=== PATIENT | female | born 1935 | race Caucasian/White ===

== ENCOUNTER → 2016-11-28 | Outpatient (CLI) | payer MEDICARE, BC ==
--- NOTE | 2016-11-28 10:24 | CR ---
EXAMINATION: Double contrast barium esophagram HISTORY: Difficulty swallowing COMPARISON: None TECHNIQUE: A standard double contrast barium esophagram was performed. FINDINGS: The esophagus overall appears normal in caliber. No filling defect or ulceration. Mild ter tiary waves are noted. There is impression on the lower esophagus from the lower heart border. There is narrowing at the gastroesophageal junction with a possible trace hiatal hernia. Mild gastroesoph ageal reflux is noted. IMPRESSION: 1. Mild presbyesophagus. 2. Mild narrowing at the gastroesophageal junction which did not appear to completely open without a n obvious mass. 3. Possible trace hiatal hernia.
== END ==
LOC: MW.DI 08:27
PROVIDERS: ATTEND Student in an Organized Health Care Education/Training Program
DX: R13.10 Dysphagia, unspecified (principal); K22.8 Other specified diseases of esophagus
CPT/HCPCS: 74220; 74220-26

== ENCOUNTER 2017-06-20 08:59 | Emergency (ER) | payer MEDICARE, OTHER ==
[2017-06-20] MEDS ORDERED: Sodium Chloride 0.9% 2.5 ML Syringe FLUSH PRN (09:03)
[2017-06-20] MEDS ORDERED: Sodium Chloride 0.9% 10 ML Syringe FLUSH PRN (09:03)
--- NOTE | 2017-06-20 09:15 | EDM.PDOC ---
ED HPI GENERAL MEDICAL PROBLEM - General Chief Complaint: Neurological Problem Stated Complaint: HBP Time Seen by Provider: 06/20/17 09:03 Source of Information: Reports: Patient, Family History Limitations: Reports: No Limitations - History of Present Illness INITIAL COMMENTS - FREE TEXT/NARRATIVE: History of present illness: []Patient sense with speech difficulty and a stroke was called. Her gives a history that she was having some difficulty speaking while playing cards 2 nights ago but then improved. Last night around 5 PM she had difficulty finding her words and complaining of a headache. She told her she rather just go to the clinic in the morning. She went to bed and slept all night. states she slept on the william and he woke her up this morning to find that her speech was just as jumbled. They drove to Dr. Botello's office to be seen, his nurse checked her blood pressure and told them to drive straight to the emergency room. She arrives with difficulty finding her words, ambulatory, no motor weakness and is able to state that she has a headache pain. Review of systems: As per history of present illness and below otherwise all systems reviewed and negative. Past medical history: As per history of present illness and as reviewed below otherwise noncontributory. Surgical history: As per history of present illness and as reviewed below otherwise noncontributory. Social history: No reported history of drug or alcohol abuse. Family history: As per history of present illness and as reviewed below otherwise noncontributory. Physical exam: General: Well developed, well nourished in NAD HEENT: Atraumatic, normocephalic, pupils reactive, negative for conjunctival pallor or scleral icterus, mucous membranes moist, throat clear, neck supple, nontender, trachea midline. Lungs: Clear to auscultation, breath sounds equal bilaterally, chest nontender. Heart: S1S2, regular, negative for clicks, rubs, or JVD. Abdomen: Soft, nondistended, nontender. Negative for masses or hepatosplenomegaly. Negative for costovertebral tenderness. Pelvis: Stable nontender. 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: Deferred. Rectal: Deferred. Extremities: Atraumatic, negative for cords or calf pain. Neurovascular unremarkable. Neuro: Awake, alert, oriented. Cranial nerves II through XII unremarkable. Cerebellum unremarkable. Motor and sensory unremarkable throughout. Exam nonfocal. After patient returned from CT marked right-sided facial droop was noted. Patient received an aspirin and nitroglycerin here in the ED and when I returned to inform patient of their transfer to [place] patient's right-sided facial droop had resolved. Diagnostics: []CT and labs ordered CT is negative, Therapeutics: []Aspirin and nitroglycerin given Impression: []CVA Plan: []Transfer to [facility]. I initially arranged transfer for this patient to go to [facility] as it is closest hospital however patient refused and insisted on going on to [facility] Definitive disposition and diagnosis as appropriate pending reevaluation and review of above. Headache Pain Score (Numeric/FACES): 1 - Related Data Allergies Allergy/AdvReac Type Severity Reaction Status Date / Time No Known Allergies Allergy Verified 06/20/17 09:14 Home Meds: Home Meds Dorzolamide/Timolol [Cosopt 2%-0.5% Ophth Soln] 1 drop EYEBOTH DAILY 05/28/16 [ History] Latanoprost [Latanoprost] 2.5 ml EYEBOTH DAILY 05/28/16 [History] Omeprazole [Omeprazole] 40 mg PO DAILY 05/28/16 [History] Sertraline HCl [Sertraline HCl] 100 mg PO DAILY 05/28/16 [History] Past Medical History HEENT History: Reports: Cataract Cardiovascular History: Reports: Hypertension Social & Family History - Tobacco Use Smoking Status *Q: Never Smoker Second Hand Smoke Exposure: No - Recreational Drug Use Recreational Drug Use: No ED ROS GENERAL - Review of Systems Review Of Systems: See Below (See history of present illness) ED EXAM, NEURO - Physical Exam Exam: See Below (See history of present illness) Course - Vital Signs Last Recorded V/S: Last Vital Signs Temp 98.2 F 06/20/17 09:50 Pulse 65 06/20/17 09:50 Resp 16 06/20/17 09:50 BP 157/88 H 06/20/17 09:50 Pulse Ox 92 L 06/20/17 09:50 - Orders/Labs/Meds Orders: Active Orders 24 hr Category Date Time Status Assess Neurological Status [RC] ASDIRECTED Care 06/20/17 09:03 Active Bedrest [RC] ASDIRECTED Care 06/20/17 09:03 Active Blood Glucose Check, Bedside [RC] STAT Care 06/20/17 09:03 Active Cardiac Monitoring [RC] . DIRECTED Care 06/20/17 09:03 Active EKG Documentation Completion [] STAT Care 06/20/17 09:03 Active Height and Weight [] UPON Care 06/20/17 09:03 Active Initiate Acute Stroke Protocol [] STAT Care 06/20/17 09:03 Active NIH Stroke Scale [RC] ASDIRECTED Care 06/20/17 09:03 Active Nursing Bedside Swallow Screen [RC] ASDIRECTED Care 06/20/17 09:03 Active Oxygen Therapy [RC] ASDIRECTED Care 06/20/17 09:03 Active Stroke Education, General [] Click to Edit Care 06/20/17 09:03 Active Vital Signs [] Q15M Care 06/20/17 09:03 Active COMPREHENSIVE METABOLIC PN,CMP [CHEM] Stat Lab 06/20/17 09:56 Received INR,PT,PROTHROMBIN TIME [COAG] Stat Lab 06/20/17 09:56 Received PTT,PARTIAL THROMBOPLSTIN TIME [COAG] Stat Lab 06/20/17 09:56 Received TROPONIN I [CHEM] Stat Lab 06/20/17 09:56 Received TSH [CHEM] Stat Lab 06/20/17 09:56 Received Sodium Chloride 0.9% [Saline Flush] Med 06/20/17 09:03 Active 10 ml FLUSH ASDIRECTED PRN Sodium Chloride 0.9% [Saline Flush] Med 06/20/17 09:03 Active 2.5 ml FLUSH ASDIRECTED PRN Peripheral IV Insertion Adult [OM.PC] Stat Oth 06/20/17 09:03 Ordered Peripheral IV Insertion Adult [OM.PC] Stat Oth 06/20/17 09:03 Ordered Medication Orders Sodium Chloride (Saline Flush) 10 ml FLUSH ASDIRECTED PRN PRN Reason: Keep Vein Open Sodium Chloride (Saline Flush) 2.5 ml FLUSH ASDIRECTED PRN PRN Reason: Keep Vein Open Labs: Laboratory Tests 06/20/17 Range/Units 09:56 WBC 7.91 (4.0-11.0) K/uL RBC 3.59 L (4.30-5.90) M/uL Hgb 11.7 L (12.0-16.0) g/dL Hct 35.4 L (36.0-46.0) % MCV 98.6 H (80.0-98.0) fL MCH 32.6 H (27.0-32.0) pg MCHC 33.1 (31.0-37.0) g/dL RDW Std Deviation 48.5 (28.0-62.0) fl RDW Coeff of Luke 13 (11.0-15.0) % Plt Count 230 (150-400) K/uL MPV 10.70 (7.40-12.00) fL Neut % (Auto) 66.4 (48.0-80.0) % Lymph % (Auto) 19.5 (16.0-40.0) % [place] % (Auto) 12.1 (0.0-15.0) % Eos % (Auto) 1.6 (0.0-7.0) % Baso % (Auto) 0.4 (0.0-1.5) % Neut # (Auto) 5.3 (1.4-5.7) K/uL Lymph # (Auto) 1.5 (0.6-2.4) K/uL [place] # (Auto) 1.0 H (0.0-0.8) K/uL Eos # (Auto) 0.1 (0.0-0.7) K/uL Baso # (Auto) 0.0 (0.0-0.1) K/uL Nucleated RBC % 0.0 /100WBC Nucleated RBCs # 0 K/uL Meds: Medications Generic Name Dose Route Start Last Admin Trade Name Freq PRN Reason Stop Dose Admin Sodium Chloride 10 ml 06/20/17 09:03 Saline Flush FLUSH ASDIRECTED PRN Keep Vein Open Sodium Chloride 2.5 ml 06/20/17 09:03 Saline Flush FLUSH ASDIRECTED PRN Keep Vein Open Discontinued Medications Generic Name Dose Route Start Last Admin Trade Name Freq PRN Reason Stop Dose Admin Aspirin 324 mg 06/20/17 09:19 06/20/17 09:30 Aspirin PO 06/20/17 09:20 324 mg ONETIME ONE Administration Nitroglycerin 0.4 mg 06/20/17 09:19 06/20/17 09:47 Nitrostat SL 0.4 mg Q5M PRN Administration Chest Pain Departure - Departure Time of Disposition: 10:10 Disposition: DC/Tfer to Acute Hospital 02 Condition: Fair Clinical Impression: CVA (cerebral vascular accident) Qualifiers: CVA mechanism: unspecified Qualified Code(s): I63.9 - Cerebral infarction, unspecified - Discharge Information Referrals: PCP,None [Primary Care Provider] - Forms: ED Department Discharge - My Orders Last 24 Hours: My Active Orders 06/20/17 09:03 Assess Neurological Status [RC] ASDIRECTED Bedrest [RC] ASDIRECTED Blood Glucose Check, Bedside [RC] STAT Cardiac Monitoring [RC] . DIRECTED EKG Documentation Completion [RC] STAT Height and Weight [RC] UPON Initiate Acute Stroke Protocol [RC] STAT NIH Stroke Scale [RC] ASDIRECTED Nursing Bedside Swallow Screen [RC] ASDIRECTED Oxygen Therapy [RC] ASDIRECTED Stroke Education, General [RC] Click to Edit Vital Signs [RC] Q15M Sodium Chloride 0.9% [Saline Flush] 10 ml FLUSH ASDIRECTED PRN Sodium Chloride 0.9% [Saline Flush] 2.5 ml FLUSH ASDIRECTED PRN Peripheral IV Insertion Adult [OM.PC] Stat Peripheral IV Insertion Adult [OM.PC] Stat 06/20/17 09:56 COMPREHENSIVE METABOLIC PN,CMP [CHEM] Stat INR,PT,PROTHROMBIN TIME [COAG] Stat PTT,PARTIAL THROMBOPLSTIN TIME [COAG] Stat TROPONIN I [CHEM] Stat TSH [CHEM] Stat - Assessment/Plan Last 24 Hours: My Active Orders 06/20/17 09:03 Assess Neurological Status [RC] ASDIRECTED Bedrest [RC] ASDIRECTED Blood Glucose Check, Bedside [RC] STAT Cardiac Monitoring [RC] . DIRECTED EKG Documentation Completion [RC] STAT Height and Weight [RC] UPON Initiate Acute Stroke Protocol [RC] STAT NIH Stroke Scale [RC] ASDIRECTED Nursing Bedside Swallow Screen [RC] ASDIRECTED Oxygen Therapy [RC] ASDIRECTED Stroke Education, General [RC] Click to Edit Vital Signs [RC] Q15M Sodium Chloride 0.9% [Saline Flush] 10 ml FLUSH ASDIRECTED PRN Sodium Chloride 0.9% [Saline Flush] 2.5 ml FLUSH ASDIRECTED PRN Peripheral IV Insertion Adult [OM.PC] Stat Peripheral IV Insertion Adult [OM.PC] Stat 06/20/17 09:56 COMPREHENSIVE METABOLIC PN,CMP [CHEM] Stat INR,PT,PROTHROMBIN TIME [COAG] Stat PTT,PARTIAL THROMBOPLSTIN TIME [COAG] Stat TROPONIN I [CHEM] Stat TSH [CHEM] Stat
[2017-06-20] MEDS ORDERED: Aspirin 81 MG Tab.Chew PO ONE (09:19)
--- NOTE | 2017-06-20 09:22 | CT ---
EXAMINATION: Non contrast CT head. Coronal and sagittal reformats. HISTORY: Stroke code FINDINGS: No evidence of intra or extra axial hemorrhage, mass, midline shift, hydrocephalus or edema. Mild ge neralized atrophy and moderate periventricular and subcortical white matter hypodensities noted. No hypoattenuation changes in the major vascular territories to suggest acute infarct. No abnormal i ntracranial calcifications are detected. Mild vascular calcifications noted. Paranasal sinuses and mastoid air cells are well aerated without substantial findings. Orbits and gl obes are symmetric. Degenerative changes noted within the temporomandibular joints. Pituitary fossa appears unremarkable. Calvarium is intact. No evidence of skull fracture. IMPRESSION: 1. No acute intracranial findings. 2. Mild generalized atrophy and moderate small vessel ischemic changes. The above findings were called to ER at 9:19 AM.
[2017-06-20] MEDS: Nitroglycerin 0.4 MG Tab.SL SL PRN ×3 (09:35→09:47)
[2017-06-20 10:09] VITALS: BP 140/92
[2017-06-20 10:23] LABS: CHLORIDE,CL 102 mmol/L (98-110); SODIUM,NA 137 mmol/L (136-146)
== END 2017-06-20 11:10 ==
LOC: MW.ED 08:59
DX: I63.9 Cerebral infarction, unspecified (principal); I10 Essential (primary) hypertension; Z79.899 Other long term (current) drug therapy
CPT/HCPCS: 36415; 70450; 80053; 84443; 84484; 85025; 85610; 85730; 93005; 99285; A9270

== ENCOUNTER 2018-10-20 06:12 | Emergency (ER) | payer MEDICARE, OTHER ==
--- NOTE | 2018-10-20 06:18 | EDM.PDOC ---
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 She tells me that she thinks she got her flu shot this year but she is not completely sure and she says that she has had progressive shortness of breath and cough productive of thick phlegm over the last 3 days. She has not had a fever abdominal pain vomiting or diarrhea and no runny nose or sore throat. She says she doesn't eat or drink for a well in general. She is followed by our oncology clinic and she says that she had surgery on the left side of her lung to remove a nodule and then she had chemotherapy and radiation. She said that she finished her last treatment on July 10 of last year and the plan was to wait 3 months and repeat the PET scan which she just had done the end of last month. She is waiting to meet with the oncologist to see what the next steps are but she thinks that she is in remission. She has no cardiac disease that she is aware of and she says that she feels tightness across her chest more with her breathing and coughing but is not localized to the left side. She tells me that she thinks she has COPD although she has never had a formal diagnosis because of her long-standing smoking history. She says that she quit 15 years ago she smoked the majority of her life and she would not be surprised if she has some lung disease. She says the doctors never specifically told her or tested her for that. The patient has no leg pain or swelling and she tells me that all the symptoms have been gradual in onset progressive. She tells me that her pulse ox in the past has been 94-95% on room air. The patient had a PET scan just recently on October 08 which revealed avid uptake within a left thyroid nodule which was new from the prior exam and mildly increasing uptake with atelectasis and reticular densities within the superior aspect of the left lower lobe and a small left pleural effusion. According to the computer she does have an ultrasound scheduled of her thyroid Review of systems: As per history of present illness and below otherwise all systems reviewed and negative. Past medical history: As per history of present illness and as reviewed below otherwise noncontributory. Surgical history: As per history of present illness and as reviewed below otherwise noncontributory. Social history: No reported history of drug or alcohol abuse. Family history: As per history of present illness and as reviewed below otherwise noncontributory. Physical exam: General: Well-developed well-nourished thin female who is nontoxic and vital signs are noted by me. Her O2 sat on room air is ranging from 93-95%. She is not breathless on my evaluation and she is cooperative and interactive HEENT: Atraumatic, normocephalic, pupils reactive, negative for conjunctival pallor or scleral icterus, mucous membranes moist, throat clear, neck supple, nontender, trachea midline. Lungs: Clear to auscultation with scattered rhonchi and coarse breath sounds but no wheezing stridor or work of breathing and no rails, breath sounds equal bilaterally, chest nontender. Heart: S1S2, regular rate but multiple ectopic beats are heard and irregularities are appreciated no overt murmurs Abdomen: Soft, nondistended, nontender. Negative for masses or hepatosplenomegaly. Negative for costovertebral tenderness. Pelvis: Stable nontender. 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: Deferred. Rectal: Deferred. Extremities: Atraumatic, negative for cords or calf pain. Neurovascular unremarkable. No pedal edema or leg asymmetry Neuro: Awake, alert, oriented. Cranial nerves II through XII unremarkable. Cerebellum unremarkable. Motor and sensory unremarkable throughout. Exam nonfocal. Diagnostics: EKG CBC CMP troponin lactic acid influenza swab chest x-ray blood cultures Therapeutics: IV O2 monitor IV fluids duo neb Solu-Medrol 0700: Case is endorsed to Dr. Gray to follow-up testing results and disposition. Impression: Dyspnea History of left lung cancer on treatment Definitive disposition and diagnosis as appropriate pending reevaluation and review of above. Chest Pain Score (Numeric/FACES): 2 - Related Data Allergies Allergy/AdvReac Type Severity Reaction Status Date / Time codeine Allergy Delusions Verified 05/08/18 13:36 lorazepam [From Ativan] Allergy Delusions Verified 05/08/18 13:36 meperidine [From Demerol] Allergy Delusions Verified 05/08/18 13:36 Home Meds: Home Meds Dorzolamide/Timolol [Cosopt 2%-0.5% Ophth Soln] 1 drop EYERT BID 05/28/16 [ History] Latanoprost 2.5 ml EYEBOTH DAILY 05/28/16 [History] Omeprazole 40 mg PO DAILY 05/28/16 [History] Sertraline HCl 100 mg PO DAILY 05/28/16 [History] Folic Acid 1 mg PO DAILY 05/08/18 [History] Loperamide [Imodium] 2 mg PO ASDIRECTED PRN 05/08/18 [History] Losartan [Cozaar] 50 mg PO DAILY 05/08/18 [History] Albuterol [Ventolin HFA] 2 puff INH Q4HR PRN #1 inhaler 10/20/18 [Rx] Brimonidine [Alphagan 0.2% Ophth Soln] 5 ml .XX BID 10/20/18 [History] Past Medical History HEENT History: Reports: Cataract Cardiovascular History: Reports: Hypertension Respiratory History: Reports: None Other Respiratory History: hx of smoker Gastrointestinal History: Reports: None 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 History: Reports: None [employer] History: Reports: None Musculoskeletal History: Reports: None Neurological History: Reports: None Psychiatric History: Reports: None Endocrine/Metabolic History: Reports: None Hematologic History: Reports: None Immunologic History: Reports: None Oncologic (Cancer) History: Reports: None Other Oncologic History: unsure of type of cancer, but has a 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 and in the aorta Dermatologic History: Reports: None - Infectious Disease History Infectious Disease History: Reports: Chicken Pox, Measles - Past Surgical History Head Surgeries/Procedures: Reports: None HEENT Surgical History: Reports: None Cardiovascular Surgical History: Reports: None GI Surgical History: Reports: Appendectomy Female Surgical History: Reports: Other (See Below) Other Female Surgeries/Procedures: cervical cancer Endocrine Surgical History: Reports: None Neurological Surgical History: Reports: None Musculoskeletal Surgical History: Reports: None Oncologic Surgical History: Reports: None Dermatological Surgical History: Reports: None Social & Family History - Family History Family Medical History: Noncontributory - Caffeine Use Caffeine Use: Reports: Coffee ED ROS GENERAL - Review of Systems Review Of Systems: ROS reveals no pertinent complaints other than HPI. ED EXAM, GENERAL - Physical Exam Exam: See Below (See dictation) Course - Vital Signs Last Recorded V/S: Last Vital Signs Temp 98.1 F 10/20/18 06:19 Pulse 70 10/20/18 06:58 Resp 18 10/20/18 06:58 BP 156/88 H 10/20/18 06:58 Pulse Ox 95 10/20/18 06:58 - Orders/Labs/Meds Orders: Active Orders 24 hr Category Date Time Status Cardiac Monitoring [RC] . DIRECTED Care 10/20/18 06:24 Active EKG Documentation Completion [RC] STAT Care 10/20/18 06:24 Active Oxygen Therapy, ED [RC] ASDIRECTED Care 10/20/18 06:24 Active Pulse Oximetry [RC] ASDIRECTED Care 10/20/18 06:24 Active RT Aerosol Therapy [RC] ASDIRECTED Care 10/20/18 06:25 Active CULTURE BLOOD [BC] Stat Lab 10/20/18 06:30 Received CULTURE BLOOD [BC] Stat Lab 10/20/18 06:45 Received Sodium Chloride 0.9% [Normal Saline] 500 ml Med 10/20/18 06:30 Active IV STAT Sodium Chloride 0.9% [Saline Flush] Med 10/20/18 06:24 Active 10 ml FLUSH ASDIRECTED PRN Sodium Chloride 0.9% [Saline Flush] Med 10/20/18 06:24 Active 2.5 ml FLUSH ASDIRECTED PRN Blood Culture x2 Reflex Set [OM.PC] Stat Oth 10/20/18 06:30 Ordered Saline Lock Insert [OM.PC] Stat Oth 10/20/18 06:24 Ordered Medication Orders Sodium Chloride (Normal Saline) 500 mls @ 999 mls/hr IV STAT [facility] Last Admin: 10/20/18 06:52 Dose: 999 mls/hr Sodium Chloride (Saline Flush) 10 ml FLUSH ASDIRECTED PRN PRN Reason: Keep Vein Open Sodium Chloride (Saline Flush) 2.5 ml FLUSH ASDIRECTED PRN PRN Reason: Keep Vein Open Labs: Laboratory Tests 04/06/19 04/06/19 04/06/19 Range/Units 06:30 06:30 06:30 WBC 6.63 (4.0-11.0) K/uL RBC 3.38 L (4.30-5.90) M/uL Hgb 10.1 L (12.0-16.0) g/dL Hct 30.7 L (36.0-46.0) % MCV 90.8 (80.0-98.0) fL MCH 29.9 (27.0-32.0) pg MCHC 32.9 (31.0-37.0) g/dL RDW Std Deviation 53.0 (28.0-62.0) fl RDW Coeff of Luke 16 H (11.0-15.0) % Plt Count 281 (150-400) K/uL MPV 10.70 (7.40-12.00) fL Neut % (Auto) 70.6 (48.0-80.0) % Lymph % (Auto) 7.5 L (16.0-40.0) % [place] % (Auto) 19.3 H (0.0-15.0) % Eos % (Auto) 2.4 (0.0-7.0) % Baso % (Auto) 0.2 (0.0-1.5) % Neut # (Auto) 4.7 (1.4-5.7) K/uL Lymph # (Auto) 0.5 L (0.6-2.4) K/uL [place] # (Auto) 1.3 H (0.0-0.8) K/uL Eos # (Auto) 0.2 (0.0-0.7) K/uL Baso # (Auto) 0.0 (0.0-0.1) K/uL Nucleated RBC % 0.0 /100WBC Nucleated RBCs # 0 K/uL Lactate 1.2 (0.20-2.00) mmol/L Sodium 138 (136-145) mmol/L Potassium 2.8 L (3.5-5.1) mmol/L Chloride 100 (98-107) mmol/L Carbon Dioxide 29.0 (21.0-32.0) mmol/L BUN 18 (7.0-18.0) mg/dL Creatinine 0.6 (0.6-1.0) mg/dL Est Cr Clr Drug Dosing 56.19 mL/min Estimated GFR (MDRD) > 60.0 ml/min Glucose 103 (74-106) mg/dL Calcium 8.2 L (8.5-10.1) mg/dL Total Bilirubin 0.5 (0.2-1.0) mg/dL AST 24 (15-37) IU/L ALT 47 (14-63) IU/L Alkaline Phosphatase 117 H (46-116) U/L Troponin I < 0.050 (0.000-0.056) ng/mL Total Protein 5.9 L (6.4-8.2) g/dL Albumin 2.7 L (3.4-5.0) g/dL Globulin 3.2 (2.6-4.0) g/dL Albumin/Globulin Ratio 0.8 L (0.9-1.6) Meds: Medications Generic Name Dose Route Start Last Admin Trade Name Freq PRN Reason Stop Dose Admin Sodium Chloride 500 mls @ 999 mls/hr 10/20/18 06:30 10/20/18 06:52 Normal Saline IV 999 mls/hr STAT ANALILIA Administration Sodium Chloride 10 ml 10/20/18 06:24 Saline Flush FLUSH ASDIRECTED PRN Keep Vein Open Sodium Chloride 2.5 ml 10/20/18 06:24 Saline Flush FLUSH ASDIRECTED PRN Keep Vein Open Discontinued Medications Generic Name Dose Route Start Last Admin Trade Name Freq PRN Reason Stop Dose Admin Albuterol/Ipratropium 3 ml 10/20/18 06:24 10/20/18 06:47 Duoneb 3.0-0.5 Mg/3 Ml NEB 10/20/18 06:25 3 ml ONETIME ONE Administration Methylprednisolone Sodium Succinate 62.5 mg 10/20/18 06:43 10/20/18 06:54 Solu-Medrol IVPUSH 10/20/18 06:44 62.5 mg ONETIME ONE Administration Potassium Chloride 80 meq 10/20/18 07:35 10/20/18 07:50 Klor-Con M20 PO 10/20/18 07:36 80 meq ONETIME ONE Administration Departure - Departure Disposition: Home, Self-Care 01 Condition: Good Clinical Impression: History of lung cancer Dyspnea Qualifiers: Dyspnea type: unspecified Qualified Code(s): R06.00 - Dyspnea, unspecified - Discharge Information Prescriptions: Albuterol [Ventolin HFA] 2 puff INH Q4HR PRN #1 inhaler PRN Reason: Shortness Of Breath Referrals: PCP,None [Primary Care Provider] - Additional Instructions: The following information is given to patients seen in the emergency department who are being discharged to home. This information is to outline your options for follow-up care. We provide all patients seen in our emergency department with a follow-up referral. The need for follow-up, as well as the timing and circumstances, are variable depending upon the specifics of your emergency department visit. If you don't have a primary care physician on staff, we will provide you with a referral. We always advise you to contact your personal physician following an emergency department visit to inform them of the circumstance of the visit and for follow-up with them and/or the need for any referrals to a consulting specialist. The emergency department will also refer you to a specialist when appropriate. This referral assures that you have the opportunity for follow-up care with a specialist. All of these measure are taken in an effort to provide you with optimal care, which includes your follow-up. Under all circumstances we always encourage you to contact your private physician who remains a resource for coordinating your care. When calling for follow-up care, please make the office aware that this follow-up is from your recent emergency room visit. If for any reason you are refused follow-up, please contact the [facility] Emergency Department at and asked to speak to the emergency department charge nurse. Take meds as directed, follow up with your primary care physician, return to ER if symptoms worsen or change. [facility] [address] [place] [id number] <Lindsay Gray - Last Filed: 10/20/18 08:11> ED HPI GENERAL MEDICAL PROBLEM - History of Present Illness INITIAL COMMENTS - FREE TEXT/NARRATIVE: Patient was signed out to me by Dr. Nunez to check labs and x-rays. Potassium came back low at 2.9 at potassium supplement was given. Chest x-ray shows volume loss in the left hemithorax with apical pleural capping this is thought to be chronic and this is where her lung cancer is located. There is no acute airspace disease noted. Patient is being discharged with a prescription for albuterol and has 2 potassium tablets that she can take at home. Her primary care and/or her oncologist. Departure - Departure Time of Disposition: 08:10 - Discharge Information *PRESCRIPTION DRUG MONITORING PROGRAM REVIEWED*: No *COPY OF PRESCRIPTION DRUG MONITORING REPORT IN PATIENT AMY: No
[2018-10-20] MEDS ORDERED: Sodium Chloride 0.9% 2.5 ML Syringe FLUSH PRN (06:24)
[2018-10-20] MEDS ORDERED: Sodium Chloride 0.9% 10 ML Syringe FLUSH PRN (06:24)
[2018-10-20] MEDS ORDERED: Albuterol/Ipratropium 3.0-0.5 MG/3 ML Neb Soln NEB ONE (06:24)
[2018-10-20] MEDS ORDERED: Sodium Chloride 0.9% 500 ML IV SCH (06:30)
[2018-10-20] MEDS ORDERED: methylPREDNISolone Sodium Succinate 125 MG/2 ML SDV IVPUSH ONE (06:43)
[2018-10-20 06:59] VITALS: BP 156/88
[2018-10-20 07:21] LABS: CHLORIDE,CL 100 mmol/L (98-107); SODIUM,NA 138 mmol/L (136-145)
[2018-10-20] MEDS ORDERED: Potassium Chloride 20 MEQ Tab.ER PO ONE (07:35)
--- NOTE | 2018-10-20 07:59 | CR ---
INDICATION: sob/pain HISTORY: Shortness of breath and pain. COMPARISON: None. TECHNIQUE: Chest, 2 views. FINDINGS: There is left apical pleural capping, with volume loss in the left hemithorax, and contralateral pulmonary hyperinflation. These findings may be chronic. Questionable anastomotic sutures present in the left hemithorax on the PA upright view. Interstitial type opacities in the posterior segment of the left upper lobe. Blunting of the lateral costophrenic sulci. Right IJ Port-A-Cath, with its tip in the SVC. There is no acute airspace disease in the right lung. IMPRESSION: 1. Volume loss in the left hemithorax, with left apical pleural capping. 2. Although there is no comparison exam available for review, these findings are favored to be chronic. 3. No acute airspace disease is identified. Dictated by Darren Torrez MD @ 10/20/2018 7:57:00 AM Dictated by: Darren Torrez MD @ 10/20/2018 07:57:05 (Electronically Signed)
[2018-10-20] MEDS ORDERED: Ondansetron 4 MG/2 ML SDV ONE (08:28)
[2018-10-20] MEDS ORDERED: Ondansetron 4 MG/2 ML SDV IVPUSH ONE (08:31)
== END 2018-10-20 08:51 | disposition home or self-care (01) ==
LOC: MW.ED 06:12
DX: R06.02 Shortness of breath (principal); I10 Essential (primary) hypertension; Z79.899 Other long term (current) drug therapy; Z88.5 Allergy status to narcotic agent; Z88.8 Allergy status to other drugs, medicaments and biological substances; Z85.118 Personal history of other malignant neoplasm of bronchus and lung
CPT/HCPCS: 36415; 71046; 80053; 83605; 84484; 85025; 87040; 87804; 93005; 94640; 96361; 96374; 96375; 99285; A9270; J1642; J2405; J2930; J7040; 99283; J7620-GY

== ENCOUNTER 2018-10-22 09:46 | Emergency (ER) | payer MEDICARE, OTHER ==
[2018-10-22] MEDS ORDERED: Sodium Chloride 0.9% 10 ML Syringe FLUSH PRN (10:01)
[2018-10-22] MEDS ORDERED: Sodium Chloride 0.9% 2.5 ML Syringe FLUSH PRN (10:01)
--- NOTE | 2018-10-22 10:02 | EDM.PDOC ---
ED HPI GENERAL MEDICAL PROBLEM - General Chief Complaint: Respiratory Problem Time Seen by Provider: 10/22/18 09:48 Source of Information: Reports: Patient History Limitations: Reports: No Limitations - History of Present Illness INITIAL COMMENTS - FREE TEXT/NARRATIVE: History of present illness: []Patient has a history of lung cancer and arrives to ED with her complaining of upper mid back pain radiating up her left posterior neck, patient states she feels much better after she gets oxygen. Denies any fevers, chills, chest pain, nausea, vomiting or diarrhea. Review of systems: As per history of present illness and below otherwise all systems reviewed and negative. Past medical history: As per history of present illness and as reviewed below otherwise noncontributory. Surgical history: As per history of present illness and as reviewed below otherwise noncontributory. Social history: No reported history of drug or alcohol abuse. Family history: As per history of present illness and as reviewed below otherwise noncontributory. Physical exam: General: Well developed, well nourished in NAD HEENT: Atraumatic, normocephalic, pupils reactive, negative for conjunctival pallor or scleral icterus, mucous membranes moist, throat clear, neck supple, nontender, trachea midline. Lungs: Clear to auscultation, breath sounds equal bilaterally, chest nontender. No wheezing or rhonchi Heart: S1S2, regular, negative for clicks, rubs, or JVD. Abdomen: NABS, Soft, nondistended, nontender. Negative for masses or hepatosplenomegaly. Negative for costovertebral tenderness. Pelvis: Stable nontender. 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: Deferred. Rectal: Deferred. Extremities: Atraumatic, negative for cords or calf pain. Neurovascular unremarkable. Neuro: Awake, alert, oriented. Cranial nerves II through XII unremarkable. Cerebellum unremarkable. Motor and sensory unremarkable throughout. Exam nonfocal. Skin:warm and dry Diagnostics: CBC, chemistry, chest x-ray, ABG Therapeutics: O2, DuoNeb, Tylenol ED Course: Improved pain however hypoxia continues Impression: Lung cancer with hypoxia Prescriptions: Plan: Because we have no bed availability in this hospital at this time she is being transferred to [facility] which was her preference Dr. Phelps accepts for direct admission to the floor Definitive disposition and diagnosis as appropriate pending reevaluation and review of above. Left arm Pain Score (Numeric/FACES): 5 - Related Data Allergies Allergy/AdvReac Type Severity Reaction Status Date / Time codeine Allergy Delusions Verified 10/22/18 09:58 lorazepam [From Ativan] Allergy Delusions Verified 10/22/18 09:58 meperidine [From Demerol] Allergy Delusions Verified 10/22/18 09:58 Home Meds: Home Meds Dorzolamide/Timolol [Cosopt 2%-0.5% Ophth Soln] 1 drop EYERT BID 05/28/16 [ History] Latanoprost 2.5 ml EYEBOTH DAILY 05/28/16 [History] Omeprazole 40 mg PO DAILY 05/28/16 [History] Sertraline HCl 100 mg PO DAILY 05/28/16 [History] Folic Acid 1 mg PO DAILY 05/08/18 [History] Loperamide [Imodium] 2 mg PO ASDIRECTED PRN 05/08/18 [History] Losartan [Cozaar] 50 mg PO DAILY 05/08/18 [History] Albuterol [Ventolin HFA] 2 puff INH Q4HR PRN #1 inhaler 10/20/18 [Rx] Brimonidine [Alphagan 0.2% Ophth Soln] 5 ml .XX BID 10/20/18 [History] Albuterol [Proventil Neb Soln] 2.5 mg NEB Q4HR PRN #15 neb 10/22/18 [Rx] predniSONE [Prednisone] 20 mg PO DAILY #5 tablet 10/22/18 [Rx] Past Medical History HEENT History: Reports: Cataract Cardiovascular History: Reports: Hypertension Respiratory History: Reports: None Other Respiratory History: hx of smoker Gastrointestinal History: Reports: None 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 History: Reports: None 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 Musculoskeletal History: Reports: None Neurological History: Reports: None Psychiatric History: Reports: None Endocrine/Metabolic History: Reports: None Hematologic History: Reports: None Immunologic History: Reports: None Oncologic (Cancer) History: Reports: None Other Oncologic History: unsure of type of cancer, but has a 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 and in the aorta Dermatologic History: Reports: None - Infectious Disease History Infectious Disease History: Reports: Chicken Pox, Measles - Past Surgical History Head Surgeries/Procedures: Reports: None HEENT Surgical History: Reports: None Cardiovascular Surgical History: Reports: None GI Surgical History: Reports: Appendectomy Female Surgical History: Reports: Other (See Below) Other Female Surgeries/Procedures: cervical cancer Endocrine Surgical History: Reports: None Neurological Surgical History: Reports: None Musculoskeletal Surgical History: Reports: None Oncologic Surgical History: Reports: None Dermatological Surgical History: Reports: None Social & Family History - Family History Family Medical History: Noncontributory - Caffeine Use Caffeine Use: Reports: Coffee ED ROS GENERAL - Review of Systems Review Of Systems: ROS reveals no pertinent complaints other than HPI. ED EXAM, GENERAL - Physical Exam Exam: See Below (See history of present illness) Course - Vital Signs Last Recorded V/S: Last Vital Signs Temp 97.6 F 10/22/18 09:59 Pulse 86 10/22/18 09:59 Resp 18 10/22/18 09:59 BP 137/81 10/22/18 09:59 Pulse Ox 94 L 10/22/18 09:59 - Orders/Labs/Meds Orders: Active Orders 24 hr Category Date Time Status EKG 12 Lead [EKG Documentation Completion] [RC] STAT Care 10/22/18 09:50 Active RT Aerosol Therapy [RC] ASDIRECTED Care 10/22/18 11:15 Active TROPONIN I [CHEM] Stat Lab 10/22/18 10:24 Stop Req Sodium Chloride 0.9% [Saline Flush] Med 10/22/18 10:01 Active 10 ml FLUSH ASDIRECTED PRN Sodium Chloride 0.9% [Saline Flush] Med 10/22/18 10:01 Active 2.5 ml FLUSH ASDIRECTED PRN Saline Lock Insert [OM.PC] Stat Oth 10/22/18 10:01 Ordered Medication Orders Sodium Chloride (Saline Flush) 10 ml FLUSH ASDIRECTED PRN PRN Reason: Keep Vein Open Last Admin: 10/22/18 11:20 Dose: 10 ml Sodium Chloride (Saline Flush) 2.5 ml FLUSH ASDIRECTED PRN PRN Reason: Keep Vein Open Last Admin: 10/22/18 11:20 Dose: 2.5 ml Labs: Laboratory Tests 10/22/18 10/22/18 10/22/18 Range/Units 10:24 10:24 11:28 WBC 7.07 (4.0-11.0) K/uL RBC 3.28 L (4.30-5.90) M/uL Hgb 9.9 L (12.0-16.0) g/dL Hct 30.6 L (36.0-46.0) % MCV 93.3 (80.0-98.0) fL MCH 30.2 (27.0-32.0) pg MCHC 32.4 (31.0-37.0) g/dL RDW Std Deviation 56.1 (28.0-62.0) fl RDW Coeff of Luke 16 H (11.0-15.0) % Plt Count 302 (150-400) K/uL MPV 10.60 (7.40-12.00) fL Neut % (Auto) 78.1 (48.0-80.0) % Lymph % (Auto) 7.5 L (16.0-40.0) % [place] % (Auto) 12.0 (0.0-15.0) % Eos % (Auto) 2.3 (0.0-7.0) % Baso % (Auto) 0.1 (0.0-1.5) % Neut # (Auto) 5.5 (1.4-5.7) K/uL Lymph # (Auto) 0.5 L (0.6-2.4) K/uL [place] # (Auto) 0.9 H (0.0-0.8) K/uL Eos # (Auto) 0.2 (0.0-0.7) K/uL Baso # (Auto) 0.0 (0.0-0.1) K/uL Nucleated RBC % 0.0 /100WBC Nucleated RBCs # 0 K/uL ABG pH 7.563 H (7.35-7.45) ABG pCO2 29 L (35-45) mmHG ABG pO2 74 L (75-100) mmHG ABG HCO3 26 (22-26) mEq/L ABG Total CO2 23.7 ABG Base Excess 4.3 H (-2.0-2.0) Sodium 139 (136-145) mmol/L Potassium 3.9 (3.5-5.1) mmol/L Chloride 102 (98-107) mmol/L Carbon Dioxide 27.5 (21.0-32.0) mmol/L BUN 22 H (7.0-18.0) mg/dL Creatinine 0.6 (0.6-1.0) mg/dL Est Cr Clr Drug Dosing 56.19 mL/min Estimated GFR (MDRD) > 60.0 ml/min Glucose 124 H (74-106) mg/dL Calcium 8.3 L (8.5-10.1) mg/dL Total Bilirubin 0.4 (0.2-1.0) mg/dL AST 29 (15-37) IU/L ALT 56 (14-63) IU/L Alkaline Phosphatase 126 H (46-116) U/L Total Protein 5.8 L (6.4-8.2) g/dL Albumin 2.7 L (3.4-5.0) g/dL Globulin 3.1 (2.6-4.0) g/dL Albumin/Globulin Ratio 0.9 (0.9-1.6) Meds: Medications Generic Name Dose Route Start Last Admin Trade Name Freq PRN Reason Stop Dose Admin Sodium Chloride 10 ml 10/22/18 10:01 10/22/18 11:20 Saline Flush FLUSH 10 ml ASDIRECTED PRN Administration Keep Vein Open Sodium Chloride 2.5 ml 10/22/18 10:01 10/22/18 11:20 Saline Flush FLUSH 2.5 ml ASDIRECTED PRN Administration Keep Vein Open Discontinued Medications Generic Name Dose Route Start Last Admin Trade Name Freq PRN Reason Stop Dose Admin Acetaminophen 650 mg 10/22/18 11:36 10/22/18 11:43 Tylenol PO 10/22/18 11:37 650 mg NOW ONE Administration Albuterol/Ipratropium 3 ml 10/22/18 11:15 10/22/18 11:20 Duoneb 3.0-0.5 Mg/3 Ml NEB 10/22/18 11:16 3 ml ONETIME ONE Administration Prednisone 60 mg 10/22/18 11:00 10/22/18 11:20 Prednisone PO 10/22/18 11:01 60 mg ONETIME ONE Administration Departure - Departure Time of Disposition: 12:02 Disposition: DC/Tfer to Other 70 Condition: Good Clinical Impression: Upper back pain on left side - Discharge Information *PRESCRIPTION DRUG MONITORING PROGRAM REVIEWED*: No *COPY OF PRESCRIPTION DRUG MONITORING REPORT IN PATIENT AMY: No Prescriptions: Albuterol [Proventil Neb Soln] 2.5 mg NEB Q4HR PRN #15 neb PRN Reason: Shortness Of Breath predniSONE [Prednisone] 20 mg PO DAILY #5 tablet Referrals: PCP,None [Primary Care Provider] - Forms: ED Department Discharge - My Orders Last 24 Hours: My Active Orders 10/22/18 09:50 EKG 12 Lead [EKG Documentation Completion] [RC] STAT 10/22/18 10:01 Sodium Chloride 0.9% [Saline Flush] 10 ml FLUSH ASDIRECTED PRN Sodium Chloride 0.9% [Saline Flush] 2.5 ml FLUSH ASDIRECTED PRN Saline Lock Insert [OM.PC] Stat 10/22/18 10:24 TROPONIN I [CHEM] Stat 10/22/18 11:15 RT Aerosol Therapy [RC] ASDIRECTED - Assessment/Plan Last 24 Hours: My Active Orders 10/22/18 09:50 EKG 12 Lead [EKG Documentation Completion] [RC] STAT 10/22/18 10:01 Sodium Chloride 0.9% [Saline Flush] 10 ml FLUSH ASDIRECTED PRN Sodium Chloride 0.9% [Saline Flush] 2.5 ml FLUSH ASDIRECTED PRN Saline Lock Insert [OM.PC] Stat 10/22/18 10:24 TROPONIN I [CHEM] Stat 10/22/18 11:15 RT Aerosol Therapy [RC] ASDIRECTED
--- NOTE | 2018-10-22 10:47 | CR ---
EXAMINATION: Portable chest radiograph. HISTORY: Shortness of breath. Comparison: 10/20/2018. FINDINGS: The trachea is midline. The cardiomediastinal silhouette is within normal limits. Chronic interstitial prominence again noted. Likely trace bilateral pleural effusions. Heart is borderline in size for technique. Right-sided portacatheter. Left apical scarring and volume loss. Osseous structures appear unremarkable. IMPRESSION: 1. Chronic interstitial prominence likely trace bilateral pleural effusions.
[2018-10-22 10:53] LABS: CHLORIDE,CL 102 mmol/L (98-107); SODIUM,NA 139 mmol/L (136-145)
[2018-10-22] MEDS ORDERED: predniSONE 20 MG Tab PO ONE (11:00)
[2018-10-22] MEDS ORDERED: Albuterol/Ipratropium 3.0-0.5 MG/3 ML Neb Soln NEB ONE (11:15)
[2018-10-22] MEDS ORDERED: Acetaminophen 325 MG Tab PO ONE (11:36)
[2018-10-22 11:59] VITALS: BP 136/79
== END 2018-10-22 13:05 | disposition other institution (70) ==
LOC: MW.ED 09:46
DX: M54.6 Pain in thoracic spine (principal); C34.90 Malignant neoplasm of unspecified part of unspecified bronchus or lung; I10 Essential (primary) hypertension; Z88.5 Allergy status to narcotic agent; Z79.899 Other long term (current) drug therapy; Z88.8 Allergy status to other drugs, medicaments and biological substances
CPT/HCPCS: 36415; 36600; 71045; 80053; 82803; 84484; 85025; 94640; 99285; A9270; J7620-GY

== ENCOUNTER 2018-11-01 09:21 | Inpatient (IN) | payer MEDICARE, OTHER ==
--- NOTE | 2018-11-01 09:33 | EDM.PDOC ---
ED HPI GENERAL MEDICAL PROBLEM - General Chief Complaint: Respiratory Problem Stated Complaint: trouble breathing Time Seen by Provider: 11/01/18 09:32 Source of Information: Reports: Patient - History of Present Illness INITIAL COMMENTS - FREE TEXT/NARRATIVE: HISTORY AND PHYSICAL: History of present illness: [Patient presents by private vehicle She had a recent [place] [facility] [place] ultimately a stent was placed, she has underlying cancer history with chemotherapy/radiation treatment and wedge resection of her lung She was recently started on home oxygen, today she complains of shortness of breath she does not in any distress but lungs are tight on initial exam we are providing a DuoNeb and Solu-Medrol Fever nausea vomiting chills sweats no chest pain headache dizziness or palpitation no bowel or urine symptoms At her recent hospital stay at [place] they did stop Lasix at that time ] Review of systems: As per history of present illness and below otherwise all systems reviewed and negative. Past medical history: As per history of present illness and as reviewed below otherwise noncontributory. Surgical history: As per history of present illness and as reviewed below otherwise noncontributory. Social history: No reported history of drug or alcohol abuse. Family history: As per history of present illness and as reviewed below otherwise noncontributory. Physical exam: HEENT: Atraumatic, normocephalic, pupils reactive, negative for conjunctival pallor or scleral icterus, mucous membranes moist, throat clear, neck supple, nontender, trachea midline. Lungs: Clear to auscultation, breath sounds equal bilaterally, chest nontender. Heart: S1S2, regular, negative for clicks, rubs, or JVD. Abdomen: Soft, nondistended, nontender. Negative for masses or hepatosplenomegaly. Negative for costovertebral tenderness. Pelvis: Stable nontender. 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: Deferred. Rectal: Deferred. Extremities: Atraumatic, negative for cords or calf pain. Neurovascular unremarkable. Neuro: Awake, alert, oriented. Cranial nerves II through XII unremarkable. Cerebellum unremarkable. Motor and sensory unremarkable throughout. Exam nonfocal. Diagnostics: [CBC CMP UA troponin EKG Chest 1 view ] Therapeutics: [DuoNeb Solu-Medrol 125 mg IV] Zosyn 3.375 mg IV Vancomycin 1 g IV Lasix 20 mg IV Impression: [ hospital-acquired pneumonia CHF tonic history of baseline ] Definitive disposition and diagnosis as appropriate pending reevaluation and review of above. - Related Data Allergies Allergy/AdvReac Type Severity Reaction Status Date / Time codeine Allergy Delusions Verified 10/22/18 09:58 lorazepam [From Ativan] Allergy Delusions Verified 10/22/18 09:58 meperidine [From Demerol] Allergy Delusions Verified 10/22/18 09:58 Home Meds: Home Meds Dorzolamide/Timolol [Cosopt 2%-0.5% Ophth Soln] 1 drop EYERT BID 05/28/16 [ History] Latanoprost 1 drop EYEBOTH DAILY 05/28/16 [History] Omeprazole 40 mg PO DAILY 05/28/16 [History] Sertraline HCl 150 mg PO DAILY 05/28/16 [History] Loperamide [Imodium] 1 tab PO BID 05/08/18 [History] Losartan [Cozaar] 12.5 mg PO BID 05/08/18 [History] Brimonidine [Alphagan 0.2% Ophth Soln] 1 drop EYERT BID 10/20/18 [History] Activated Charcoal [Charcocaps] 260 mg PO ASDIRECTED 11/01/18 [History] Albuterol/Ipratropium [DuoNeb 3.0-0.5 MG/3 ML] 3 ml NEB QID 11/01/18 [History] Apixaban [Eliquis] 2.5 mg PO BID 11/01/18 [History] Aspirin [Adult Low Dose Aspirin EC] 81 mg PO DAILY 11/01/18 [History] Calcium Carbonate 600 mg PO DAILY 11/01/18 [History] Calcium Polycarbophil [Fibercon] 1,250 mg PO TID 11/01/18 [History] Calcium Polycarbophil [Fibercon] 1,250 mg PO TID 11/01/18 [History] Cholecalciferol (Vitamin D3) [Vitamin D3] 5,000 unit PO BID 11/01/18 [History] Cyanocobalamin (Vitamin B-12) [Cyanocobalamin Injection] 1,000 mcg IM Q14D 11/01 [History] Denosumab [Prolia] 60 mg SQ .EVERY 6 MONTHS 11/01/18 [History] Furosemide 20 mg PO DAILY 11/01/18 [History] Furosemide [Lasix] 20 mg PO DAILY 11/01/18 [History] Magnesium Oxide 400 mg PO DAILY 11/01/18 [History] Magnesium Oxide 400 mg PO DAILY 11/01/18 [History] Metoprolol Tartrate 12.5 mg PO BID 11/01/18 [History] Potassium Chloride 1 tab PO DAILY 11/01/18 [History] Potassium Chloride [Klor-Con 10] 10 meq PO DAILY 11/01/18 [History] atorvaSTATin [Lipitor] 20 mg PO DAILY 11/01/18 [History] Past Medical History HEENT History: Reports: Cataract Cardiovascular History: Reports: Hypertension Respiratory History: Reports: None Other Respiratory History: hx of smoker Gastrointestinal History: Reports: None 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 History: Reports: 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 Musculoskeletal History: Reports: None Neurological History: Reports: None Psychiatric History: Reports: None Endocrine/Metabolic History: Reports: None Hematologic History: Reports: None Immunologic History: Reports: None Oncologic (Cancer) History: Reports: None Other Oncologic History: unsure of type of cancer, but has a 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 and in the aorta Dermatologic History: Reports: None - Infectious Disease History Infectious Disease History: Reports: Chicken Pox, Measles - Past Surgical History Head Surgeries/Procedures: Reports: None HEENT Surgical History: Reports: None Cardiovascular Surgical History: Reports: None GI Surgical History: Reports: Appendectomy Female Surgical History: Reports: Other (See Below) Other Female Surgeries/Procedures: cervical cancer Endocrine Surgical History: Reports: None Neurological Surgical History: Reports: None Musculoskeletal Surgical History: Reports: None Oncologic Surgical History: Reports: None Dermatological Surgical History: Reports: None Social & Family History - Family History Family Medical History: Noncontributory - Caffeine Use Caffeine Use: Reports: Coffee ED ROS GENERAL - Review of Systems Review Of Systems: See Below ED EXAM, GENERAL - Physical Exam Exam: See Below Course - Vital Signs Last Recorded V/S: Last Vital Signs Temp 96.6 F 11/01/18 09:29 Pulse 85 11/01/18 09:29 Resp 16 11/01/18 09:29 BP 149/100 H 11/01/18 09:29 Pulse Ox 95 11/01/18 09:59 - Orders/Labs/Meds Orders: Active Orders 24 hr Category Date Time Status EKG Documentation Completion [RC] STAT Care 11/01/18 09:32 Active RT Aerosol Therapy [RC] ASDIRECTED Care 11/01/18 09:37 Active CULTURE BLOOD [BC] Stat Lab 11/01/18 11:35 Ordered CULTURE BLOOD [BC] Stat Lab 11/01/18 11:35 Ordered UA RFX BENT[place] AND CULT IF INDIC [URIN] Stat Lab 11/01/18 09:26 Ordered Vancomycin [Vancocin] 1 gm Med 11/01/18 11:20 Active Sodium Chloride 0.9% [Normal Saline] 250 ml IV ONETIME Blood Culture x2 Reflex Set [OM.PC] Stat Oth 11/01/18 11:35 Ordered Medication Orders Vancomycin HCl 1 gm/ Sodium (Chloride) 250 mls @ 166 mls/hr IV ONETIME ONE Stop: 11/01/18 12:50 Labs: Laboratory Tests 11/01/18 11/01/18 11/01/18 Range/Units 09:50 09:50 09:50 WBC 10.07 (4.0-11.0) K/uL RBC 3.30 L (4.30-5.90) M/uL Hgb 9.9 L (12.0-16.0) g/dL Hct 30.5 L (36.0-46.0) % MCV 92.4 (80.0-98.0) fL MCH 30.0 (27.0-32.0) pg MCHC 32.5 (31.0-37.0) g/dL RDW Std Deviation 48.7 (28.0-62.0) fl RDW Coeff of Luke 15 (11.0-15.0) % Plt Count 343 (150-400) K/uL MPV 11.10 (7.40-12.00) fL Neut % (Auto) 83.3 H (48.0-80.0) % Lymph % (Auto) 4.0 L (16.0-40.0) % [place] % (Auto) 10.7 (0.0-15.0) % Eos % (Auto) 1.8 (0.0-7.0) % Baso % (Auto) 0.2 (0.0-1.5) % Neut # (Auto) 8.4 H (1.4-5.7) K/uL Lymph # (Auto) 0.4 L (0.6-2.4) K/uL [place] # (Auto) 1.1 H (0.0-0.8) K/uL Eos # (Auto) 0.2 (0.0-0.7) K/uL Baso # (Auto) 0.0 (0.0-0.1) K/uL Sodium 134 L (136-145) mmol/L Potassium 4.3 (3.5-5.1) mmol/L Chloride 100 (98-107) mmol/L Carbon Dioxide 27.6 (21.0-32.0) mmol/L BUN 28 H (7.0-18.0) mg/dL Creatinine 0.8 (0.6-1.0) mg/dL Est Cr Clr Drug Dosing 40.21 mL/min Estimated GFR (MDRD) > 60.0 ml/min Glucose 116 H (74-106) mg/dL Calcium 8.4 L (8.5-10.1) mg/dL Total Bilirubin 0.4 (0.2-1.0) mg/dL AST 19 (15-37) IU/L ALT 29 (14-63) IU/L Alkaline Phosphatase 101 (46-116) U/L Troponin I 0.055 (0.000-0.056) ng/mL B-Natriuretic Peptide 1996 H (<100) PG/ML Total Protein 5.7 L (6.4-8.2) g/dL Albumin 2.5 L (3.4-5.0) g/dL Globulin 3.2 (2.6-4.0) g/dL Albumin/Globulin Ratio 0.8 L (0.9-1.6) Blood Type Antibody Screen 11/01/18 Range/Units 09:50 WBC (4.0-11.0) K/uL RBC (4.30-5.90) M/uL Hgb (12.0-16.0) g/dL Hct (36.0-46.0) % MCV (80.0-98.0) fL MCH (27.0-32.0) pg MCHC (31.0-37.0) g/dL RDW Std Deviation (28.0-62.0) fl RDW Coeff of Luke (11.0-15.0) % Plt Count (150-400) K/uL MPV (7.40-12.00) fL Neut % (Auto) (48.0-80.0) % Lymph % (Auto) (16.0-40.0) % [place] % (Auto) (0.0-15.0) % Eos % (Auto) (0.0-7.0) % Baso % (Auto) (0.0-1.5) % Neut # (Auto) (1.4-5.7) K/uL Lymph # (Auto) (0.6-2.4) K/uL [place] # (Auto) (0.0-0.8) K/uL Eos # (Auto) (0.0-0.7) K/uL Baso # (Auto) (0.0-0.1) K/uL Sodium (136-145) mmol/L Potassium (3.5-5.1) mmol/L Chloride (98-107) mmol/L Carbon Dioxide (21.0-32.0) mmol/L BUN (7.0-18.0) mg/dL Creatinine (0.6-1.0) mg/dL Est Cr Clr Drug Dosing mL/min Estimated GFR (MDRD) ml/min Glucose (74-106) mg/dL Calcium (8.5-10.1) mg/dL Total Bilirubin (0.2-1.0) mg/dL AST (15-37) IU/L ALT (14-63) IU/L Alkaline Phosphatase (46-116) U/L Troponin I (0.000-0.056) ng/mL B-Natriuretic Peptide (<100) PG/ML Total Protein (6.4-8.2) g/dL Albumin (3.4-5.0) g/dL Globulin (2.6-4.0) g/dL Albumin/Globulin Ratio (0.9-1.6) Blood Type B POSITIVE Antibody Screen NEGATIVE Meds: Medications Generic Name Dose Route Start Last Admin Trade Name Freq PRN Reason Stop Dose Admin Vancomycin HCl 1 gm/ Sodium 250 mls @ 166 mls/hr 11/01/18 11:20 Chloride IV 11/01/18 12:50 ONETIME ONE Discontinued Medications Generic Name Dose Route Start Last Admin Trade Name Freq PRN Reason Stop Dose Admin Albuterol/Ipratropium 3 ml 11/01/18 09:36 11/01/18 09:50 Duoneb 3.0-0.5 Mg/3 Ml NEB 11/01/18 09:37 3 ml ONETIME ONE Administration Diazepam 2.5 mg 11/01/18 11:32 11/01/18 11:37 Valium IVPUSH 11/01/18 11:33 Not Given ONETIME ONE Diazepam 2.5 mg 11/01/18 11:36 Valium IVPUSH 11/01/18 11:37 ONETIME ONE Furosemide 20 mg 11/01/18 11:20 Lasix IVPUSH 11/01/18 11:21 NOW ONE Methylprednisolone Sodium Succinate 125 mg 11/01/18 09:36 11/01/18 09:51 Solu-Medrol IVPUSH 11/01/18 09:37 125 mg ONETIME ONE Administration Departure - Departure Time of Disposition: 11:40 Disposition: Admitted As Inpatient 66 Condition: Poor Clinical Impression: CHF (congestive heart failure), Pneumonia - Discharge Information Referrals: PCP,Unknown [Primary Care Provider] - Forms: ED Department Discharge - My Orders Last 24 Hours: My Active Orders 11/01/18 09:26 UA RFX BENTON AND CULT IF INDIC [URIN] Stat 11/01/18 09:32 EKG Documentation Completion [RC] STAT 11/01/18 09:37 RT Aerosol Therapy [RC] ASDIRECTED 11/01/18 11:20 Vancomycin [Vancocin] 1 gm Sodium Chloride 0.9% [Normal Saline] 250 ml IV ONETIME 11/01/18 11:35 CULTURE BLOOD [BC] Stat CULTURE BLOOD [BC] Stat Blood Culture x2 Reflex Set [OM.PC] Stat - Assessment/Plan Last 24 Hours: My Active Orders 11/01/18 09:26 UA RFX BENT[place] AND CULT IF INDIC [URIN] Stat 11/01/18 09:32 EKG Documentation Completion [RC] STAT 11/01/18 09:37 RT Aerosol Therapy [RC] ASDIRECTED 11/01/18 11:20 Vancomycin [Vancocin] 1 gm Sodium Chloride 0.9% [Normal Saline] 250 ml IV ONETIME 11/01/18 11:35 CULTURE BLOOD [BC] Stat CULTURE BLOOD [BC] Stat Blood Culture x2 Reflex Set [OM.PC] Stat
[2018-11-01] MEDS ORDERED: methylPREDNISolone Sodium Succinate 125 MG/2 ML SDV IVPUSH ONE (09:36)
[2018-11-01] MEDS ORDERED: Albuterol/Ipratropium 3.0-0.5 MG/3 ML Neb Soln NEB ONE (09:36)
[2018-11-01 10:34] LABS: CHLORIDE,CL 100 mmol/L (98-107); SODIUM,NA 134 mmol/L (136-145)
--- NOTE | 2018-11-01 11:13 | CR ---
EXAMINATION: Portable chest radiograph. HISTORY: Shortness of breath. COMPARISON: 10/22/2018. FINDINGS: The trachea is midline. The cardiomediastinal silhouette is stable. Chronic interstitial prominence and left-sided volume loss. Aortic calcifications noted. Right-sided portacatheter. Trace bilateral pleural effusions, stable. Mildly increased left apical opacity. Osseous structures appear osteopenic. IMPRESSION: 1. Mildly increased left apical opacity, developing pneumonia is not excluded. 2. Stable volume loss, trace pleural effusions, and interstitial prominence.
[2018-11-01] MEDS ORDERED: Furosemide 40 MG/4 ML VIAL IVPUSH ONE (11:20)
[2018-11-01] MEDS ORDERED: diazePAM 5 MG/ML MDV ONE (11:38)
--- NOTE | 2018-11-01 12:04 | PCM.HP ---
<Harper Stone M - Last Filed: 11/01/18 13:06> H&P History of Present Illness - General Date of Service: 11/01/18 Admit Problem/Dx: Admission Diagnosis/Problem Admission Diagnosis/Problem Pneumonia Source of Information: Patient, Old Records (H/P and DC summary from recent admission in [place] 10/22-10/25) History Limitations: Reports: No Limitations - History of Present Illness Initial Comments - Free Text/Narative: This 83 year old female with pmh of HTN, dyslipidemia, lung ca, left upper lobe resection, emphysema, afib on chronic anticoagulation, CHF and recent cardiac stenting in [place] presented to the ED today with concerns of increasing shortness of breath and not feeling well. She reports she was recently discharged from [place] in [place] after having bilateral thoracentesis and cardiac stent placed. She was discharged home on Oxygen, 3 L NC. She denies chest pain, but reports shortness of breath and productive cough, generalized weakness and malaise. She denies urinary concerns, no diarrhea or constipation. NO black or bloody BMs. Regarding lung ca, her last chemotherapy was 07/10/2018. Recently had a PET scan which she was told was negative. She continues to follow with Dr Elam. In the ED, no leukocytosis noted, 10,000, Hgb 9.9, Na 134. BUN 28, Cr 0.8. BNP 1996. Troponin negative. CXR revealed mildly increased left apical opacity, developing pneumonia is not excluded. Stable volume loss, pleural effusion and interstitial prominence. In the ED she was given Solumedrol, Lasix 20 mg IV, and Diazepam for anxiety. She was also started on Vancomycin for HCAP pneumonia. She will be admitted for acute on chronic hypocix respiratory failure due to a combination of acute exacerbation of systolic heart failure and HCAP. In [place], last BNP noted on 10/25 was 278. 10/23/18: ECHO revealed severe left ventricular hypokinesis with EF of 22%. - Related Data Allergies/Adverse Reactions: Allergies Allergy/AdvReac Type Severity Reaction Status Date / Time codeine Allergy Delusions Verified 10/22/18 09:58 lorazepam [From Ativan] Allergy Delusions Verified 10/22/18 09:58 meperidine [From Demerol] Allergy Delusions Verified 10/22/18 09:58 Home Medications: Home Meds Dorzolamide/Timolol [Cosopt 2%-0.5% Ophth Soln] 1 drop EYERT BID 05/28/16 [ History] Latanoprost 1 drop EYEBOTH DAILY 05/28/16 [History] Omeprazole 40 mg PO DAILY 05/28/16 [History] Sertraline HCl 150 mg PO DAILY 05/28/16 [History] Loperamide [Imodium] 1 tab PO BID 05/08/18 [History] Losartan [Cozaar] 12.5 mg PO BID 05/08/18 [History] Brimonidine [Alphagan 0.2% Ophth Soln] 1 drop EYERT BID 10/20/18 [History] Activated Charcoal [Charcocaps] 260 mg PO ASDIRECTED 11/01/18 [History] Albuterol/Ipratropium [DuoNeb 3.0-0.5 MG/3 ML] 3 ml NEB QID 11/01/18 [History] Apixaban [Eliquis] 2.5 mg PO BID 11/01/18 [History] Aspirin [Adult Low Dose Aspirin EC] 81 mg PO DAILY 11/01/18 [History] Calcium Carbonate 600 mg PO DAILY 11/01/18 [History] Calcium Polycarbophil [Fibercon] 1,250 mg PO TID 11/01/18 [History] Calcium Polycarbophil [Fibercon] 1,250 mg PO TID 11/01/18 [History] Cholecalciferol (Vitamin D3) [Vitamin D3] 5,000 unit PO BID 11/01/18 [History] Cyanocobalamin (Vitamin B-12) [Cyanocobalamin Injection] 1,000 mcg IM Q14D 11/01 [History] Denosumab [Prolia] 60 mg SQ .EVERY 6 MONTHS 11/01/18 [History] Furosemide 20 mg PO DAILY 11/01/18 [History] Furosemide [Lasix] 20 mg PO DAILY 11/01/18 [History] Magnesium Oxide 400 mg PO DAILY 11/01/18 [History] Magnesium Oxide 400 mg PO DAILY 11/01/18 [History] Metoprolol Tartrate 12.5 mg PO BID 11/01/18 [History] Potassium Chloride 1 tab PO DAILY 11/01/18 [History] Potassium Chloride [Klor-Con 10] 10 meq PO DAILY 11/01/18 [History] atorvaSTATin [Lipitor] 20 mg PO DAILY 11/01/18 [History] Past Medical History HEENT History: Reports: Cataract Cardiovascular History: Reports: Afib, CAD, Heart Failure, Hypertension, [place], Stents Respiratory History: Reports: COPD (emphysema) Other Respiratory History: hx of smoker Gastrointestinal History: Reports: None. Denies: GERD, GI Bleed 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 History: Reports: None. 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 Denies: Diabetes, Type II, Hypothyroidism Hematologic History: Reports: Anticoagulation Therapy Immunologic History: Reports: None Oncologic (Cancer) History: Reports: Lung (had mets to sternum, per patient. Recent PET scan negative.), Uterine Dermatologic History: Reports: None - Infectious Disease History Infectious Disease History: Reports: Chicken Pox, Measles - Past Surgical History Head Surgeries/Procedures: Reports: None HEENT Surgical History: Reports: None Cardiovascular Surgical History: Reports: Coronary Artery Stent Respiratory Surgical History: Reports: Lung Resection GI Surgical History: Reports: Appendectomy Female Surgical History: Reports: Hysterectomy (uterine ca) Endocrine Surgical History: Reports: None Neurological Surgical History: Reports: None Musculoskeletal Surgical History: Reports: None Oncologic Surgical History: Reports: None Dermatological Surgical History: Reports: None Social & Family History - Family History Family Medical History: Noncontributory - Tobacco Use Smoking Status *Q: Former Smoker Used Tobacco, but Quit: Yes Month/Year Tobacco Last Used: 07/1998 - Caffeine Use Caffeine Use: Reports: Coffee - Alcohol Use Alcohol Use History: No - Recreational Drug Use Recreational Drug Use: No - Living Situation & Occupation Living situation: Reports: Occupation: Retired H&P Review of Systems - Review of Systems: Review Of Systems: See Below General: Reports: Malaise, Weakness, Decreased Appetite HEENT: Denies: Ear Pain, Headaches, Sinus Congestion, Sore Throat, Vertigo Pulmonary: Reports: Shortness of Breath, Cough, Sputum. Denies: Hemoptysis Cardiovascular: Reports: Edema (feet). Denies: Chest Pain, Palpitations Gastrointestinal: Reports: No Symptoms. Denies: Abdominal Pain, Black Stool, Bloody Stool, Nausea, Vomiting 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: Reports: Urgency. Denies: Dysuria, Frequency, Burning Musculoskeletal: Denies: Neck Pain, Back Pain Skin: Reports: No Symptoms Psychiatric: Reports: No Symptoms Neurological: Reports: No Symptoms Hematologic/Lymphatic: Reports: No Symptoms Immunologic: Reports: No Symptoms Exam - Exam Exam: See Below - Vital Signs Vital Signs: Last Vital Signs Temp 96.6 F 11/01/18 09:29 Pulse 87 11/01/18 11:51 Resp 18 11/01/18 11:51 BP 126/67 11/01/18 11:51 Pulse Ox 97 11/01/18 11:51 Weight: 52.617 kg - Exam Quality Assessment: Supplemental Oxygen, DVT Prophylaxis General: Alert, Oriented, Cooperative HEENT: Conjunctiva Clear, Mucosa Moist & Mcn[place], Posterior Pharynx Clear Neck: Supple, Full Range of Motion, JVD Lungs: Normal Respiratory Effort (dyspnea noted with speech and pursed lip breathing.), Decreased Breath Sounds (L upper). No: Wheezing Cardiovascular: Regular Rate, Normal S1, Normal S2, Irregular Rhythm. No: Systolic Murmur GI/Abdominal Exam: Normal Bowel Sounds, Soft, Non-Tender, No Mass Extremities: Normal Inspection, Normal Range of Motion, Non-Tender, Pedal Edema (+2 pitting edema bilaterally) Neuro Extensive - Mental Status: Alert, Oriented x3, Normal Mood/Affect Neuro Extensive - Motor, Sensory, Reflexes: CN II-XII Intact Psychiatric: Alert, Normal Affect, Normal Mood - Patient Data Lab Results Last 24 hrs: Laboratory Results - last 24 hr 11/01/18 11/01/18 11/01/18 Range/Units 09:50 09:50 09:50 WBC 10.07 (4.0-11.0) K/uL RBC 3.30 L (4.30-5.90) M/uL Hgb 9.9 L (12.0-16.0) g/dL Hct 30.5 L (36.0-46.0) % MCV 92.4 (80.0-98.0) fL MCH 30.0 (27.0-32.0) pg MCHC 32.5 (31.0-37.0) g/dL RDW Std Deviation 48.7 (28.0-62.0) fl RDW Coeff of Luke 15 (11.0-15.0) % Plt Count 343 (150-400) K/uL MPV 11.10 (7.40-12.00) fL Neut % (Auto) 83.3 H (48.0-80.0) % Lymph % (Auto) 4.0 L (16.0-40.0) % [place] % (Auto) 10.7 (0.0-15.0) % Eos % (Auto) 1.8 (0.0-7.0) % Baso % (Auto) 0.2 (0.0-1.5) % Neut # (Auto) 8.4 H (1.4-5.7) K/uL Lymph # (Auto) 0.4 L (0.6-2.4) K/uL [place] # (Auto) 1.1 H (0.0-0.8) K/uL Eos # (Auto) 0.2 (0.0-0.7) K/uL Baso # (Auto) 0.0 (0.0-0.1) K/uL Sodium 134 L (136-145) mmol/L Potassium 4.3 (3.5-5.1) mmol/L Chloride 100 (98-107) mmol/L Carbon Dioxide 27.6 (21.0-32.0) mmol/L BUN 28 H (7.0-18.0) mg/dL Creatinine 0.8 (0.6-1.0) mg/dL Est Cr Clr Drug Dosing 40.21 mL/min Estimated GFR (MDRD) > 60.0 ml/min Glucose 116 H (74-106) mg/dL Calcium 8.4 L (8.5-10.1) mg/dL Total Bilirubin 0.4 (0.2-1.0) mg/dL AST 19 (15-37) IU/L ALT 29 (14-63) IU/L Alkaline Phosphatase 101 (46-116) U/L Troponin I 0.055 (0.000-0.056) ng/mL B-Natriuretic Peptide 1996 H (<100) PG/ML Total Protein 5.7 L (6.4-8.2) g/dL Albumin 2.5 L (3.4-5.0) g/dL Globulin 3.2 (2.6-4.0) g/dL Albumin/Globulin Ratio 0.8 L (0.9-1.6) Blood Type Antibody Screen 11/01/18 Range/Units 09:50 WBC (4.0-11.0) K/uL RBC (4.30-5.90) M/uL Hgb (12.0-16.0) g/dL Hct (36.0-46.0) % MCV (80.0-98.0) fL MCH (27.0-32.0) pg MCHC (31.0-37.0) g/dL RDW Std Deviation (28.0-62.0) fl RDW Coeff of Luke (11.0-15.0) % Plt Count (150-400) K/uL MPV (7.40-12.00) fL Neut % (Auto) (48.0-80.0) % Lymph % (Auto) (16.0-40.0) % [place] % (Auto) (0.0-15.0) % Eos % (Auto) (0.0-7.0) % Baso % (Auto) (0.0-1.5) % Neut # (Auto) (1.4-5.7) K/uL Lymph # (Auto) (0.6-2.4) K/uL [place] # (Auto) (0.0-0.8) K/uL Eos # (Auto) (0.0-0.7) K/uL Baso # (Auto) (0.0-0.1) K/uL Sodium (136-145) mmol/L Potassium (3.5-5.1) mmol/L Chloride (98-107) mmol/L Carbon Dioxide (21.0-32.0) mmol/L BUN (7.0-18.0) mg/dL Creatinine (0.6-1.0) mg/dL Est Cr Clr Drug Dosing mL/min Estimated GFR (MDRD) ml/min Glucose (74-106) mg/dL Calcium (8.5-10.1) mg/dL Total Bilirubin (0.2-1.0) mg/dL AST (15-37) IU/L ALT (14-63) IU/L Alkaline Phosphatase (46-116) U/L Troponin I (0.000-0.056) ng/mL B-Natriuretic Peptide (<100) PG/ML Total Protein (6.4-8.2) g/dL Albumin (3.4-5.0) g/dL Globulin (2.6-4.0) g/dL Albumin/Globulin Ratio (0.9-1.6) Blood Type B POSITIVE Antibody Screen NEGATIVE Result Diagrams: 11/01/18 09:50 11/01/18 09:50 EKG INTERPRETATION Rhythm: NSR Rate (Beats/Min): 70 P-Wave: Present QRS: Normal ST-T: Normal QT: Normal - Problem List (1) Acute and chronic respiratory failure with hypoxia SNOMED Code(s): 77101084, 391973846 ICD Code: J96.21 - ACUTE AND CHRONIC RESPIRATORY FAILURE WITH HYPOXIA Status: Acute Current Visit: Yes (2) CHF (congestive heart failure) SNOMED Code(s): 59454467 ICD Code: I50.9 - HEART FAILURE, UNSPECIFIED Status: Acute Current Visit : Yes Qualifiers: Heart failure type: systolic Heart failure chronicity: acute on chronic Qualified Code(s): I50.23 - Acute on chronic systolic (congestive) heart failure (3) Healthcare-associated pneumonia SNOMED Code(s): 877794303, 043168583 ICD Code: J18.9 - PNEUMONIA, UNSPECIFIED ORGANISM Status: Acute Current Visit: Yes (4) HTN (hypertension) SNOMED Code(s): 22158912 ICD Code: I10 - ESSENTIAL (PRIMARY) HYPERTENSION Status: Chronic Current Visit: Yes (5) Afib SNOMED Code(s): 04004800 ICD Code: I48.91 - UNSPECIFIED ATRIAL FIBRILLATION Status: Chronic Current Visit: Yes (6) Anticoagulated SNOMED Code(s): 078861947, 736332759 ICD Code: Z79.01 - DETENTION (CURRENT) USE OF ANTICOAGULANTS Status: Chronic Current Visit: Yes (7) History of TIAs SNOMED Code(s): 934602351 ICD Code: Z86.73 - PRSNL HX OF TIA (TIA), AND CEREB INFRC W/O RESID DEFICITS Status: Chronic Current Visit: Yes (8) Emphysema lung SNOMED Code(s): 51153643 ICD Code: J43.9 - EMPHYSEMA, UNSPECIFIED Status: Chronic Current Visit: Yes (9) GERD (gastroesophageal reflux disease) SNOMED Code(s): 205812728 ICD Code: K21.9 - GASTRO-ESOPHAGEAL REFLUX DISEASE WITHOUT ESOPHAGITIS Status: Chronic Current Visit: Yes (10) Macular degeneration SNOMED Code(s): 736070371 ICD Code: H35.30 - UNSPECIFIED MACULAR DEGENERATION Status: Chronic Current Visit: Yes (11) Glaucoma SNOMED Code(s): 40018931 ICD Code: H40.9 - UNSPECIFIED GLAUCOMA Status: Chronic Current Visit: Yes (12) History of uterine cancer SNOMED Code(s): 233751713 ICD Code: Z85.42 - PERSONAL HISTORY OF MALIGNANT NEOPLASM OF OTH PRT UTERUS Status: Chronic Current Visit: Yes (13) CAD (coronary artery disease) SNOMED Code(s): 67309451 ICD Code: I25.10 - ATHSCL HEART DISEASE OF [place] CORONARY ARTERY W/O ANG PCTRS Status: Chronic Current Visit: Yes Qualifiers: Coronary Disease-Associated Artery/Lesion type: [place] artery [place] vs. transplanted heart: [place] heart Associated angina: without angina Qualified Code(s): I25.10 - Atherosclerotic heart disease of [place] coronary artery without angina pectoris (14) Hx of non-ST elevation myocardial infarction (NSTEMI) SNOMED Code(s): 420267815 ICD Code: I25.2 - OLD MYOCARDIAL INFARCTION Status: Chronic Current Visit : Yes Problem Details: 10/22/2018 Problem List Initiated/Reviewed/Updated: Yes Orders Last 24hrs: Active Orders 24 hr Category Date Time Status Admission Status [Patient Status] [ADT] Stat ADT 11/01/18 11:57 Active EKG Documentation Completion [RC] STAT Care 11/01/18 09:32 Active RT Aerosol Therapy [RC] ASDIRECTED Care 11/01/18 09:37 Active CULTURE BLOOD [BC] Stat Lab 11/01/18 11:35 Ordered CULTURE BLOOD [BC] Stat Lab 11/01/18 11:45 Received UA RFX [place] AND CULT IF INDIC [URIN] Stat Lab 11/01/18 11:40 Received Vancomycin [Vancocin] 1 gm Med 11/01/18 11:20 Active Sodium Chloride 0.9% [Normal Saline] 250 ml IV ONETIME diazePAM [Valium] Med 11/01/18 12:15 Once 2.5 mg IVPUSH ONETIME ONE Blood Culture x2 Reflex Set [OM.PC] Stat Oth 11/01/18 11:35 Ordered Medication Orders Diazepam (Valium) 2.5 mg IVPUSH ONETIME ONE Stop: 11/01/18 12:16 Vancomycin HCl 1 gm/ Sodium (Chloride) 250 mls @ 166 mls/hr IV ONETIME ONE Stop: 11/01/18 12:50 Assessment/Plan Comment:: This 83 year old female admitted with acute on chronic respiratory failure, acute on chronic systolic CHF, and HCAP 1. Acute on chronic respiratory failure: Increased shortness of breath and increased oxygen needs. On 3 L NC at home. Continue Oxygen, keep sats 88%-92% due to hx of COPD. Duonebs PRN. No wheezing heard. 2. Acute on chronic systolic CHF: Recently had stenting in [place]. BNP on 10/25 278. Will give another 20 mg IV Lasix now, to equal 40 mg and start Lasix 40 mg IV daily. Strict I/O and daily weights. 3. HCAP: BC pending, will obtain sputum culture. Continue Vancomycin, Zosyn and Levaquin, covering for potential gram negative infection. 4. Afib: EKG reveals SR, will continue Metoprolol and Eliquis. Monitor on telemetry. 5. HTN: Stable, will hold Cozaar during diuresis. Monitor BP. 6. CAD: Stable, no chest pain. Continue Plavix and ASA. Along with Statin. VTE prophylaxis: Eliquis Dispo: 2-4 days pending improvement. <Stoney Zuniga - Last Filed: 11/01/18 15:55> H&P History of Present Illness - General Admit Problem/Dx: Admission Diagnosis/Problem Admission Diagnosis/Problem Pneumonia - History of Present Illness Initial Comments - Free Text/Narative: I have seen and examined the patient independently of Harper Stone CNP. I have discussed the case with her. I have reviewed and agreed with the plan of treatment as outlined for this patient by her. Please see orders. Exam - Vital Signs Vital Signs: Last Vital Signs Temp 36.2 C 11/01/18 15:41 Pulse 74 11/01/18 15:41 Resp 18 11/01/18 15:41 BP 116/63 11/01/18 15:41 Pulse Ox 96 11/01/18 15:41 - Patient Data Lab Results Last 24 hrs: Laboratory Results - last 24 hr 11/01/18 11/01/18 11/01/18 Range/Units 09:50 09:50 09:50 WBC 10.07 (4.0-11.0) K/uL RBC 3.30 L (4.30-5.90) M/uL Hgb 9.9 L (12.0-16.0) g/dL Hct 30.5 L (36.0-46.0) % MCV 92.4 (80.0-98.0) fL MCH 30.0 (27.0-32.0) pg MCHC 32.5 (31.0-37.0) g/dL RDW Std Deviation 48.7 (28.0-62.0) fl RDW Coeff of Luke 15 (11.0-15.0) % Plt Count 343 (150-400) K/uL MPV 11.10 (7.40-12.00) fL Neut % (Auto) 83.3 H (48.0-80.0) % Lymph % (Auto) 4.0 L (16.0-40.0) % [place] % (Auto) 10.7 (0.0-15.0) % Eos % (Auto) 1.8 (0.0-7.0) % Baso % (Auto) 0.2 (0.0-1.5) % Neut # (Auto) 8.4 H (1.4-5.7) K/uL Lymph # (Auto) 0.4 L (0.6-2.4) K/uL [place] # (Auto) 1.1 H (0.0-0.8) K/uL Eos # (Auto) 0.2 (0.0-0.7) K/uL Baso # (Auto) 0.0 (0.0-0.1) K/uL Sodium 134 L (136-145) mmol/L Potassium 4.3 (3.5-5.1) mmol/L Chloride 100 (98-107) mmol/L Carbon Dioxide 27.6 (21.0-32.0) mmol/L BUN 28 H (7.0-18.0) mg/dL Creatinine 0.8 (0.6-1.0) mg/dL Est Cr Clr Drug Dosing 40.21 mL/min Estimated GFR (MDRD) > 60.0 ml/min Glucose 116 H (74-106) mg/dL Calcium 8.4 L (8.5-10.1) mg/dL Total Bilirubin 0.4 (0.2-1.0) mg/dL AST 19 (15-37) IU/L ALT 29 (14-63) IU/L Alkaline Phosphatase 101 (46-116) U/L Troponin I 0.055 (0.000-0.056) ng/mL B-Natriuretic Peptide 1996 H (<100) PG/ML Total Protein 5.7 L (6.4-8.2) g/dL Albumin 2.5 L (3.4-5.0) g/dL Globulin 3.2 (2.6-4.0) g/dL Albumin/Globulin Ratio 0.8 L (0.9-1.6) Urine Color Urine Appearance Urine pH (5.0-8.0) Ur Specific [place] (1.001-1.035) Urine Protein (NEGATIVE) mg/dL Urine Glucose (UA) (NEGATIVE) mg/dL Urine Ketones (NEGATIVE) mg/dL Urine Occult Blood (NEGATIVE) Urine Nitrite (NEGATIVE) Urine Bilirubin (NEGATIVE) Urine Urobilinogen (<2.0) EU/dL Ur Leukocyte Esterase (NEGATIVE) Urine RBC (0-2/HPF) Urine WBC (0-5/HPF) Ur Epithelial Cells (NONE-FEW) Calcium Oxalate Crystal (NEGATIVE) Urine Bacteria (NEGATIVE) Blood Type Antibody Screen 11/01/18 11/01/18 Range/Units 09:50 11:40 WBC (4.0-11.0) K/uL RBC (4.30-5.90) M/uL Hgb (12.0-16.0) g/dL Hct (36.0-46.0) % MCV (80.0-98.0) fL MCH (27.0-32.0) pg MCHC (31.0-37.0) g/dL RDW Std Deviation (28.0-62.0) fl RDW Coeff of Luke (11.0-15.0) % Plt Count (150-400) K/uL MPV (7.40-12.00) fL Neut % (Auto) (48.0-80.0) % Lymph % (Auto) (16.0-40.0) % [place] % (Auto) (0.0-15.0) % Eos % (Auto) (0.0-7.0) % Baso % (Auto) (0.0-1.5) % Neut # (Auto) (1.4-5.7) K/uL Lymph # (Auto) (0.6-2.4) K/uL [place] # (Auto) (0.0-0.8) K/uL Eos # (Auto) (0.0-0.7) K/uL Baso # (Auto) (0.0-0.1) K/uL Sodium (136-145) mmol/L Potassium (3.5-5.1) mmol/L Chloride (98-107) mmol/L Carbon Dioxide (21.0-32.0) mmol/L BUN (7.0-18.0) mg/dL Creatinine (0.6-1.0) mg/dL Est Cr Clr Drug Dosing mL/min Estimated GFR (MDRD) ml/min Glucose (74-106) mg/dL Calcium (8.5-10.1) mg/dL Total Bilirubin (0.2-1.0) mg/dL AST (15-37) IU/L ALT (14-63) IU/L Alkaline Phosphatase (46-116) U/L Troponin I (0.000-0.056) ng/mL B-Natriuretic Peptide (<100) PG/ML Total Protein (6.4-8.2) g/dL Albumin (3.4-5.0) g/dL Globulin (2.6-4.0) g/dL Albumin/Globulin Ratio (0.9-1.6) Urine Color YELLOW Urine Appearance CLEAR Urine pH 6.0 (5.0-8.0) Ur Specific [place] <= 1.005 (1.001-1.035) Urine Protein NEGATIVE (NEGATIVE) mg/dL Urine Glucose (UA) NEGATIVE (NEGATIVE) mg/dL Urine Ketones NEGATIVE (NEGATIVE) mg/dL Urine Occult Blood NEGATIVE (NEGATIVE) Urine Nitrite NEGATIVE (NEGATIVE) Urine Bilirubin NEGATIVE (NEGATIVE) Urine Urobilinogen 0.2 (<2.0) EU/dL Ur Leukocyte Esterase MODERATE H (NEGATIVE) Urine RBC 3-6 (0-2/HPF) Urine WBC 2-4 (0-5/HPF) Ur Epithelial Cells MODERATE (NONE-FEW) Calcium Oxalate Crystal MANY (NEGATIVE) Urine Bacteria 1+ H (NEGATIVE) Blood Type B POSITIVE Antibody Screen NEGATIVE Result Diagrams: 11/01/18 09:50 11/01/18 09:50 Orders Last 24hrs: Active Orders 24 hr Category Date Time Status Admission Status [Patient Status] [ADT] Stat ADT 11/01/18 11:57 Active EKG Documentation Completion [RC] STAT Care 11/01/18 09:32 Active Height and Weight [RC] DAILY Care 11/01/18 12:31 Active Oxygen Therapy [RC] PRN Care 11/01/18 12:31 Active RT Aerosol Therapy [RC] ASDIRECTED Care 11/01/18 09:37 Active Telemetry Monitoring [Cardiac Monitoring] [RC] . Care 11/01/18 12:31 Active DIRECTED Up With Assistance [RC] ASDIRECTED Care 11/01/18 12:31 Active VTE/DVT Education [RC] PER UNIT ROUTINE Care 11/01/18 12:31 Active Vital Signs [RC] Q4H Care 11/01/18 12:31 Active 2 Gram Sodium Diet [DIET] Diet 11/01/18 Lunch Active BASIC METABOLIC PANEL,BMP [CHEM] AM Lab 11/02/18 05:11 Ordered BASIC METABOLIC PANEL,BMP [CHEM] AM Lab 11/03/18 05:11 Ordered BASIC METABOLIC PANEL,BMP [CHEM] AM Lab 11/04/18 05:11 Ordered CBC WITH AUTO DIFF [HEME] AM Lab 11/02/18 05:11 Ordered CBC WITH AUTO DIFF [HEME] AM Lab 11/03/18 05:11 Ordered CBC WITH AUTO DIFF [HEME] AM Lab 11/04/18 05:11 Ordered CULTURE BLOOD [BC] Stat Lab 11/01/18 11:35 Ordered CULTURE BLOOD [BC] Stat Lab 11/01/18 11:45 Received CULTURE SPUTUM + SMEAR [RM] Routine Lab 11/01/18 13:10 Ordered MAGNESIUM [CHEM] AM Lab 11/02/18 05:11 Ordered MAGNESIUM [CHEM] AM Lab 11/03/18 05:11 Ordered MAGNESIUM [CHEM] AM Lab 11/04/18 05:11 Ordered UA RFX [place] AND CULT IF INDIC [URIN] Stat Lab 11/01/18 11:40 Received VANCOMYCIN TROUGH [CHEM] Routine Lab 11/04/18 10:00 Ordered Albuterol/Ipratropium [DuoNeb 3.0-0.5 MG/3 ML] Med 11/01/18 18:00 Active 3 ml NEB QID Apixaban [Eliquis] Med 11/01/18 21:00 Active 2.5 mg PO BID Aspirin [Halfprin] Med 11/02/18 09:00 Active 81 mg PO DAILY Brimonidine [Alphagan 0.2% Ophth Soln] Med 11/01/18 21:00 Active 0 ml EYERT BID Calcium Polycarbophil [Fibercon] Med 11/01/18 14:00 Active 1,250 mg PO TID Dorzolamide/Timolol [Cosopt 2%-0.5% Ophth Soln] Med 11/01/18 21:00 Active 0 ml EYERT BID Latanoprost [Xalatan 0.005% Ophth Soln] Med 11/02/18 09:00 Active 0 ml EYEBOTH DAILY Levofloxacin/Dextrose 5%-Water [Levaquin in D5W 750 MG/ Med 11/01/18 16:00 Active 150 ML] 750 mg Premix Bag 1 bag IV Q48H Loperamide [Imodium] Med 11/01/18 21:00 Active 2 mg PO BID Magnesium Oxide Med 11/02/18 09:00 Active 400 mg PO DAILY Metoprolol Tartrate [Lopressor] Med 11/01/18 21:00 Active 12.5 mg PO BID Omeprazole Med 11/02/18 07:30 [facility] Vancom[facility] Med 11/01/18 12:30 Active 1 dose .XX ASDIRECTED Piperacillin/Tazobactam [Piperacil-Tazobact] 4.5 gm Med 11/01/18 15:00 Active Sodium Chloride 0.9% [Normal Saline] 100 ml IV Q6H Sertraline [Zoloft] Med 11/02/18 09:00 Active 150 mg PO DAILY Vancomycin 0.75 gm Med 11/02/18 11:00 Active Sodium Chloride 0.9% [Normal Saline] 100 ml IV Q24H atorvaSTATin [Lipitor] Med 11/02/18 09:00 Active 20 mg PO DAILY Blood Culture x2 Reflex Set [OM.PC] Stat Oth 11/01/18 11:35 Ordered Resuscitation Status Routine Resus Stat 11/01/18 12:31 Ordered Medication Orders Albuterol/Ipratropium (Duoneb 3.0-0.5 Mg/3 Ml) 3 ml NEB QID [facility] Apixaban (Eliquis) 2.5 mg PO BID [facility] Aspirin (Halfprin) 81 mg PO DAILY [facility] Atorvastatin Calcium (Lipitor) 20 mg PO DAILY [facility] Brimonidine Tartrate (Alphagan 0.2% Ophth Soln) 0 ml EYERT BID [facility] Calcium Polycarbophil (Fibercon) 1,250 mg PO TID [facility] Last Admin: 11/01/18 14:17 Dose: 1,250 mg Dorzolamide/Timolol (Cosopt 2%-0.5% Ophth Soln) 0 ml EYERT BID [facility] Piperacillin Sod/Tazobactam (Sod 4.5 gm/ Sodium Chloride) 100 mls @ 100 mls/hr IV Q6H [facility] Last Admin: 11/01/18 14:40 Dose: 100 mls/hr Vancomycin HCl 0.75 gm/ Sodium (Chloride) 100 mls @ 100 mls/hr IV Q24H [facility] Levofloxacin/Dextrose 750 mg/ (Premix) 150 mls @ 100 mls/hr IV Q48H [facility] Latanoprost (Xalatan 0.005% Ophth Soln) 0 ml EYEBOTH DAILY [facility] Loperamide HCl (Imodium) 2 mg PO BID [facility] Magnesium Oxide (Magnesium Oxide) 400 mg PO DAILY [facility] Metoprolol Tartrate (Lopressor) 12.5 mg PO BID [facility] Omeprazole (Omeprazole) 40 mg PO ACBREAKFAST [facility] Sertraline HCl (Zoloft) 150 mg PO DAILY [facility] Vancomycin HCl (Pharmacy To Dose - Vancomycin) 1 dose .XX ASDIRECTED [facility]
[2018-11-01] MEDS ORDERED: diazePAM 5 MG/ML MDV IVPUSH ONE (12:15)
[2018-11-01] MEDS ORDERED: Levofloxacin/Dextrose 5%-Water 750 MG in Premix Bag 1 BAG IV SCH (12:30)
[2018-11-01] MEDS ORDERED: Furosemide 20 MG/2 ML VIAL IVPUSH ONE (13:10)
[2018-11-01] MEDS: Calcium Polycarbophil 625 MG Tab PO SCH ×2 (14:17→21:37)
[2018-11-01] MEDS: Piperacillin/Tazobactam 4.5 GM in Sodium Chloride 0.9% 100 ML IV SCH ×2 (14:40→21:41)
[2018-11-01] MEDS: Levofloxacin/Dextrose 5%-Water 750 MG in Premix Bag 1 BAG IV SCH (16:06)
[2018-11-01] MEDS: Albuterol/Ipratropium 3.0-0.5 MG/3 ML Neb Soln NEB SCH ×2 (18:08→22:59)
[2018-11-01] MEDS ORDERED: Sodium Chloride 0.9% 500 ML IV ONE (19:15)
[2018-11-01] MEDS: Apixaban 2.5 MG Tab PO SCH (21:38)
[2018-11-01] MEDS: Loperamide 2 MG Cap PO SCH (21:38)
[2018-11-01] MEDS: Metoprolol Tartrate 25 MG Tab PO SCH (21:39)
[2018-11-01] MEDS ORDERED: Diazepam 5 MG Tab PO ONE (22:18)
[2018-11-01] MEDS: Brimonidine 0.2% Ophth Soln 5 ML Bottle EYERT SCH (22:29)
[2018-11-01] MEDS: Dorzolamide/Timolol 2%-0.5% Ophth Soln 10 ML Bottle EYERT SCH (22:33)
[2018-11-02] MEDS: Piperacillin/Tazobactam 4.5 GM in Sodium Chloride 0.9% 100 ML IV SCH ×4 (02:33→21:13)
[2018-11-02] MEDS: Calcium Polycarbophil 625 MG Tab PO SCH ×3 (05:42→21:16)
[2018-11-02] MEDS: Albuterol/Ipratropium 3.0-0.5 MG/3 ML Neb Soln NEB SCH (05:59)
[2018-11-02] MEDS ORDERED: Magnesium Sulfate/Water 2 GM in Premix Bag 1 BAG IV ONE (06:38)
[2018-11-02] MEDS: Omeprazole 20 MG Cap.CR PO SCH (07:08)
--- NOTE | 2018-11-02 08:04 | PCM.PN ---
<Harper Stone M - Last Filed: 11/02/18 08:20> - General Info Date of Service: 11/02/18 Admission Dx/Problem (Free Text): Admission Diagnosis/Problem Admission Diagnosis/Problem CHF exacerbation, HCAP Subjective Update: Reports feeling a little better today, shortness of breath has improved. She reports she feels very shaky and jumpy after the breathing treatments and would like those to stop if possible. No chest pain or shoulder pain. Reports anxiety and would like something to help with this. NO other concerns today. Functional Status: Reports: Pain Controlled - Review of Systems General: Reports: No Symptoms. Denies: Fever, Weakness HEENT: Reports: No Symptoms. Denies: Headaches Pulmonary: Reports: No Symptoms. Denies: Shortness of Breath Cardiovascular: Reports: Edema (improving). Denies: Chest Pain, Palpitations Gastrointestinal: Reports: No Symptoms. Denies: Abdominal Pain, Nausea, Vomiting 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: Reports: No Symptoms. Denies: Dysuria, Frequency, Burning Musculoskeletal: Reports: No Symptoms. Denies: Shoulder Pain Skin: Reports: No Symptoms Neurological: Reports: No Symptoms Psychiatric: Reports: Anxiety - Patient Data Vitals - Most Recent: Last Vital Signs Temp 98.1 F 11/02/18 03:59 Pulse 82 11/02/18 03:59 Resp 16 11/02/18 03:59 BP 88/51 L 11/02/18 03:59 Pulse Ox 92 L 11/02/18 05:04 Weight - Most Recent: 52.617 kg I&O - Last 24 Hours: Intake & Output 11/01/18 11/02/18 11/02/18 22:59 06:59 14:59 Intake Total 1390 1140 Output Total 1850 1300 Balance -460 -160 Lab Results Last 24 Hours: Laboratory Results - last 24 hr 11/01/18 11/01/18 11/01/18 Range/Units 09:50 09:50 09:50 WBC 10.07 (4.0-11.0) K/uL RBC 3.30 L (4.30-5.90) M/uL Hgb 9.9 L (12.0-16.0) g/dL Hct 30.5 L (36.0-46.0) % MCV 92.4 (80.0-98.0) fL MCH 30.0 (27.0-32.0) pg MCHC 32.5 (31.0-37.0) g/dL RDW Std Deviation 48.7 (28.0-62.0) fl RDW Coeff of Luke 15 (11.0-15.0) % Plt Count 343 (150-400) K/uL MPV 11.10 (7.40-12.00) fL Neut % (Auto) 83.3 H (48.0-80.0) % Lymph % (Auto) 4.0 L (16.0-40.0) % [place] % (Auto) 10.7 (0.0-15.0) % Eos % (Auto) 1.8 (0.0-7.0) % Baso % (Auto) 0.2 (0.0-1.5) % Neut # (Auto) 8.4 H (1.4-5.7) K/uL Lymph # (Auto) 0.4 L (0.6-2.4) K/uL [place] # (Auto) 1.1 H (0.0-0.8) K/uL Eos # (Auto) 0.2 (0.0-0.7) K/uL Baso # (Auto) 0.0 (0.0-0.1) K/uL Nucleated RBC % /100WBC Nucleated RBCs # K/uL Sodium 134 L (136-145) mmol/L Potassium 4.3 (3.5-5.1) mmol/L Chloride 100 (98-107) mmol/L Carbon Dioxide 27.6 (21.0-32.0) mmol/L BUN 28 H (7.0-18.0) mg/dL Creatinine 0.8 (0.6-1.0) mg/dL Est Cr Clr Drug Dosing 40.21 mL/min Estimated GFR (MDRD) > 60.0 ml/min Glucose 116 H (74-106) mg/dL Calcium 8.4 L (8.5-10.1) mg/dL Magnesium (1.8-2.4) mg/dL Total Bilirubin 0.4 (0.2-1.0) mg/dL AST 19 (15-37) IU/L ALT 29 (14-63) IU/L Alkaline Phosphatase 101 (46-116) U/L Troponin I 0.055 (0.000-0.056) ng/mL B-Natriuretic Peptide 1996 H (<100) PG/ML Total Protein 5.7 L (6.4-8.2) g/dL Albumin 2.5 L (3.4-5.0) g/dL Globulin 3.2 (2.6-4.0) g/dL Albumin/Globulin Ratio 0.8 L (0.9-1.6) Urine Color Urine Appearance Urine pH (5.0-8.0) Ur Specific [place] (1.001-1.035) Urine Protein (NEGATIVE) mg/dL Urine Glucose (UA) (NEGATIVE) mg/dL Urine Ketones (NEGATIVE) mg/dL Urine Occult Blood (NEGATIVE) Urine Nitrite (NEGATIVE) Urine Bilirubin (NEGATIVE) Urine Urobilinogen (<2.0) EU/dL Ur Leukocyte Esterase (NEGATIVE) Urine RBC (0-2/HPF) Urine WBC (0-5/HPF) Ur Epithelial Cells (NONE-FEW) Calcium Oxalate Crystal (NEGATIVE) Urine Bacteria (NEGATIVE) Blood Type Antibody Screen 11/01/18 11/01/18 11/01/18 Range/Units 09:50 11:40 19:16 WBC (4.0-11.0) K/uL RBC (4.30-5.90) M/uL Hgb (12.0-16.0) g/dL Hct (36.0-46.0) % MCV (80.0-98.0) fL MCH (27.0-32.0) pg MCHC (31.0-37.0) g/dL RDW Std Deviation (28.0-62.0) fl RDW Coeff of Luke (11.0-15.0) % Plt Count (150-400) K/uL MPV (7.40-12.00) fL Neut % (Auto) (48.0-80.0) % Lymph % (Auto) (16.0-40.0) % [place] % (Auto) (0.0-15.0) % Eos % (Auto) (0.0-7.0) % Baso % (Auto) (0.0-1.5) % Neut # (Auto) (1.4-5.7) K/uL Lymph # (Auto) (0.6-2.4) K/uL [place] # (Auto) (0.0-0.8) K/uL Eos # (Auto) (0.0-0.7) K/uL Baso # (Auto) (0.0-0.1) K/uL Nucleated RBC % /100WBC Nucleated RBCs # K/uL Sodium (136-145) mmol/L Potassium (3.5-5.1) mmol/L Chloride (98-107) mmol/L Carbon Dioxide (21.0-32.0) mmol/L BUN (7.0-18.0) mg/dL Creatinine (0.6-1.0) mg/dL Est Cr Clr Drug Dosing mL/min Estimated GFR (MDRD) ml/min Glucose (74-106) mg/dL Calcium (8.5-10.1) mg/dL Magnesium 1.6 L (1.8-2.4) mg/dL Total Bilirubin (0.2-1.0) mg/dL AST (15-37) IU/L ALT (14-63) IU/L Alkaline Phosphatase (46-116) U/L Troponin I (0.000-0.056) ng/mL B-Natriuretic Peptide (<100) PG/ML Total Protein (6.4-8.2) g/dL Albumin (3.4-5.0) g/dL Globulin (2.6-4.0) g/dL Albumin/Globulin Ratio (0.9-1.6) Urine Color YELLOW Urine Appearance CLEAR Urine pH 6.0 (5.0-8.0) Ur Specific [place] <= 1.005 (1.001-1.035) Urine Protein NEGATIVE (NEGATIVE) mg/dL Urine Glucose (UA) NEGATIVE (NEGATIVE) mg/dL Urine Ketones NEGATIVE (NEGATIVE) mg/dL Urine Occult Blood NEGATIVE (NEGATIVE) Urine Nitrite NEGATIVE (NEGATIVE) Urine Bilirubin NEGATIVE (NEGATIVE) Urine Urobilinogen 0.2 (<2.0) EU/dL Ur Leukocyte Esterase MODERATE H (NEGATIVE) Urine RBC 3-6 (0-2/HPF) Urine WBC 2-4 (0-5/HPF) Ur Epithelial Cells MODERATE (NONE-FEW) Calcium Oxalate Crystal MANY (NEGATIVE) Urine Bacteria 1+ H (NEGATIVE) Blood Type B POSITIVE Antibody Screen NEGATIVE 11/02/18 11/02/18 Range/Units 05:05 05:05 WBC 8.68 (4.0-11.0) K/uL RBC 3.00 L (4.30-5.90) M/uL Hgb 8.9 L (12.0-16.0) g/dL Hct 27.6 L (36.0-46.0) % MCV 92.0 (80.0-98.0) fL MCH 29.7 (27.0-32.0) pg MCHC 32.2 (31.0-37.0) g/dL RDW Std Deviation 51.6 (28.0-62.0) fl RDW Coeff of Luke 15 (11.0-15.0) % Plt Count 324 (150-400) K/uL MPV 10.80 (7.40-12.00) fL Neut % (Auto) 85.6 H (48.0-80.0) % Lymph % (Auto) 3.8 L (16.0-40.0) % [place] % (Auto) 10.5 (0.0-15.0) % Eos % (Auto) 0.1 (0.0-7.0) % Baso % (Auto) 0.0 (0.0-1.5) % Neut # (Auto) 7.4 H (1.4-5.7) K/uL Lymph # (Auto) 0.3 L (0.6-2.4) K/uL [place] # (Auto) 0.9 H (0.0-0.8) K/uL Eos # (Auto) 0.0 (0.0-0.7) K/uL Baso # (Auto) 0.0 (0.0-0.1) K/uL Nucleated RBC % 0.0 /100WBC Nucleated RBCs # 0 K/uL Sodium 139 (136-145) mmol/L Potassium 3.8 (3.5-5.1) mmol/L Chloride 102 (98-107) mmol/L Carbon Dioxide 26.1 (21.0-32.0) mmol/L BUN 22 H (7.0-18.0) mg/dL Creatinine 1.0 (0.6-1.0) mg/dL Est Cr Clr Drug Dosing 32.16 mL/min Estimated GFR (MDRD) 53.0 ml/min Glucose 112 H (74-106) mg/dL Calcium 7.8 L (8.5-10.1) mg/dL Magnesium 1.5 L (1.8-2.4) mg/dL Total Bilirubin (0.2-1.0) mg/dL AST (15-37) IU/L ALT (14-63) IU/L Alkaline Phosphatase (46-116) U/L Troponin I (0.000-0.056) ng/mL B-Natriuretic Peptide (<100) PG/ML Total Protein (6.4-8.2) g/dL Albumin (3.4-5.0) g/dL Globulin (2.6-4.0) g/dL Albumin/Globulin Ratio (0.9-1.6) Urine Color Urine Appearance Urine pH (5.0-8.0) Ur Specific [place] (1.001-1.035) Urine Protein (NEGATIVE) mg/dL Urine Glucose (UA) (NEGATIVE) mg/dL Urine Ketones (NEGATIVE) mg/dL Urine Occult Blood (NEGATIVE) Urine Nitrite (NEGATIVE) Urine Bilirubin (NEGATIVE) Urine Urobilinogen (<2.0) EU/dL Ur Leukocyte Esterase (NEGATIVE) Urine RBC (0-2/HPF) Urine WBC (0-5/HPF) Ur Epithelial Cells (NONE-FEW) Calcium Oxalate Crystal (NEGATIVE) Urine Bacteria (NEGATIVE) Blood Type Antibody Screen Med Orders - Current: Current Medications Albuterol/Ipratropium (Duoneb 3.0-0.5 Mg/3 Ml) 3 ml NEB QID [facility] Last Admin: 11/02/18 05:59 Dose: 3 ml Apixaban (Eliquis) 2.5 mg PO BID [facility] Last Admin: 11/01/18 21:38 Dose: 2.5 mg Aspirin (Halfprin) 81 mg PO DAILY [facility] Atorvastatin Calcium (Lipitor) 20 mg PO DAILY [facility] Brimonidine Tartrate (Alphagan 0.2% Ophth Soln) 0 ml EYERT BID [facility] Last Admin: 11/01/18 22:29 Dose: 1 drop Calcium Polycarbophil (Fibercon) 1,250 mg PO TID [facility] Last Admin: 11/02/18 05:42 Dose: 1,250 mg Dorzolamide/Timolol (Cosopt 2%-0.5% Ophth Soln) 0 ml EYERT BID [facility] Last Admin: 11/01/18 22:33 Dose: Not Given Piperacillin Sod/Tazobactam (Sod 4.5 gm/ Sodium Chloride) 100 mls @ 100 mls/hr IV Q6H [facility] Last Admin: 11/02/18 02:33 Dose: 100 mls/hr Vancomycin HCl 0.75 gm/ Sodium (Chloride) 100 mls @ 100 mls/hr IV Q24H [facility] Levofloxacin/Dextrose 750 mg/ (Premix) 150 mls @ 100 mls/hr IV Q48H [facility] Last Admin: 11/01/18 16:06 Dose: 100 mls/hr Latanoprost (Xalatan 0.005% Ophth Soln) 0 ml EYEBOTH DAILY [facility] Loperamide HCl (Imodium) 2 mg PO BID [facility] Last Admin: 11/01/18 21:38 Dose: 2 mg Magnesium Oxide (Magnesium Oxide) 400 mg PO DAILY [facility] Metoprolol Tartrate (Lopressor) 12.5 mg PO BID [facility] Last Admin: 11/01/18 21:39 Dose: 12.5 mg Omeprazole (Omeprazole) 40 mg PO ACBREAKFAST [facility] Last Admin: 11/02/18 07:08 Dose: 40 mg Sertraline HCl (Zoloft) 150 mg PO DAILY [facility] Vancomycin HCl (Pharmacy To Dose - Vancomycin) 1 dose .XX ASDIRECTED [facility] Discontinued Medications Albuterol/Ipratropium (Duoneb 3.0-0.5 Mg/3 Ml) 3 ml NEB ONETIME ONE Stop: 11/01/18 09:37 Last Admin: 11/01/18 09:50 Dose: 3 ml Diazepam (Valium) 2.5 mg IVPUSH ONETIME ONE Stop: 11/01/18 11:33 Last Admin: 11/01/18 11:37 Dose: Not Given Diazepam (Valium) 2.5 mg IVPUSH ONETIME ONE Stop: 11/01/18 11:37 Last Admin: 11/01/18 11:49 Dose: Not Given Diazepam (Valium) Confirm Administered Dose 5 mg .ROUTE .STK-MED ONE Stop: 11/01/18 11:39 Last Admin: 11/01/18 11:48 Dose: Not Given Diazepam (Valium) 2.5 mg IVPUSH ONETIME ONE Stop: 11/01/18 11:50 Last Admin: 11/01/18 12:03 Dose: Not Given Diazepam (Valium) 2.5 mg IVPUSH ONETIME ONE Stop: 11/01/18 12:16 Last Admin: 11/01/18 12:05 Dose: 2.5 mg Diazepam (Valium.) 5 mg PO ONETIME ONE Stop: 11/01/18 22:19 Last Admin: 11/01/18 22:29 Dose: 5 mg Furosemide (Lasix) 20 mg IVPUSH NOW ONE Stop: 11/01/18 11:21 Last Admin: 11/01/18 11:48 Dose: 20 mg Furosemide (Lasix) 20 mg IVPUSH NOW ONE Stop: 11/01/18 13:11 Last Admin: 11/01/18 14:18 Dose: 20 mg Furosemide (Lasix) 40 mg IVPUSH DAILY [facility] Vancomycin HCl 1 gm/ Sodium (Chloride) 250 mls @ 166 mls/hr IV ONETIME ONE Stop: 11/01/18 12:50 Last Admin: 11/01/18 12:14 Dose: 166 mls/hr Levofloxacin/Dextrose 750 mg/ (Premix) 150 mls @ 100 mls/hr IV Q48H [facility] Last Admin: 11/01/18 15:23 Dose: Not Given Sodium Chloride (Normal Saline) 500 mls @ 999 mls/hr IV ONETIME ONE Stop: 11/01/18 19:45 Last Admin: 11/01/18 19:37 Dose: 999 mls/hr Magnesium Sulfate 2 gm/ Premix 50 mls @ 50 mls/hr IV ONETIME ONE Stop: 11/02/18 07:37 Last Admin: 11/02/18 07:08 Dose: 50 mls/hr Methylprednisolone Sodium Succinate (Solu-Medrol) 125 mg IVPUSH ONETIME ONE Stop: 11/01/18 09:37 Last Admin: 11/01/18 09:51 Dose: 125 mg - Exam General: Alert, Oriented, Cooperative Neck: Supple Lungs: Clear to Auscultation. No: Normal Respiratory Effort (mild dyspnea noted , pursed lip breathing.) Cardiovascular: Regular Rate, Irregular Rhythm. No: Murmurs GI/Abdominal Exam: Normal Bowel Sounds, Soft, Non-Tender Back Exam: Normal Inspection, Full Range of Motion Extremities: Normal Inspection, Normal Range of Motion, Non-Tender, No Pedal Edema Neurological: No New Focal Deficit Psy/Mental Status: Alert, Normal Affect, Normal Mood - Problem List & Annotations (1) Acute and chronic respiratory failure with hypoxia SNOMED Code(s): 96999671, 481375385 Code(s): J96.21 - ACUTE AND CHRONIC RESPIRATORY FAILURE WITH HYPOXIA Status : Acute Current Visit: Yes (2) CHF (congestive heart failure) SNOMED Code(s): 35360795 Code(s): I50.9 - HEART FAILURE, UNSPECIFIED Status: Acute Current Visit: Yes Qualifiers: Heart failure type: systolic Heart failure chronicity: acute on chronic Qualified Code(s): I50.23 - Acute on chronic systolic (congestive) heart failure (3) Healthcare-associated pneumonia SNOMED Code(s): 176205862, 263541564 Code(s): J18.9 - PNEUMONIA, UNSPECIFIED ORGANISM Status: Acute Current Visit: Yes (4) HTN (hypertension) SNOMED Code(s): 28746169 Code(s): I10 - ESSENTIAL (PRIMARY) HYPERTENSION Status: Chronic Current Visit: Yes (5) Afib SNOMED Code(s): 20656709 Code(s): I48.91 - UNSPECIFIED ATRIAL FIBRILLATION Status: Chronic Current Visit: Yes (6) Anticoagulated SNOMED Code(s): 526174478, 022919465 Code(s): Z79.01 - SENIOR LIVING (CURRENT) USE OF ANTICOAGULANTS Status: Chronic Current Visit: Yes (7) History of TIAs SNOMED Code(s): 433229617 Code(s): Z86.73 - PRSNL HX OF TIA (TIA), AND CEREB INFRC W/O RESID DEFICITS Status: Chronic Current Visit: Yes (8) Emphysema lung SNOMED Code(s): 70516787 Code(s): J43.9 - EMPHYSEMA, UNSPECIFIED Status: Chronic Current Visit: Yes (9) GERD (gastroesophageal reflux disease) SNOMED Code(s): 518695953 Code(s): K21.9 - GASTRO-ESOPHAGEAL REFLUX DISEASE WITHOUT ESOPHAGITIS Status: Chronic Current Visit: Yes (10) Macular degeneration SNOMED Code(s): 946208091 Code(s): H35.30 - UNSPECIFIED MACULAR DEGENERATION Status: Chronic Current Visit: Yes (11) Glaucoma SNOMED Code(s): 30791139 Code(s): H40.9 - UNSPECIFIED GLAUCOMA Status: Chronic Current Visit: Yes (12) History of uterine cancer SNOMED Code(s): 378693414 Code(s): Z85.42 - PERSONAL HISTORY OF MALIGNANT NEOPLASM OF OTH PRT UTERUS Status: Chronic Current Visit: Yes (13) CAD (coronary artery disease) SNOMED Code(s): 94479864 Code(s): I25.10 - ATHSCL HEART DISEASE OF [place] CORONARY ARTERY W/O ANG PCTRS Status: Chronic Current Visit: Yes Qualifiers: Coronary Disease-Associated Artery/Lesion type: [place] artery [place] vs. transplanted heart: [place] heart Associated angina: without angina Qualified Code(s): I25.10 - Atherosclerotic heart disease of [place] coronary artery without angina pectoris (14) Hx of non-ST elevation myocardial infarction (NSTEMI) SNOMED Code(s): 055537804 Code(s): I25.2 - OLD MYOCARDIAL INFARCTION Status: Chronic Current Visit : Yes Annotation/Comment:: 10/22/2018 - Problem List Review Problem List Initiated/Reviewed/Updated: Yes - My Orders Last 24 Hours: My Active Orders 11/01/18 12:30 Pharmacy to Dose - Vancomycin 1 dose .XX ASDIRECTED 11/01/18 12:31 Height and Weight [RC] DAILY Oxygen Therapy [RC] PRN Telemetry Monitoring [Cardiac Monitoring] [RC] Q8H Up With Assistance [RC] ASDIRECTED VTE/DVT Education [RC] PER UNIT ROUTINE Vital Signs [RC] Q4H Resuscitation Status Routine 11/01/18 13:10 CULTURE SPUTUM + SMEAR [RM] Routine 11/01/18 14:00 Calcium Polycarbophil [Fibercon] 1,250 mg PO TID 11/01/18 15:00 Piperacillin/Tazobactam [Piperacil-Tazobact] 4.5 gm Sodium Chloride 0.9% [ Normal Saline] 100 ml IV Q6H 11/01/18 16:00 Levofloxacin/Dextrose 5%-Water [Levaquin in D5W 750 MG/150 ML] 750 mg Premix Bag 1 bag IV Q48H 11/01/18 16:22 Intake and Output Strict [RC] ASDIRECTED 11/01/18 18:00 Albuterol/Ipratropium [DuoNeb 3.0-0.5 MG/3 ML] 3 ml NEB QID 11/01/18 21:00 Apixaban [Eliquis] 2.5 mg PO BID Brimonidine [Alphagan 0.2% Ophth Soln] 0 ml EYERT BID Dorzolamide/Timolol [Cosopt 2%-0.5% Ophth Soln] 0 ml EYERT BID Loperamide [Imodium] 2 mg PO BID Metoprolol Tartrate [Lopressor] 12.5 mg PO BID 11/01/18 Lunch 2 Gram Sodium Diet [DIET] 11/02/18 05:11 BASIC METABOLIC PANEL,BMP [CHEM] AM CBC WITH AUTO DIFF [HEME] AM MAGNESIUM [CHEM] AM 11/02/18 07:30 Omeprazole 40 mg PO ACBREAKFAST 11/02/18 09:00 Aspirin [Halfprin] 81 mg PO DAILY Latanoprost [Xalatan 0.005% Ophth Soln] 0 ml EYEBOTH DAILY Magnesium Oxide 400 mg PO DAILY Sertraline [Zoloft] 150 mg PO DAILY atorvaSTATin [Lipitor] 20 mg PO DAILY 11/02/18 11:00 Vancomycin 0.75 gm Sodium Chloride 0.9% [Normal Saline] 100 ml IV Q24H 11/03/18 05:11 BASIC METABOLIC PANEL,BMP [CHEM] AM CBC WITH AUTO DIFF [HEME] AM MAGNESIUM [CHEM] AM 11/04/18 05:11 BASIC METABOLIC PANEL,BMP [CHEM] AM CBC WITH AUTO DIFF [HEME] AM MAGNESIUM [CHEM] AM 11/04/18 10:00 VANCOMYCIN TROUGH [CHEM] Routine - Plan Plan:: This 83 year old female admitted with acute on chronic respiratory failure, acute on chronic systolic CHF, and HCAP 1. Acute on chronic respiratory failure: Dyspnea has improved. Oxygen needs have decreased and on 1-2, which is home baseline. Continue Oxygen, keep sats 88 %-92% due to hx of COPD and oxygen dependence. Duonebs PRN. 2. Acute on chronic systolic CHF: BP decreased with Lasix 40 mg IV yesterday, Will monitor today. May give small 20 mg dose and monitor depending on BP. Strict I/O and daily weights. 3. HCAP: BC pending, will obtain sputum culture. Continue Vancomycin, Zosyn and Levaquin, covering for potential gram negative infection. 4. Afib: EKG reveals SR, will continue Metoprolol and Eliquis. Monitor on telemetry. 5. HTN: decreased after Lasix. Will monitor. Continue to hold Cozaar during diuresis. Monitor BP. 6. CAD: Stable, no chest pain. Continue Plavix and ASA. Along with Statin. VTE prophylaxis: Eliquis Dispo: 2-4 days pending improvement. <Stoney Zuniga - Last Filed: 11/02/18 09:25> - General Info Admission Dx/Problem (Free Text): I have seen and examined the patient independently of Harper Stone CNP. I have discussed the case with her. I have reviewed and agreed with the plan of treatment as outlined for this patient by her. Please see orders. Still short of breath, possible home tomorrow to resume home health care. - Patient Data Vitals - Most Recent: Last Vital Signs Temp 36.3 C 11/02/18 08:07 Pulse 134 H 11/02/18 08:48 Resp 16 11/02/18 08:07 BP 130/72 11/02/18 08:48 Pulse Ox 92 L 11/02/18 08:07 I&O - Last 24 Hours: Intake & Output 11/01/18 11/02/18 11/02/18 22:59 06:59 14:59 Intake Total 1390 1140 Output Total 1850 1300 Balance -460 -160 Lab Results Last 24 Hours: Laboratory Results - last 24 hr 11/01/18 11/01/18 11/01/18 Range/Units 09:50 09:50 09:50 WBC 10.07 (4.0-11.0) K/uL RBC 3.30 L (4.30-5.90) M/uL Hgb 9.9 L (12.0-16.0) g/dL Hct 30.5 L (36.0-46.0) % MCV 92.4 (80.0-98.0) fL MCH 30.0 (27.0-32.0) pg MCHC 32.5 (31.0-37.0) g/dL RDW Std Deviation 48.7 (28.0-62.0) fl RDW Coeff of Luke 15 (11.0-15.0) % Plt Count 343 (150-400) K/uL MPV 11.10 (7.40-12.00) fL Neut % (Auto) 83.3 H (48.0-80.0) % Lymph % (Auto) 4.0 L (16.0-40.0) % [place] % (Auto) 10.7 (0.0-15.0) % Eos % (Auto) 1.8 (0.0-7.0) % Baso % (Auto) 0.2 (0.0-1.5) % Neut # (Auto) 8.4 H (1.4-5.7) K/uL Lymph # (Auto) 0.4 L (0.6-2.4) K/uL [place] # (Auto) 1.1 H (0.0-0.8) K/uL Eos # (Auto) 0.2 (0.0-0.7) K/uL Baso # (Auto) 0.0 (0.0-0.1) K/uL Nucleated RBC % /100WBC Nucleated RBCs # K/uL Sodium 134 L (136-145) mmol/L Potassium 4.3 (3.5-5.1) mmol/L Chloride 100 (98-107) mmol/L Carbon Dioxide 27.6 (21.0-32.0) mmol/L BUN 28 H (7.0-18.0) mg/dL Creatinine 0.8 (0.6-1.0) mg/dL Est Cr Clr Drug Dosing 40.21 mL/min Estimated GFR (MDRD) > 60.0 ml/min Glucose 116 H (74-106) mg/dL Calcium 8.4 L (8.5-10.1) mg/dL Magnesium (1.8-2.4) mg/dL Total Bilirubin 0.4 (0.2-1.0) mg/dL AST 19 (15-37) IU/L ALT 29 (14-63) IU/L Alkaline Phosphatase 101 (46-116) U/L Troponin I 0.055 (0.000-0.056) ng/mL B-Natriuretic Peptide 1996 H (<100) PG/ML Total Protein 5.7 L (6.4-8.2) g/dL Albumin 2.5 L (3.4-5.0) g/dL Globulin 3.2 (2.6-4.0) g/dL Albumin/Globulin Ratio 0.8 L (0.9-1.6) Urine Color Urine Appearance Urine pH (5.0-8.0) Ur Specific [place] (1.001-1.035) Urine Protein (NEGATIVE) mg/dL Urine Glucose (UA) (NEGATIVE) mg/dL Urine Ketones (NEGATIVE) mg/dL Urine Occult Blood (NEGATIVE) Urine Nitrite (NEGATIVE) Urine Bilirubin (NEGATIVE) Urine Urobilinogen (<2.0) EU/dL Ur Leukocyte Esterase (NEGATIVE) Urine RBC (0-2/HPF) Urine WBC (0-5/HPF) Ur Epithelial Cells (NONE-FEW) Calcium Oxalate Crystal (NEGATIVE) Urine Bacteria (NEGATIVE) Blood Type Antibody Screen 11/01/18 11/01/18 11/01/18 Range/Units 09:50 11:40 19:16 WBC (4.0-11.0) K/uL RBC (4.30-5.90) M/uL Hgb (12.0-16.0) g/dL Hct (36.0-46.0) % MCV (80.0-98.0) fL MCH (27.0-32.0) pg MCHC (31.0-37.0) g/dL RDW Std Deviation (28.0-62.0) fl RDW Coeff of Luke (11.0-15.0) % Plt Count (150-400) K/uL MPV (7.40-12.00) fL Neut % (Auto) (48.0-80.0) % Lymph % (Auto) (16.0-40.0) % [place] % (Auto) (0.0-15.0) % Eos % (Auto) (0.0-7.0) % Baso % (Auto) (0.0-1.5) % Neut # (Auto) (1.4-5.7) K/uL Lymph # (Auto) (0.6-2.4) K/uL [place] # (Auto) (0.0-0.8) K/uL Eos # (Auto) (0.0-0.7) K/uL Baso # (Auto) (0.0-0.1) K/uL Nucleated RBC % /100WBC Nucleated RBCs # K/uL Sodium (136-145) mmol/L Potassium (3.5-5.1) mmol/L Chloride (98-107) mmol/L Carbon Dioxide (21.0-32.0) mmol/L BUN (7.0-18.0) mg/dL Creatinine (0.6-1.0) mg/dL Est Cr Clr Drug Dosing mL/min Estimated GFR (MDRD) ml/min Glucose (74-106) mg/dL Calcium (8.5-10.1) mg/dL Magnesium 1.6 L (1.8-2.4) mg/dL Total Bilirubin (0.2-1.0) mg/dL AST (15-37) IU/L ALT (14-63) IU/L Alkaline Phosphatase (46-116) U/L Troponin I (0.000-0.056) ng/mL B-Natriuretic Peptide (<100) PG/ML Total Protein (6.4-8.2) g/dL Albumin (3.4-5.0) g/dL Globulin (2.6-4.0) g/dL Albumin/Globulin Ratio (0.9-1.6) Urine Color YELLOW Urine Appearance CLEAR Urine pH 6.0 (5.0-8.0) Ur Specific [place] <= 1.005 (1.001-1.035) Urine Protein NEGATIVE (NEGATIVE) mg/dL Urine Glucose (UA) NEGATIVE (NEGATIVE) mg/dL Urine Ketones NEGATIVE (NEGATIVE) mg/dL Urine Occult Blood NEGATIVE (NEGATIVE) Urine Nitrite NEGATIVE (NEGATIVE) Urine Bilirubin NEGATIVE (NEGATIVE) Urine Urobilinogen 0.2 (<2.0) EU/dL Ur Leukocyte Esterase MODERATE H (NEGATIVE) Urine RBC 3-6 (0-2/HPF) Urine WBC 2-4 (0-5/HPF) Ur Epithelial Cells MODERATE (NONE-FEW) Calcium Oxalate Crystal MANY (NEGATIVE) Urine Bacteria 1+ H (NEGATIVE) Blood Type B POSITIVE Antibody Screen NEGATIVE 11/02/18 11/02/18 Range/Units 05:05 05:05 WBC 8.68 (4.0-11.0) K/uL RBC 3.00 L (4.30-5.90) M/uL Hgb 8.9 L (12.0-16.0) g/dL Hct 27.6 L (36.0-46.0) % MCV 92.0 (80.0-98.0) fL MCH 29.7 (27.0-32.0) pg MCHC 32.2 (31.0-37.0) g/dL RDW Std Deviation 51.6 (28.0-62.0) fl RDW Coeff of Luke 15 (11.0-15.0) % Plt Count 324 (150-400) K/uL MPV 10.80 (7.40-12.00) fL Neut % (Auto) 85.6 H (48.0-80.0) % Lymph % (Auto) 3.8 L (16.0-40.0) % [place] % (Auto) 10.5 (0.0-15.0) % Eos % (Auto) 0.1 (0.0-7.0) % Baso % (Auto) 0.0 (0.0-1.5) % Neut # (Auto) 7.4 H (1.4-5.7) K/uL Lymph # (Auto) 0.3 L (0.6-2.4) K/uL [place] # (Auto) 0.9 H (0.0-0.8) K/uL Eos # (Auto) 0.0 (0.0-0.7) K/uL Baso # (Auto) 0.0 (0.0-0.1) K/uL Nucleated RBC % 0.0 /100WBC Nucleated RBCs # 0 K/uL Sodium 139 (136-145) mmol/L Potassium 3.8 (3.5-5.1) mmol/L Chloride 102 (98-107) mmol/L Carbon Dioxide 26.1 (21.0-32.0) mmol/L BUN 22 H (7.0-18.0) mg/dL Creatinine 1.0 (0.6-1.0) mg/dL Est Cr Clr Drug Dosing 32.16 mL/min Estimated GFR (MDRD) 53.0 ml/min Glucose 112 H (74-106) mg/dL Calcium 7.8 L (8.5-10.1) mg/dL Magnesium 1.5 L (1.8-2.4) mg/dL Total Bilirubin (0.2-1.0) mg/dL AST (15-37) IU/L ALT (14-63) IU/L Alkaline Phosphatase (46-116) U/L Troponin I (0.000-0.056) ng/mL B-Natriuretic Peptide (<100) PG/ML Total Protein (6.4-8.2) g/dL Albumin (3.4-5.0) g/dL Globulin (2.6-4.0) g/dL Albumin/Globulin Ratio (0.9-1.6) Urine Color Urine Appearance Urine pH (5.0-8.0) Ur Specific [place] (1.001-1.035) Urine Protein (NEGATIVE) mg/dL Urine Glucose (UA) (NEGATIVE) mg/dL Urine Ketones (NEGATIVE) mg/dL Urine Occult Blood (NEGATIVE) Urine Nitrite (NEGATIVE) Urine Bilirubin (NEGATIVE) Urine Urobilinogen (<2.0) EU/dL Ur Leukocyte Esterase (NEGATIVE) Urine RBC (0-2/HPF) Urine WBC (0-5/HPF) Ur Epithelial Cells (NONE-FEW) Calcium Oxalate Crystal (NEGATIVE) Urine Bacteria (NEGATIVE) Blood Type Antibody Screen Med Orders - Current: Current Medications Albuterol/Ipratropium (Duoneb 3.0-0.5 Mg/3 Ml) 3 ml NEB QID PRN PRN Reason: SOB/wheezing Apixaban (Eliquis) 2.5 mg PO BID [facility] Last Admin: 11/02/18 08:49 Dose: 2.5 mg Aspirin (Halfprin) 81 mg PO DAILY [facility] Last Admin: 11/02/18 08:48 Dose: 81 mg Atorvastatin Calcium (Lipitor) 20 mg PO DAILY [facility] Last Admin: 11/02/18 08:47 Dose: 20 mg Brimonidine Tartrate (Alphagan 0.2% Ophth Soln) 0 ml EYERT BID [facility] Last Admin: 11/02/18 08:50 Dose: 1 drop Calcium Polycarbophil (Fibercon) 1,250 mg PO TID [facility] Last Admin: 11/02/18 05:42 Dose: 1,250 mg Diazepam (Valium) 5 mg IVPUSH Q8H PRN PRN Reason: anxiety/insomnia Dorzolamide/Timolol (Cosopt 2%-0.5% Ophth Soln) 0 ml EYERT BID [facility] Last Admin: 11/01/18 22:33 Dose: Not Given Furosemide (Lasix) 20 mg IVPUSH DAILY [facility] Piperacillin Sod/Tazobactam (Sod 4.5 gm/ Sodium Chloride) 100 mls @ 100 mls/hr IV Q6H [facility] Last Admin: 11/02/18 08:41 Dose: 100 mls/hr Vancomycin HCl 0.75 gm/ Sodium (Chloride) 100 mls @ 100 mls/hr IV Q24H [facility] Levofloxacin/Dextrose 750 mg/ (Premix) 150 mls @ 100 mls/hr IV Q48H [facility] Last Admin: 11/01/18 16:06 Dose: 100 mls/hr Latanoprost (Xalatan 0.005% Ophth Soln) 0 ml EYEBOTH DAILY [facility] Loperamide HCl (Imodium) 2 mg PO BID [facility] Last Admin: 11/02/18 08:49 Dose: 2 mg Magnesium Oxide (Magnesium Oxide) 400 mg PO DAILY [facility] Last Admin: 11/02/18 08:48 Dose: 400 mg Metoprolol Tartrate (Lopressor) 12.5 mg PO BID [facility] Last Admin: 11/02/18 08:48 Dose: 12.5 mg Omeprazole (Omeprazole) 40 mg PO ACBREAKFAST [facility] Last Admin: 11/02/18 07:08 Dose: 40 mg Sertraline HCl (Zoloft) 150 mg PO DAILY [facility] Last Admin: 11/02/18 08:48 Dose: 150 mg Vancomycin HCl (Pharmacy To Dose - Vancomycin) 1 dose .XX ASDIRECTED [facility] Discontinued Medications Albuterol/Ipratropium (Duoneb 3.0-0.5 Mg/3 Ml) 3 ml NEB ONETIME ONE Stop: 11/01/18 09:37 Last Admin: 11/01/18 09:50 Dose: 3 ml Albuterol/Ipratropium (Duoneb 3.0-0.5 Mg/3 Ml) 3 ml NEB QID [facility] Last Admin: 11/02/18 05:59 Dose: 3 ml Diazepam (Valium) 2.5 mg IVPUSH ONETIME ONE Stop: 11/01/18 11:33 Last Admin: 11/01/18 11:37 Dose: Not Given Diazepam (Valium) 2.5 mg IVPUSH ONETIME ONE Stop: 11/01/18 11:37 Last Admin: 11/01/18 11:49 Dose: Not Given Diazepam (Valium) Confirm Administered Dose 5 mg .ROUTE .STK-MED ONE Stop: 11/01/18 11:39 Last Admin: 11/01/18 11:48 Dose: Not Given Diazepam (Valium) 2.5 mg IVPUSH ONETIME ONE Stop: 11/01/18 11:50 Last Admin: 11/01/18 12:03 Dose: Not Given Diazepam (Valium) 2.5 mg IVPUSH ONETIME ONE Stop: 11/01/18 12:16 Last Admin: 11/01/18 12:05 Dose: 2.5 mg Diazepam (Valium.) 5 mg PO ONETIME ONE Stop: 11/01/18 22:19 Last Admin: 11/01/18 22:29 Dose: 5 mg Furosemide (Lasix) 20 mg IVPUSH NOW ONE Stop: 11/01/18 11:21 Last Admin: 11/01/18 11:48 Dose: 20 mg Furosemide (Lasix) 20 mg IVPUSH NOW ONE Stop: 11/01/18 13:11 Last Admin: 11/01/18 14:18 Dose: 20 mg Furosemide (Lasix) 40 mg IVPUSH DAILY [facility] Vancomycin HCl 1 gm/ Sodium (Chloride) 250 mls @ 166 mls/hr IV ONETIME ONE Stop: 11/01/18 12:50 Last Admin: 11/01/18 12:14 Dose: 166 mls/hr Levofloxacin/Dextrose 750 mg/ (Premix) 150 mls @ 100 mls/hr IV Q48H [facility] Last Admin: 11/01/18 15:23 Dose: Not Given Sodium Chloride (Normal Saline) 500 mls @ 999 mls/hr IV ONETIME ONE Stop: 11/01/18 19:45 Last Admin: 11/01/18 19:37 Dose: 999 mls/hr Magnesium Sulfate 2 gm/ Premix 50 mls @ 50 mls/hr IV ONETIME ONE Stop: 11/02/18 07:37 Last Admin: 11/02/18 07:08 Dose: 50 mls/hr Methylprednisolone Sodium Succinate (Solu-Medrol) 125 mg IVPUSH ONETIME ONE Stop: 11/01/18 09:37 Last Admin: 11/01/18 09:51 Dose: 125 mg - My Orders Last 24 Hours: My Active Orders 11/01/18 19:03 MAGNESIUM [CHEM] Routine
[2018-11-02] MEDS: atorvaSTATin 20 MG Tab PO SCH (08:47)
[2018-11-02] MEDS: Sertraline 50 MG Tab PO SCH (08:48)
[2018-11-02] MEDS: Magnesium Oxide 400 MG Tab PO SCH (08:48)
[2018-11-02] MEDS: Aspirin 81 MG Tab.EC PO SCH (08:48)
[2018-11-02] MEDS: Metoprolol Tartrate 25 MG Tab PO SCH ×2 (08:48→21:09)
[2018-11-02] MEDS: Loperamide 2 MG Cap PO SCH ×2 (08:49→21:09)
[2018-11-02] MEDS: Apixaban 2.5 MG Tab PO SCH ×2 (08:49→21:09)
[2018-11-02] MEDS: Brimonidine 0.2% Ophth Soln 5 ML Bottle EYERT SCH ×2 (08:50→21:17)
[2018-11-02] MEDS ORDERED: Furosemide 40 MG/4 ML VIAL IVPUSH SCH (09:00)
[2018-11-02] MEDS ORDERED: Latanoprost 0.005% Ophth Soln 2.5 ML Bottle EYEBOTH SCH (09:00)
[2018-11-02] MEDS: Dorzolamide/Timolol 2%-0.5% Ophth Soln 10 ML Bottle EYERT SCH ×2 (10:57→21:20)
[2018-11-02] MEDS: Furosemide 20 MG/2 ML VIAL IVPUSH SCH (11:03)
[2018-11-02] MEDS: diazePAM 5 MG/ML MDV IVPUSH PRN (21:15)
[2018-11-03] MEDS: Piperacillin/Tazobactam 4.5 GM in Sodium Chloride 0.9% 100 ML IV SCH ×4 (03:23→20:52)
[2018-11-03] MEDS: Calcium Polycarbophil 625 MG Tab PO SCH ×3 (06:28→23:53)
[2018-11-03] MEDS: Omeprazole 20 MG Cap.CR PO SCH (06:32)
[2018-11-03] MEDS: Albuterol/Ipratropium 3.0-0.5 MG/3 ML Neb Soln NEB PRN (06:38)
--- NOTE | 2018-11-03 08:53 | PCM.DCSUM1 ---
Discharge Summary - Discharge Data Discharge Disposition: Home, Self-Care 01 Condition: Fair - Discharge Plan Home Medications: Home Meds Dorzolamide/Timolol [Cosopt 2%-0.5% Ophth Soln] 1 drop EYERT BID 05/28/16 [ History] Latanoprost 1 drop EYEBOTH DAILY 05/28/16 [History] Omeprazole 40 mg PO DAILY 05/28/16 [History] Sertraline HCl 150 mg PO DAILY 05/28/16 [History] Loperamide [Imodium] 1 tab PO BID 05/08/18 [History] Losartan [Cozaar] 12.5 mg PO BID 05/08/18 [History] Brimonidine [Alphagan 0.2% Ophth Soln] 1 drop EYERT BID 10/20/18 [History] Activated Charcoal [Charcocaps] 260 mg PO ASDIRECTED 11/01/18 [History] Albuterol/Ipratropium [DuoNeb 3.0-0.5 MG/3 ML] 3 ml NEB QID 11/01/18 [History] Apixaban [Eliquis] 2.5 mg PO BID 11/01/18 [History] Aspirin [Adult Low Dose Aspirin EC] 81 mg PO DAILY 11/01/18 [History] Calcium Carbonate 600 mg PO DAILY 11/01/18 [History] Calcium Polycarbophil [Fibercon] 1,250 mg PO TID 11/01/18 [History] Calcium Polycarbophil [Fibercon] 1,250 mg PO TID 11/01/18 [History] Cholecalciferol (Vitamin D3) [Vitamin D3] 5,000 unit PO BID 11/01/18 [History] Cyanocobalamin (Vitamin B-12) [Cyanocobalamin Injection] 1,000 mcg IM Q14D 11/01 [History] Denosumab [Prolia] 60 mg SQ .EVERY 6 MONTHS 11/01/18 [History] Furosemide 20 mg PO DAILY 11/01/18 [History] Furosemide [Lasix] 20 mg PO DAILY 11/01/18 [History] Magnesium Oxide 400 mg PO DAILY 11/01/18 [History] Magnesium Oxide 400 mg PO DAILY 11/01/18 [History] Metoprolol Tartrate 12.5 mg PO BID 11/01/18 [History] Potassium Chloride 1 tab PO DAILY 11/01/18 [History] Potassium Chloride [Klor-Con 10] 10 meq PO DAILY 11/01/18 [History] atorvaSTATin [Lipitor] 20 mg PO DAILY 11/01/18 [History] Referrals: Mark Espana MD [Physician] - 11/08/18 10:00 am - Patient Data Vitals - Most Recent: Last Vital Signs Temp 36.3 C 11/03/18 03:35 Pulse 76 11/03/18 03:35 Resp 16 11/03/18 03:35 BP 98/74 11/03/18 03:35 Pulse Ox 93 L 11/03/18 03:35 Weight - Most Recent: 54.068 kg I&O - Last 24 hours: Intake & Output 11/02/18 11/03/18 11/03/18 22:59 06:59 14:59 Intake Total 640 1200 Output Total 1450 1400 Balance -810 -200 Lab Results - Last 24 hrs: Laboratory Results - last 24 hr 11/01/18 11/03/18 11/03/18 Range/Units 11:40 04:48 04:48 WBC 7.62 (4.0-11.0) K/uL RBC 3.13 L (4.30-5.90) M/uL Hgb 9.1 L (12.0-16.0) g/dL Hct 29.0 L (36.0-46.0) % MCV 92.7 (80.0-98.0) fL MCH 29.1 (27.0-32.0) pg MCHC 31.4 (31.0-37.0) g/dL RDW Std Deviation 52.9 (28.0-62.0) fl RDW Coeff of Luke 16 H (11.0-15.0) % Plt Count 310 (150-400) K/uL MPV 10.50 (7.40-12.00) fL Neut % (Auto) 73.4 (48.0-80.0) % Lymph % (Auto) 7.9 L (16.0-40.0) % [place] % (Auto) 14.2 (0.0-15.0) % Eos % (Auto) 4.2 (0.0-7.0) % Baso % (Auto) 0.3 (0.0-1.5) % Neut # (Auto) 5.6 (1.4-5.7) K/uL Lymph # (Auto) 0.6 (0.6-2.4) K/uL [place] # (Auto) 1.1 H (0.0-0.8) K/uL Eos # (Auto) 0.3 (0.0-0.7) K/uL Baso # (Auto) 0.0 (0.0-0.1) K/uL Nucleated RBC % 0.0 /100WBC Nucleated RBCs # 0 K/uL Sodium 140 (136-145) mmol/L Potassium 3.4 L (3.5-5.1) mmol/L Chloride 102 (98-107) mmol/L Carbon Dioxide 27.9 (21.0-32.0) mmol/L BUN 15 (7.0-18.0) mg/dL Creatinine 1.0 (0.6-1.0) mg/dL Est Cr Clr Drug Dosing 32.16 mL/min Estimated GFR (MDRD) 53.0 ml/min Glucose 103 (74-106) mg/dL Calcium 8.0 L (8.5-10.1) mg/dL Magnesium 2.1 (1.8-2.4) mg/dL Urine Color YELLOW Urine Appearance CLEAR Urine pH 6.0 (5.0-8.0) Ur Specific [place] <= 1.005 (1.001-1.035) Urine Protein NEGATIVE (NEGATIVE) mg/dL Urine Glucose (UA) NEGATIVE (NEGATIVE) mg/dL Urine Ketones NEGATIVE (NEGATIVE) mg/dL Urine Occult Blood NEGATIVE (NEGATIVE) Urine Nitrite NEGATIVE (NEGATIVE) Urine Bilirubin NEGATIVE (NEGATIVE) Urine Urobilinogen 0.2 (<2.0) EU/dL Ur Leukocyte Esterase MODERATE H (NEGATIVE) Urine RBC 3-6 (0-2/HPF) Urine WBC 2-4 (0-5/HPF) Ur Epithelial Cells MODERATE (NONE-FEW) Calcium Oxalate Crystal MANY (NEGATIVE) Urine Bacteria 1+ H (NEGATIVE) [place] Results - Last 24 hrs: Microbiology 11/01/18 15:30 Gram Stain - Preliminary Sputum - Expectorated 11/01/18 12:11 Aerobic Blood Culture - Preliminary Blood - Venous - Lab Draw Anaerobic Blood Culture - Preliminary 11/01/18 11:45 Aerobic Blood Culture - Preliminary Blood - Venous NO GROWTH AFTER 1 DAY Anaerobic Blood Culture - Preliminary NO GROWTH AFTER 1 DAY 11/01/18 11:40 Urine Culture - Final Urine, Clean Catch MIXED RISA >100,000 CFU/ML Med Orders - Current: Current Medications Albuterol/Ipratropium (Duoneb 3.0-0.5 Mg/3 Ml) 3 ml NEB QID PRN PRN Reason: SOB/wheezing Last Admin: 11/03/18 06:38 Dose: 3 ml Apixaban (Eliquis) 2.5 mg PO BID [facility] Last Admin: 11/02/18 21:09 Dose: 2.5 mg Aspirin (Halfprin) 81 mg PO DAILY [facility] Last Admin: 11/02/18 08:48 Dose: 81 mg Atorvastatin Calcium (Lipitor) 20 mg PO DAILY [facility] Last Admin: 11/02/18 08:47 Dose: 20 mg Brimonidine Tartrate (Alphagan 0.2% Ophth Soln) 0 ml EYERT BID [facility] Last Admin: 11/02/18 21:17 Dose: 1 drop Calcium Polycarbophil (Fibercon) 1,250 mg PO TID [facility] Last Admin: 11/03/18 06:28 Dose: 1,250 mg Diazepam (Valium) 5 mg IVPUSH Q8H PRN PRN Reason: anxiety/insomnia Last Admin: 11/02/18 21:15 Dose: 5 mg Furosemide (Lasix) 20 mg IVPUSH DAILY [facility] Last Admin: 11/02/18 11:03 Dose: 20 mg Piperacillin Sod/Tazobactam (Sod 4.5 gm/ Sodium Chloride) 100 mls @ 100 mls/hr IV Q6H [facility] Last Admin: 11/03/18 03:23 Dose: 100 mls/hr Vancomycin HCl 0.75 gm/ Sodium (Chloride) 100 mls @ 100 mls/hr IV Q24H [facility] Last Admin: 11/02/18 10:58 Dose: 100 mls/hr Levofloxacin/Dextrose 750 mg/ (Premix) 150 mls @ 100 mls/hr IV Q48H [facility] Last Admin: 11/01/18 16:06 Dose: 100 mls/hr Loperamide HCl (Imodium) 2 mg PO BID [facility] Last Admin: 11/02/18 21:09 Dose: 2 mg Magnesium Oxide (Magnesium Oxide) 400 mg PO DAILY [facility] Last Admin: 04/19/19 08:48 Dose: 400 mg Metoprolol Tartrate (Lopressor) 12.5 mg PO BID [facility] Last Admin: 11/02/18 21:09 Dose: 12.5 mg Omeprazole (Omeprazole) 40 mg PO ACBREAKFAST [facility] Last Admin: 11/03/18 06:32 Dose: 40 mg Dorzolamide/Timolol 2%-0.5% Ophth Soln 10 Ml Bottle 1 each EYERT BID [facility] Last Admin: 11/02/18 21:20 Dose: 1 each Latanoprost 1 Drop 0 each EYEBOTH DAILY [facility] Sertraline HCl (Zoloft) 150 mg PO DAILY [facility] Last Admin: 11/02/18 08:48 Dose: 150 mg Vancomycin HCl (Pharmacy To Dose - Vancomycin) 1 dose .XX ASDIRECTED [facility] Discontinued Medications Albuterol/Ipratropium (Duoneb 3.0-0.5 Mg/3 Ml) 3 ml NEB ONETIME ONE Stop: 11/01/18 09:37 Last Admin: 11/01/18 09:50 Dose: 3 ml Albuterol/Ipratropium (Duoneb 3.0-0.5 Mg/3 Ml) 3 ml NEB QID [facility] Last Admin: 11/02/18 05:59 Dose: 3 ml Diazepam (Valium) 2.5 mg IVPUSH ONETIME ONE Stop: 11/01/18 11:33 Last Admin: 11/01/18 11:37 Dose: Not Given Diazepam (Valium) 2.5 mg IVPUSH ONETIME ONE Stop: 11/01/18 11:37 Last Admin: 11/01/18 11:49 Dose: Not Given Diazepam (Valium) Confirm Administered Dose 5 mg .ROUTE .STK-MED ONE Stop: 11/01/18 11:39 Last Admin: 11/01/18 11:48 Dose: Not Given Diazepam (Valium) 2.5 mg IVPUSH ONETIME ONE Stop: 11/01/18 11:50 Last Admin: 11/01/18 12:03 Dose: Not Given Diazepam (Valium) 2.5 mg IVPUSH ONETIME ONE Stop: 11/01/18 12:16 Last Admin: 11/01/18 12:05 Dose: 2.5 mg Diazepam (Valium.) 5 mg PO ONETIME ONE Stop: 11/01/18 22:19 Last Admin: 11/01/18 22:29 Dose: 5 mg Dorzolamide/Timolol (Cosopt 2%-0.5% Ophth Soln) 0 ml EYERT BID [facility] Last Admin: 11/02/18 10:57 Dose: Not Given Furosemide (Lasix) 20 mg IVPUSH NOW ONE Stop: 11/01/18 11:21 Last Admin: 11/01/18 11:48 Dose: 20 mg Furosemide (Lasix) 20 mg IVPUSH NOW ONE Stop: 11/01/18 13:11 Last Admin: 11/01/18 14:18 Dose: 20 mg Furosemide (Lasix) 40 mg IVPUSH DAILY [facility] Vancomycin HCl 1 gm/ Sodium (Chloride) 250 mls @ 166 mls/hr IV ONETIME ONE Stop: 11/01/18 12:50 Last Admin: 11/01/18 12:14 Dose: 166 mls/hr Levofloxacin/Dextrose 750 mg/ (Premix) 150 mls @ 100 mls/hr IV Q48H [facility] Last Admin: 11/01/18 15:23 Dose: Not Given Sodium Chloride (Normal Saline) 500 mls @ 999 mls/hr IV ONETIME ONE Stop: 11/01/18 19:45 Last Admin: 11/01/18 19:37 Dose: 999 mls/hr Magnesium Sulfate 2 gm/ Premix 50 mls @ 50 mls/hr IV ONETIME ONE Stop: 11/02/18 07:37 Last Admin: 11/02/18 07:08 Dose: 50 mls/hr Latanoprost (Xalatan 0.005% Ophth Soln) 0 ml EYEBOTH DAILY [facility] Last Admin: 11/02/18 10:57 Dose: Not Given Methylprednisolone Sodium Succinate (Solu-Medrol) 125 mg IVPUSH ONETIME ONE Stop: 11/01/18 09:37 Last Admin: 11/01/18 09:51 Dose: 125 mg
[2018-11-03] MEDS: Sertraline 50 MG Tab PO SCH (09:38)
[2018-11-03] MEDS: Aspirin 81 MG Tab.EC PO SCH (09:38)
[2018-11-03] MEDS: Magnesium Oxide 400 MG Tab PO SCH (09:38)
[2018-11-03] MEDS: atorvaSTATin 20 MG Tab PO SCH (09:38)
[2018-11-03] MEDS: Apixaban 2.5 MG Tab PO SCH ×2 (09:39→20:50)
[2018-11-03] MEDS: Metoprolol Tartrate 25 MG Tab PO SCH ×2 (09:39→20:50)
[2018-11-03] MEDS: Loperamide 2 MG Cap PO SCH ×2 (09:39→20:52)
[2018-11-03] MEDS: Dorzolamide/Timolol 2%-0.5% Ophth Soln 10 ML Bottle EYERT SCH ×2 (09:46→20:59)
[2018-11-03] MEDS: Brimonidine 0.2% Ophth Soln 5 ML Bottle EYERT SCH ×2 (09:46→20:49)
[2018-11-03] MEDS: Furosemide 20 MG/2 ML VIAL IVPUSH SCH ×2 (09:47→10:03)
[2018-11-03] MEDS: LATANOPROST EYEBOTH SCH (10:03)
--- NOTE | 2018-11-03 10:58 | PCM.PN ---
- General Info Date of Service: 11/03/18 Admission Dx/Problem (Free Text): I have seen and examined the patient independently of Harper Stone CNP. I have discussed the case with her. I have reviewed and agreed with the plan of treatment as outlined for this patient by her. Please see orders. Still short of breath, possible home tomorrow to resume home health care. Subjective Update: The patient is a 83-year-old lady who was admitted originally admitted secondary to pneumonia. She has a history of hypertension dyslipidemia lung cancer along with left upper lobe resection. The patient feels otherwise improved since hospitalization. She has been treated with fluid resuscitation and treatment for hospital-acquired pneumonia as the patient was recently in the hospital in tertiary care center. The patient today says that she feels improved although she does not feel like she can go home safely. Cultures are currently pending. The patient has been tolerating diet although she is not happy about fluid restriction. Functional Status: Reports: Pain Controlled - Review of Systems General: Reports: No Symptoms HEENT: Reports: No Symptoms Pulmonary: Reports: Shortness of Breath, Wheezing Cardiovascular: Reports: No Symptoms Gastrointestinal: Reports: No Symptoms 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: Reports: No Symptoms Musculoskeletal: Reports: No Symptoms Skin: Reports: No Symptoms Neurological: Reports: No Symptoms Psychiatric: Reports: No Symptoms - Patient Data Vitals - Most Recent: Last Vital Signs Temp 36.3 C 11/03/18 03:35 Pulse 66 11/03/18 09:39 Resp 16 11/03/18 03:35 BP 127/60 11/03/18 09:39 Pulse Ox 93 L 11/03/18 03:35 Weight - Most Recent: 54.068 kg I&O - Last 24 Hours: Intake & Output 11/02/18 11/03/18 11/03/18 22:59 06:59 14:59 Intake Total 640 1200 Output Total 1450 1400 Balance -810 -200 Lab Results Last 24 Hours: Laboratory Results - last 24 hr 11/01/18 11/03/18 11/03/18 Range/Units 11:40 04:48 04:48 WBC 7.62 (4.0-11.0) K/uL RBC 3.13 L (4.30-5.90) M/uL Hgb 9.1 L (12.0-16.0) g/dL Hct 29.0 L (36.0-46.0) % MCV 92.7 (80.0-98.0) fL MCH 29.1 (27.0-32.0) pg MCHC 31.4 (31.0-37.0) g/dL RDW Std Deviation 52.9 (28.0-62.0) fl RDW Coeff of Luke 16 H (11.0-15.0) % Plt Count 310 (150-400) K/uL MPV 10.50 (7.40-12.00) fL Neut % (Auto) 73.4 (48.0-80.0) % Lymph % (Auto) 7.9 L (16.0-40.0) % [place] % (Auto) 14.2 (0.0-15.0) % Eos % (Auto) 4.2 (0.0-7.0) % Baso % (Auto) 0.3 (0.0-1.5) % Neut # (Auto) 5.6 (1.4-5.7) K/uL Lymph # (Auto) 0.6 (0.6-2.4) K/uL [place]ster # (Auto) 1.1 H (0.0-0.8) K/uL Eos # (Auto) 0.3 (0.0-0.7) K/uL Baso # (Auto) 0.0 (0.0-0.1) K/uL Nucleated RBC % 0.0 /100WBC Nucleated RBCs # 0 K/uL Sodium 140 (136-145) mmol/L Potassium 3.4 L (3.5-5.1) mmol/L Chloride 102 (98-107) mmol/L Carbon Dioxide 27.9 (21.0-32.0) mmol/L BUN 15 (7.0-18.0) mg/dL Creatinine 1.0 (0.6-1.0) mg/dL Est Cr Clr Drug Dosing 32.16 mL/min Estimated GFR (MDRD) 53.0 ml/min Glucose 103 (74-106) mg/dL Calcium 8.0 L (8.5-10.1) mg/dL Magnesium 2.1 (1.8-2.4) mg/dL Urine Color YELLOW Urine Appearance CLEAR Urine pH 6.0 (5.0-8.0) Ur Specific [place] <= 1.005 (1.001-1.035) Urine Protein NEGATIVE (NEGATIVE) mg/dL Urine Glucose (UA) NEGATIVE (NEGATIVE) mg/dL Urine Ketones NEGATIVE (NEGATIVE) mg/dL Urine Occult Blood NEGATIVE (NEGATIVE) Urine Nitrite NEGATIVE (NEGATIVE) Urine Bilirubin NEGATIVE (NEGATIVE) Urine Urobilinogen 0.2 (<2.0) EU/dL Ur Leukocyte Esterase MODERATE H (NEGATIVE) Urine RBC 3-6 (0-2/HPF) Urine WBC 2-4 (0-5/HPF) Ur Epithelial Cells MODERATE (NONE-FEW) Calcium Oxalate Crystal MANY (NEGATIVE) Urine Bacteria 1+ H (NEGATIVE) Xu Results Last 24 Hours: Microbiology 11/01/18 12:11 Aerobic Blood Culture - Preliminary Blood - Venous - Lab Draw Anaerobic Blood Culture - Preliminary 11/01/18 15:30 Gram Stain - Preliminary Sputum - Expectorated 11/01/18 11:45 Aerobic Blood Culture - Preliminary Blood - Venous NO GROWTH AFTER 1 DAY Anaerobic Blood Culture - Preliminary NO GROWTH AFTER 1 DAY 11/01/18 11:40 Urine Culture - Final Urine, Clean Catch MIXED RISA >100,000 CFU/ML Med Orders - Current: Current Medications Albuterol/Ipratropium (Duoneb 3.0-0.5 Mg/3 Ml) 3 ml NEB QID PRN PRN Reason: SOB/wheezing Last Admin: 11/03/18 06:38 Dose: 3 ml Apixaban (Eliquis) 2.5 mg PO BID [facility] Last Admin: 11/03/18 09:39 Dose: 2.5 mg Aspirin (Halfprin) 81 mg PO DAILY [facility] Last Admin: 11/03/18 09:38 Dose: 81 mg Atorvastatin Calcium (Lipitor) 20 mg PO DAILY [facility] Last Admin: 11/03/18 09:38 Dose: 20 mg Brimonidine Tartrate (Alphagan 0.2% Oph Soln) 0 ml EYERT BID [facility] Last Admin: 11/03/18 09:46 Dose: 1 drop Calcium Polycarbophil (Fibercon) 1,250 mg PO TID [facility] Last Admin: 11/03/18 06:28 Dose: 1,250 mg Diazepam (Valium) 5 mg IVPUSH Q8H PRN PRN Reason: anxiety/insomnia Last Admin: 11/02/18 21:15 Dose: 5 mg Furosemide (Lasix) 20 mg IVPUSH DAILY [facility] Last Admin: 11/03/18 10:03 Dose: Not Given Piperacillin Sod/Tazobactam (Sod 4.5 gm/ Sodium Chloride) 100 mls @ 100 mls/hr IV Q6H [facility] Last Admin: 11/03/18 09:47 Dose: 100 mls/hr Vancomycin HCl 0.75 gm/ Sodium (Chloride) 100 mls @ 100 mls/hr IV Q24H [facility] Last Admin: 11/02/18 10:58 Dose: 100 mls/hr Levofloxacin/Dextrose 750 mg/ (Premix) 150 mls @ 100 mls/hr IV Q48H [facility] Last Admin: 11/01/18 16:06 Dose: 100 mls/hr Loperamide HCl (Imodium) 2 mg PO BID [facility] Last Admin: 11/03/18 09:39 Dose: 2 mg Magnesium Oxide (Magnesium Oxide) 400 mg PO DAILY [facility] Last Admin: 11/03/18 09:38 Dose: 400 mg Metoprolol Tartrate (Lopressor) 12.5 mg PO BID [facility] Last Admin: 11/03/18 09:39 Dose: 12.5 mg Omeprazole (Omeprazole) 40 mg PO ACBREAKFAST [facility] Last Admin: 11/03/18 06:32 Dose: 40 mg Dorzolamide/Timolol 2%-0.5% Ophth Soln 10 Ml Bottle 1 each EYERT BID [facility] Last Admin: 11/03/18 09:46 Dose: 1 each Latanoprost 1 Drop 0 each EYEBOTH DAILY [facility] Last Admin: 11/03/18 10:03 Dose: Not Given Sertraline HCl (Zoloft) 150 mg PO DAILY [facility] Last Admin: 11/03/18 09:38 Dose: 150 mg Vancomycin HCl (Pharmacy To Dose - Vancomycin) 1 dose .XX ASDIRECTED [facility] Discontinued Medications Albuterol/Ipratropium (Duoneb 3.0-0.5 Mg/3 Ml) 3 ml NEB ONETIME ONE Stop: 11/01/18 09:37 Last Admin: 11/01/18 09:50 Dose: 3 ml Albuterol/Ipratropium (Duoneb 3.0-0.5 Mg/3 Ml) 3 ml NEB QID [facility] Last Admin: 11/02/18 05:59 Dose: 3 ml Diazepam (Valium) 2.5 mg IVPUSH ONETIME ONE Stop: 11/01/18 11:33 Last Admin: 11/01/18 11:37 Dose: Not Given Diazepam (Valium) 2.5 mg IVPUSH ONETIME ONE Stop: 11/01/18 11:37 Last Admin: 11/01/18 11:49 Dose: Not Given Diazepam (Valium) Confirm Administered Dose 5 mg .ROUTE .STK-MED ONE Stop: 11/01/18 11:39 Last Admin: 11/01/18 11:48 Dose: Not Given Diazepam (Valium) 2.5 mg IVPUSH ONETIME ONE Stop: 11/01/18 11:50 Last Admin: 11/01/18 12:03 Dose: Not Given Diazepam (Valium) 2.5 mg IVPUSH ONETIME ONE Stop: 11/01/18 12:16 Last Admin: 11/01/18 12:05 Dose: 2.5 mg Diazepam (Valium.) 5 mg PO ONETIME ONE Stop: 11/01/18 22:19 Last Admin: 11/01/18 22:29 Dose: 5 mg Dorzolamide/Timolol (Cosopt 2%-0.5% Ophth Soln) 0 ml EYERT BID [facility] Last Admin: 11/02/18 10:57 Dose: Not Given Furosemide (Lasix) 20 mg IVPUSH NOW ONE Stop: 11/01/18 11:21 Last Admin: 11/01/18 11:48 Dose: 20 mg Furosemide (Lasix) 20 mg IVPUSH NOW ONE Stop: 11/01/18 13:11 Last Admin: 11/01/18 14:18 Dose: 20 mg Furosemide (Lasix) 40 mg IVPUSH DAILY [facility] Vancomycin HCl 1 gm/ Sodium (Chloride) 250 mls @ 166 mls/hr IV ONETIME ONE Stop: 11/01/18 12:50 Last Admin: 11/01/18 12:14 Dose: 166 mls/hr Levofloxacin/Dextrose 750 mg/ (Premix) 150 mls @ 100 mls/hr IV Q48H [facility] Last Admin: 11/01/18 15:23 Dose: Not Given Sodium Chloride (Normal Saline) 500 mls @ 999 mls/hr IV ONETIME ONE Stop: 11/01/18 19:45 Last Admin: 11/01/18 19:37 Dose: 999 mls/hr Magnesium Sulfate 2 gm/ Premix 50 mls @ 50 mls/hr IV ONETIME ONE Stop: 11/02/18 07:37 Last Admin: 11/02/18 07:08 Dose: 50 mls/hr Latanoprost (Xalatan 0.005% Ophth Soln) 0 ml EYEBOTH DAILY [facility] Last Admin: 11/02/18 10:57 Dose: Not Given Methylprednisolone Sodium Succinate (Solu-Medrol) 125 mg IVPUSH ONETIME ONE Stop: 11/01/18 09:37 Last Admin: 11/01/18 09:51 Dose: 125 mg - Exam Quality Assessment: Supplemental Oxygen General: Alert, Oriented, Cooperative, No Acute Distress HEENT: Pupils Equal, Pupils Reactive, Mucous Membr. Moist/[place] Neck: Supple, Trachea Midline Lungs: Clear to Auscultation, Normal Respiratory Effort Cardiovascular: Regular Rate, Irregular Rhythm, Murmurs (3/6 holosystolic) GI/Abdominal Exam: Normal Bowel Sounds, Soft, Non-Tender, No Distention (Female) Exam: Deferred Back Exam: Full Range of Motion (Age appropriate). No: Normal Inspection ( Kyphosis) Extremities: Normal Inspection (Age appropriate), No Pedal Edema Skin: Warm, Dry, Intact Neurological: No New Focal Deficit Psy/Mental Status: Alert, Normal Affect, Normal Mood - Problem List & Annotations (1) Healthcare-associated pneumonia SNOMED Code(s): 897811913, 980183252 Code(s): J18.9 - PNEUMONIA, UNSPECIFIED ORGANISM Status: Acute Priority: High Current Visit: Yes (2) Acute and chronic respiratory failure with hypoxia SNOMED Code(s): 31606356, 260815579 Code(s): J96.21 - ACUTE AND CHRONIC RESPIRATORY FAILURE WITH HYPOXIA Status : Acute Priority: High Current Visit: Yes Annotation/Comment:: Improved (3) HTN (hypertension) SNOMED Code(s): 43555592 Code(s): I10 - ESSENTIAL (PRIMARY) HYPERTENSION Status: Chronic Priority : High Current Visit: Yes Qualifiers: Hypertension type: essential hypertension Qualified Code(s): I10 - Essential (primary) hypertension (4) Afib SNOMED Code(s): 30367534 Code(s): I48.91 - UNSPECIFIED ATRIAL FIBRILLATION Status: Chronic Priority: High Current Visit: Yes Qualifiers: Atrial fibrillation type: chronic Qualified Code(s): I48.2 - Chronic atrial fibrillation - Problem List Review Problem List Initiated/Reviewed/Updated: Yes - Plan Plan:: This 83 year old female admitted with acute on chronic respiratory failure, acute on chronic systolic CHF, and HCAP 1. Acute on chronic respiratory failure: Dyspnea has improved. Oxygen needs have decreased and on 1-2, which is home baseline. Continue Oxygen, keep sats 88 %-92% due to hx of COPD and oxygen dependence. Duonebs PRN. 2. Acute on chronic systolic CHF: BP decreased with Lasix 40 mg IV yesterday, Will monitor today. May give small 20 mg dose and monitor depending on BP. Strict I/O and daily weights. 3. HCAP: BC pending, will obtain sputum culture. Continue Vancomycin, Zosyn and Levaquin, covering for potential gram negative infection. 4. Afib: EKG reveals SR, will continue Metoprolol and Eliquis. Monitor on telemetry. 5. HTN: decreased after Lasix. Will monitor. Continue to hold Cozaar during diuresis. Monitor BP. 6. CAD: Stable, no chest pain. Continue Plavix and ASA. Along with Statin. VTE prophylaxis: Eliquis Dispo: 2-4 days pending improvement. The patient is an 83-year-old lady who will continue on hospitalization. Originally she had been planned for discharge today however both the examination and the patient's concerns indicate that she should stay 1 more day. The patient is also on Levaquin, Zosyn and vancomycin for hospital- acquired pneumonia. His antibiotics will be continued and patient will have laboratory testing to help monitor for her renal function.The patient's oxygenation has improved and she'll be kept on oxygen to keep her saturations around 92%. She does have a history of chronic systolic congestive heart failure and she is on Lasix currently. I still think that the patient does need to be fluid restricted. The patient will also be kept on telemetry secondary to her atrial fibrillation. This is chronic in nature. The patient is currently anticoagulated on Eliquis and therefore will not need to have DVT prophylaxis.
[2018-11-03] MEDS ORDERED: Potassium Chloride 20 MEQ Tab.ER PO ONE (17:37)
[2018-11-03] MEDS: Levofloxacin/Dextrose 5%-Water 750 MG in Premix Bag 1 BAG IV SCH (17:47)
[2018-11-03] MEDS: diazePAM 5 MG/ML MDV IVPUSH PRN (22:11)
[2018-11-04] MEDS: Piperacillin/Tazobactam 4.5 GM in Sodium Chloride 0.9% 100 ML IV SCH ×4 (03:58→20:40)
[2018-11-04] MEDS: Albuterol/Ipratropium 3.0-0.5 MG/3 ML Neb Soln NEB PRN (05:02)
[2018-11-04 06:01] LABS: CHLORIDE,CL 104 mmol/L (98-107); SODIUM,NA 140 mmol/L (136-145)
[2018-11-04] MEDS: Calcium Polycarbophil 625 MG Tab PO SCH ×3 (06:50→21:24)
[2018-11-04] MEDS: Omeprazole 20 MG Cap.CR PO SCH (07:36)
[2018-11-04] MEDS: Loperamide 2 MG Cap PO SCH ×2 (08:49→20:38)
[2018-11-04] MEDS: Aspirin 81 MG Tab.EC PO SCH (08:49)
[2018-11-04] MEDS: Magnesium Oxide 400 MG Tab PO SCH (08:50)
[2018-11-04] MEDS: Apixaban 2.5 MG Tab PO SCH ×2 (08:50→20:36)
[2018-11-04] MEDS: atorvaSTATin 20 MG Tab PO SCH (08:50)
[2018-11-04] MEDS: Sertraline 50 MG Tab PO SCH (08:50)
[2018-11-04] MEDS: Metoprolol Tartrate 25 MG Tab PO SCH ×2 (08:51→20:37)
[2018-11-04] MEDS: Furosemide 20 MG/2 ML VIAL IVPUSH SCH (08:52)
--- NOTE | 2018-11-04 09:01 | PCM.PN ---
- General Info Date of Service: 11/04/18 Admission Dx/Problem (Free Text): The patient was admitted with hospital-acquired pneumonia. Subjective Update: Patient is an 83-year-old lady who is doing much better today. She still has a cough. She feels dehydrated. 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 She says that she would like to not be on fluid restriction. The patient has denied any pain. She has no other complaints at the present time. She is still using oxygen. Functional Status: Reports: Pain Controlled - Review of Systems General: Reports: Malaise, Other (Dehydrated) HEENT: Reports: No Symptoms Pulmonary: Reports: Shortness of Breath Cardiovascular: Reports: No Symptoms Gastrointestinal: Reports: No Symptoms 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: Reports: No Symptoms Musculoskeletal: Reports: No Symptoms Skin: Reports: No Symptoms Neurological: Reports: No Symptoms Psychiatric: Reports: No Symptoms - Patient Data Vitals - Most Recent: Last Vital Signs Temp 36.4 C 11/04/18 08:00 Pulse 74 11/04/18 08:51 Resp 16 11/04/18 08:00 BP 109/71 11/04/18 08:51 Pulse Ox 90 L 11/04/18 08:00 Weight - Most Recent: 55.026 kg I&O - Last 24 Hours: Intake & Output 11/03/18 11/04/18 11/04/18 22:59 06:59 14:59 Intake Total 660 950 Output Total 800 1100 Balance -140 -150 Lab Results Last 24 Hours: Laboratory Results - last 24 hr 11/04/18 11/04/18 Range/Units 05:36 05:36 WBC 6.66 (4.0-11.0) K/uL RBC 3.01 L (4.30-5.90) M/uL Hgb 8.8 L (12.0-16.0) g/dL Hct 28.0 L (36.0-46.0) % MCV 93.0 (80.0-98.0) fL MCH 29.2 (27.0-32.0) pg MCHC 31.4 (31.0-37.0) g/dL RDW Std Deviation 52.2 (28.0-62.0) fl RDW Coeff of Luke 15 (11.0-15.0) % Plt Count 269 (150-400) K/uL MPV 10.30 (7.40-12.00) fL Neut % (Auto) 71.6 (48.0-80.0) % Lymph % (Auto) 6.3 L (16.0-40.0) % Hayes % (Auto) 15.9 H (0.0-15.0) % Eos % (Auto) 5.9 (0.0-7.0) % Baso % (Auto) 0.3 (0.0-1.5) % Neut # (Auto) 4.8 (1.4-5.7) K/uL Lymph # (Auto) 0.4 L (0.6-2.4) K/uL Hayes # (Auto) 1.1 H (0.0-0.8) K/uL Eos # (Auto) 0.4 (0.0-0.7) K/uL Baso # (Auto) 0.0 (0.0-0.1) K/uL Nucleated RBC % 0.0 /100WBC Nucleated RBCs # 0 K/uL Sodium 140 (136-145) mmol/L Potassium 3.5 (3.5-5.1) mmol/L Chloride 104 (98-107) mmol/L Carbon Dioxide 26.1 (21.0-32.0) mmol/L BUN 11 (7.0-18.0) mg/dL Creatinine 0.8 (0.6-1.0) mg/dL Est Cr Clr Drug Dosing 40.21 mL/min Estimated GFR (MDRD) > 60.0 ml/min Glucose 93 (74-106) mg/dL Calcium 7.7 L (8.5-10.1) mg/dL Magnesium 1.8 (1.8-2.4) mg/dL Xu Results Last 24 Hours: Microbiology 11/01/18 15:30 Gram Stain - Final Sputum - Expectorated 11/01/18 12:11 Aerobic Blood Culture - Final Blood - Venous - Lab Draw Staphylococcus Epidermidis Anaerobic Blood Culture - Final 11/01/18 11:45 Aerobic Blood Culture - Preliminary Blood - Venous NO GROWTH AFTER 2 DAYS Anaerobic Blood Culture - Preliminary NO GROWTH AFTER 2 DAYS 11/01/18 11:40 Urine Culture - Final Urine, Clean Catch MIXED RISA >100,000 CFU/ML Med Orders - Current: Current Medications Albuterol/Ipratropium (Duoneb 3.0-0.5 Mg/3 Ml) 3 ml NEB QID PRN PRN Reason: SOB/wheezing Last Admin: 11/04/18 05:02 Dose: 3 ml Apixaban (Eliquis) 2.5 mg PO BID [facility] Last Admin: 11/04/18 08:50 Dose: 2.5 mg Aspirin (Halfprin) 81 mg PO DAILY [facility] Last Admin: 11/04/18 08:49 Dose: 81 mg Atorvastatin Calcium (Lipitor) 20 mg PO DAILY [facility] Last Admin: 11/04/18 08:50 Dose: 20 mg Brimonidine Tartrate (Alphagan 0.2% Ophth Soln) 0 ml EYERT BID [facility] Last Admin: 11/03/18 20:49 Dose: 1 drop Calcium Polycarbophil (Fibercon) 1,250 mg PO TID [facility] Last Admin: 11/04/18 06:50 Dose: 1,250 mg Diazepam (Valium) 5 mg IVPUSH Q8H PRN PRN Reason: anxiety/insomnia Last Admin: 11/03/18 22:11 Dose: 5 mg Furosemide (Lasix) 20 mg IVPUSH DAILY [facility] Last Admin: 11/04/18 08:52 Dose: Not Given Piperacillin Sod/Tazobactam (Sod 4.5 gm/ Sodium Chloride) 100 mls @ 100 mls/hr IV Q6H [facility] Last Admin: 11/04/18 08:40 Dose: 100 mls/hr Vancomycin HCl 0.75 gm/ Sodium (Chloride) 100 mls @ 100 mls/hr IV Q24H [facility] Last Admin: 11/03/18 11:16 Dose: 100 mls/hr Levofloxacin/Dextrose 750 mg/ (Premix) 150 mls @ 100 mls/hr IV Q48H [facility] Last Admin: 11/03/18 17:47 Dose: 100 mls/hr Loperamide HCl (Imodium) 2 mg PO BID [facility] Last Admin: 11/04/18 08:49 Dose: 2 mg Magnesium Oxide (Magnesium Oxide) 400 mg PO DAILY [facility] Last Admin: 11/04/18 08:50 Dose: 400 mg Metoprolol Tartrate (Lopressor) 12.5 mg PO BID [facility] Last Admin: 11/04/18 08:51 Dose: 12.5 mg Omeprazole (Omeprazole) 40 mg PO ACBREAKFAST [facility] Last Admin: 11/04/18 07:36 Dose: 40 mg Dorzolamide/Timolol 2%-0.5% Ophth Soln 10 Ml Bottle 1 each EYERT BID [facility] Last Admin: 11/03/18 20:59 Dose: 1 each Latanoprost 1 Drop 0 each EYEBOTH DAILY [facility] Last Admin: 11/03/18 10:03 Dose: Not Given Sertraline HCl (Zoloft) 150 mg PO DAILY [facility] Last Admin: 11/04/18 08:50 Dose: 150 mg Vancomycin HCl (Pharmacy To Dose - Vancomycin) 1 dose .XX ASDIRECTED [facility] Discontinued Medications Albuterol/Ipratropium (Duoneb 3.0-0.5 Mg/3 Ml) 3 ml NEB ONETIME ONE Stop: 11/01/18 09:37 Last Admin: 11/01/18 09:50 Dose: 3 ml Albuterol/Ipratropium (Duoneb 3.0-0.5 Mg/3 Ml) 3 ml NEB QID [facility] Last Admin: 11/02/18 05:59 Dose: 3 ml Diazepam (Valium) 2.5 mg IVPUSH ONETIME ONE Stop: 11/01/18 11:33 Last Admin: 11/01/18 11:37 Dose: Not Given Diazepam (Valium) 2.5 mg IVPUSH ONETIME ONE Stop: 11/01/18 11:37 Last Admin: 11/01/18 11:49 Dose: Not Given Diazepam (Valium) Confirm Administered Dose 5 mg .ROUTE .STK-MED ONE Stop: 11/01/18 11:39 Last Admin: 11/01/18 11:48 Dose: Not Given Diazepam (Valium) 2.5 mg IVPUSH ONETIME ONE Stop: 11/01/18 11:50 Last Admin: 11/01/18 12:03 Dose: Not Given Diazepam (Valium) 2.5 mg IVPUSH ONETIME ONE Stop: 11/01/18 12:16 Last Admin: 11/01/18 12:05 Dose: 2.5 mg Diazepam (Valium.) 5 mg PO ONETIME ONE Stop: 11/01/18 22:19 Last Admin: 11/01/18 22:29 Dose: 5 mg Dorzolamide/Timolol (Cosopt 2%-0.5% Ophth Soln) 0 ml EYERT BID [facility] Last Admin: 11/02/18 10:57 Dose: Not Given Furosemide (Lasix) 20 mg IVPUSH NOW ONE Stop: 11/01/18 11:21 Last Admin: 11/01/18 11:48 Dose: 20 mg Furosemide (Lasix) 20 mg IVPUSH NOW ONE Stop: 11/01/18 13:11 Last Admin: 11/01/18 14:18 Dose: 20 mg Furosemide (Lasix) 40 mg IVPUSH DAILY [facility] Vancomycin HCl 1 gm/ Sodium (Chloride) 250 mls @ 166 mls/hr IV ONETIME ONE Stop: 11/01/18 12:50 Last Admin: 11/01/18 12:14 Dose: 166 mls/hr Levofloxacin/Dextrose 750 mg/ (Premix) 150 mls @ 100 mls/hr IV Q48H [facility] Last Admin: 11/01/18 15:23 Dose: Not Given Sodium Chloride (Normal Saline) 500 mls @ 999 mls/hr IV ONETIME ONE Stop: 11/01/18 19:45 Last Admin: 11/01/18 19:37 Dose: 999 mls/hr Magnesium Sulfate 2 gm/ Premix 50 mls @ 50 mls/hr IV ONETIME ONE Stop: 11/02/18 07:37 Last Admin: 11/02/18 07:08 Dose: 50 mls/hr Latanoprost (Xalatan 0.005% Ophth Soln) 0 ml EYEBOTH DAILY [facility] Last Admin: 11/02/18 10:57 Dose: Not Given Methylprednisolone Sodium Succinate (Solu-Medrol) 125 mg IVPUSH ONETIME ONE Stop: 11/01/18 09:37 Last Admin: 11/01/18 09:51 Dose: 125 mg Potassium Chloride (Klor-Con M20) 20 meq PO ONETIME ONE Stop: 11/03/18 17:38 Last Admin: 11/03/18 17:46 Dose: 20 meq - Exam Quality Assessment: Supplemental Oxygen General: Alert, Oriented, Cooperative, No Acute Distress HEENT: Pupils Equal, Pupils Reactive Neck: Supple, Trachea Midline Lungs: Clear to Auscultation, Normal Respiratory Effort Cardiovascular: Regular Rate, Irregular Rhythm GI/Abdominal Exam: Normal Bowel Sounds, Soft, No Distention (Female) Exam: Deferred Back Exam: No: Normal Inspection (Kyphosis) Extremities: Normal Inspection, Normal Range of Motion (Age appropriate), No Pedal Edema Skin: Warm, Dry, Intact Neurological: No New Focal Deficit Psy/Mental Status: Alert, Normal Affect - Problem List & Annotations (1) Healthcare-associated pneumonia SNOMED Code(s): 355011275, 885650331 Code(s): J18.9 - PNEUMONIA, UNSPECIFIED ORGANISM Status: Acute Priority: High Current Visit: Yes (2) Acute and chronic respiratory failure with hypoxia SNOMED Code(s): 95925203, 914744516 Code(s): J96.21 - ACUTE AND CHRONIC RESPIRATORY FAILURE WITH HYPOXIA Status : Acute Priority: High Current Visit: Yes Annotation/Comment:: Improved (3) HTN (hypertension) SNOMED Code(s): 48700815 Code(s): I10 - ESSENTIAL (PRIMARY) HYPERTENSION Status: Chronic Priority : High Current Visit: Yes Qualifiers: Hypertension type: essential hypertension Qualified Code(s): I10 - Essential (primary) hypertension (4) Afib SNOMED Code(s): 99242883 Code(s): I48.91 - UNSPECIFIED ATRIAL FIBRILLATION Status: Chronic Priority: High Current Visit: Yes Qualifiers: Atrial fibrillation type: chronic Qualified Code(s): I48.2 - Chronic atrial fibrillation - Problem List Review Problem List Initiated/Reviewed/Updated: Yes - Plan Plan:: The patient is an 83-year-old lady who is doing somewhat better today. I've discontinued the patient's fluid restriction as she does have chronic diarrhea secondary to short bowel syndrome. The patient will also be kept on her current antibiotics for the hospital-acquired pneumonia. The patient also be kept on oxygen to help keep her saturations around 92%. I've also ordered repeat laboratory studies. The patient will have vital signs checked every 4 hours and her medication will be adjusted as conditions and information indicates. She is currently anticoagulated on Eliquis and this will be discontinued. Because of that she does not need to have DVT prophylaxis. The patient has been encouraged to ambulate.
[2018-11-04] MEDS ORDERED: Diazepam 2 MG Tab PO PRN (09:19)
[2018-11-04] MEDS: LATANOPROST EYEBOTH SCH (09:19)
[2018-11-04] MEDS: Brimonidine 0.2% Ophth Soln 5 ML Bottle EYERT SCH ×2 (09:19→20:35)
[2018-11-04] MEDS: Dorzolamide/Timolol 2%-0.5% Ophth Soln 10 ML Bottle EYERT SCH ×2 (09:19→20:44)
[2018-11-05] MEDS: Piperacillin/Tazobactam 4.5 GM in Sodium Chloride 0.9% 100 ML IV SCH (03:47)
[2018-11-05] MEDS: Omeprazole 20 MG Cap.CR PO SCH (06:29)
[2018-11-05] MEDS: Calcium Polycarbophil 625 MG Tab PO SCH ×2 (07:33→09:24)
[2018-11-05] MEDS ORDERED: Levofloxacin 250 MG Tab PO ONE (08:34)
--- NOTE | 2018-11-05 08:35 | CR ---
HISTORY: Pneumonia. TECHNIQUE: Portable frontal view of the chest. COMPARISON: Chest x-ray 11/01/2018. FINDINGS: Right-sided port. Unchanged left lung volume loss with near circumferential peripheral opacity which may reflect combination of pleural thickening and pleural fluid. Mild hazy airspace opacity in the superior portion of the left lung, unchanged. No consolidation on the right. Small right pleural effusion. No pneumothorax. Cardiomediastinal silhouette is unchanged. IMPRESSION: No change from 11/01/2018. Hazy airspace opacity in the upper left lung suspicious for pneumonia. Dictated by Chuy Serrano MD @ Nov 05 2018 8:31AM Signed by Dr. Chuy Serrano @ Nov 05 2018 8:34AM
--- NOTE | 2018-11-05 08:43 | PCM.DCSUM1 ---
Addendum entered and electronically signed by Harper Stone NP 11/05/18 09:00 : Discharge Summary - Hospital Course Free Text/Narrative:: [facility] Brief History: This 83 year old female with pmh of HTN, dyslipidemia, lung ca, left upper lobe resection, emphysema, afib on chronic anticoagulation, CHF and recent cardiac stenting in [place] presented to the ED today with concerns of increasing shortness of breath and not feeling well. She reports she was recently discharged from [facility] in [place] after having bilateral thoracentesis and cardiac stent placed. She was discharged home on Oxygen, 3 L NC. She denies chest pain, but reports shortness of breath and productive cough, generalized weakness and malaise. She denies urinary concerns, no diarrhea or constipation. NO black or bloody BMs. Regarding lung ca, her last chemotherapy was 2017. Recently had a PET scan which she was told was negative. She continues to follow with Dr Elam. In the ED, no leukocytosis noted, 10,000, Hgb 9.9, Na 134. BUN 28, Cr 0.8. BNP 1996. Troponin negative. CXR revealed mildly increased left apical opacity, developing pneumonia is not excluded. Stable volume loss, pleural effusion and interstitial prominence. In the ED she was given Solumedrol, Lasix 20 mg IV, and Diazepam for anxiety. She was also started on Vancomycin for HCAP pneumonia. She will be admitted for acute on chronic hypocix respiratory failure due to a combination of acute exacerbation of systolic heart failure and HCAP. In [place], last BNP noted on 10/25 was 278. 10/23: ECHO revealed severe left ventricular hypokinesis with EF of 22%. Diagnosis: Stroke: No - Discharge Data Discharge Date: 11/05/18 Discharge Disposition: Home, W Home Health Agency 06 Condition: Good - Discharge Diagnosis/Problem(s) (1) Acute and chronic respiratory failure with hypoxia SNOMED Code(s): 85795535, 105729569 ICD Code: J96.21 - ACUTE AND CHRONIC RESPIRATORY FAILURE WITH HYPOXIA Status: Resolved Priority: High Current Visit: Yes Problem Details: Improved (2) CHF (congestive heart failure) SNOMED Code(s): 63134388 ICD Code: I50.9 - HEART FAILURE, UNSPECIFIED Status: Acute Current Visit : Yes Qualifiers: Heart failure type: systolic Heart failure chronicity: acute on chronic Qualified Code(s): I50.23 - Acute on chronic systolic (congestive) heart failure (3) Healthcare-associated pneumonia SNOMED Code(s): 752226395, 895320121 ICD Code: J18.9 - PNEUMONIA, UNSPECIFIED ORGANISM Status: Acute Priority : High Current Visit: Yes (4) HTN (hypertension) SNOMED Code(s): 24727869 ICD Code: I10 - ESSENTIAL (PRIMARY) HYPERTENSION Status: Chronic Priority : High Current Visit: Yes Qualifiers: Hypertension type: essential hypertension Qualified Code(s): I10 - Essential (primary) hypertension (5) Afib SNOMED Code(s): 95442172 ICD Code: I48.91 - UNSPECIFIED ATRIAL FIBRILLATION Status: Chronic Priority: High Current Visit: Yes Qualifiers: Atrial fibrillation type: chronic Qualified Code(s): I48.2 - Chronic atrial fibrillation (6) Anticoagulated SNOMED Code(s): 804462344, 938083668 ICD Code: Z79.01 - 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 (CURRENT) USE OF ANTICOAGULANTS Status: Chronic Current Visit: Yes (7) History of TIAs SNOMED Code(s): 569810784 ICD Code: Z86.73 - PRSNL HX OF TIA (TIA), AND CEREB INFRC W/O RESID DEFICITS Status: Chronic Current Visit: Yes (8) Emphysema lung SNOMED Code(s): 78462553 ICD Code: J43.9 - EMPHYSEMA, UNSPECIFIED Status: Chronic Current Visit: Yes (9) GERD (gastroesophageal reflux disease) SNOMED Code(s): 739094412 ICD Code: K21.9 - GASTRO-ESOPHAGEAL REFLUX DISEASE WITHOUT ESOPHAGITIS Status: Chronic Current Visit: Yes (10) Macular degeneration SNOMED Code(s): 029419830 ICD Code: H35.30 - UNSPECIFIED MACULAR DEGENERATION Status: Chronic Current Visit: Yes (11) Glaucoma SNOMED Code(s): 30295182 ICD Code: H40.9 - UNSPECIFIED GLAUCOMA Status: Chronic Current Visit: Yes (12) History of uterine cancer SNOMED Code(s): 305985302 ICD Code: Z85.42 - PERSONAL HISTORY OF MALIGNANT NEOPLASM OF OTH PRT UTERUS Status: Chronic Current Visit: Yes (13) CAD (coronary artery disease) SNOMED Code(s): 19679240 ICD Code: I25.10 - ATHSCL HEART DISEASE OF [place] CORONARY ARTERY W/O ANG PCTRS Status: Chronic Current Visit: Yes Qualifiers: Coronary Disease-Associated Artery/Lesion type: [place] artery [place] vs. transplanted heart: [place] heart Associated angina: without angina Qualified Code(s): I25.10 - Atherosclerotic heart disease of [place] coronary artery without angina pectoris (14) Hx of non-ST elevation myocardial infarction (NSTEMI) SNOMED Code(s): 985559585 ICD Code: I25.2 - OLD MYOCARDIAL INFARCTION Status: Chronic Current Visit : Yes Problem Details: 10/22/2018 - Patient Instructions Diet: Heart Healthy Diet, Low Sodium Activity: As Tolerated Showering/Bathing: May Shower Notify Provider of: Fever, Increased Pain, Swelling and Redness, Drainage, Nausea and/or Vomiting Other/Special Instructions: weigh yourself daily, notify your doctor if you start to see a 3-5 lbs increase in weight over 2-3 days. - Discharge Plan *PRESCRIPTION DRUG MONITORING PROGRAM REVIEWED*: Not Applicable *COPY OF PRESCRIPTION DRUG MONITORING REPORT IN PATIENT AMY: Not Applicable Prescriptions/Med Rec: levoFLOXacin [Levaquin] 750 mg PO Q48H #2 tab Home Medications: Home Meds Dorzolamide/Timolol [Cosopt 2%-0.5% Ophth Soln] 1 drop EYERT BID 05/28/16 [ History] Latanoprost 1 drop EYEBOTH DAILY 05/28/16 [History] Omeprazole 40 mg PO DAILY 05/28/16 [History] Sertraline HCl 150 mg PO DAILY 05/28/16 [History] Loperamide [Imodium] 1 tab PO BID 05/08/18 [History] Losartan [Cozaar] 12.5 mg PO BID 05/08/18 [History] Brimonidine [Alphagan 0.2% Ophth Soln] 1 drop EYERT BID 10/20/18 [History] Activated Charcoal [Charcocaps] 260 mg PO ASDIRECTED 11/01/18 [History] Albuterol/Ipratropium [DuoNeb 3.0-0.5 MG/3 ML] 3 ml NEB QID 11/01/18 [History] Apixaban [Eliquis] 2.5 mg PO BID 11/01/18 [History] Aspirin [Adult Low Dose Aspirin EC] 81 mg PO DAILY 11/01/18 [History] Calcium Carbonate 600 mg PO DAILY 11/01/18 [History] Calcium Polycarbophil [Fibercon] 1,250 mg PO TID 11/01/18 [History] Calcium Polycarbophil [Fibercon] 1,250 mg PO TID 11/01/18 [History] Cholecalciferol (Vitamin D3) [Vitamin D3] 5,000 unit PO BID 11/01/18 [History] Cyanocobalamin (Vitamin B-12) [Cyanocobalamin Injection] 1,000 mcg IM Q14D 11/01 [History] Denosumab [Prolia] 60 mg SQ .EVERY 6 MONTHS 11/01/18 [History] Furosemide [Lasix] 20 mg PO DAILY 11/01/18 [History] Magnesium Oxide 400 mg PO DAILY 11/01/18 [History] Magnesium Oxide 400 mg PO DAILY 11/01/18 [History] Metoprolol Tartrate 12.5 mg PO BID 11/01/18 [History] Potassium Chloride [Klor-Con 10] 10 meq PO DAILY 11/01/18 [History] atorvaSTATin [Lipitor] 20 mg PO DAILY 11/01/18 [History] levoFLOXacin [Levaquin] 750 mg PO Q48H #2 tab 11/05/18 [Rx] Oxygen Therapy Mode: Nasal Cannula Oxygen Flow Rate (L/min): 2 Patient Handouts: Acute Respiratory Failure, Adult, Levofloxacin tablets, Heart Failure, [id number], Community-Acquired Pneumonia, Adult, [id number] Referrals: [facility] [Outside] Mark Espana MD [Physician] - 11/08/18 10:00 am Raina Maya NP [Ordering Only Provider] - 11/12/18 1:20 pm - Discharge Summary/Plan Comment DC Time >30 min.: No - Patient Data Vitals - Most Recent: Last Vital Signs Temp 98.8 F 11/05/18 07:49 Pulse 71 11/05/18 07:49 Resp 18 11/05/18 07:49 BP 112/61 11/05/18 07:49 Pulse Ox 92 L 11/05/18 07:49 Weight - Most Recent: 54.885 kg I&O - Last 24 hours: Intake & Output 11/04/18 11/05/18 11/05/18 22:59 06:59 14:59 Intake Total 1260 1158 Output Total 730 900 Balance 530 258 Lab Results - Last 24 hrs: Laboratory Results - last 24 hr 11/04/18 11/05/18 11/05/18 Range/Units 10:19 05:05 05:05 WBC 7.16 (4.0-11.0) K/uL RBC 3.01 L (4.30-5.90) M/uL Hgb 8.8 L (12.0-16.0) g/dL Hct 28.1 L (36.0-46.0) % MCV 93.4 (80.0-98.0) fL MCH 29.2 (27.0-32.0) pg MCHC 31.3 (31.0-37.0) g/dL RDW Std Deviation 52.1 (28.0-62.0) fl RDW Coeff of Luke 15 (11.0-15.0) % Plt Count 339 (150-400) K/uL MPV 10.50 (7.40-12.00) fL Neut % (Auto) 74.0 (48.0-80.0) % Lymph % (Auto) 6.1 L (16.0-40.0) % [place] % (Auto) 14.4 (0.0-15.0) % Eos % (Auto) 5.2 (0.0-7.0) % Baso % (Auto) 0.3 (0.0-1.5) % Neut # (Auto) 5.3 (1.4-5.7) K/uL Lymph # (Auto) 0.4 L (0.6-2.4) K/uL [place] # (Auto) 1.0 H (0.0-0.8) K/uL Eos # (Auto) 0.4 (0.0-0.7) K/uL Baso # (Auto) 0.0 (0.0-0.1) K/uL Nucleated RBC % 0.0 /100WBC Nucleated RBCs # 0 K/uL Sodium 138 (136-145) mmol/L Potassium 3.5 (3.5-5.1) mmol/L Chloride 104 (98-107) mmol/L Carbon Dioxide 25.9 (21.0-32.0) mmol/L BUN 10 (7.0-18.0) mg/dL Creatinine 0.9 (0.6-1.0) mg/dL Est Cr Clr Drug Dosing 35.74 mL/min Estimated GFR (MDRD) 59.8 ml/min Glucose 89 (74-106) mg/dL Calcium 7.4 L (8.5-10.1) mg/dL Vancomycin Trough 7.1 (5.0-10.0) ug/mL [place] Results - Last 24 hrs: Microbiology 11/01/18 11:45 Aerobic Blood Culture - Preliminary Blood - Venous NO GROWTH AFTER 3 DAYS Anaerobic Blood Culture - Preliminary NO GROWTH AFTER 3 DAYS 11/01/18 15:30 Gram Stain - Final Sputum - Expectorated Sputum Culture - Final Normal Respiratory Anoml 11/01/18 12:11 Aerobic Blood Culture - Final Blood - Venous - Lab Draw Staphylococcus Epidermidis Anaerobic Blood Culture - Final Med Orders - Current: Current Medications Albuterol/Ipratropium (Duoneb 3.0-0.5 Mg/3 Ml) 3 ml NEB QID PRN PRN Reason: SOB/wheezing Last Admin: 11/04/18 05:02 Dose: 3 ml Apixaban (Eliquis) 2.5 mg PO BID [facility] Last Admin: 11/04/18 20:36 Dose: 2.5 mg Aspirin (Halfprin) 81 mg PO DAILY [facility] Last Admin: 11/04/18 08:49 Dose: 81 mg Atorvastatin Calcium (Lipitor) 20 mg PO DAILY [facility] Last Admin: 11/04/18 08:50 Dose: 20 mg Brimonidine Tartrate (Alphagan 0.2% Oph Soln) 0 ml EYERT BID [facility] Last Admin: 11/04/18 20:35 Dose: 1 drop Calcium Polycarbophil (Fibercon) 1,250 mg PO TID [facility] Last Admin: 11/05/18 07:33 Dose: Not Given Diazepam (Valium) 5 mg IVPUSH Q8H PRN PRN Reason: anxiety/insomnia Last Admin: 11/03/18 22:11 Dose: 5 mg Diazepam (Valium) 2 mg PO TID PRN PRN Reason: Anxiety Last Admin: 11/04/18 21:52 Dose: 2 mg Furosemide (Lasix) 20 mg IVPUSH DAILY [facility] Last Admin: 11/04/18 08:52 Dose: Not Given Loperamide HCl (Imodium) 2 mg PO BID [facility] Last Admin: 11/04/18 20:38 Dose: 2 mg Magnesium Oxide (Magnesium Oxide) 400 mg PO DAILY [facility] Last Admin: 11/04/18 08:50 Dose: 400 mg Metoprolol Tartrate (Lopressor) 12.5 mg PO BID [facility] Last Admin: 11/04/18 20:37 Dose: 12.5 mg Omeprazole (Omeprazole) 40 mg PO ACBREAKFAST [facility] Last Admin: 11/05/18 06:29 Dose: 40 mg Dorzolamide/Timolol 2%-0.5% Ophth Soln 10 Ml Bottle 1 each EYERT BID [facility] Last Admin: 11/04/18 20:44 Dose: 1 each Latanoprost 1 Drop 0 each EYEBOTH DAILY [facility] Last Admin: 11/04/18 09:19 Dose: Not Given Sertraline HCl (Zoloft) 150 mg PO DAILY [facility] Last Admin: 11/04/18 08:50 Dose: 150 mg Discontinued Medications Albuterol/Ipratropium (Duoneb 3.0-0.5 Mg/3 Ml) 3 ml NEB ONETIME ONE Stop: 11/01/18 09:37 Last Admin: 11/01/18 09:50 Dose: 3 ml Albuterol/Ipratropium (Duoneb 3.0-0.5 Mg/3 Ml) 3 ml NEB QID [facility] Last Admin: 11/02/18 05:59 Dose: 3 ml Diazepam (Valium) 2.5 mg IVPUSH ONETIME ONE Stop: 11/01/18 11:33 Last Admin: 11/01/18 11:37 Dose: Not Given Diazepam (Valium) 2.5 mg IVPUSH ONETIME ONE Stop: 11/01/18 11:37 Last Admin: 11/01/18 11:49 Dose: Not Given Diazepam (Valium) Confirm Administered Dose 5 mg .ROUTE .STK-MED ONE Stop: 11/01/18 11:39 Last Admin: 11/01/18 11:48 Dose: Not Given Diazepam (Valium) 2.5 mg IVPUSH ONETIME ONE Stop: 11/01/18 11:50 Last Admin: 11/01/18 12:03 Dose: Not Given Diazepam (Valium) 2.5 mg IVPUSH ONETIME ONE Stop: 11/01/18 12:16 Last Admin: 11/01/18 12:05 Dose: 2.5 mg Diazepam (Valium.) 5 mg PO ONETIME ONE Stop: 11/01/18 22:19 Last Admin: 11/01/18 22:29 Dose: 5 mg Dorzolamide/Timolol (Cosopt 2%-0.5% Ophth Soln) 0 ml EYERT BID [facility] Last Admin: 11/02/18 10:57 Dose: Not Given Furosemide (Lasix) 20 mg IVPUSH NOW ONE Stop: 11/01/18 11:21 Last Admin: 11/01/18 11:48 Dose: 20 mg Furosemide (Lasix) 20 mg IVPUSH NOW ONE Stop: 11/01/18 13:11 Last Admin: 11/01/18 14:18 Dose: 20 mg Furosemide (Lasix) 40 mg IVPUSH DAILY [facility] Vancomycin HCl 1 gm/ Sodium (Chloride) 250 mls @ 166 mls/hr IV ONETIME ONE Stop: 11/01/18 12:50 Last Admin: 11/01/18 12:14 Dose: 166 mls/hr Levofloxacin/Dextrose 750 mg/ (Premix) 150 mls @ 100 mls/hr IV Q48H [facility] Last Admin: 11/01/18 15:23 Dose: Not Given Piperacillin Sod/Tazobactam (Sod 4.5 gm/ Sodium Chloride) 100 mls @ 100 mls/hr IV Q6H [facility] Last Admin: 11/05/18 03:47 Dose: 100 mls/hr Vancomycin HCl 0.75 gm/ Sodium (Chloride) 100 mls @ 100 mls/hr IV Q24H [facility] Last Admin: 11/04/18 15:04 Dose: Not Given Levofloxacin/Dextrose 750 mg/ (Premix) 150 mls @ 100 mls/hr IV Q48H [facility] Last Admin: 11/03/18 17:47 Dose: 100 mls/hr Sodium Chloride (Normal Saline) 500 mls @ 999 mls/hr IV ONETIME ONE Stop: 11/01/18 19:45 Last Admin: 11/01/18 19:37 Dose: 999 mls/hr Magnesium Sulfate 2 gm/ Premix 50 mls @ 50 mls/hr IV ONETIME ONE Stop: 11/02/18 07:37 Last Admin: 11/02/18 07:08 Dose: 50 mls/hr Vancomycin HCl 0.75 gm/ Sodium (Chloride) 100 mls @ 100 mls/hr IV Q12H [facility] Last Admin: 11/05/18 00:15 Dose: 100 mls/hr Latanoprost (Xalatan 0.005% Ophth Soln) 0 ml EYEBOTH DAILY [facility] Last Admin: 11/02/18 10:57 Dose: Not Given Levofloxacin (Levaquin) 750 mg PO ONETIME ONE Stop: 11/05/18 08:35 Methylprednisolone Sodium Succinate (Solu-Medrol) 125 mg IVPUSH ONETIME ONE Stop: 11/01/18 09:37 Last Admin: 11/01/18 09:51 Dose: 125 mg Potassium Chloride (Klor-Con M20) 20 meq PO ONETIME ONE Stop: 11/03/18 17:38 Last Admin: 11/03/18 17:46 Dose: 20 meq Vancomycin HCl (Pharmacy To Dose - Vancomycin) 1 dose .XX ASDIRECTED [facility] Original Note: <Harper Stone M - Last Filed: 11/05/18 09:00> Discharge Summary - Hospital Course Brief History: This 83 year old female with pmh of HTN, dyslipidemia, lung ca, left upper lobe resection, emphysema, afib on chronic anticoagulation, CHF and recent cardiac stenting in [place] presented to the ED today with concerns of increasing shortness of breath and not feeling well. She reports she was recently discharged from [facility] in [place] after having bilateral thoracentesis and cardiac stent placed. She was discharged home on Oxygen, 3 L NC. She denies chest pain, but reports shortness of breath and productive cough, generalized weakness and malaise. She denies urinary concerns, no diarrhea or constipation. NO black or bloody BMs. Regarding lung ca, her last chemotherapy was 2017. Recently had a PET scan which she was told was negative. She continues to follow with Dr Elam. In the ED, no leukocytosis noted, 10,000, Hgb 9.9, Na 134. BUN 28, Cr 0.8. BNP 1996. Troponin negative. CXR revealed mildly increased left apical opacity, developing pneumonia is not excluded. Stable volume loss, pleural effusion and interstitial prominence. In the ED she was given Solumedrol, Lasix 20 mg IV, and Diazepam for anxiety. She was also started on Vancomycin for HCAP pneumonia. She will be admitted for acute on chronic hypocix respiratory failure due to a combination of acute exacerbation of systolic heart failure and HCAP. In [place], last BNP noted on 10/25 was 278. 10/23: ECHO revealed severe left ventricular hypokinesis with EF of 22%. Diagnosis: Stroke: No - Discharge Data Discharge Date: 11/05/18 Discharge Disposition: Home, W Home Health Agency 06 Condition: Good - Discharge Diagnosis/Problem(s) (1) Acute and chronic respiratory failure with hypoxia SNOMED Code(s): 19583941, 011192207 ICD Code: J96.21 - ACUTE AND CHRONIC RESPIRATORY FAILURE WITH HYPOXIA Status: Resolved Priority: High Current Visit: Yes Problem Details: Improved (2) CHF (congestive heart failure) SNOMED Code(s): 11583424 ICD Code: I50.9 - HEART FAILURE, UNSPECIFIED Status: Acute Current Visit : Yes Qualifiers: Heart failure type: systolic Heart failure chronicity: acute on chronic Qualified Code(s): I50.23 - Acute on chronic systolic (congestive) heart failure (3) Healthcare-associated pneumonia SNOMED Code(s): 066565968, 940082785 ICD Code: J18.9 - PNEUMONIA, UNSPECIFIED ORGANISM Status: Acute Priority : High Current Visit: Yes (4) HTN (hypertension) SNOMED Code(s): 44565063 ICD Code: I10 - ESSENTIAL (PRIMARY) HYPERTENSION Status: Chronic Priority : High Current Visit: Yes Qualifiers: Hypertension type: essential hypertension Qualified Code(s): I10 - Essential (primary) hypertension (5) Afib SNOMED Code(s): 51539949 ICD Code: I48.91 - UNSPECIFIED ATRIAL FIBRILLATION Status: Chronic Priority: High Current Visit: Yes Qualifiers: Atrial fibrillation type: chronic Qualified Code(s): I48.2 - Chronic atrial fibrillation (6) Anticoagulated SNOMED Code(s): 981167577, 289881142 ICD Code: Z79.01 - 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 (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) USE OF ANTICOAGULANTS Status: Chronic Current Visit: Yes (7) History of TIAs SNOMED Code(s): 837879292 ICD Code: Z86.73 - PRSNL HX OF TIA (TIA), AND CEREB INFRC W/O RESID DEFICITS Status: Chronic Current Visit: Yes (8) Emphysema lung SNOMED Code(s): 48802388 ICD Code: J43.9 - EMPHYSEMA, UNSPECIFIED Status: Chronic Current Visit: Yes (9) GERD (gastroesophageal reflux disease) SNOMED Code(s): 148687875 ICD Code: K21.9 - GASTRO-ESOPHAGEAL REFLUX DISEASE WITHOUT ESOPHAGITIS Status: Chronic Current Visit: Yes (10) Macular degeneration SNOMED Code(s): 984241567 ICD Code: H35.30 - UNSPECIFIED MACULAR DEGENERATION Status: Chronic Current Visit: Yes (11) Glaucoma SNOMED Code(s): 94646592 ICD Code: H40.9 - UNSPECIFIED GLAUCOMA Status: Chronic Current Visit: Yes (12) History of uterine cancer SNOMED Code(s): 569469241 ICD Code: Z85.42 - PERSONAL HISTORY OF MALIGNANT NEOPLASM OF OTH PRT UTERUS Status: Chronic Current Visit: Yes (13) CAD (coronary artery disease) SNOMED Code(s): 86525996 ICD Code: I25.10 - ATHSCL HEART DISEASE OF [place] CORONARY ARTERY W/O ANG PCTRS Status: Chronic Current Visit: Yes Qualifiers: Coronary Disease-Associated Artery/Lesion type: [place] artery [place] vs. transplanted heart: [place] heart Associated angina: without angina Qualified Code(s): I25.10 - Atherosclerotic heart disease of [place] coronary artery without angina pectoris (14) Hx of non-ST elevation myocardial infarction (NSTEMI) SNOMED Code(s): 825352078 ICD Code: I25.2 - OLD MYOCARDIAL INFARCTION Status: Chronic Current Visit : Yes Problem Details: 10/22/2018 - Patient Instructions Diet: Heart Healthy Diet, Low Sodium Activity: As Tolerated Showering/Bathing: May Shower Notify Provider of: Fever, Increased Pain, Swelling and Redness, Drainage, Nausea and/or Vomiting Other/Special Instructions: weigh yourself daily, notify your doctor if you start to see a 3-5 lbs increase in weight over 2-3 days. - Discharge Plan *PRESCRIPTION DRUG MONITORING PROGRAM REVIEWED*: Not Applicable *COPY OF PRESCRIPTION DRUG MONITORING REPORT IN PATIENT AMY: Not Applicable Prescriptions/Med Rec: levoFLOXacin [Levaquin] 750 mg PO Q48H #2 tab Home Medications: Home Meds Dorzolamide/Timolol [Cosopt 2%-0.5% Ophth Soln] 1 drop EYERT BID 05/28/16 [ History] Latanoprost 1 drop EYEBOTH DAILY 05/28/16 [History] Omeprazole 40 mg PO DAILY 05/28/16 [History] Sertraline HCl 150 mg PO DAILY 05/28/16 [History] Loperamide [Imodium] 1 tab PO BID 05/08/18 [History] Losartan [Cozaar] 12.5 mg PO BID 05/08/18 [History] Brimonidine [Alphagan 0.2% Ophth Soln] 1 drop EYERT BID 10/20/18 [History] Activated Charcoal [Charcocaps] 260 mg PO ASDIRECTED 11/01/18 [History] Albuterol/Ipratropium [DuoNeb 3.0-0.5 MG/3 ML] 3 ml NEB QID 11/01/18 [History] Apixaban [Eliquis] 2.5 mg PO BID 11/01/18 [History] Aspirin [Adult Low Dose Aspirin EC] 81 mg PO DAILY 11/01/18 [History] Calcium Carbonate 600 mg PO DAILY 11/01/18 [History] Calcium Polycarbophil [Fibercon] 1,250 mg PO TID 11/01/18 [History] Calcium Polycarbophil [Fibercon] 1,250 mg PO TID 11/01/18 [History] Cholecalciferol (Vitamin D3) [Vitamin D3] 5,000 unit PO BID 11/01/18 [History] Cyanocobalamin (Vitamin B-12) [Cyanocobalamin Injection] 1,000 mcg IM Q14D 11/01 [History] Denosumab [Prolia] 60 mg SQ .EVERY 6 MONTHS 11/01/18 [History] Furosemide [Lasix] 20 mg PO DAILY 11/01/18 [History] Magnesium Oxide 400 mg PO DAILY 11/01/18 [History] Magnesium Oxide 400 mg PO DAILY 11/01/18 [History] Metoprolol Tartrate 12.5 mg PO BID 11/01/18 [History] Potassium Chloride [Klor-Con 10] 10 meq PO DAILY 11/01/18 [History] atorvaSTATin [Lipitor] 20 mg PO DAILY 11/01/18 [History] levoFLOXacin [Levaquin] 750 mg PO Q48H #2 tab 11/05/18 [Rx] Oxygen Therapy Mode: Nasal Cannula Oxygen Flow Rate (L/min): 2 Patient Handouts: Acute Respiratory Failure, Adult, Levofloxacin tablets, Heart Failure, [id number], Community-Acquired Pneumonia, Adult, [id number] Referrals: [facility] [Outside] Mark Espana MD [Physician] - 11/08/18 10:00 am Raina Maya NP [Ordering Only Provider] - 11/12/18 1:20 pm - Discharge Summary/Plan Comment DC Time >30 min.: No Discharge Summary/Plan Comment: Admitting Diagnoses: Acute on chronic respiratory failure Acute systolic CHF HCAP Discharge Diagnoses: HCAP Systolic CHF, stabilized Other PMH: NSTEMI- recent PCI 11/02 CAD HTN Afib with anticoagulation Hx TIA Emphysema GERD Hx lung resection Hx lung Ca Hx Uterine Ca glaucoma Macular degeneration Linda was admitted and treated with broad spectrum antibiotics for HCAP due to recent admission in the hospital and apical infiltrate via Xray. She was treated with vancomycin, Levaquin and Zosyn. BC returned 07/20 positive, staph epi , likely skin contaminate. Sputum culture returned normal respiratory anmol. She has been afebrile and doing well. She was also noted to be in acute systolic CHF due to elevated BNP and acute on chronic respiratory failure with dyspnea and orthopnea as well as increased pedal edema. She was given a few IV doses of Lasix, BP dipped to 90 SBP. She felt she was getting dehydrated and was declining Lasix since. She has done well. Oxygen has been weaned to 0.5-1 L NC. She was previously on 3 L NC on admission and she was sent home on this from [place] after stent placement. She will be continued on all home medications. She will be given Levaquin 750 mg PO QOD for 2 more doses, 7 days of treatment. She will have follow up with PCP this week and will also have follow up with Cardiology in [place] post PCI. She feels ready to go home today and all questions were answered. She is to weight herself daily and monitor for weight gain and edema. She will continue to see Dr Elam for oncology appointments. There was mention she may be placed on TPN for nutrition, though she has been eating well during her stay here. She is to return to ED or clinic if concerns should arise. - General Info Date of Service: 11/05/18 Admission Dx/Problem (Free Text: HCAP and CHF Subjective Update: Sitting on edge of bed eating breakfast. Reports she is feeling much better today and is eager to go home. She denies chest pain or SOB. No other concerns. Functional Status: Reports: Pain Controlled, Tolerating Diet, Ambulating, Urinating - Review of Systems General: Reports: No Symptoms. Denies: Fever, Weakness, Fatigue HEENT: Reports: No Symptoms. Denies: Glasses, Headaches, Sore Throat Pulmonary: Reports: No Symptoms. Denies: Shortness of Breath Cardiovascular: Reports: No Symptoms. Denies: Chest Pain Gastrointestinal: Reports: No Symptoms. Denies: Abdominal Pain, Nausea, Vomiting 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: Reports: No Symptoms. Denies: Dysuria, Frequency, Burning Musculoskeletal: Reports: No Symptoms Skin: Reports: No Symptoms Neurological: Reports: No Symptoms Psychiatric: Reports: No Symptoms - Patient Data Vitals - Most Recent: Last Vital Signs Temp 98.8 F 11/05/18 07:49 Pulse 71 11/05/18 07:49 Resp 18 11/05/18 07:49 BP 112/61 11/05/18 07:49 Pulse Ox 92 L 11/05/18 07:49 Weight - Most Recent: 54.885 kg I&O - Last 24 hours: Intake & Output 11/04/18 11/05/18 11/05/18 22:59 06:59 14:59 Intake Total 1260 1158 Output Total 730 900 Balance 530 258 Lab Results - Last 24 hrs: Laboratory Results - last 24 hr 11/04/18 11/05/18 11/05/18 Range/Units 10:19 05:05 05:05 WBC 7.16 (4.0-11.0) K/uL RBC 3.01 L (4.30-5.90) M/uL Hgb 8.8 L (12.0-16.0) g/dL Hct 28.1 L (36.0-46.0) % MCV 93.4 (80.0-98.0) fL MCH 29.2 (27.0-32.0) pg MCHC 31.3 (31.0-37.0) g/dL RDW Std Deviation 52.1 (28.0-62.0) fl RDW Coeff of Luke 15 (11.0-15.0) % Plt Count 339 (150-400) K/uL MPV 10.50 (7.40-12.00) fL Neut % (Auto) 74.0 (48.0-80.0) % Lymph % (Auto) 6.1 L (16.0-40.0) % [place] % (Auto) 14.4 (0.0-15.0) % Eos % (Auto) 5.2 (0.0-7.0) % Baso % (Auto) 0.3 (0.0-1.5) % Neut # (Auto) 5.3 (1.4-5.7) K/uL Lymph # (Auto) 0.4 L (0.6-2.4) K/uL [place] # (Auto) 1.0 H (0.0-0.8) K/uL Eos # (Auto) 0.4 (0.0-0.7) K/uL Baso # (Auto) 0.0 (0.0-0.1) K/uL Nucleated RBC % 0.0 /100WBC Nucleated RBCs # 0 K/uL Sodium 138 (136-145) mmol/L Potassium 3.5 (3.5-5.1) mmol/L Chloride 104 (98-107) mmol/L Carbon Dioxide 25.9 (21.0-32.0) mmol/L BUN 10 (7.0-18.0) mg/dL Creatinine 0.9 (0.6-1.0) mg/dL Est Cr Clr Drug Dosing 35.74 mL/min Estimated GFR (MDRD) 59.8 ml/min Glucose 89 (74-106) mg/dL Calcium 7.4 L (8.5-10.1) mg/dL Vancomycin Trough 7.1 (5.0-10.0) ug/mL [place] Results - Last 24 hrs: Microbiology 11/01/18 11:45 Aerobic Blood Culture - Preliminary Blood - Venous NO GROWTH AFTER 3 DAYS Anaerobic Blood Culture - Preliminary NO GROWTH AFTER 3 DAYS 11/01/18 15:30 Gram Stain - Final Sputum - Expectorated Sputum Culture - Final Normal Respiratory Anmol 11/01/18 12:11 Aerobic Blood Culture - Final Blood - Venous - Lab Draw Staphylococcus Epidermidis Anaerobic Blood Culture - Final Med Orders - Current: Current Medications Albuterol/Ipratropium (Duoneb 3.0-0.5 Mg/3 Ml) 3 ml NEB QID PRN PRN Reason: SOB/wheezing Last Admin: 11/04/18 05:02 Dose: 3 ml Apixaban (Eliquis) 2.5 mg PO BID [facility] Last Admin: 11/04/18 20:36 Dose: 2.5 mg Aspirin (Halfprin) 81 mg PO DAILY [facility] Last Admin: 11/04/18 08:49 Dose: 81 mg Atorvastatin Calcium (Lipitor) 20 mg PO DAILY [facility] Last Admin: 11/04/18 08:50 Dose: 20 mg Brimonidine Tartrate (Alphagan 0.2% Ophth Soln) 0 ml EYERT BID [facility] Last Admin: 11/04/18 20:35 Dose: 1 drop Calcium Polycarbophil (Fibercon) 1,250 mg PO TID [facility] Last Admin: 11/05/18 07:33 Dose: Not Given Diazepam (Valium) 5 mg IVPUSH Q8H PRN PRN Reason: anxiety/insomnia Last Admin: 11/03/18 22:11 Dose: 5 mg Diazepam (Valium) 2 mg PO TID PRN PRN Reason: Anxiety Last Admin: 11/04/18 21:52 Dose: 2 mg Furosemide (Lasix) 20 mg IVPUSH DAILY [facility] Last Admin: 11/04/18 08:52 Dose: Not Given Loperamide HCl (Imodium) 2 mg PO BID [facility] Last Admin: 11/04/18 20:38 Dose: 2 mg Magnesium Oxide (Magnesium Oxide) 400 mg PO DAILY [facility] Last Admin: 11/04/18 08:50 Dose: 400 mg Metoprolol Tartrate (Lopressor) 12.5 mg PO BID [facility] Last Admin: 11/04/18 20:37 Dose: 12.5 mg Omeprazole (Omeprazole) 40 mg PO ACBREAKFAST [facility] Last Admin: 11/05/18 06:29 Dose: 40 mg Dorzolamide/Timolol 2%-0.5% Ophth Soln 10 Ml Bottle 1 each EYERT BID [facility] Last Admin: 11/04/18 20:44 Dose: 1 each Latanoprost 1 Drop 0 each EYEBOTH DAILY [facility] Last Admin: 11/04/18 09:19 Dose: Not Given Sertraline HCl (Zoloft) 150 mg PO DAILY [facility] Last Admin: 11/04/18 08:50 Dose: 150 mg Discontinued Medications Albuterol/Ipratropium (Duoneb 3.0-0.5 Mg/3 Ml) 3 ml NEB ONETIME ONE Stop: 11/01/18 09:37 Last Admin: 11/01/18 09:50 Dose: 3 ml Albuterol/Ipratropium (Duoneb 3.0-0.5 Mg/3 Ml) 3 ml NEB QID [facility] Last Admin: 11/02/18 05:59 Dose: 3 ml Diazepam (Valium) 2.5 mg IVPUSH ONETIME ONE Stop: 11/01/18 11:33 Last Admin: 11/01/18 11:37 Dose: Not Given Diazepam (Valium) 2.5 mg IVPUSH ONETIME ONE Stop: 11/01/18 11:37 Last Admin: 11/01/18 11:49 Dose: Not Given Diazepam (Valium) Confirm Administered Dose 5 mg .ROUTE .STK-MED ONE Stop: 11/01/18 11:39 Last Admin: 11/01/18 11:48 Dose: Not Given Diazepam (Valium) 2.5 mg IVPUSH ONETIME ONE Stop: 11/01/18 11:50 Last Admin: 11/01/18 12:03 Dose: Not Given Diazepam (Valium) 2.5 mg IVPUSH ONETIME ONE Stop: 11/01/18 12:16 Last Admin: 11/01/18 12:05 Dose: 2.5 mg Diazepam (Valium.) 5 mg PO ONETIME ONE Stop: 11/01/18 22:19 Last Admin: 11/01/18 22:29 Dose: 5 mg Dorzolamide/Timolol (Cosopt 2%-0.5% Ophth Soln) 0 ml EYERT BID [facility] Last Admin: 11/02/18 10:57 Dose: Not Given Furosemide (Lasix) 20 mg IVPUSH NOW ONE Stop: 11/01/18 11:21 Last Admin: 11/01/18 11:48 Dose: 20 mg Furosemide (Lasix) 20 mg IVPUSH NOW ONE Stop: 11/01/18 13:11 Last Admin: 11/01/18 14:18 Dose: 20 mg Furosemide (Lasix) 40 mg IVPUSH DAILY [facility] Vancomycin HCl 1 gm/ Sodium (Chloride) 250 mls @ 166 mls/hr IV ONETIME ONE Stop: 11/01/18 12:50 Last Admin: 11/01/18 12:14 Dose: 166 mls/hr Levofloxacin/Dextrose 750 mg/ (Premix) 150 mls @ 100 mls/hr IV Q48H [facility] Last Admin: 11/01/18 15:23 Dose: Not Given Piperacillin Sod/Tazobactam (Sod 4.5 gm/ Sodium Chloride) 100 mls @ 100 mls/hr IV Q6H [facility] Last Admin: 11/05/18 03:47 Dose: 100 mls/hr Vancomycin HCl 0.75 gm/ Sodium (Chloride) 100 mls @ 100 mls/hr IV Q24H [facility] Last Admin: 11/04/18 15:04 Dose: Not Given Levofloxacin/Dextrose 750 mg/ (Premix) 150 mls @ 100 mls/hr IV Q48H [facility] Last Admin: 11/03/18 17:47 Dose: 100 mls/hr Sodium Chloride (Normal Saline) 500 mls @ 999 mls/hr IV ONETIME ONE Stop: 11/01/18 19:45 Last Admin: 11/01/18 19:37 Dose: 999 mls/hr Magnesium Sulfate 2 gm/ Premix 50 mls @ 50 mls/hr IV ONETIME ONE Stop: 11/02/18 07:37 Last Admin: 11/02/18 07:08 Dose: 50 mls/hr Vancomycin HCl 0.75 gm/ Sodium (Chloride) 100 mls @ 100 mls/hr IV Q12H [facility] Last Admin: 11/05/18 00:15 Dose: 100 mls/hr Latanoprost (Xalatan 0.005% Ophth Soln) 0 ml EYEBOTH DAILY [facility] Last Admin: 11/02/18 10:57 Dose: Not Given Levofloxacin (Levaquin) 750 mg PO ONETIME ONE Stop: 11/05/18 08:35 Methylprednisolone Sodium Succinate (Solu-Medrol) 125 mg IVPUSH ONETIME ONE Stop: 11/01/18 09:37 Last Admin: 11/01/18 09:51 Dose: 125 mg Potassium Chloride (Klor-Con M20) 20 meq PO ONETIME ONE Stop: 11/03/18 17:38 Last Admin: 11/03/18 17:46 Dose: 20 meq Vancomycin HCl (Pharmacy To Dose - Vancomycin) 1 dose .XX ASDIRECTED [place] - Exam General: Reports: Alert, Oriented, Cooperative, No Acute Distress Neck: Reports: Supple Lungs: Reports: Clear to Auscultation, Normal Respiratory Effort Cardiovascular: Reports: Regular Rate, Regular Rhythm GI/Abdominal Exam: Normal Bowel Sounds, Soft, Non-Tender, No Organomegaly Back Exam: Reports: Normal Inspection, Full Range of Motion Extremities: Normal Inspection, Normal Range of Motion, Pedal Edema (scant pedal edmea, +1) Neurological: Reports: No New Focal Deficit Psy/Mental Status: Reports: Alert, Normal Affect, Normal Mood <Stoney Zuniga M - Last Filed: 11/05/18 10:33> Discharge Summary - Hospital Course Free Text/Narrative:: I have seen and examined the patient independently of Harper Stone CNP. I have discussed the case with her. I have reviewed and agreed with the plan of treatment as outlined for this patient by her. Please see orders. Still short of breath, possible home tomorrow to resume home health care. - Discharge Diagnosis/Problem(s) (1) Healthcare-associated pneumonia SNOMED Code(s): 548232799, [id number] ICD Code: J18.9 - PNEUMONIA, UNSPECIFIED ORGANISM Status: Acute Priority : High Current Visit: Yes (2) Acute and chronic respiratory failure with hypoxia SNOMED Code(s): 38247261, 359274925 ICD Code: J96.21 - ACUTE AND CHRONIC RESPIRATORY FAILURE WITH HYPOXIA Status: Resolved Priority: High Current Visit: Yes Problem Details: Improved (3) HTN (hypertension) SNOMED Code(s): 85692448 ICD Code: I10 - ESSENTIAL (PRIMARY) HYPERTENSION Status: Chronic Priority : High Current Visit: Yes Qualifiers: Hypertension type: essential hypertension Qualified Code(s): I10 - Essential (primary) hypertension (4) Afib SNOMED Code(s): 34529183 ICD Code: I48.91 - UNSPECIFIED ATRIAL FIBRILLATION Status: Chronic Priority: High Current Visit: Yes Qualifiers: Atrial fibrillation type: chronic Qualified Code(s): I48.2 - Chronic atrial fibrillation - Patient Data Vitals - Most Recent: Last Vital Signs Temp 37.1 C 11/05/18 07:49 Pulse 99 11/05/18 09:11 Resp 18 11/05/18 07:49 BP 119/58 L 11/05/18 09:11 Pulse Ox 92 L 11/05/18 07:49 I&O - Last 24 hours: Intake & Output 11/04/18 11/05/18 11/05/18 22:59 06:59 14:59 Intake Total 1260 1158 Output Total 730 900 Balance 530 258 Lab Results - Last 24 hrs: Laboratory Results - last 24 hr 11/04/18 11/05/18 11/05/18 Range/Units 10:19 05:05 05:05 WBC 7.16 (4.0-11.0) K/uL RBC 3.01 L (4.30-5.90) M/uL Hgb 8.8 L (12.0-16.0) g/dL Hct 28.1 L (36.0-46.0) % MCV 93.4 (80.0-98.0) fL MCH 29.2 (27.0-32.0) pg MCHC 31.3 (31.0-37.0) g/dL RDW Std Deviation 52.1 (28.0-62.0) fl RDW Coeff of Luke 15 (11.0-15.0) % Plt Count 339 (150-400) K/uL MPV 10.50 (7.40-12.00) fL Neut % (Auto) 74.0 (48.0-80.0) % Lymph % (Auto) 6.1 L (16.0-40.0) % [place] % (Auto) 14.4 (0.0-15.0) % Eos % (Auto) 5.2 (0.0-7.0) % Baso % (Auto) 0.3 (0.0-1.5) % Neut # (Auto) 5.3 (1.4-5.7) K/uL Lymph # (Auto) 0.4 L (0.6-2.4) K/uL [place] # (Auto) 1.0 H (0.0-0.8) K/uL Eos # (Auto) 0.4 (0.0-0.7) K/uL Baso # (Auto) 0.0 (0.0-0.1) K/uL Nucleated RBC % 0.0 /100WBC Nucleated RBCs # 0 K/uL Sodium 138 (136-145) mmol/L Potassium 3.5 (3.5-5.1) mmol/L Chloride 104 (98-107) mmol/L Carbon Dioxide 25.9 (21.0-32.0) mmol/L BUN 10 (7.0-18.0) mg/dL Creatinine 0.9 (0.6-1.0) mg/dL Est Cr Clr Drug Dosing 35.74 mL/min Estimated GFR (MDRD) 59.8 ml/min Glucose 89 (74-106) mg/dL Calcium 7.4 L (8.5-10.1) mg/dL Vancomycin Trough 7.1 (5.0-10.0) ug/mL [place] Results - Last 24 hrs: Microbiology 11/01/18 11:45 Aerobic Blood Culture - Preliminary Blood - Venous NO GROWTH AFTER 3 DAYS Anaerobic Blood Culture - Preliminary NO GROWTH AFTER 3 DAYS 11/01/18 15:30 Gram Stain - Final Sputum - Expectorated Sputum Culture - Final Normal Respiratory Anmol 11/01/18 12:11 Aerobic Blood Culture - Final Blood - Venous - Lab Draw Staphylococcus Epidermidis Anaerobic Blood Culture - Final Med Orders - Current: Current Medications Albuterol/Ipratropium (Duoneb 3.0-0.5 Mg/3 Ml) 3 ml NEB QID PRN PRN Reason: SOB/wheezing Last Admin: 11/04/18 05:02 Dose: 3 ml Apixaban (Eliquis) 2.5 mg PO BID [facility] Last Admin: 11/05/18 09:11 Dose: 2.5 mg Aspirin (Halfprin) 81 mg PO DAILY [facility] Last Admin: 11/05/18 09:16 Dose: 81 mg Atorvastatin Calcium (Lipitor) 20 mg PO DAILY [facility] Last Admin: 11/05/18 09:10 Dose: 20 mg Brimonidine Tartrate (Alphagan 0.2% Oph Soln) 0 ml EYERT BID [facility] Last Admin: 11/04/18 20:35 Dose: 1 drop Calcium Polycarbophil (Fibercon) 1,250 mg PO TID [facility] Last Admin: 11/05/18 09:24 Dose: 1,250 mg Diazepam (Valium) 5 mg IVPUSH Q8H PRN PRN Reason: anxiety/insomnia Last Admin: 11/03/18 22:11 Dose: 5 mg Diazepam (Valium) 2 mg PO TID PRN PRN Reason: Anxiety Last Admin: 11/04/18 21:52 Dose: 2 mg Furosemide (Lasix) 20 mg IVPUSH DAILY [facility] Last Admin: 11/05/18 09:08 Dose: Not Given Loperamide HCl (Imodium) 2 mg PO BID [facility] Last Admin: 11/05/18 09:16 Dose: 2 mg Magnesium Oxide (Magnesium Oxide) 400 mg PO DAILY [facility] Last Admin: 11/05/18 09:11 Dose: 400 mg Metoprolol Tartrate (Lopressor) 12.5 mg PO BID [facility] Last Admin: 11/05/18 09:11 Dose: 12.5 mg Omeprazole (Omeprazole) 40 mg PO ACBREAKFAST [facility] Last Admin: 11/05/18 06:29 Dose: 40 mg Dorzolamide/Timolol 2%-0.5% Ophth Soln 10 Ml Bottle 1 each EYERT BID [facility] Last Admin: 11/05/18 09:21 Dose: 1 each Latanoprost 1 Drop 0 each EYEBOTH DAILY [facility] Last Admin: 11/05/18 09:26 Dose: Not Given Sertraline HCl (Zoloft) 150 mg PO DAILY [facility] Last Admin: 11/05/18 09:11 Dose: 150 mg Discontinued Medications Albuterol/Ipratropium (Duoneb 3.0-0.5 Mg/3 Ml) 3 ml NEB ONETIME ONE Stop: 11/01/18 09:37 Last Admin: 11/01/18 09:50 Dose: 3 ml Albuterol/Ipratropium (Duoneb 3.0-0.5 Mg/3 Ml) 3 ml NEB QID [facility] Last Admin: 11/02/18 05:59 Dose: 3 ml Diazepam (Valium) 2.5 mg IVPUSH ONETIME ONE Stop: 11/01/18 11:33 Last Admin: 11/01/18 11:37 Dose: Not Given Diazepam (Valium) 2.5 mg IVPUSH ONETIME ONE Stop: 11/01/18 11:37 Last Admin: 11/01/18 11:49 Dose: Not Given Diazepam (Valium) Confirm Administered Dose 5 mg .ROUTE .STK-MED ONE Stop: 11/01/18 11:39 Last Admin: 11/01/18 11:48 Dose: Not Given Diazepam (Valium) 2.5 mg IVPUSH ONETIME ONE Stop: 11/01/18 11:50 Last Admin: 11/01/18 12:03 Dose: Not Given Diazepam (Valium) 2.5 mg IVPUSH ONETIME ONE Stop: 11/01/18 12:16 Last Admin: 11/01/18 12:05 Dose: 2.5 mg Diazepam (Valium.) 5 mg PO ONETIME ONE Stop: 11/01/18 22:19 Last Admin: 11/01/18 22:29 Dose: 5 mg Dorzolamide/Timolol (Cosopt 2%-0.5% Ophth Soln) 0 ml EYERT BID [facility] Last Admin: 11/02/18 10:57 Dose: Not Given Furosemide (Lasix) 20 mg IVPUSH NOW ONE Stop: 11/01/18 11:21 Last Admin: 11/01/18 11:48 Dose: 20 mg Furosemide (Lasix) 20 mg IVPUSH NOW ONE Stop: 11/01/18 13:11 Last Admin: 11/01/18 14:18 Dose: 20 mg Furosemide (Lasix) 40 mg IVPUSH DAILY [facility] Heparin Sodium (Porcine) (Heparin Lock Flush 100 Units/Ml) 500 units FLUSH ONETIME ONE Stop: 11/05/18 10:13 Vancomycin HCl 1 gm/ Sodium (Chloride) 250 mls @ 166 mls/hr IV ONETIME ONE Stop: 11/01/18 12:50 Last Admin: 11/01/18 12:14 Dose: 166 mls/hr Levofloxacin/Dextrose 750 mg/ (Premix) 150 mls @ 100 mls/hr IV Q48H [facility] Last Admin: 11/01/18 15:23 Dose: Not Given Piperacillin Sod/Tazobactam (Sod 4.5 gm/ Sodium Chloride) 100 mls @ 100 mls/hr IV Q6H [facility] Last Admin: 11/05/18 03:47 Dose: 100 mls/hr Vancomycin HCl 0.75 gm/ Sodium (Chloride) 100 mls @ 100 mls/hr IV Q24H [facility] Last Admin: 11/04/18 15:04 Dose: Not Given Levofloxacin/Dextrose 750 mg/ (Premix) 150 mls @ 100 mls/hr IV Q48H [facility] Last Admin: 11/03/18 17:47 Dose: 100 mls/hr Sodium Chloride (Normal Saline) 500 mls @ 999 mls/hr IV ONETIME ONE Stop: 11/01/18 19:45 Last Admin: 11/01/18 19:37 Dose: 999 mls/hr Magnesium Sulfate 2 gm/ Premix 50 mls @ 50 mls/hr IV ONETIME ONE Stop: 11/02/18 07:37 Last Admin: 11/02/18 07:08 Dose: 50 mls/hr Vancomycin HCl 0.75 gm/ Sodium (Chloride) 100 mls @ 100 mls/hr IV Q12H [facility] Last Admin: 11/05/18 00:15 Dose: 100 mls/hr Latanoprost (Xalatan 0.005% Ophth Soln) 0 ml EYEBOTH DAILY [facility] Last Admin: 11/02/18 10:57 Dose: Not Given Levofloxacin (Levaquin) 750 mg PO ONETIME ONE Stop: 11/05/18 08:35 Last Admin: 11/05/18 09:10 Dose: 750 mg Methylprednisolone Sodium Succinate (Solu-Medrol) 125 mg IVPUSH ONETIME ONE Stop: 11/01/18 09:37 Last Admin: 11/01/18 09:51 Dose: 125 mg Potassium Chloride (Klor-Con M20) 20 meq PO ONETIME ONE Stop: 11/03/18 17:38 Last Admin: 11/03/18 17:46 Dose: 20 meq Vancomycin HCl (Pharmacy To Dose - Vancomycin) 1 dose .XX ASDIRECTED [facility]
[2018-11-05] MEDS: Furosemide 20 MG/2 ML VIAL IVPUSH SCH ×2 (09:08→11:26)
[2018-11-05] MEDS: atorvaSTATin 20 MG Tab PO SCH (09:10)
[2018-11-05] MEDS: Magnesium Oxide 400 MG Tab PO SCH (09:11)
[2018-11-05] MEDS: Apixaban 2.5 MG Tab PO SCH (09:11)
[2018-11-05] MEDS: Metoprolol Tartrate 25 MG Tab PO SCH (09:11)
[2018-11-05] MEDS: Sertraline 50 MG Tab PO SCH (09:11)
[2018-11-05] MEDS: Loperamide 2 MG Cap PO SCH (09:16)
[2018-11-05] MEDS: Aspirin 81 MG Tab.EC PO SCH (09:16)
[2018-11-05] MEDS: Dorzolamide/Timolol 2%-0.5% Ophth Soln 10 ML Bottle EYERT SCH (09:21)
[2018-11-05] MEDS: LATANOPROST EYEBOTH SCH (09:26)
[2018-11-05] MEDS: Brimonidine 0.2% Ophth Soln 5 ML Bottle EYERT SCH (11:28)
[2018-11-05 12:23] VITALS: BP 104/66
== END 2018-11-05 13:00 | disposition home health service (06) | DRG 291 ==
LOC: MW.ED 09:21 → MW.MS 12:06
PROVIDERS: ADMIT Internal Medicine; ATTEND Internal Medicine
DX: I11.0 Hypertensive heart disease with heart failure (principal); J18.9 Pneumonia, unspecified organism; I50.9 Heart failure, unspecified; Z88.8 Allergy status to other drugs, medicaments and biological substances; J96.21 Acute and chronic respiratory failure with hypoxia; Z79.899 Other long term (current) drug therapy; Z79.82 Long term (current) use of aspirin; Z79.01 Long term (current) use of anticoagulants; Z87.891 Personal history of nicotine dependence; Z85.41 Personal history of malignant neoplasm of cervix uteri; Z90.2 Acquired absence of lung [part of]; Z99.81 Dependence on supplemental oxygen; R06.02 Shortness of breath; Y95 Nosocomial condition; K91.2 Postsurgical malabsorption, not elsewhere classified; I50.23 Acute on chronic systolic (congestive) heart failure; K52.9 Noninfective gastroenteritis and colitis, unspecified; Z85.118 Personal history of other malignant neoplasm of bronchus and lung; E78.5 Hyperlipidemia, unspecified; J43.9 Emphysema, unspecified; F41.9 Anxiety disorder, unspecified; I48.2 Chronic atrial fibrillation; K21.9 Gastro-esophageal reflux disease without esophagitis; H35.30 Unspecified macular degeneration; H40.9 Unspecified glaucoma; E86.0 Dehydration; I25.10 Atherosclerotic heart disease of native coronary artery without angina pectoris; Z95.5 Presence of coronary angioplasty implant and graft; Z92.21 Personal history of antineoplastic chemotherapy; Z92.3 Personal history of irradiation; I25.2 Old myocardial infarction; Z86.73 Personal history of transient ischemic attack (TIA), and cerebral infarction without residual deficits; Z85.42 Personal history of malignant neoplasm of other parts of uterus; Z90.710 Acquired absence of both cervix and uterus
CPT/HCPCS: 36415; 71045; 80053; 81001; 83880; 84484; 85025; 86850; 86900; 86901; 87040; 87086; 93005; 94640; 96374; 96375; 99285; A9270; J1940; J2930; 80048; 80202; 83735; 87070; 87077; 87186; 87205; J1642; J1956; J2543; J3370; J3475; J7030; J7040; J7050; J7620-GY

== ENCOUNTER 2018-12-16 21:40 | Emergency (ER) | payer MEDICARE, OTHER ==
--- NOTE | 2018-12-16 21:51 | EDM.PDOC ---
ED HPI GENERAL MEDICAL PROBLEM - General Chief Complaint: General Stated Complaint: PT SPOKE TO NURSE Time Seen by Provider: 12/16/18 21:47 - History of Present Illness INITIAL COMMENTS - FREE TEXT/NARRATIVE: HISTORY AND PHYSICAL: History of present illness: The patient is an 83-year-old female with a history of COPD lung cancer with history of treatment at our cancer center CHF hypertension non- STEMI MA hypercholesterolemia A. fib on Eliquis and GERD who presents to the ED tonight with episodes of what she believes to be anxiety where she suddenly feels short of breath and feeling like she can't get enough air associated with palpitations and hard beating of her heart without chest pain which last anywhere from 10 minutes to several hours. She had an episode at her daughter's house which is why she came here but these have been ongoing for the last several weeks. The patient says that these started when she was last admitted here to the hospital. She said that last night she almost came into the ED because she was very restless to feeling short of breath and feeling anxious and she also tells me that she did see her provider at [facility], Dr. Espana, just this past week and they talked about anxiety and the potential for maybe starting a medication but then they got side tracked talking about something else and it was never readdressed. She said she has had anxiety in the past and she is attributing all the symptoms to that. 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 She also tells me that she is anemic and that potentially she was told she might need a blood transfusion but she has not received that. She says they are waiting 2 weeks to decide about the immune therapy and the blood transfusion and she also mentions that her potassium was on the lower side and that may be contributing to this. The patient is eating and drinking and has no urinary complaints no diarrhea no abdominal pain and no chest pain. She is on oxygen therapy at 2 L and was told by her wildlife conservationist that she could reduce that she says that she doesn't feel like she's going to be able to do that because of these episodes. She states compliance with her medications. She also tells me that she has short bowel syndrome and there is no new symptoms associated with that. Review of systems: As per history of present illness and below otherwise all systems reviewed and negative. Past medical history: As per history of present illness and as reviewed below otherwise noncontributory. Surgical history: As per history of present illness and as reviewed below otherwise noncontributory. Social history: No reported history of drug or alcohol abuse. Family history: As per history of present illness and as reviewed below otherwise noncontributory. Physical exam: General: Well developed well-nourished female who is nontoxic and vital signs are reviewed by me. She is speaking clearly and easily in the ED and is not breathless HEENT: Atraumatic, normocephalic, pupils reactive, negative for conjunctival pallor or scleral icterus, mucous membranes moist, throat clear, neck supple, nontender, trachea midline. Lungs: Clear to auscultation with some slightly diminished breath sounds at the bases but no stridor or wheezing or work of breathing, breath sounds equal bilaterally, chest nontender. Heart: S1S2, irregular rhythm and a variable rate, my evaluation ranging from 80s to 110 back and forth but mostly in the high 90s to low 100s and no overt murmur Abdomen: Soft, nondistended, nontender. Negative for masses or hepatosplenomegaly. Negative for costovertebral tenderness. Bowel sounds are normoactive Pelvis: Stable nontender. 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: Deferred. Rectal: Deferred. Extremities: Atraumatic, negative for cords or calf pain. Neurovascular unremarkable. There is some soft dependent edema without pitting edema or leg asymmetry Neuro: Awake, alert, oriented. Cranial nerves II through XII unremarkable. Cerebellum unremarkable. Motor and sensory unremarkable throughout. Exam nonfocal. Skin: Turgor is normal and there is no evidence of any overt rashes or lesions Diagnostics: EKG chest x-ray CBC CMP BNP INR magnesium level troponin TSH UA with reflex culture Therapeutics: Port access O2 monitor Benadryl for sleep According to the computer her last hemoglobin that was done here at our hospital was on December 05 and it was 8.2. On her last admission in October her hemoglobin ranged from 9.1-8.8. I discussed with patient and at bedside all testing results and my concerns and have offered her observation admission which she is declining. She said she would prefer to go and speak with Dr. Espana about the symptoms as they have been ongoing since her last admission here in October. She currently is stable and is not having shortness of breath but would like something for sleep area she says she cannot take benzodiazepines and I have offered her Benadryl and she has accepted that. I discussed with her chest x-ray findings and she says she has not had a fever or cough but we will proceed to give her a Z-Hugh and again stressed close follow-up with her provider in the clinic. She is comfortable with this care plan. Impression: Episodic dyspnea and palpitations subacute stable, declining admission Definitive disposition and diagnosis as appropriate pending reevaluation and review of above. - Related Data Allergies Allergy/AdvReac Type Severity Reaction Status Date / Time codeine Allergy Delusions Verified 12/16/18 21:44 lorazepam [From Ativan] Allergy Delusions Verified 12/16/18 21:44 meperidine [From Demerol] Allergy Delusions Verified 12/16/18 21:44 Home Meds: Home Meds Dorzolamide/Timolol [Cosopt 2%-0.5% Ophth Soln] 1 drop EYERT BID 05/28/16 [ History] Latanoprost 1 drop EYEBOTH DAILY 05/28/16 [History] Omeprazole 40 mg PO DAILY 05/28/16 [History] Sertraline HCl 150 mg PO DAILY 05/28/16 [History] Loperamide [Imodium] 1 tab PO BID 05/08/18 [History] Brimonidine [Alphagan 0.2% Ophth Soln] 1 drop EYERT BID 10/20/18 [History] Activated Charcoal [Charcocaps] 260 mg PO ASDIRECTED 11/01/18 [History] Albuterol/Ipratropium [DuoNeb 3.0-0.5 MG/3 ML] 3 ml NEB QID 11/01/18 [History] Apixaban [Eliquis] 2.5 mg PO BID 11/01/18 [History] Aspirin [Adult Low Dose Aspirin EC] 81 mg PO DAILY 11/01/18 [History] Calcium Polycarbophil [Fibercon] 1,250 mg PO DAILY 11/01/18 [History] Cholecalciferol (Vitamin D3) [Vitamin D3] 5,000 unit PO BID 11/01/18 [History] Cyanocobalamin (Vitamin B-12) [Cyanocobalamin Injection] 1,000 mcg IM Q14D 11/01 [History] Denosumab [Prolia] 60 mg SQ .EVERY 6 MONTHS 11/01/18 [History] Magnesium Oxide 400 mg PO DAILY 11/01/18 [History] Metoprolol Tartrate 12.5 mg PO BID 11/01/18 [History] Potassium Chloride [Klor-Con 10] 10 meq PO DAILY 11/01/18 [History] atorvaSTATin [Lipitor] 20 mg PO DAILY 11/01/18 [History] Furosemide [Lasix] 20 mg PO DAILY #30 tablet 11/05/18 [Rx] Past Medical History HEENT History: Reports: Cataract Cardiovascular History: Reports: Afib, CAD, Heart Failure, Hypertension, MA, Stents Respiratory History: Reports: COPD Other Respiratory History: hx of smoker Gastrointestinal History: Reports: None. Denies: GERD, GI Bleed 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 History: Reports: None. Denies: Chronic Renal Insuffiency SHIELD OPERATOR History: Reports: None Musculoskeletal History: Reports: None Neurological History: Reports: TIA Psychiatric History: Reports: None Endocrine/Metabolic History: Reports: None. 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 Respiratory Surgical History: Reports: Lung Resection Female Surgical History: Reports: Hysterectomy Social & Family History - Family History Family Medical History: Noncontributory - Caffeine Use Caffeine Use: Reports: Coffee Caffeine Use Comment: Drinks decaf, about 6 cups a day. - Living Situation & Occupation Living situation: Reports: Occupation: Retired ED ROS GENERAL - Review of Systems Review Of Systems: ROS reveals no pertinent complaints other than HPI. ED EXAM, GENERAL - Physical Exam Exam: See Below (See dictation) Course - Vital Signs Last Recorded V/S: Last Vital Signs Temp 36.7 C 12/16/18 21:51 Pulse 95 12/16/18 22:51 Resp 18 12/16/18 22:51 BP 159/88 H 12/16/18 22:51 Pulse Ox 95 12/16/18 22:51 - Orders/Labs/Meds Orders: Active Orders 24 hr Category Date Time Status Cardiac Monitoring [RC] . DIRECTED Care 12/16/18 21:56 Active EKG Documentation Completion [RC] STAT Care 12/16/18 21:56 Active Implanted Port Access [RC] DAILY Care 12/16/18 22:02 Active Oxygen Therapy, ED [RC] ASDIRECTED Care 12/16/18 21:56 Active Pulse Oximetry [RC] ASDIRECTED Care 12/16/18 21:56 Active Labs: Laboratory Tests 12/16/18 12/16/18 12/16/18 Range/Units 22:30 22:30 22:30 WBC 6.76 (4.0-11.0) K/uL RBC 3.30 L (4.30-5.90) M/uL Hgb 8.6 L (12.0-16.0) g/dL Hct 28.5 L (36.0-46.0) % MCV 86.4 (80.0-98.0) fL MCH 26.1 L (27.0-32.0) pg MCHC 30.2 L (31.0-37.0) g/dL RDW Std Deviation 48.2 (28.0-62.0) fl RDW Coeff of Luke 15 (11.0-15.0) % Plt Count 312 (150-400) K/uL MPV 10.60 (7.40-12.00) fL Neut % (Auto) 72.1 (48.0-80.0) % Lymph % (Auto) 10.8 L (16.0-40.0) % Tompkins % (Auto) 13.0 (0.0-15.0) % Eos % (Auto) 3.7 (0.0-7.0) % Baso % (Auto) 0.4 (0.0-1.5) % Neut # (Auto) 4.9 (1.4-5.7) K/uL Lymph # (Auto) 0.7 (0.6-2.4) K/uL Tompkins # (Auto) 0.9 H (0.0-0.8) K/uL Eos # (Auto) 0.3 (0.0-0.7) K/uL Baso # (Auto) 0.0 (0.0-0.1) K/uL Nucleated RBC % 0.0 /100WBC Nucleated RBCs # 0 K/uL INR 1.12 Sodium 140 (136-145) mmol/L Potassium 3.6 (3.5-5.1) mmol/L Chloride 104 (98-107) mmol/L Carbon Dioxide 24.8 (21.0-32.0) mmol/L BUN 15 (7.0-18.0) mg/dL Creatinine 0.6 (0.6-1.0) mg/dL Est Cr Clr Drug Dosing 53.61 mL/min Estimated GFR (MDRD) > 60.0 ml/min Glucose 157 H (74-106) mg/dL Calcium 8.4 L (8.5-10.1) mg/dL Magnesium 1.8 (1.8-2.4) mg/dL Total Bilirubin 0.2 (0.2-1.0) mg/dL AST 20 (15-37) IU/L ALT 24 (14-63) IU/L Alkaline Phosphatase 113 (46-116) U/L Troponin I < 0.050 (0.000-0.056) ng/mL B-Natriuretic Peptide (<100) PG/ML Total Protein 6.2 L (6.4-8.2) g/dL Albumin 2.9 L (3.4-5.0) g/dL Globulin 3.3 (2.6-4.0) g/dL Albumin/Globulin Ratio 0.9 (0.9-1.6) TSH 3rd Generation 3.05 (0.36-3.74) uIU/mL Urine Color Urine Appearance Urine pH (5.0-8.0) Ur Specific Ellsworth (1.001-1.035) Urine Protein (NEGATIVE) mg/dL Urine Glucose (UA) (NEGATIVE) mg/dL Urine Ketones (NEGATIVE) mg/dL Urine Occult Blood (NEGATIVE) Urine Nitrite (NEGATIVE) Urine Bilirubin (NEGATIVE) Urine Urobilinogen (<2.0) EU/dL Ur Leukocyte Esterase (NEGATIVE) 12/16/18 12/16/18 Range/Units 22:30 22:45 WBC (4.0-11.0) K/uL RBC (4.30-5.90) M/uL Hgb (12.0-16.0) g/dL Hct (36.0-46.0) % MCV (80.0-98.0) fL MCH (27.0-32.0) pg MCHC (31.0-37.0) g/dL RDW Std Deviation (28.0-62.0) fl RDW Coeff of Luke (11.0-15.0) % Plt Count (150-400) K/uL MPV (7.40-12.00) fL Neut % (Auto) (48.0-80.0) % Lymph % (Auto) (16.0-40.0) % Tompkins % (Auto) (0.0-15.0) % Eos % (Auto) (0.0-7.0) % Baso % (Auto) (0.0-1.5) % Neut # (Auto) (1.4-5.7) K/uL Lymph # (Auto) (0.6-2.4) K/uL Tompkins # (Auto) (0.0-0.8) K/uL Eos # (Auto) (0.0-0.7) K/uL Baso # (Auto) (0.0-0.1) K/uL Nucleated RBC % /100WBC Nucleated RBCs # K/uL INR Sodium (136-145) mmol/L Potassium (3.5-5.1) mmol/L Chloride (98-107) mmol/L Carbon Dioxide (21.0-32.0) mmol/L BUN (7.0-18.0) mg/dL Creatinine (0.6-1.0) mg/dL Est Cr Clr Drug Dosing mL/min Estimated GFR (MDRD) ml/min Glucose (74-106) mg/dL Calcium (8.5-10.1) mg/dL Magnesium (1.8-2.4) mg/dL Total Bilirubin (0.2-1.0) mg/dL AST (15-37) IU/L ALT (14-63) IU/L Alkaline Phosphatase (46-116) U/L Troponin I (0.000-0.056) ng/mL B-Natriuretic Peptide 481 H (<100) PG/ML Total Protein (6.4-8.2) g/dL Albumin (3.4-5.0) g/dL Globulin (2.6-4.0) g/dL Albumin/Globulin Ratio (0.9-1.6) TSH 3rd Generation (0.36-3.74) uIU/mL Urine Color YELLOW Urine Appearance CLEAR Urine pH 5.5 (5.0-8.0) Ur Specific Ellsworth 1.015 (1.001-1.035) Urine Protein NEGATIVE (NEGATIVE) mg/dL Urine Glucose (UA) NEGATIVE (NEGATIVE) mg/dL Urine Ketones NEGATIVE (NEGATIVE) mg/dL Urine Occult Blood NEGATIVE (NEGATIVE) Urine Nitrite NEGATIVE (NEGATIVE) Urine Bilirubin NEGATIVE (NEGATIVE) Urine Urobilinogen 0.2 (<2.0) EU/dL Ur Leukocyte Esterase NEGATIVE (NEGATIVE) Meds: Medications Discontinued Medications Generic Name Dose Route Start Last Admin Trade Name Freq PRN Reason Stop Dose Admin Diphenhydramine HCl 25 mg 12/16/18 23:52 Benadryl PO 12/16/18 23:53 ONETIME ONE Departure - Departure Time of Disposition: 23:54 Disposition: Home, Self-Care 01 Condition: Good Clinical Impression: Dyspnea Qualifiers: Dyspnea type: unspecified Qualified Code(s): R06.00 - Dyspnea, unspecified - Discharge Information Referrals: PCP,None [Primary Care Provider] - Forms: ED Department Discharge Additional Instructions: The following information is given to patients seen in the emergency department who are being discharged to home. This information is to outline your options for follow-up care. We provide all patients seen in our emergency department with a follow-up referral. The need for follow-up, as well as the timing and circumstances, are variable depending upon the specifics of your emergency department visit. If you don't have a primary care physician on staff, we will provide you with a referral. We always advise you to contact your personal physician following an emergency department visit to inform them of the circumstance of the visit and for follow-up with them and/or the need for any referrals to a consulting specialist. The emergency department will also refer you to a specialist when appropriate. This referral assures that you have the opportunity for followup care with a specialist. All of these measure are taken in an effort to provide you with optimal care, which includes your followup. Under all circumstances we always encourage you to contact your private physician who remains a resource for coordinating your care. When calling for followup care, please make the office aware that this follow-up is from your recent emergency room visit. If for any reason you are refused follow-up, please contact the [facility] emergency department at and ask to speak to the emergency department charge nurse. [address] [place] [address] Please fill and take the prescription for Zithromax and continue all home medications. Please connect with Dr. Espaan or one of his associates in the morning to schedule a follow-up as we discussed and return to ER as needed and as discussed. - My Orders Last 24 Hours: My Active Orders 12/16/18 21:56 Cardiac Monitoring [RC] . DIRECTED EKG Documentation Completion [RC] STAT Oxygen Therapy, ED [RC] ASDIRECTED Pulse Oximetry [RC] ASDIRECTED 12/16/18 22:02 Implanted Port Access [RC] DAILY - Assessment/Plan Last 24 Hours: My Active Orders 12/16/18 21:56 Cardiac Monitoring [RC] . DIRECTED EKG Documentation Completion [RC] STAT Oxygen Therapy, ED [RC] ASDIRECTED Pulse Oximetry [RC] ASDIRECTED 12/16/18 22:02 Implanted Port Access [RC] DAILY
--- NOTE | 2018-12-16 22:40 | CR ---
Indication: Chest pain, shortness of breath Technique: Chest 1 view Comparison: November 05, 2018 Findings/Impression: Stable cardiomediastinal silhouette. Right-sided Port-A-Cath tip terminates at the level of the cavoatrial junction. Small bilateral pleural effusions are stable. Opacity at the left lung apex may represent scarring or loculated pleural fluid but is stable compared to the prior exam. Faint patchy atelectasis or infiltrate at the right lung base is new. No pneumothorax. Mild scoliosis of the spine. Dictated by Sindhu Herrmann MD @ Dec 16 2018 10:38PM Signed by Dr. Sindhu Herrmann @ Dec 16 2018 10:38PM
[2018-12-16 23:08] LABS: CHLORIDE,CL 104 mmol/L (98-107); SODIUM,NA 140 mmol/L (136-145)
[2018-12-16] MEDS ORDERED: diphenhydrAMINE 25 MG Cap PO ONE (23:52)
[2018-12-17 00:11] VITALS: BP 136/69
== END 2018-12-17 00:20 | disposition home or self-care (01) ==
LOC: MW.ED 21:40
DX: R06.00 Dyspnea, unspecified (principal); R00.2 Palpitations; Z79.01 Long term (current) use of anticoagulants; J44.9 Chronic obstructive pulmonary disease, unspecified; I48.91 Unspecified atrial fibrillation; I25.10 Atherosclerotic heart disease of native coronary artery without angina pectoris; I11.0 Hypertensive heart disease with heart failure; I50.9 Heart failure, unspecified; I25.2 Old myocardial infarction; Z95.5 Presence of coronary angioplasty implant and graft; Z88.5 Allergy status to narcotic agent; Z88.8 Allergy status to other drugs, medicaments and biological substances; Z79.899 Other long term (current) drug therapy; Z79.82 Long term (current) use of aspirin; Z85.118 Personal history of other malignant neoplasm of bronchus and lung; Z99.81 Dependence on supplemental oxygen
CPT/HCPCS: 36415; 71045; 71045-26; 80053; 81003; 83735; 83880; 84443; 84484; 85025; 85610; 93005; 99284; 99285-25

== ENCOUNTER 2019-08-23 20:41 | Observation (INO) | payer MEDICARE, OTHER ==
[2019-08-23] MEDS ORDERED: Sodium Chloride 0.9% 2.5 ML Syringe FLUSH PRN (20:57)
[2019-08-23] MEDS ORDERED: Sodium Chloride 0.9% 10 ML Syringe FLUSH PRN (20:57)
--- NOTE | 2019-08-23 21:01 | EDM.PDOC ---
ED HPI GENERAL MEDICAL PROBLEM - General Chief Complaint: Chest Pain Stated Complaint: CHEST PAIN,LEFT SIDE PAIN Time Seen by Provider: 08/23/19 20:55 - History of Present Illness INITIAL COMMENTS - FREE TEXT/NARRATIVE: HISTORY AND PHYSICAL: History of present illness: Patient is an 84-year-old female who was history includes congestive heart failure and chronic lung disease who was sent to the emergency department by home health nurse after an episode of left shoulder pain patient thinks she may have had a panic attack and is requesting discharged home she also thinks she may have pulled a muscle she denies any new shortness of breath she states she does have chronic shortness of breath related to her underlying lung disease and her heart failure she also states she has chronic peripheral edema related to the same. There is been no palpitations dizziness nausea vomiting headache or other concern. Review of systems: As per history of present illness and below otherwise all systems reviewed and negative. Past medical history: As per history of present illness and as reviewed below otherwise noncontributory. Surgical history: As per history of present illness and as reviewed below otherwise noncontributory. Social history: No reported history of drug or alcohol abuse. Family history: As per history of present illness and as reviewed below otherwise noncontributory. Physical exam: HEENT: Atraumatic, normocephalic, pupils reactive, negative for conjunctival pallor or scleral icterus, mucous membranes moist, throat clear, neck supple, nontender, trachea midline. Lungs: Heartedly diminished breath sounds equal bilaterally, chest nontender. Heart: S1S2, regular, negative for clicks, rubs, or JVD. Abdomen: Soft, nondistended, nontender. Negative for masses or hepatosplenomegaly. Negative for costovertebral tenderness. Pelvis: Stable nontender. 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: Deferred. Rectal: Deferred. Extremities: Atraumatic, negative for cords or calf pain. Neurovascular unremarkable. 3-4+ edema noted inferior extremities baseline per patient Neuro: Awake, alert, oriented. Follows commands moves all extremities but is limited gross nonfocal exam Diagnostics: CBC CMP troponin PT/INR BNP chest x-ray EKG Therapeutics: IV O2 monitor Nitropaste 1 inch to chest wall aspirin 324 mg p.o. Lasix 20 mg IV Impression: #1 left shoulder pain #2 history of CHF #3 history of obstructive lung disease Definitive disposition and diagnosis as appropriate pending reevaluation and review of above. Treatments ENGINEER: Reports: EKG chest Pain Score (Numeric/FACES): 1 - Related Data Allergies Allergy/AdvReac Type Severity Reaction Status Date / Time codeine Allergy Delusions Verified 08/23/19 20:48 lorazepam [From Ativan] Allergy Delusions Verified 08/23/19 20:48 meperidine [From Demerol] Allergy Delusions Verified 08/23/19 20:48 Home Meds: Home Meds Dorzolamide/Timolol [Cosopt 2%-0.5% Ophth Soln] 1 drop EYERT BID 05/28/16 [ History] Latanoprost 1 drop EYEBOTH DAILY 05/28/16 [History] Omeprazole 40 mg PO DAILY 05/28/16 [History] Sertraline HCl 150 mg PO DAILY 05/28/16 [History] Loperamide [Imodium] 2 cap PO BID PRN 05/08/18 [History] Brimonidine [Alphagan 0.2% Ophth Soln] 1 drop EYERT BID 10/20/18 [History] Magnesium Oxide 400 mg PO DAILY 11/01/18 [History] Metoprolol Tartrate 12.5 mg PO DAILY 11/01/18 [History] Potassium Chloride [Klor-Con 10] 10 meq PO DAILY 11/01/18 [History] Acetaminophen [Acetaminophen ER] 650 - 1,300 mg PO Q6HR PRN 08/23/19 [History] Albuterol Sulfate [Proair Respiclick] 2 puff INH Q4HR PRN 08/23/19 [History] Albuterol/Ipratropium [Combivent Respimat] 1 puff INH Q4HR PRN 08/23/19 [History ] Apixaban [Eliquis] 2.5 mg PO BID 08/23/19 [History] Calcium Carbonate/Vitamin D3 [Caltrate 600 Plus D3 Tablet] 2 tab PO DAILY [History] Clopidogrel [Plavix] 75 mg PO DAILY 08/23/19 [History] Furosemide [Lasix] 40 mg PO DAILY 08/23/19 [History] Ondansetron [Zofran] 8 mg PO Q8H PRN 08/23/19 [History] Psyllium Husk [Psyllium Fiber] 2 cap PO BID PRN 08/23/19 [History] Past Medical History HEENT History: Reports: Cataract Cardiovascular History: Reports: Afib, Angina, CAD, Heart Failure, Hypertension , [place], Stents Respiratory History: Reports: COPD Other Respiratory History: hx of smoker, on home 02 at 2 liters/min; Lung CA Gastrointestinal History: Reports: Other (See Below) Other Gastrointestinal History: short bowel syndrom 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 History: Reports: None CHILDCARE AIDE History: Reports: Musculoskeletal History: Reports: None Neurological History: Reports: TIA Psychiatric History: Reports: Panic Attack Endocrine/Metabolic History: Reports: None Hematologic History: Reports: Anticoagulation Therapy Immunologic History: Reports: None Oncologic (Cancer) History: Reports: Lung, Uterine Other Oncologic History: unsure of type of cancer, but 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 Respiratory Surgical History: Reports: Lung Resection GI Surgical History: Reports: Small Bowel Female Surgical History: Reports: Hysterectomy Neurological Surgical History: Reports: None Oncologic Surgical History: Reports: None Social & Family History - Family History Family Medical History: Noncontributory Cardiac: Reports: Afib, AL Hematologic: Reports: Anemia - Tobacco Use Smoking Status *Q: Former Smoker Used Tobacco, but Quit: Yes Month/Year Tobacco Last Used: "years ago" - Caffeine Use Caffeine Use: Reports: None Caffeine Use Comment: Drinks decaf, about 6 cups a day. - Recreational Drug Use Recreational Drug Use: No - Living Situation & Occupation Living situation: Reports: Occupation: Retired ED ROS GENERAL - Review of Systems Review Of Systems: Comprehensive ROS is negative, except as noted in HPI. ED EXAM, GENERAL - Physical Exam Exam: See Below (See dictation) Course - Vital Signs Last Recorded V/S: Last Vital Signs Temp 36.4 C 08/23/19 20:43 Pulse 99 08/23/19 22:27 Resp 20 08/23/19 22:27 BP 99/42 L 08/23/19 22:27 Pulse Ox 100 08/23/19 22:27 - Orders/Labs/Meds Orders: Active Orders 24 hr Category Date Time Status Cardiac Monitoring [RC] . DIRECTED Care 08/23/19 20:57 Active EKG Documentation Completion [RC] STAT Care 08/23/19 20:57 Active Oxygen Therapy [RC] ASDIRECTED Care 08/23/19 20:57 Active B-TYPE NATRIURETIC PEPTIDE,BNP [CHEM] Stat Lab 08/23/19 21:08 Received UA W/MICROSCOPIC [URIN] Stat Lab 08/23/19 21:08 Results Sodium Chloride 0.9% [Saline Flush] Med 08/23/19 20:57 Active 10 ml FLUSH ASDIRECTED PRN Sodium Chloride 0.9% [Saline Flush] Med 08/23/19 20:57 Active 2.5 ml FLUSH ASDIRECTED PRN Saline Lock Insert [OM.PC] Stat Oth 08/23/19 20:57 Ordered Medication Orders Sodium Chloride (Saline Flush) 10 ml FLUSH ASDIRECTED PRN PRN Reason: Keep Vein Open Last Admin: 08/23/19 21:26 Dose: 10 ml Sodium Chloride (Saline Flush) 2.5 ml FLUSH ASDIRECTED PRN PRN Reason: Keep Vein Open Last Admin: 08/23/19 21:26 Dose: 2.5 ml Labs: Laboratory Tests 08/23/19 08/23/19 08/23/19 Range/Units 21:08 21:50 21:50 WBC 5.98 (4.0-11.0) K/uL RBC 3.52 L (4.30-5.90) M/uL Hgb 9.0 L (12.0-16.0) g/dL Hct 28.9 L (36.0-46.0) % MCV 82.1 (80.0-98.0) fL MCH 25.6 L (27.0-32.0) pg MCHC 31.1 (31.0-37.0) g/dL RDW Std Deviation 58.2 (28.0-62.0) fl RDW Coeff of Luke 19 H (11.0-15.0) % Plt Count 291 (150-400) K/uL MPV 9.80 (7.40-12.00) fL Add Manual Diff YES Neutrophils % (Manual) 73 (48.0-80.0) % Band Neutrophils % 2 % Lymphocytes % (Manual) 7 L (16.0-40.0) % Monocytes % (Manual) 16 H (0.0-15.0) % Eosinophils % (Manual) 2 (0.0-7.0) % Nucleated RBC % 0.0 /100WBC Absolute Seg Neuts 4.4 (1.4-5.7) Band Neutrophils # 0.1 Lymphocytes # (Manual) 0.4 L (0.6-2.4) Monocytes # (Manual) 1.0 H (0.0-0.8) Eosinophils # (Manual) 0.1 (0.0-0.7) Nucleated RBCs # 0 K/uL INR 1.15 Sodium (136-145) mmol/L Potassium (3.5-5.1) mmol/L Chloride (98-107) mmol/L Carbon Dioxide (21.0-32.0) mmol/L BUN (7.0-18.0) mg/dL Creatinine (0.6-1.0) mg/dL Est Cr Clr Drug Dosing mL/min Estimated GFR (MDRD) ml/min Glucose (74-106) mg/dL Calcium (8.5-10.1) mg/dL Total Bilirubin (0.2-1.0) mg/dL AST (15-37) IU/L ALT (14-63) IU/L Alkaline Phosphatase (46-116) U/L Troponin I (0.000-0.056) ng/mL Total Protein (6.4-8.2) g/dL Albumin (3.4-5.0) g/dL Globulin (2.6-4.0) g/dL Albumin/Globulin Ratio (0.9-1.6) Urine Color YELLOW Urine Appearance CLEAR Urine pH 8.0 (5.0-8.0) Ur Specific [place] 1.015 (1.001-1.035) Urine Protein NEGATIVE (NEGATIVE) mg/dL Urine Glucose (UA) NEGATIVE (NEGATIVE) mg/dL Urine Ketones NEGATIVE (NEGATIVE) mg/dL Urine Occult Blood NEGATIVE (NEGATIVE) Urine Nitrite NEGATIVE (NEGATIVE) Urine Bilirubin NEGATIVE (NEGATIVE) Urine Urobilinogen 0.2 (<2.0) EU/dL Ur Leukocyte Esterase NEGATIVE (NEGATIVE) 08/23/19 Range/Units 21:50 WBC (4.0-11.0) K/uL RBC (4.30-5.90) M/uL Hgb (12.0-16.0) g/dL Hct (36.0-46.0) % MCV (80.0-98.0) fL MCH (27.0-32.0) pg MCHC (31.0-37.0) g/dL RDW Std Deviation (28.0-62.0) fl RDW Coeff of Luke (11.0-15.0) % Plt Count (150-400) K/uL MPV (7.40-12.00) fL Add Manual Diff Neutrophils % (Manual) (48.0-80.0) % Band Neutrophils % % Lymphocytes % (Manual) (16.0-40.0) % Monocytes % (Manual) (0.0-15.0) % Eosinophils % (Manual) (0.0-7.0) % Nucleated RBC % /100WBC Absolute Seg Neuts (1.4-5.7) Band Neutrophils # Lymphocytes # (Manual) (0.6-2.4) Monocytes # (Manual) (0.0-0.8) Eosinophils # (Manual) (0.0-0.7) Nucleated RBCs # K/uL INR Sodium 138 (136-145) mmol/L Potassium 3.5 (3.5-5.1) mmol/L Chloride 98 (98-107) mmol/L Carbon Dioxide 34.5 H (21.0-32.0) mmol/L BUN 16 (7.0-18.0) mg/dL Creatinine 0.7 (0.6-1.0) mg/dL Est Cr Clr Drug Dosing 45.14 mL/min Estimated GFR (MDRD) > 60.0 ml/min Glucose 104 (74-106) mg/dL Calcium 8.1 L (8.5-10.1) mg/dL Total Bilirubin 0.2 (0.2-1.0) mg/dL AST 14 L (15-37) IU/L ALT 17 (14-63) IU/L Alkaline Phosphatase 91 (46-116) U/L Troponin I < 0.050 (0.000-0.056) ng/mL Total Protein 6.1 L (6.4-8.2) g/dL Albumin 2.7 L (3.4-5.0) g/dL Globulin 3.4 (2.6-4.0) g/dL Albumin/Globulin Ratio 0.8 L (0.9-1.6) Urine Color Urine Appearance Urine pH (5.0-8.0) Ur Specific [place] (1.001-1.035) Urine Protein (NEGATIVE) mg/dL Urine Glucose (UA) (NEGATIVE) mg/dL Urine Ketones (NEGATIVE) mg/dL Urine Occult Blood (NEGATIVE) Urine Nitrite (NEGATIVE) Urine Bilirubin (NEGATIVE) Urine Urobilinogen (<2.0) EU/dL Ur Leukocyte Esterase (NEGATIVE) Meds: Medications Generic Name Dose Route Start Last Admin Trade Name Freq PRN Reason Stop Dose Admin Sodium Chloride 10 ml 08/23/19 20:57 08/23/19 21:26 Saline Flush FLUSH 10 ml ASDIRECTED PRN Administration Keep Vein Open Sodium Chloride 2.5 ml 08/23/19 20:57 08/23/19 21:26 Saline Flush FLUSH 2.5 ml ASDIRECTED PRN Administration Keep Vein Open Discontinued Medications Generic Name Dose Route Start Last Admin Trade Name Freq PRN Reason Stop Dose Admin Aspirin 324 mg 08/23/19 21:02 08/23/19 21:23 Aspirin PO 08/23/19 21:03 324 mg ONETIME ONE Administration Aspirin Confirm 08/23/19 21:05 08/23/19 21:24 Aspirin Administered 08/23/19 21:06 Not Given Dose 324 mg .ROUTE .STK-MED ONE Furosemide 20 mg 08/23/19 21:02 08/23/19 21:25 Lasix IVPUSH 08/23/19 21:03 20 mg NOW ONE Administration Furosemide Confirm 08/23/19 21:04 08/23/19 21:25 Lasix Administered 08/23/19 21:05 Not Given Dose 40 mg .ROUTE .STK-MED ONE Nitroglycerin 1 gm 08/23/19 21:02 08/23/19 21:26 Nitro-Bid 2% TOP 08/23/19 21:03 1 gm ONETIME ONE Administration Nitroglycerin Confirm 08/23/19 21:05 08/23/19 21:26 Nitro-Bid 2% Administered 08/23/19 21:06 Not Given Dose 1 gm .ROUTE .STK-MED ONE Departure - Departure Time of Disposition: 22:35 Disposition: Refer to Observation Condition: Good Clinical Impression: Shoulder pain, Upper back pain on left side CHF (congestive heart failure) Qualifiers: Heart failure type: systolic Heart failure chronicity: acute on chronic Qualified Code(s): I50.23 - Acute on chronic systolic (congestive) heart failure - Discharge Information Referrals: Mark Espana MD [Primary Care Provider] - Forms: ED Department Discharge Sepsis Event Note - Evaluation Sepsis Screening Result: No Definite Risk - Focused Exam Vital Signs: Vital Signs Temp Pulse Resp BP Pulse Ox Pulse Ox 08/23/19 22:27 99 20 99/42 L 100 08/23/19 22:09 114 H 22 H 123/62 99 08/23/19 21:37 71 20 121/73 96 08/23/19 20:57 96 08/23/19 20:43 36.4 C 106 H 22 H 95 Date Exam was Performed: 08/23/19 Time Exam was Performed: 22:35 - My Orders Last 24 Hours: My Active Orders 08/23/19 20:57 Cardiac Monitoring [RC] . DIRECTED EKG Documentation Completion [RC] STAT Oxygen Therapy [RC] ASDIRECTED Sodium Chloride 0.9% [Saline Flush] 10 ml FLUSH ASDIRECTED PRN Sodium Chloride 0.9% [Saline Flush] 2.5 ml FLUSH ASDIRECTED PRN Saline Lock Insert [OM.PC] Stat 08/23/19 21:08 B-TYPE NATRIURETIC PEPTIDE,BNP [CHEM] Stat UA W/MICROSCOPIC [URIN] Stat - Assessment/Plan Last 24 Hours: My Active Orders 08/23/19 20:57 Cardiac Monitoring [RC] . DIRECTED EKG Documentation Completion [RC] STAT Oxygen Therapy [RC] ASDIRECTED Sodium Chloride 0.9% [Saline Flush] 10 ml FLUSH ASDIRECTED PRN Sodium Chloride 0.9% [Saline Flush] 2.5 ml FLUSH ASDIRECTED PRN Saline Lock Insert [OM.PC] Stat 08/23/19 21:08 B-TYPE NATRIURETIC PEPTIDE,BNP [CHEM] Stat UA W/MICROSCOPIC [URIN] Stat
[2019-08-23] MEDS ORDERED: Aspirin 81 MG Tab.Chew PO ONE (21:02)
[2019-08-23] MEDS ORDERED: Nitroglycerin 2% Oint 1 GM UD Packet TOP ONE (21:02)
[2019-08-23] MEDS ORDERED: Furosemide 40 MG/4 ML VIAL IVPUSH ONE (21:02)
[2019-08-23] MEDS ORDERED: Furosemide 40 MG/4 ML VIAL ONE (21:04)
[2019-08-23] MEDS ORDERED: Aspirin 81 MG Tab.Chew ONE (21:05)
[2019-08-23] MEDS ORDERED: Nitroglycerin 2% Oint 1 GM UD Packet ONE (21:05)
--- NOTE | 2019-08-23 21:52 | CR ---
Indication: Chest pain. Technique: Single AP portable view of the chest. Comparison: August 23, 2019. Findings: A right-sided Port-A-Cath is identified. Right basilar atelectasis is identified. No pneumothorax is identified. Blunting of left costophrenic angle is identified. Postoperative changes of the left are identified, stable. Impression: Essentially stable chest x-ray Dictated by Rachael Cisse MD @ Aug 23 2019 9:48PM Signed by Dr. Rachael Cisse @ Aug 23 2019 9:51PM
[2019-08-23 22:28] LABS: BLOOD UREA NITROGEN,BUN 16 mg/dL (7.0-18.0); CARBON DIOXIDE,CO2 34.5 mmol/L (21.0-32.0); CHLORIDE,CL 98 mmol/L (98-107); GLUCOSE RANDOM 104 mg/dL (74-106); POTASSIUM,K 3.5 mmol/L (3.5-5.1); SODIUM,NA 138 mmol/L (136-145)
[2019-08-24] MEDS ORDERED: Acetaminophen 325 MG Tab PO PRN (00:14)
[2019-08-24] MEDS ORDERED: Albuterol/Ipratropium 3.0-0.5 MG/3 ML Neb Soln NEB PRN (00:14)
[2019-08-24] MEDS ORDERED: diphenhydrAMINE 25 MG Cap PO PRN (01:08)
[2019-08-24] MEDS ORDERED: Acetaminophen 500 MG Tab PO PRN (01:08)
[2019-08-24] MEDS ORDERED: Magnesium Sulfate/Water 2 GM in Premix Bag 1 BAG IV ONE (08:00)
[2019-08-24] MEDS ORDERED: Furosemide 20 MG Tab PO SCH (09:00)
[2019-08-24] MEDS ORDERED: Brimonidine 0.2% Ophth Soln 5 ML Bottle EYERT SCH (09:00)
[2019-08-24] MEDS ORDERED: Clopidogrel 75 MG Tab PO SCH (09:00)
[2019-08-24] MEDS ORDERED: Omeprazole 20 MG Cap.CR PO SCH (09:00)
[2019-08-24] MEDS ORDERED: Sertraline 100 MG Tab PO SCH (09:00)
[2019-08-24] MEDS ORDERED: Metoprolol Tartrate 25 MG Tab PO SCH (09:00)
[2019-08-24] MEDS ORDERED: Dorzolamide/Timolol 2%-0.5% Ophth Soln 10 ML Bottle EYERT SCH (09:00)
[2019-08-24] MEDS ORDERED: Apixaban 2.5 MG Tab PO SCH (09:00)
--- NOTE | 2019-08-24 09:54 | PCM.HP.2 ---
H&P History of Present Illness - General Date of Service: 08/23/19 Admit Problem/Dx: Admission Diagnosis/Problem Admission Diagnosis/Problem Shoulder pain - History of Present Illness Initial Comments - Free Text/Narative: Patient is an 84-year-old female who was history includes congestive heart failure, Afib, and chronic lung disease who came to the emergency department upon insistence of her home health nurse after an episode of left shoulder pain patient thinks she may have had a panic attack. Patient thinks she stretched her left hand over her head while trying to reach something and probably pulled a muscle, denies any new shortness of breath, breathing is at baseline. There is been no palpitations dizziness nausea vomiting headache or other concern. States she missed few doses of Lasix as she ran out. in ER EKG showed no ST or T wave changes, Troponin was negative, got IV lasix once. Patient was admitted for observation. ACS was ruled out. Overnight patients vitals were stable, she did have one episode of Afiv RVR while she was trying to walk around, which resolved with IV Cardizem, asymptomatic during that episode. Patient was felling well and was medically stable for dc and recommended to fu with PCP on outpatient basis. chest Pain Score (Numeric/FACES): 1 - Related Data Allergies/Adverse Reactions: Allergies Allergy/AdvReac Type Severity Reaction Status Date / Time codeine Allergy Delusions Verified 08/23/19 20:48 lorazepam [From Ativan] Allergy Delusions Verified 08/23/19 20:48 meperidine [From Demerol] Allergy Delusions Verified 08/23/19 20:48 Home Medications: Home Meds Dorzolamide/Timolol [Cosopt 2%-0.5% Ophth Soln] 1 drop EYERT BID 05/28/16 [ History] Latanoprost 1 drop EYEBOTH DAILY 05/28/16 [History] Omeprazole 40 mg PO DAILY 05/28/16 [History] Sertraline HCl 150 mg PO DAILY 05/28/16 [History] Loperamide [Imodium] 2 cap PO BID PRN 05/08/18 [History] Brimonidine [Alphagan 0.2% Ophth Soln] 1 drop EYERT BID 10/20/18 [History] Magnesium Oxide 400 mg PO DAILY 11/01/18 [History] Metoprolol Tartrate 12.5 mg PO DAILY 11/01/18 [History] Potassium Chloride [Klor-Con 10] 10 meq PO DAILY 11/01/18 [History] Acetaminophen [Acetaminophen ER] 650 - 1,300 mg PO Q6HR PRN 08/23/19 [History] Albuterol Sulfate [Proair Respiclick] 2 puff INH Q4HR PRN 08/23/19 [History] Albuterol/Ipratropium [Combivent Respimat] 1 puff INH Q4HR PRN 08/23/19 [History ] Apixaban [Eliquis] 2.5 mg PO BID 08/23/19 [History] Calcium Carbonate/Vitamin D3 [Caltrate 600 Plus D3 Tablet] 2 tab PO DAILY [History] Clopidogrel [Plavix] 75 mg PO DAILY 08/23/19 [History] Furosemide [Lasix] 40 mg PO DAILY 08/23/19 [History] Ondansetron [Zofran] 8 mg PO Q8H PRN 08/23/19 [History] Psyllium Husk [Psyllium Fiber] 2 cap PO BID PRN 08/23/19 [History] Past Medical History HEENT History: Reports: Cataract Cardiovascular History: Reports: Afib, Angina, CAD, Heart Failure, Hypertension , MA, Stents Respiratory History: Reports: COPD Other Respiratory History: hx of smoker, on home 02 at 2 liters/min; Lung CA Gastrointestinal History: Reports: Other (See Below) Other Gastrointestinal History: short bowel syndrom 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 History: Reports: None [employer]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[employer]IVE History: Reports: Musculoskeletal History: Reports: None Neurological History: Reports: TIA Psychiatric History: Reports: Panic Attack Endocrine/Metabolic History: Reports: None Hematologic History: Reports: Anticoagulation Therapy Immunologic History: Reports: None Oncologic (Cancer) History: Reports: Lung, Uterine Other Oncologic History: unsure of type of cancer, but 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 Respiratory Surgical History: Reports: Lung Resection GI Surgical History: Reports: Small Bowel Female Surgical History: Reports: Hysterectomy Neurological Surgical History: Reports: None Oncologic Surgical History: Reports: None Social & Family History - Family History Family Medical History: Noncontributory Cardiac: Reports: Afib, MA Hematologic: Reports: Anemia - Tobacco Use Smoking Status *Q: Former Smoker Years of Tobacco use: 50 Used Tobacco, but Quit: Yes Month/Year Tobacco Last Used: 07/1999 Second Hand Smoke Exposure: No - Caffeine Use Caffeine Use: Reports: None Caffeine Use Comment: Drinks decaf, about 6 cups a day. - Recreational Drug Use Recreational Drug Use: No - Living Situation & Occupation Living situation: Reports: Occupation: Retired H&P Review of Systems - Review of Systems: Review Of Systems: See Below General: Denies: Fever, Chills HEENT: Denies: Dysphasia, Hearing Changes Pulmonary: Denies: Shortness of Breath, Wheezing Cardiovascular: Denies: Chest Pain, Palpitations, Lightheadedness, Syncope Gastrointestinal: Denies: Abdominal Pain, Anorexia, Black Stool 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: Denies: Dysuria, Frequency Musculoskeletal: Denies: Neck Pain, Shoulder Pain Skin: Denies: Cyanosis, Jaundice, Mottled Psychiatric: Denies: Confusion, Depression, Mood Lability Neurological: Denies: Confusion, Dizziness, Headache Exam - Exam Exam: See Below - Vital Signs Vital Signs: Last Vital Signs Temp 36.0 C 08/24/19 07:30 Pulse 116 H 08/24/19 08:34 Resp 18 08/24/19 07:30 BP 121/85 08/24/19 08:34 Pulse Ox 100 08/24/19 07:30 Weight: 25.945 kg - Exam Quality Assessment: No: Supplemental Oxygen General: Alert, Oriented HEENT: Mucosa Moist & [place], Nares Patent Neck: Supple, Trachea Midline Lungs: Clear to Auscultation, Normal Respiratory Effort Cardiovascular: Regular Rate, Normal S1, Normal S2, Irregular Rhythm GI/Abdominal Exam: Normal Bowel Sounds, Soft, Non-Tender Extremities: Pedal Edema Psychiatric: Alert, Normal Affect - Patient Data Lab Results Last 24 hrs: Laboratory Results - last 24 hr 08/23/19 08/23/19 08/23/19 Range/Units 21:08 21:08 21:50 WBC 5.98 (4.0-11.0) K/uL RBC 3.52 L (4.30-5.90) M/uL Hgb 9.0 L (12.0-16.0) g/dL Hct 28.9 L (36.0-46.0) % MCV 82.1 (80.0-98.0) fL MCH 25.6 L (27.0-32.0) pg MCHC 31.1 (31.0-37.0) g/dL RDW Std Deviation 58.2 (28.0-62.0) fl RDW Coeff of Luke 19 H (11.0-15.0) % Plt Count 291 (150-400) K/uL MPV 9.80 (7.40-12.00) fL Add Manual Diff YES Neutrophils % (Manual) 73 (48.0-80.0) % Band Neutrophils % 2 % Lymphocytes % (Manual) 7 L (16.0-40.0) % Monocytes % (Manual) 16 H (0.0-15.0) % Eosinophils % (Manual) 2 (0.0-7.0) % Nucleated RBC % 0.0 /100WBC Absolute Seg Neuts 4.4 (1.4-5.7) Band Neutrophils # 0.1 Lymphocytes # (Manual) 0.4 L (0.6-2.4) Monocytes # (Manual) 1.0 H (0.0-0.8) Eosinophils # (Manual) 0.1 (0.0-0.7) Nucleated RBCs # 0 K/uL INR Sodium (136-145) mmol/L Potassium (3.5-5.1) mmol/L Chloride (98-107) mmol/L Carbon Dioxide (21.0-32.0) mmol/L BUN (7.0-18.0) mg/dL Creatinine (0.6-1.0) mg/dL Est Cr Clr Drug Dosing mL/min Estimated GFR (MDRD) ml/min Glucose (74-106) mg/dL POC Glucose (60-110) mg/dL Calcium (8.5-10.1) mg/dL Magnesium (1.8-2.4) mg/dL Total Bilirubin (0.2-1.0) mg/dL AST (15-37) IU/L ALT (14-63) IU/L Alkaline Phosphatase (46-116) U/L Troponin I (0.000-0.056) ng/mL B-Natriuretic Peptide 394 H (<100) PG/ML Total Protein (6.4-8.2) g/dL Albumin (3.4-5.0) g/dL Globulin (2.6-4.0) g/dL Albumin/Globulin Ratio (0.9-1.6) Urine Color YELLOW Urine Appearance CLEAR Urine pH 8.0 (5.0-8.0) Ur Specific [place] 1.015 (1.001-1.035) Urine Protein NEGATIVE (NEGATIVE) mg/dL Urine Glucose (UA) NEGATIVE (NEGATIVE) mg/dL Urine Ketones NEGATIVE (NEGATIVE) mg/dL Urine Occult Blood NEGATIVE (NEGATIVE) Urine Nitrite NEGATIVE (NEGATIVE) Urine Bilirubin NEGATIVE (NEGATIVE) Urine Urobilinogen 0.2 (<2.0) EU/dL Ur Leukocyte Esterase NEGATIVE (NEGATIVE) Urine RBC 0-1 (0-2/HPF) Urine WBC 0-1 (0-5/HPF) Ur Epithelial Cells RARE (NONE-FEW) Urine Bacteria RARE (NEGATIVE) 08/23/19 08/23/19 08/23/19 Range/Units 21:50 21:50 21:50 WBC (4.0-11.0) K/uL RBC (4.30-5.90) M/uL Hgb (12.0-16.0) g/dL Hct (36.0-46.0) % MCV (80.0-98.0) fL MCH (27.0-32.0) pg MCHC (31.0-37.0) g/dL RDW Std Deviation (28.0-62.0) fl RDW Coeff of Luke (11.0-15.0) % Plt Count (150-400) K/uL MPV (7.40-12.00) fL Add Manual Diff Neutrophils % (Manual) (48.0-80.0) % Band Neutrophils % % Lymphocytes % (Manual) (16.0-40.0) % Monocytes % (Manual) (0.0-15.0) % Eosinophils % (Manual) (0.0-7.0) % Nucleated RBC % /100WBC Absolute Seg Neuts (1.4-5.7) Band Neutrophils # Lymphocytes # (Manual) (0.6-2.4) Monocytes # (Manual) (0.0-0.8) Eosinophils # (Manual) (0.0-0.7) Nucleated RBCs # K/uL INR 1.15 Sodium 138 (136-145) mmol/L Potassium 3.5 (3.5-5.1) mmol/L Chloride 98 (98-107) mmol/L Carbon Dioxide 34.5 H (21.0-32.0) mmol/L BUN 16 (7.0-18.0) mg/dL Creatinine 0.7 (0.6-1.0) mg/dL Est Cr Clr Drug Dosing 45.14 mL/min Estimated GFR (MDRD) > 60.0 ml/min Glucose 104 (74-106) mg/dL POC Glucose (60-110) mg/dL Calcium 8.1 L (8.5-10.1) mg/dL Magnesium 1.5 L (1.8-2.4) mg/dL Total Bilirubin 0.2 (0.2-1.0) mg/dL AST 14 L (15-37) IU/L ALT 17 (14-63) IU/L Alkaline Phosphatase 91 (46-116) U/L Troponin I < 0.050 (0.000-0.056) ng/mL B-Natriuretic Peptide (<100) PG/ML Total Protein 6.1 L (6.4-8.2) g/dL Albumin 2.7 L (3.4-5.0) g/dL Globulin 3.4 (2.6-4.0) g/dL Albumin/Globulin Ratio 0.8 L (0.9-1.6) Urine Color Urine Appearance Urine pH (5.0-8.0) Ur Specific [place] (1.001-1.035) Urine Protein (NEGATIVE) mg/dL Urine Glucose (UA) (NEGATIVE) mg/dL Urine Ketones (NEGATIVE) mg/dL Urine Occult Blood (NEGATIVE) Urine Nitrite (NEGATIVE) Urine Bilirubin (NEGATIVE) Urine Urobilinogen (<2.0) EU/dL Ur Leukocyte Esterase (NEGATIVE) Urine RBC (0-2/HPF) Urine WBC (0-5/HPF) Ur Epithelial Cells (NONE-FEW) Urine Bacteria (NEGATIVE) 08/24/19 08/24/19 Range/Units 01:00 06:43 WBC (4.0-11.0) K/uL RBC (4.30-5.90) M/uL Hgb (12.0-16.0) g/dL Hct (36.0-46.0) % MCV (80.0-98.0) fL MCH (27.0-32.0) pg MCHC (31.0-37.0) g/dL RDW Std Deviation (28.0-62.0) fl RDW Coeff of Luke (11.0-15.0) % Plt Count (150-400) K/uL MPV (7.40-12.00) fL Add Manual Diff Neutrophils % (Manual) (48.0-80.0) % Band Neutrophils % % Lymphocytes % (Manual) (16.0-40.0) % Monocytes % (Manual) (0.0-15.0) % Eosinophils % (Manual) (0.0-7.0) % Nucleated RBC % /100WBC Absolute Seg Neuts (1.4-5.7) Band Neutrophils # Lymphocytes # (Manual) (0.6-2.4) Monocytes # (Manual) (0.0-0.8) Eosinophils # (Manual) (0.0-0.7) Nucleated RBCs # K/uL INR Sodium (136-145) mmol/L Potassium (3.5-5.1) mmol/L Chloride (98-107) mmol/L Carbon Dioxide (21.0-32.0) mmol/L BUN (7.0-18.0) mg/dL Creatinine (0.6-1.0) mg/dL Est Cr Clr Drug Dosing mL/min Estimated GFR (MDRD) ml/min Glucose (74-106) mg/dL POC Glucose 82 (60-110) mg/dL Calcium (8.5-10.1) mg/dL Magnesium (1.8-2.4) mg/dL Total Bilirubin (0.2-1.0) mg/dL AST (15-37) IU/L ALT (14-63) IU/L Alkaline Phosphatase (46-116) U/L Troponin I < 0.050 (0.000-0.056) ng/mL B-Natriuretic Peptide (<100) PG/ML Total Protein (6.4-8.2) g/dL Albumin (3.4-5.0) g/dL Globulin (2.6-4.0) g/dL Albumin/Globulin Ratio (0.9-1.6) Urine Color Urine Appearance Urine pH (5.0-8.0) Ur Specific [place] (1.001-1.035) Urine Protein (NEGATIVE) mg/dL Urine Glucose (UA) (NEGATIVE) mg/dL Urine Ketones (NEGATIVE) mg/dL Urine Occult Blood (NEGATIVE) Urine Nitrite (NEGATIVE) Urine Bilirubin (NEGATIVE) Urine Urobilinogen (<2.0) EU/dL Ur Leukocyte Esterase (NEGATIVE) Urine RBC (0-2/HPF) Urine WBC (0-5/HPF) Ur Epithelial Cells (NONE-FEW) Urine Bacteria (NEGATIVE) Result Diagrams: 08/23/19 21:50 08/23/19 21:50 Sepsis Event Note - Evaluation Sepsis Screening Result: No Definite Risk - Focused Exam Vital Signs: Vital Signs Temp Pulse Pulse Resp BP BP Pulse Ox 08/24/19 08:34 116 H 121/85 08/24/19 07:30 36.0 C 97 18 110/68 100 08/24/19 03:54 36.2 C 96 17 131/63 99 08/23/19 22:27 99 20 99/42 L 100 08/23/19 22:09 114 H 22 H 123/62 99 Date Exam was Performed: 08/24/19 Time Exam was Performed: 14:24 - Problem List (1) Shoulder pain SNOMED Code(s): 32824306 ICD Code: M25.519 - PAIN IN UNSPECIFIED SHOULDER Status: Acute Current Visit: Yes (2) CVA (cerebral vascular accident) SNOMED Code(s): 469697656 ICD Code: I63.9 - CEREBRAL INFARCTION, UNSPECIFIED Status: Acute Current Visit: No Qualifiers: CVA mechanism: unspecified Qualified Code(s): I63.9 - Cerebral infarction, unspecified (3) CHF (congestive heart failure) SNOMED Code(s): 05453356 ICD Code: I50.9 - HEART FAILURE, UNSPECIFIED Status: Acute Current Visit : Yes Qualifiers: Heart failure type: systolic Heart failure chronicity: acute on chronic Qualified Code(s): I50.23 - Acute on chronic systolic (congestive) heart failure Problem List Initiated/Reviewed/Updated: Yes Orders Last 24hrs: Active Orders 24 hr Category Date Time Status Patient Status [ADT] Stat ADT 08/23/19 22:39 Active Ambulate [RC] ASDIRECTED Care 08/24/19 00:14 Active Antiembolic Devices [RC] PER UNIT ROUTINE Care 08/24/19 00:16 Active Blood Glucose Check, Bedside [RC] WITHMEALSANDBED Care 08/24/19 00:14 Active Cardiac Monitoring [RC] Q8H Care 08/23/19 20:57 Active Oxygen Therapy [RC] ASDIRECTED Care 08/23/19 20:57 Active Oxygen Therapy [RC] PRN Care 08/24/19 00:14 Active RT Aerosol Therapy [RC] ASDIRECTED Care 08/24/19 00:16 Active Telemetry Monitoring [Cardiac Monitoring] [RC] . Care 08/24/19 01:49 Active DIRECTED VTE/DVT Education [RC] PER UNIT ROUTINE Care 08/24/19 00:14 Active Vital Signs [RC] Q4H Care 08/24/19 00:14 Active Heart Healthy Diet [DIET] Diet 08/24/19 Breakfast Active Acetaminophen [Tylenol Extra Strength] Med 08/24/19 01:08 Active 500 mg PO BEDTIME PRN Acetaminophen [Tylenol] Med 08/24/19 00:14 Active 650 mg PO Q4H PRN Albuterol/Ipratropium [DuoNeb 3.0-0.5 MG/3 ML] Med 08/24/19 00:14 Active 3 ml NEB Q4HRRT PRN Apixaban [Eliquis] Med 08/24/19 09:00 Active 2.5 mg PO BID Brimonidine [Alphagan 0.2% Ophth Soln] Med 08/24/19 09:00 Active 0 ml EYERT BID Clopidogrel [Plavix] Med 08/24/19 09:00 Active 75 mg PO DAILY Dorzolamide/Timolol [Cosopt 2%-0.5% Ophth Soln] Med 08/24/19 09:00 Active 0 ml EYERT BID Furosemide [Lasix] Med 08/24/19 09:00 Active 40 mg PO DAILY Metoprolol Tartrate [Lopressor] Med 08/24/19 09:00 Active 12.5 mg PO DAILY Omeprazole Med 08/24/19 09:00 Active 40 mg PO DAILY Sertraline [Zoloft] Med 08/24/19 09:00 Active 150 mg PO DAILY Sodium Chloride 0.9% [Saline Flush] Med 08/23/19 20:57 Active 10 ml FLUSH ASDIRECTED PRN Sodium Chloride 0.9% [Saline Flush] Med 08/23/19 20:57 Active 2.5 ml FLUSH ASDIRECTED PRN diphenhydrAMINE [Benadryl] Med 08/24/19 01:08 Active 25 mg PO BEDTIME PRN Saline Lock Insert [OM.PC] Stat Ot 08/23/19 20:57 Ordered Sequential Compression Device [OM.PC] Per Unit Routine Ot 08/24/19 00:15 Ordered Medication Orders Acetaminophen (Tylenol) 650 mg PO Q4H PRN PRN Reason: Pain (Mild 1-3)/fever Acetaminophen (Tylenol Extra Strength) 500 mg PO BEDTIME PRN PRN Reason: Sleep Last Admin: 08/24/19 01:25 Dose: 500 mg Albuterol/Ipratropium (Duoneb 3.0-0.5 Mg/3 Ml) 3 ml NEB Q4HRRT PRN PRN Reason: Shortness Of Breath/wheezing Apixaban (Eliquis) 2.5 mg PO BID [facility] Last Admin: 08/24/19 08:33 Dose: 2.5 mg Brimonidine Tartrate (Alphagan 0.2% Ophth Soln) 0 ml EYERT BID [facility] Last Admin: 08/24/19 08:44 Dose: Clopidogrel Bisulfate (Plavix) 75 mg PO DAILY [facility] Last Admin: 08/24/19 08:32 Dose: 75 mg Diphenhydramine HCl (Benadryl) 25 mg PO BEDTIME PRN PRN Reason: Sleep Last Admin: 08/24/19 01:25 Dose: 25 mg Dorzolamide/Timolol (Cosopt 2%-0.5% Ophth Soln) 0 ml EYERT BID [facility] Last Admin: 08/24/19 08:44 Dose: Furosemide (Lasix) 40 mg PO DAILY [facility] Last Admin: 08/24/19 08:32 Dose: 40 mg Metoprolol Tartrate (Lopressor) 12.5 mg PO DAILY [facility] Last Admin: 08/24/19 08:34 Dose: 12.5 mg Omeprazole (Omeprazole) 40 mg PO DAILY [facility] Last Admin: 08/24/19 08:34 Dose: 40 mg Sertraline HCl (Zoloft) 150 mg PO DAILY [facility] Last Admin: 08/24/19 08:32 Dose: 150 mg Sodium Chloride (Saline Flush) 10 ml FLUSH ASDIRECTED PRN PRN Reason: Keep Vein Open Last Admin: 08/23/19 21:26 Dose: 10 ml Sodium Chloride (Saline Flush) 2.5 ml FLUSH ASDIRECTED PRN PRN Reason: Keep Vein Open Last Admin: 08/23/19 21:26 Dose: 2.5 ml Assessment/Plan Comment:: 84 y/o F admitted for chest pain/shoulder pain H/o Afib, missed her Lasix past few days currently no more pain Could be mild CHF exacerbation, received IV lasix in ER Resumed her PO Lasix, resume home meds ACS ruled out, cont tele Replete electrolytes as needed 2D ECHO on outpatient basis Possible dc later today with fu with PCP and cardiology
[2019-08-24] MEDS ORDERED: Diltiazem 25 MG/5 ML SDV IVPUSH ONE (12:35)
[2019-08-24 12:52] VITALS: PULSE 132
[2019-08-24 12:55] VITALS: BP 133/89
== END 2019-08-24 14:10 | disposition home or self-care (01) ==
LOC: MW.ED 20:41 → MW.MS 22:39
PROVIDERS: ADMIT Student in an Organized Health Care Education/Training Program; ATTEND Student in an Organized Health Care Education/Training Program
DX: M25.512 Pain in left shoulder (principal); I11.0 Hypertensive heart disease with heart failure; I50.23 Acute on chronic systolic (congestive) heart failure; I25.10 Atherosclerotic heart disease of native coronary artery without angina pectoris; I48.91 Unspecified atrial fibrillation; I63.9 Cerebral infarction, unspecified; J44.9 Chronic obstructive pulmonary disease, unspecified; F41.0 Panic disorder [episodic paroxysmal anxiety]; Z87.891 Personal history of nicotine dependence; Z88.5 Allergy status to narcotic agent; Z88.8 Allergy status to other drugs, medicaments and biological substances; Z79.899 Other long term (current) drug therapy
CPT/HCPCS: 36415; 71045; 80053; 81001; 82962; 83735; 83880; 84484; 85025; 85610; 93005; A9270; J1642; J1940; J3475; J3490; 99283

== ENCOUNTER 2020-02-08 12:15 | Observation (INO) | payer MEDICARE, OTHER ==
[2020-02-08] MEDS ORDERED: Sodium Chloride 0.9% 10 ML Syringe FLUSH PRN (12:17)
[2020-02-08] MEDS ORDERED: Sodium Chloride 0.9% 2.5 ML Syringe FLUSH PRN (12:17)
--- NOTE | 2020-02-08 12:32 | EDM.PDOC ---
ED HPI GENERAL MEDICAL PROBLEM - General Stated Complaint: BLOOD TRANSFUSION Time Seen by Provider: 02/08/20 12:16 Source of Information: Reports: Patient History Limitations: Reports: No Limitations - History of Present Illness INITIAL COMMENTS - FREE TEXT/NARRATIVE: HISTORY AND PHYSICAL: History of present illness: Patient is an 85-year-old female who presents to the emergency room for "blood transfusion and scopes". She states she received a phone call from Dr. Elam's nurse, her oncologist, who recommended she come to the emergency room as she may require a blood transfusion and "scopes". Patient reports that she has had some shortness of breath over the past 1 month but attributes this to her lung cancer and states this is fairly normal for her. Other than the shortness of breath she reports that she is asymptomatic and would not be in the emergency room if it were not for the voicemail recommended she come in for evaluation. Patient denies any fever, chills, headache, change in vision, syncope or near syncope. Denies any chest pain, back pain or cough. Denies any abdominal pain, nausea, vomiting, diarrhea, constipation or dysuria. Has not noted any blood in urine or stool. Patient has been eating and drinking appropriately. Patient has a history of lung cancer and uterine cancer. She has had chemo and radiation therapy in the past, states she does not believe she is currently on any form of treatment. History of congestive heart failure, atrial fibrillation, COPD, hypertension, anemia, SC with stent placement and is on anticoagulation therapy. Her oncologist is Dr. Elam from [facility] who does come to our facility for oncology services. Patient reports that she does have blood transfusions regularly, last received blood approximately 1 month ago. Review of systems: As per history of present illness and below otherwise all systems reviewed and negative. Past medical history: As per history of present illness and as reviewed below otherwise noncon tributory. Surgical history: As per history of present illness and as reviewed below otherwise noncontributory. Social history: See social history for further information Family history: As per history of present illness and as reviewed below otherwise noncontributory. Physical exam: General: Chronically ill appearing 85-year-old female. Alert and oriented. Nontoxic-appearing and in no acute distress. HEENT: Atraumatic, normocephalic, pupils equal and reactive bilaterally, negative for conjunctival pallor or scleral icterus, mucous membranes moist, TMs normal bilaterally, throat clear, neck supple, nontender, trachea midline. No drooling or trismus noted. No meningeal signs. No hot potato voice noted. Lungs: Clear to auscultation, breath sounds equal bilaterally, chest nontender. Heart: S1S2, regular rate and rhythm without overt murmur Abdomen: Soft, nondistended, nontender. Negative for masses or hepatosplenomegaly. Negative for costovertebral tenderness. Skin: Intact, warm, dry. No lesions or rashes noted. Extremities: Atraumatic, moves all extremities per self without difficulty or deficits, negative for cords or calf pain. Neurovascular unremarkable. Neuro: Awake, alert, oriented. Cranial nerves II through XII unremarkable. Cerebellum unremarkable. Motor and sensory unremarkable throughout. Exam nonfocal. Notes: EKG was done at 1232, showing sinus tachycardia with a rate of 107. No EKG changes noted with compared EKG on 08/23/2019. Patient's H&H is trending downward, I did speak with Dr. Kinney about admitting this patient. We will give Protonix and order 2 units of RBCs. Patient is agreeable for admission. She states she would like to be discharged as soon as possible as she would rather be at home. Her vital signs remained stable. We will continue to monitor Diagnostics: CBC, CMP, Troponin, EKG, CXR, UA, COVID Therapeutics: Protonix, LR, 2 units RBC Impression: Anemia Hypocalcemia History of cancer Plan: To Med/Surg for observation on Telemetry Definitive disposition and diagnosis as appropriate pending reevaluation and review of above. - Related Data Allergies Allergy/AdvReac Type Severity Reaction Status Date / Time codeine Allergy Delusions Verified 02/08/20 15:22 lorazepam [From Ativan] Allergy Delusions Verified 02/08/20 15:22 meperidine [From Demerol] Allergy Delusions Verified 02/08/20 15:22 Home Meds: Home Meds Dorzolamide/Timolol [Cosopt 2%-0.5% Ophth Soln] 1 drop EYERT BID 05/28/16 [History] Latanoprost 1 drop EYEBOTH DAILY 05/28/16 [History] Omeprazole 40 mg PO DAILY 05/28/16 [History] Sertraline HCl 150 mg PO DAILY 05/28/16 [History] Brimonidine [Alphagan 0.2% Ophth Soln] 1 drop EYERT BID 10/20/18 [History] Metoprolol Tartrate 12.5 mg PO DAILY 11/01/18 [History] Potassium Chloride [Klor-Con 10] 40 meq PO BID 11/01/18 [History] Albuterol Sulfate [Proair Respiclick] 2 puff INH Q6HR PRN 08/23/19 [History] Albuterol/Ipratropium [Combivent Respimat] 1 puff INH Q6HR PRN 08/23/19 [History] Apixaban [Eliquis] 2.5 mg PO BID 08/23/19 [History] Furosemide [Lasix] 40 mg PO DAILY 08/23/19 [History] ALPRAZolam [Xanax] 1 - 2 tab PO BID PRN 02/08/20 [History] Acetaminophen [Acetaminophen ER] 650 mg PO Q6H PRN 02/08/20 [History] Aspirin [Ecotrin EC] 81 mg PO DAILY 02/08/20 [History] Calcium Carbonate/Vitamin D3 [Caltrate-600 with Vit D Tab] 2 tab PO BID 02/08/20 [History] Loperamide HCl [Imodium A-D] 4 mg PO BID PRN MDD Loose Stools 02/08/20 [History] Magnesium Oxide 400 mg PO DAILY 02/08/20 [History] Medical Supply, Miscellaneous [Sea-Band] 6 - 12 drop MC ASDIRECTED 02/08/20 [History] Mirtazapine 15 mg PO BEDTIME 02/08/20 [History] Psyllium Husk [Psyllium Fiber] 2 cap PO BID 02/08/20 [History] traZODone HCl [Trazodone HCl] 50 mg PO BEDTIME 02/08/20 [History] Past Medical History HEENT History: Reports: Cataract Cardiovascular History: Reports: Afib, Angina, CAD, Heart Failure, Hypertension, SC, Stents Respiratory History: Reports: COPD Other Respiratory History: hx of smoker, on home 02 at 2 liters/min; Lung CA Gastrointestinal History: Reports: Other (See Below) Other Gastrointestinal History: short bowel syndrom 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 History: Reports: None ENRICHMENT SPECIALIST History: Reports: Musculoskeletal History: Reports: None Neurological History: Reports: TIA Psychiatric History: Reports: Panic Attack Endocrine/Metabolic History: Reports: None Hematologic History: Reports: Anticoagulation Therapy Immunologic History: Reports: None Oncologic (Cancer) History: Reports: Lung, Uterine Other Oncologic History: unsure of type of cancer, but has a 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 and in the aorta Dermatologic History: Reports: None - Infectious Disease History Infectious Disease History: Reports: Chicken Pox, Mumps - Past Surgical History HEENT Surgical History: Reports: Cataract Surgery Cardiovascular Surgical History: Reports: Coronary Artery Stent Other Cardiovascular Surgeries/Procedures: Stent placed in [place] (October [id number]). Respiratory Surgical History: Reports: Lung Resection GI Surgical History: Reports: Small Bowel Female Surgical History: Reports: Hysterectomy Neurological Surgical History: Reports: None Oncologic Surgical History: Reports: None Social & Family History - Family History Family Medical History: Noncontributory Cardiac: Reports: Afib, SC Hematologic: Reports: Anemia - Caffeine Use Caffeine Use: Reports: None Caffeine Use Comment: Drinks decaf, about 6 cups a day. - Living Situation & Occupation Living situation: Reports: Occupation: Retired ED ROS GENERAL - Review of Systems Review Of Systems: Comprehensive ROS is negative, except as noted in HPI. ED EXAM, GENERAL - Physical Exam Exam: See Below (See dictation) Course - Vital Signs Last Recorded V/S: Last Vital Signs Temp 99.2 F 02/08/20 18:41 Pulse 89 02/08/20 19:56 Resp 19 02/08/20 19:55 BP 156/72 H 02/08/20 19:56 Pulse Ox 95 02/08/20 18:41 - Orders/Labs/Meds Orders: Active Orders 24 hr Category Date Time Status Sodium Chloride 0.9% [Saline Flush] Med 02/08/20 12:17 Active 10 ml FLUSH ASDIRECTED PRN Sodium Chloride 0.9% [Saline Flush] Med 02/08/20 12:17 Active 2.5 ml FLUSH ASDIRECTED PRN Saline Lock Insert [OM.PC] Stat Oth 02/08/20 12:17 Ordered Medication Orders Acetaminophen (Tylenol) 650 mg PO Q6H PRN PRN Reason: Pain Albuterol/Ipratropium (Duoneb 3.0-0.5 Mg/3 Ml) 3 ml NEB Q4HRRT PRN PRN Reason: Shortness Of Breath/wheezing Alprazolam (Xanax) 1 mg PO BID PRN PRN Reason: Anxiety Brimonidine Tartrate (Alphagan 0.2% Ophth Soln) 0 ml EYERT BID ANALILIA Calcium Carbonate (Caltrate 600+D 1500 Mg-400 Units) 2 tab PO BID ANALILIA Dorzolamide/Timolol (Cosopt 2%-0.5% Ophth Soln) 0 ml EYERT BID ANALILIA Furosemide (Lasix) 40 mg PO DAILY [facility] Lactated Ringer's (Ringers, Lactated) 1,000 mls @ 999 mls/hr IV ASDIRECTED ANALILIA Last Admin: 02/08/20 14:43 Dose: 999 mls/hr Documented by: AURELIA Labetalol HCl (Normodyne) 10 mg IVPUSH Q4H PRN; Protocol PRN Reason: Hypertension Latanoprost (Xalatan 0.005% Ophth Soln) 0 ml EYEBOTH DAILY [facility] Loperamide HCl (Imodium) 4 mg PO BID PRN PRN Reason: Other Last Admin: 02/08/20 19:55 Dose: 4 mg Documented by: YANELY Metoprolol Tartrate (Lopressor) 12.5 mg PO DAILY [facility] Mirtazapine (Remeron) 15 mg PO BEDTIME [facility] Morphine Sulfate (Morphine) 1 mg IVPUSH Q4H PRN PRN Reason: Pain (severe 7-10) Stop: 02/09/20 14:35 Ondansetron HCl (Zofran) 4 mg IVPUSH Q4H PRN PRN Reason: Nausea/Vomiting Pantoprazole Sodium (Protonix Iv) 40 mg IV Q12HR [facility] Psyllium Husk (Metamucil Sugar Free) 1 pkt PO BID [facility] Sertraline HCl (Zoloft) 150 mg PO DAILY [facility] Sodium Chloride (Saline Flush) 10 ml FLUSH ASDIRECTED PRN PRN Reason: Keep Vein Open Sodium Chloride (Saline Flush) 2.5 ml FLUSH ASDIRECTED PRN PRN Reason: Keep Vein Open Trazodone HCl (Trazodone) 50 mg PO BEDTIME [facility] Labs: Laboratory Tests 02/08/20 02/08/20 02/08/20 Range/Units 12:47 12:47 12:47 WBC 5.93 (4.0-11.0) K/uL RBC 2.89 L (4.30-5.90) M/uL Hgb 8.0 L (12.0-16.0) g/dL Hct 26.0 L (36.0-46.0) % MCV 90.0 (80.0-98.0) fL MCH 27.7 (27.0-32.0) pg MCHC 30.8 L (31.0-37.0) g/dL RDW Std Deviation 55.1 (28.0-62.0) fl RDW Coeff of Luke 17 H (11.0-15.0) % Plt Count 322 (150-400) K/uL MPV 10.40 (7.40-12.00) fL Neut % (Auto) 75.1 (48.0-80.0) % Lymph % (Auto) 8.9 L (16.0-40.0) % [place] % (Auto) 12.3 (0.0-15.0) % Eos % (Auto) 3.4 (0.0-7.0) % Baso % (Auto) 0.3 (0.0-1.5) % Neut # (Auto) 4.5 (1.4-5.7) K/uL Lymph # (Auto) 0.5 L (0.6-2.4) K/uL [place] # (Auto) 0.7 (0.0-0.8) K/uL Eos # (Auto) 0.2 (0.0-0.7) K/uL Baso # (Auto) 0.0 (0.0-0.1) K/uL Nucleated RBC % 0.0 /100WBC Nucleated RBCs # 0 K/uL Lactate (0.20-2.00) mmol/L Sodium 138 (136-145) mmol/L Potassium 3.5 (3.5-5.1) mmol/L Chloride 98 (98-107) mmol/L Carbon Dioxide 32.0 (21.0-32.0) mmol/L BUN 20 H (7.0-18.0) mg/dL Creatinine 0.7 (0.6-1.0) mg/dL Est Cr Clr Drug Dosing 44.18 mL/min Estimated GFR (MDRD) > 60.0 ml/min Glucose 126 H (74-106) mg/dL Calcium 7.7 L (8.5-10.1) mg/dL Total Bilirubin 0.3 (0.2-1.0) mg/dL AST 18 (15-37) IU/L ALT 24 (14-63) IU/L Alkaline Phosphatase 102 (46-116) U/L Troponin I (0.000-0.056) ng/mL B-Natriuretic Peptide (<100) PG/ML Total Protein 6.3 L (6.4-8.2) g/dL Albumin 2.9 L (3.4-5.0) g/dL Globulin 3.4 (2.6-4.0) g/dL Albumin/Globulin Ratio 0.9 (0.9-1.6) Blood Type B POSITIVE Antibody Screen NEGATIVE Crossmatch See Detail 02/08/20 02/08/20 02/08/20 Range/Units 12:47 12:47 12:47 WBC (4.0-11.0) K/uL RBC (4.30-5.90) M/uL Hgb (12.0-16.0) g/dL Hct (36.0-46.0) % MCV (80.0-98.0) fL MCH (27.0-32.0) pg MCHC (31.0-37.0) g/dL RDW Std Deviation (28.0-62.0) fl RDW Coeff of Luke (11.0-15.0) % Plt Count (150-400) K/uL MPV (7.40-12.00) fL Neut % (Auto) (48.0-80.0) % Lymph % (Auto) (16.0-40.0) % [place] % (Auto) (0.0-15.0) % Eos % (Auto) (0.0-7.0) % Baso % (Auto) (0.0-1.5) % Neut # (Auto) (1.4-5.7) K/uL Lymph # (Auto) (0.6-2.4) K/uL [place] # (Auto) (0.0-0.8) K/uL Eos # (Auto) (0.0-0.7) K/uL Baso # (Auto) (0.0-0.1) K/uL Nucleated RBC % /100WBC Nucleated RBCs # K/uL Lactate 1.8 (0.20-2.00) mmol/L Sodium (136-145) mmol/L Potassium (3.5-5.1) mmol/L Chloride (98-107) mmol/L Carbon Dioxide (21.0-32.0) mmol/L BUN (7.0-18.0) mg/dL Creatinine (0.6-1.0) mg/dL Est Cr Clr Drug Dosing mL/min Estimated GFR (MDRD) ml/min Glucose (74-106) mg/dL Calcium (8.5-10.1) mg/dL Total Bilirubin (0.2-1.0) mg/dL AST (15-37) IU/L ALT (14-63) IU/L Alkaline Phosphatase (46-116) U/L Troponin I < 0.050 (0.000-0.056) ng/mL B-Natriuretic Peptide 195 H (<100) PG/ML Total Protein (6.4-8.2) g/dL Albumin (3.4-5.0) g/dL Globulin (2.6-4.0) g/dL Albumin/Globulin Ratio (0.9-1.6) Blood Type Antibody Screen Crossmatch Meds: Medications Generic Name Dose Route Start Last Admin Trade Name Freq PRN Reason Stop Dose Admin Acetaminophen 650 mg 02/08/20 19:19 Tylenol PO Q6H PRN Pain Albuterol/Ipratropium 3 ml 02/08/20 14:33 Duoneb 3.0-0.5 Mg/3 Ml NEB Q4HRRT PRN Shortness Of Breath/wheezing Alprazolam 1 mg 02/08/20 19:02 Xanax PO BID PRN Anxiety Brimonidine Tartrate 0 ml 02/08/20 21:00 Alphagan 0.2% Ophth Soln EYERT BID ANALILIA Calcium Carbonate 2 tab 02/08/20 21:00 Caltrate 600+D 1500 Mg-400 Units PO BID ANALILIA Dorzolamide/Timolol 0 ml 02/08/20 21:00 Cosopt 2%-0.5% Ophth Soln EYERT BID ANALILIA Furosemide 40 mg 02/09/20 09:00 Lasix PO DAILY ANALILIA Lactated Ringer's 1,000 mls @ 999 mls/hr 02/08/20 14:15 02/08/20 14:43 Ringers, Lactated IV 999 mls/hr ASDIRECTED ANALILIA Administration Labetalol HCl 10 mg 02/08/20 19:07 Normodyne IVPUSH Q4H PRN Hypertension Protocol Latanoprost 0 ml 02/09/20 09:00 Xalatan 0.005% Ophth Soln EYEBOTH DAILY ANALILIA Loperamide HCl 4 mg 02/08/20 19:02 02/08/20 19:55 Imodium PO 4 mg BID PRN Administration Other Metoprolol Tartrate 12.5 mg 02/09/20 09:00 Lopressor PO DAILY ANALILIA Mirtazapine 15 mg 02/08/20 21:00 Remeron PO BEDTIME ANALILIA Morphine Sulfate 1 mg 02/08/20 14:33 Morphine IVPUSH 02/09/20 14:35 Q4H PRN Pain (severe 7-10) Ondansetron HCl 4 mg 02/08/20 14:33 Zofran IVPUSH Q4H PRN Nausea/Vomiting Pantoprazole Sodium 40 mg 02/09/20 09:00 Protonix Iv IV Q12HR ANALILIA Psyllium Husk 1 pkt 02/08/20 21:00 Metamucil Sugar Free PO BID ANALILIA Sertraline HCl 150 mg 02/09/20 09:00 Zoloft PO DAILY ANALILIA Sodium Chloride 10 ml 02/08/20 12:17 Saline Flush FLUSH ASDIRECTED PRN Keep Vein Open Sodium Chloride 2.5 ml 02/08/20 12:17 Saline Flush FLUSH ASDIRECTED PRN Keep Vein Open Trazodone HCl 50 mg 02/08/20 21:00 Trazodone PO BEDTIME ANALILIA Discontinued Medications Generic Name Dose Route Start Last Admin Trade Name Freq PRN Reason Stop Dose Admin Pantoprazole Sodium 40 mg/ 10 mls @ 300 mls/hr 02/08/20 14:00 02/08/20 14:46 Sodium Chloride IV 02/08/20 14:01 300 mls/hr NOW ONE Administration Lactated Ringer's 1,000 mls @ 100 mls/hr 02/08/20 14:45 Ringers, Lactated IV ASDIRECTED ANALILIA Labetalol HCl 10 mg 02/08/20 19:07 02/08/20 19:50 Normodyne IVPUSH 02/08/20 19:08 Not Given ONETIME ONE Protocol Metoprolol Tartrate 12.5 mg 02/08/20 19:50 02/08/20 19:56 Lopressor PO 02/08/20 19:51 12.5 mg ONETIME ONE Administration Departure - Departure Time of Disposition: 20:42 Disposition: Refer to Observation Clinical Impression: Anemia, History of lung cancer - Discharge Information Sepsis Event Note (ED) - Focused Exam Vital Signs: Vital Signs Temp Pulse Resp BP Pulse Ox 02/08/20 12:32 97.0 F 109 H 16 135/77 97 - My Orders Last 24 Hours: My Active Orders 02/08/20 12:17 Sodium Chloride 0.9% [Saline Flush] 10 ml FLUSH ASDIRECTED PRN Sodium Chloride 0.9% [Saline Flush] 2.5 ml FLUSH ASDIRECTED PRN Saline Lock Insert [OM.PC] Stat - Assessment/Plan Last 24 Hours: My Active Orders 02/08/20 12:17 Sodium Chloride 0.9% [Saline Flush] 10 ml FLUSH ASDIRECTED PRN Sodium Chloride 0.9% [Saline Flush] 2.5 ml FLUSH ASDIRECTED PRN Saline Lock Insert [OM.PC] Stat
[2020-02-08 13:27] LABS: BLOOD UREA NITROGEN,BUN 20 mg/dL (7.0-18.0); CHLORIDE,CL 98 mmol/L (98-107); GLUCOSE RANDOM 126 mg/dL (74-106); POTASSIUM,K 3.5 mmol/L (3.5-5.1); SODIUM,NA 138 mmol/L (136-145)
[2020-02-08] MEDS ORDERED: Pantoprazole 40 MG in Sodium Chloride 0.9% 10 ML IV ONE (14:00)
--- NOTE | 2020-02-08 14:00 | CR ---
INDICATION: Shortness of breath TECHNIQUE: Chest 1 view. COMPARISON: 08/23/2019 FINDINGS: The cardiomediastinal silhouette is stable. Postsurgical change in the left upper lobe are again identified. Stable blunting of the left costophrenic angle. Right chest Port-A-Cath with tip in the mid SVC. New patchy opacity in the medial right lung base. Right basilar atelectasis versus scarring. No pneumothorax identified. There is scoliosis. Postsurgical changes in the upper abdomen. IMPRESSION: New patchy opacity in the medial right lung base may represent atelectasis or early or developing pneumonia. Dictated by Yehuda Gomes MD @ 02/08/2020 1:59:52 PM Dictated by: Yehuda Gomes MD @ 02/08/2020 13:59:59 (Electronically Signed)
[2020-02-08] MEDS ORDERED: Lactated Ringers 1,000 ML IV SCH ×2 (14:15→14:45)
[2020-02-08] MEDS ORDERED: Morphine 10 MG/ML Syringe IVPUSH PRN (14:33)
[2020-02-08] MEDS ORDERED: Albuterol/Ipratropium 3.0-0.5 MG/3 ML Neb Soln NEB PRN (14:33)
[2020-02-08] MEDS ORDERED: Ondansetron 4 MG/2 ML SDV IVPUSH PRN (14:33)
--- NOTE | 2020-02-08 14:40 | PCM.HP.2 ---
H&P History of Present Illness - General Date of Service: 02/08/20 Admit Problem/Dx: Admission Diagnosis/Problem Admission Diagnosis/Problem Anemia - History of Present Illness Initial Comments - Free Text/Narative: Patient is an 85-year-old female with complex PMH including lung ca, Afib on AC, CHF, COPD, HTN, Anemia, CAD s/p stent who presents to the emergency room for after she got a call from her oncologist office in [place] about low hemoglobin. She was recommended to go to ER for possible blood transfusion Patient reports that she has had some shortness of breath over the past 1 month but attributes this to her lung cancer and states this is fairly normal for her. Patient denies any fever, chills, headache, change in vision, syncope or near syncope. Denies any chest pain, back pain or cough. Denies any abdominal pain, nausea, vomiting, diarrhea, constipation or dysuria. Has not noted any blood in urine or stool. Patient has been eating and drinking appropriately. Patient has a history of lung cancer and uterine cancer. She has had chemo and radiation therapy in the past, states she is currently on immuno-therapy. Her oncologist is Dr. Elam from [facility] who does come to our facility for oncology services. Patient reports that she does have blood transfusions regularly, last received blood approximately 1 month ago. In the ER patient was found to have Hb of 8.0, slightly tachycardic, received small fluid bolus of 500cc, stool occult was positive for blood, no visible dark or bloody stools. and was admitted for further care. - Related Data Allergies/Adverse Reactions: Allergies Allergy/AdvReac Type Severity Reaction Status Date / Time codeine Allergy Delusions Verified 02/08/20 15:22 lorazepam [From Ativan] Allergy Delusions Verified 02/08/20 15:22 meperidine [From Demerol] Allergy Delusions Verified 02/08/20 15:22 Home Medications: Home Meds Dorzolamide/Timolol [Cosopt 2%-0.5% Ophth Soln] 1 drop EYERT BID 05/28/16 [History] Latanoprost 1 drop EYEBOTH DAILY 05/28/16 [History] Omeprazole 40 mg PO DAILY 05/28/16 [History] Sertraline HCl 150 mg PO DAILY 05/28/16 [History] Brimonidine [Alphagan 0.2% Ophth Soln] 1 drop EYERT BID 10/20/18 [History] Metoprolol Tartrate 12.5 mg PO DAILY 11/01/18 [History] Potassium Chloride [Klor-Con 10] 40 meq PO BID 11/01/18 [History] Albuterol Sulfate [Proair Respiclick] 2 puff INH Q6HR PRN 08/23/19 [History] Albuterol/Ipratropium [Combivent Respimat] 1 puff INH Q6HR PRN 08/23/19 [History] Apixaban [Eliquis] 2.5 mg PO BID 08/23/19 [History] Furosemide [Lasix] 40 mg PO DAILY 08/23/19 [History] ALPRAZolam [Xanax] 1 - 2 tab PO BID PRN 02/08/20 [History] Acetaminophen [Acetaminophen ER] 650 mg PO Q6H PRN 02/08/20 [History] Aspirin [Ecotrin EC] 81 mg PO DAILY 02/08/20 [History] Calcium Carbonate/Vitamin D3 [Caltrate-600 with Vit D Tab] 2 tab PO BID 02/08/20 [History] Loperamide HCl [Imodium A-D] 4 mg PO BID PRN MDD Loose Stools 02/08/20 [History] Magnesium Oxide 400 mg PO DAILY 02/08/20 [History] Medical Supply, Miscellaneous [Sea-Band] 6 - 12 drop MC ASDIRECTED 02/08/20 [History] Mirtazapine 15 mg PO BEDTIME 02/08/20 [History] Psyllium Husk [Psyllium Fiber] 2 cap PO BID 02/08/20 [History] traZODone HCl [Trazodone HCl] 50 mg PO BEDTIME 02/08/20 [History] Past Medical History HEENT History: Reports: Cataract Cardiovascular History: Reports: Afib, Angina, CAD, Heart Failure, Hypertension, ND, Stents Respiratory History: Reports: COPD Other Respiratory History: hx of smoker, on home 02 at 2 liters/min; Lung CA Gastrointestinal History: Reports: Other (See Below) Other Gastrointestinal History: short bowel syndrom 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 History: Reports: None NURSE CLINICIAN History: Reports: Musculoskeletal History: Reports: None Neurological History: Reports: TIA Psychiatric History: Reports: Panic Attack Endocrine/Metabolic History: Reports: None Hematologic History: Reports: Anticoagulation Therapy Immunologic History: Reports: None Oncologic (Cancer) History: Reports: Lung, Uterine Other Oncologic History: unsure of type of cancer, but has a 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 and in the aorta Dermatologic History: Reports: None - Infectious Disease History Infectious Disease History: Reports: Chicken Pox, Mumps - Past Surgical History HEENT Surgical History: Reports: Cataract Surgery Cardiovascular Surgical History: Reports: Coronary Artery Stent Other Cardiovascular Surgeries/Procedures: Stent placed in [place] (October [id number]). Respiratory Surgical History: Reports: Lung Resection GI Surgical History: Reports: Small Bowel Female Surgical History: Reports: Hysterectomy Neurological Surgical History: Reports: None Oncologic Surgical History: Reports: None Social & Family History - Family History Family Medical History: Noncontributory Cardiac: Reports: Afib, ND Hematologic: Reports: Anemia - Caffeine Use Caffeine Use: Reports: None Caffeine Use Comment: Drinks decaf, about 6 cups a day. - Recreational Drug Use Recreational Drug Use: No - Living Situation & Occupation Living situation: Reports: Occupation: Retired H&P Review of Systems - Review of Systems: Review Of Systems: See Below General: Reports: Weakness, Fatigue. Denies: Fever, Chills, Malaise HEENT: Denies: Contact Lenses, Dysphasia Pulmonary: Denies: Shortness of Breath, Wheezing, Cough, Sputum Cardiovascular: Reports: Dyspnea on Exertion. Denies: Chest Pain, Palpitations, Orthopnea, PND, Edema, Lightheadedness, Syncope Gastrointestinal: Reports: Constipation, Nausea. Denies: Abdominal Pain, Anorexia, Black Stool, Diarrhea, Decreased Appetite, Melena, Vomiting 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: Denies: Dysuria, Frequency, Burning Musculoskeletal: Denies: Neck Pain, Shoulder Pain, Arm Pain Skin: Reports: Pallor. Denies: Cyanosis, Jaundice, Mottled, Diaphoresis Psychiatric: Denies: Confusion, Depression Exam - Exam Exam: See Below - Vital Signs Vital Signs: Last Vital Signs Temp 36.1 C 02/08/20 12:32 Pulse 109 H 02/08/20 12:32 Resp 16 02/08/20 12:32 BP 135/77 02/08/20 12:32 Pulse Ox 97 02/08/20 12:32 Weight: 47.627 kg - Exam General: Alert, Oriented Neck: Supple, Trachea Midline Lungs: Clear to Auscultation, Normal Respiratory Effort Cardiovascular: Regular Rate, Regular Rhythm, Normal S1, Normal S2 GI/Abdominal Exam: Normal Bowel Sounds, Soft, Non-Tender. No: No Organomegaly, Distended, Guarding, Rigid, Tender, Abnormal Bowel Sounds - Patient Data Lab Results Last 24 hrs: Laboratory Results - last 24 hr 02/08/20 02/08/20 02/08/20 Range/Units 12:47 12:47 12:47 WBC 5.93 (4.0-11.0) K/uL RBC 2.89 L (4.30-5.90) M/uL Hgb 8.0 L (12.0-16.0) g/dL Hct 26.0 L (36.0-46.0) % MCV 90.0 (80.0-98.0) fL MCH 27.7 (27.0-32.0) pg MCHC 30.8 L (31.0-37.0) g/dL RDW Std Deviation 55.1 (28.0-62.0) fl RDW Coeff of Luke 17 H (11.0-15.0) % Plt Count 322 (150-400) K/uL MPV 10.40 (7.40-12.00) fL Neut % (Auto) 75.1 (48.0-80.0) % Lymph % (Auto) 8.9 L (16.0-40.0) % [place] % (Auto) 12.3 (0.0-15.0) % Eos % (Auto) 3.4 (0.0-7.0) % Baso % (Auto) 0.3 (0.0-1.5) % Neut # (Auto) 4.5 (1.4-5.7) K/uL Lymph # (Auto) 0.5 L (0.6-2.4) K/uL [place] # (Auto) 0.7 (0.0-0.8) K/uL Eos # (Auto) 0.2 (0.0-0.7) K/uL Baso # (Auto) 0.0 (0.0-0.1) K/uL Nucleated RBC % 0.0 /100WBC Nucleated RBCs # 0 K/uL Lactate (0.20-2.00) mmol/L Sodium 138 (136-145) mmol/L Potassium 3.5 (3.5-5.1) mmol/L Chloride 98 (98-107) mmol/L Carbon Dioxide 32.0 (21.0-32.0) mmol/L BUN 20 H (7.0-18.0) mg/dL Creatinine 0.7 (0.6-1.0) mg/dL Est Cr Clr Drug Dosing 44.18 mL/min Estimated GFR (MDRD) > 60.0 ml/min Glucose 126 H (74-106) mg/dL Calcium 7.7 L (8.5-10.1) mg/dL Total Bilirubin 0.3 (0.2-1.0) mg/dL AST 18 (15-37) IU/L ALT 24 (14-63) IU/L Alkaline Phosphatase 102 (46-116) U/L Troponin I (0.000-0.056) ng/mL B-Natriuretic Peptide (<100) PG/ML Total Protein 6.3 L (6.4-8.2) g/dL Albumin 2.9 L (3.4-5.0) g/dL Globulin 3.4 (2.6-4.0) g/dL Albumin/Globulin Ratio 0.9 (0.9-1.6) COVID-19 (NAYAN) (NEGATIVE) Blood Type B POSITIVE Antibody Screen NEGATIVE Crossmatch See Detail 02/08/20 02/08/20 02/08/20 Range/Units 12:47 12:47 12:47 WBC (4.0-11.0) K/uL RBC (4.30-5.90) M/uL Hgb (12.0-16.0) g/dL Hct (36.0-46.0) % MCV (80.0-98.0) fL MCH (27.0-32.0) pg MCHC (31.0-37.0) g/dL RDW Std Deviation (28.0-62.0) fl RDW Coeff of Luke (11.0-15.0) % Plt Count (150-400) K/uL MPV (7.40-12.00) fL Neut % (Auto) (48.0-80.0) % Lymph % (Auto) (16.0-40.0) % [place] % (Auto) (0.0-15.0) % Eos % (Auto) (0.0-7.0) % Baso % (Auto) (0.0-1.5) % Neut # (Auto) (1.4-5.7) K/uL Lymph # (Auto) (0.6-2.4) K/uL [place] # (Auto) (0.0-0.8) K/uL Eos # (Auto) (0.0-0.7) K/uL Baso # (Auto) (0.0-0.1) K/uL Nucleated RBC % /100WBC Nucleated RBCs # K/uL Lactate 1.8 (0.20-2.00) mmol/L Sodium (136-145) mmol/L Potassium (3.5-5.1) mmol/L Chloride (98-107) mmol/L Carbon Dioxide (21.0-32.0) mmol/L BUN (7.0-18.0) mg/dL Creatinine (0.6-1.0) mg/dL Est Cr Clr Drug Dosing mL/min Estimated GFR (MDRD) ml/min Glucose (74-106) mg/dL Calcium (8.5-10.1) mg/dL Total Bilirubin (0.2-1.0) mg/dL AST (15-37) IU/L ALT (14-63) IU/L Alkaline Phosphatase (46-116) U/L Troponin I < 0.050 (0.000-0.056) ng/mL B-Natriuretic Peptide 195 H (<100) PG/ML Total Protein (6.4-8.2) g/dL Albumin (3.4-5.0) g/dL Globulin (2.6-4.0) g/dL Albumin/Globulin Ratio (0.9-1.6) COVID-19 (NAYAN) (NEGATIVE) Blood Type Antibody Screen Crossmatch 02/08/20 Range/Units 14:05 WBC (4.0-11.0) K/uL RBC (4.30-5.90) M/uL Hgb (12.0-16.0) g/dL Hct (36.0-46.0) % MCV (80.0-98.0) fL MCH (27.0-32.0) pg MCHC (31.0-37.0) g/dL RDW Std Deviation (28.0-62.0) fl RDW Coeff of Luke (11.0-15.0) % Plt Count (150-400) K/uL MPV (7.40-12.00) fL Neut % (Auto) (48.0-80.0) % Lymph % (Auto) (16.0-40.0) % [place] % (Auto) (0.0-15.0) % Eos % (Auto) (0.0-7.0) % Baso % (Auto) (0.0-1.5) % Neut # (Auto) (1.4-5.7) K/uL Lymph # (Auto) (0.6-2.4) K/uL [place] # (Auto) (0.0-0.8) K/uL Eos # (Auto) (0.0-0.7) K/uL Baso # (Auto) (0.0-0.1) K/uL Nucleated RBC % /100WBC Nucleated RBCs # K/uL Lactate (0.20-2.00) mmol/L Sodium (136-145) mmol/L Potassium (3.5-5.1) mmol/L Chloride (98-107) mmol/L Carbon Dioxide (21.0-32.0) mmol/L BUN (7.0-18.0) mg/dL Creatinine (0.6-1.0) mg/dL Est Cr Clr Drug Dosing mL/min Estimated GFR (MDRD) ml/min Glucose (74-106) mg/dL Calcium (8.5-10.1) mg/dL Total Bilirubin (0.2-1.0) mg/dL AST (15-37) IU/L ALT (14-63) IU/L Alkaline Phosphatase (46-116) U/L Troponin I (0.000-0.056) ng/mL B-Natriuretic Peptide (<100) PG/ML Total Protein (6.4-8.2) g/dL Albumin (3.4-5.0) g/dL Globulin (2.6-4.0) g/dL Albumin/Globulin Ratio (0.9-1.6) COVID-19 (NAYAN) NEGATIVE (NEGATIVE) Blood Type Antibody Screen Crossmatch Result Diagrams: 02/08/20 12:47 02/08/20 12:47 Sepsis Event Note - Evaluation Sepsis Screening Result: No Definite Risk - Focused Exam Vital Signs: Vital Signs Temp Pulse Resp BP Pulse Ox 02/08/20 12:32 36.1 C 109 H 16 135/77 97 Date Exam was Performed: 02/08/20 Time Exam was Performed: 18:49 - Problem List (1) Anemia SNOMED Code(s): 672354936 ICD Code: D64.9 - ANEMIA, UNSPECIFIED Status: Acute Current Visit: Yes (2) CHF (congestive heart failure) SNOMED Code(s): 50336638 ICD Code: I50.9 - HEART FAILURE, UNSPECIFIED Status: Acute Current Visit: No Qualifiers: Heart failure type: systolic Heart failure chronicity: acute on chronic Qualified Code(s): I50.23 - Acute on chronic systolic (congestive) heart failure (3) CVA (cerebral vascular accident) SNOMED Code(s): 321744275 ICD Code: I63.9 - CEREBRAL INFARCTION, UNSPECIFIED Status: Acute Current Visit: No Qualifiers: CVA mechanism: unspecified Qualified Code(s): I63.9 - Cerebral infarction, unspecified (4) History of lung cancer SNOMED Code(s): 877517201, 900465048 ICD Code: Z85.118 - PERSONAL HISTORY OF MALIGNANT NEOPLASM OF BRONCH[place] AND LUNG Status: Acute Current Visit: No (5) CAD (coronary artery disease) SNOMED Code(s): 72136017 ICD Code: I25.10 - ATHSCL HEART DISEASE OF [place] CORONARY ARTERY W/O ANG PCTRS Status: Chronic Current Visit: No Qualifiers: Coronary Disease-Associated Artery/Lesion type: [place] artery [place] vs. transplanted heart: [place] heart Associated angina: without angina Qualified Code(s): I25.10 - Atherosclerotic heart disease of [place] coronary artery without angina pectoris (6) Emphysema lung SNOMED Code(s): 07842399 ICD Code: J43.9 - EMPHYSEMA, UNSPECIFIED Status: Chronic Current Visit: No (7) GERD (gastroesophageal reflux disease) SNOMED Code(s): 374035900 ICD Code: K21.9 - GASTRO-ESOPHAGEAL REFLUX DISEASE WITHOUT ESOPHAGITIS Status: Chronic Current Visit: No (8) HTN (hypertension) SNOMED Code(s): 29571118 ICD Code: I10 - ESSENTIAL (PRIMARY) HYPERTENSION Status: Chronic Priority: High Current Visit: No Qualifiers: Hypertension type: essential hypertension Qualified Code(s): I10 - Essential (primary) hypertension (9) History of TIAs SNOMED Code(s): 903514538 ICD Code: Z86.73 - PRSNL HX OF TIA (TIA), AND CEREB INFRC W/O RESID DEFICITS Status: Chronic Current Visit: No (10) Positive occult stool blood test SNOMED Code(s): 12954710 ICD Code: R19.5 - OTHER FECAL ABNORMALITIES Status: Acute Current Visit: Yes Problem List Initiated/Reviewed/Updated: Yes Orders Last 24hrs: Active Orders 24 hr Category Date Time Status Admission Status [Patient Status] [ADT] Stat ADT 02/08/20 14:00 Active Ambulate [RC] ASDIRECTED Care 02/08/20 14:33 Ordered Antiembolic Devices [RC] PER UNIT ROUTINE Care 02/08/20 14:35 Ordered Cardiac Monitoring [RC] . DIRECTED Care 02/08/20 14:00 Active Oxygen Therapy [RC] PRN Care 02/08/20 14:33 Ordered Pulse Oximetry [RC] PRN Care 02/08/20 14:34 Ordered RT Aerosol Therapy [RC] ASDIRECTED Care 02/08/20 14:36 Ordered VTE/DVT Education [RC] PER UNIT ROUTINE Care 02/08/20 14:33 Ordered Vital Signs [RC] Q4H Care 02/08/20 14:33 Ordered Clear Liquid Diet [DIET] Diet 02/08/20 Dinner Ordered BMP [BASIC METABOLIC PANEL,BMP] [CHEM] AM Lab 02/09/20 05:11 Ordered CBC WITH AUTO DIFF [HEME] AM Lab 02/09/20 05:11 Ordered MAGNESIUM [CHEM] AM Lab 02/09/20 05:11 Ordered PHOSPHORUS [CHEM] AM Lab 02/09/20 05:11 Ordered RED BLOOD CELLS LP [BBK] Stat Lab 02/08/20 12:47 Results TYPE AND SCREEN [BBK] Stat Lab 02/08/20 12:47 Results Albuterol/Ipratropium [DuoNeb 3.0-0.5 MG/3 ML] Med 02/08/20 14:33 Ordered 3 ml NEB Q4HRRT PRN Lactated Ringers [Ringers, Lactated] 1,000 ml Med 02/08/20 14:15 Active IV ASDIRECTED Morphine Med 02/08/20 14:33 Ordered 1 mg IVPUSH Q4H PRN Ondansetron [Zofran] Med 02/08/20 14:33 Ordered 4 mg IVPUSH Q4H PRN Pantoprazole [ProTONIX IV] Med 02/09/20 09:00 Ordered 40 mg IV Q12HR Sodium Chloride 0.9% [Saline Flush] Med 02/08/20 12:17 Active 10 ml FLUSH ASDIRECTED PRN Sodium Chloride 0.9% [Saline Flush] Med 02/08/20 12:17 Active 2.5 ml FLUSH ASDIRECTED PRN Saline Lock Insert [OM.PC] Stat Ot 02/08/20 12:17 Ordered Sequential Compression Device [OM.PC] Per Unit Routine Ot 02/08/20 14:34 Ordered Transfuse Red Blood Cells [COMM] Stat Ot 02/08/20 14:01 Ordered Medication Orders Albuterol/Ipratropium (Duoneb 3.0-0.5 Mg/3 Ml) 3 ml NEB Q4HRRT PRN PRN Reason: Shortness Of Breath/wheezing Lactated Ringer's (Ringers, Lactated) 1,000 mls @ 999 mls/hr IV ASDIRECTED ANALILIA Morphine Sulfate (Morphine) 1 mg IVPUSH Q4H PRN PRN Reason: Pain (severe 7-10) Stop: 02/09/20 14:35 Ondansetron HCl (Zofran) 4 mg IVPUSH Q4H PRN PRN Reason: Nausea/Vomiting Pantoprazole Sodium (Protonix Iv) 40 mg IV Q12HR ANALILIA Sodium Chloride (Saline Flush) 10 ml FLUSH ASDIRECTED PRN PRN Reason: Keep Vein Open Sodium Chloride (Saline Flush) 2.5 ml FLUSH ASDIRECTED PRN PRN Reason: Keep Vein Open Assessment/Plan Comment:: 85 y/o F admitted for Anemia, likely secondary to GI bleed No over bleeding currently, Vitals are stable Will transfuse 2 PRBC Will repeat HnH in morning Hold Anticoagulation IV PPI 40mg BID Clear diet for now Monitor and replete electrolytes as needed SCD for DVT ppx DuoNebs as needed for SOB May need a scope inpatient vs outpatient depending upon if patient has over bleeding or significant drop in Hb
[2020-02-08] MEDS ORDERED: ALPRAZolam 0.5 MG Tab PO PRN (19:02)
[2020-02-08] MEDS ORDERED: Loperamide 2 MG Cap PO PRN (19:02)
[2020-02-08] MEDS ORDERED: Labetalol 100 MG/20 ML MDV IVPUSH PRN (19:07)
[2020-02-08] MEDS ORDERED: Labetalol 100 MG/20 ML MDV IVPUSH ONE (19:07)
[2020-02-08] MEDS ORDERED: Acetaminophen 325 MG Tab PO PRN (19:19)
[2020-02-08] MEDS ORDERED: Metoprolol Tartrate 25 MG Tab PO ONE (19:50)
[2020-02-08] MEDS ORDERED: traZODone 50 MG Tab PO SCH (21:00)
[2020-02-08] MEDS ORDERED: Dorzolamide/Timolol 2%-0.5% Ophth Soln 10 ML Bottle EYERT SCH (21:00)
[2020-02-08] MEDS ORDERED: Brimonidine 0.2% Ophth Soln 5 ML Bottle EYERT SCH (21:00)
[2020-02-08] MEDS ORDERED: Mirtazapine 15 MG Tab PO SCH (21:00)
[2020-02-08] MEDS: Calcium Carbonate/Vitamin D3 1500 MG-400 Units Tab PO SCH (21:52)
[2020-02-08] MEDS: Psyllium Husk Powder Sugar Free 5.85 GM Packet PO SCH (21:54)
[2020-02-08] MEDS: BRIMONIDINE 0.2% EYERT SCH (23:00)
[2020-02-08] MEDS ORDERED: Latanoprost 0.005% Ophth Soln 2.5 ML Bottle**OWN MED EYEBOTH SCH (23:45)
[2020-02-09 05:51] LABS: BLOOD UREA NITROGEN,BUN 16 mg/dL (7.0-18.0); CARBON DIOXIDE,CO2 34.6 mmol/L (21.0-32.0); CHLORIDE,CL 102 mmol/L (98-107); GLUCOSE RANDOM 121 mg/dL (74-106); POTASSIUM,K 4.3 mmol/L (3.5-5.1); SODIUM,NA 140 mmol/L (136-145)
[2020-02-09] MEDS ORDERED: Magnesium Sulfate/Water 2 GM in Premix Bag 1 BAG IV ONE (05:59)
[2020-02-09] MEDS: Psyllium Husk Powder Sugar Free 5.85 GM Packet PO SCH (08:46)
[2020-02-09] MEDS: Calcium Carbonate/Vitamin D3 1500 MG-400 Units Tab PO SCH (08:50)
[2020-02-09] MEDS: BRIMONIDINE 0.2% EYERT SCH (08:57)
[2020-02-09] MEDS ORDERED: Pantoprazole 40 MG Vial IV SCH (09:00)
[2020-02-09] MEDS ORDERED: Latanoprost 0.005% Ophth Soln 2.5 ML Bottle EYEBOTH SCH (09:00)
[2020-02-09] MEDS ORDERED: TIMOLOL EYERT SCH (09:00)
[2020-02-09] MEDS ORDERED: Aspirin 81 MG Tab.EC PO SCH (09:00)
[2020-02-09] MEDS ORDERED: Latanoprost 0.005% Ophth Soln 2.5 ML Bottle**OWN MED EYEBOTH SCH (09:00)
[2020-02-09] MEDS ORDERED: Metoprolol Tartrate 25 MG Tab PO SCH (09:00)
[2020-02-09] MEDS ORDERED: DORZOLAMIDE EYERT SCH (09:00)
[2020-02-09] MEDS ORDERED: Sertraline 100 MG Tab PO SCH (09:00)
[2020-02-09] MEDS ORDERED: Furosemide 20 MG Tab PO SCH (09:00)
--- NOTE | 2020-02-09 11:31 | PCM.DCSUM1 ---
Discharge Summary - Hospital Course HPI Initial Comments: Patient is an 85-year-old female with complex PMH including lung ca, Afib on AC, CHF, COPD, HTN, Anemia, CAD s/p stent who presents to the emergency room for after she got a call from her oncologist office in [place] about low hemoglobin. She was recommended to go to ER for possible blood transfusion Patient reports that she has had some shortness of breath over the past 1 month but attributes this to her lung cancer and states this is fairly normal for her. Patient denies any fever, chills, headache, change in vision, syncope or near syncope. Denies any chest pain, back pain or cough. Denies any abdominal pain, nausea, vomiting, diarrhea, constipation or dysuria. Has not noted any blood in urine or stool. Patient has been eating and drinking appropriately. Patient has a history of lung cancer and uterine cancer. She has had chemo and radiation therapy in the past, states she is currently on immuno-therapy. Her oncologist is Dr. Elam from [facility] who does come to our facility for oncology services. Patient reports that she does have blood transfusions regularly, last received blood approximately 1 month ago. In the ER patient was found to have Hb of 8.0, slightly tachycardic, received small fluid bolus of 500cc, stool occult was positive for blood, no visible dark or bloody stools. and was admitted for further care. Patient recicved 2 units of PRBC, tolerated transfusion well, she was also started on IV PPI BID, there was no active/overt bleeding, her blood thinner was held, next day her Hb had appropriately gone up s/p Blood transfusion, patient requested to be discharged , i informed her i prefer to keep her for 1 more day as she to make sure she has no active bleeding, but she still insisted discharge. Patient is medically stable today for dc, no active/overt bleeding noted during hospital stay. She will fu with her PCP upon dc and repeat CBC in 5 days. She was instructed to stop her blood thinner if she has active GI bleeding and go to the nearest ER in that scenario. - Discharge Data Discharge Date: 02/09/20 Discharge Disposition: Home, Self-Care 01 Condition: Stable - Referral to Home Health Primary Care Physician: Mark Espana MD - Discharge Diagnosis/Problem(s) (1) Anemia SNOMED Code(s): 623125784 ICD Code: D64.9 - ANEMIA, UNSPECIFIED Status: Acute Current Visit: Yes (2) CHF (congestive heart failure) SNOMED Code(s): 22605587 ICD Code: I50.9 - HEART FAILURE, UNSPECIFIED Status: Acute Current Visit: No Qualifiers: Heart failure type: systolic Heart failure chronicity: acute on chronic Qualified Code(s): I50.23 - Acute on chronic systolic (congestive) heart failure (3) CVA (cerebral vascular accident) SNOMED Code(s): 284218035 ICD Code: I63.9 - CEREBRAL INFARCTION, UNSPECIFIED Status: Acute Current Visit: No Qualifiers: CVA mechanism: unspecified Qualified Code(s): I63.9 - Cerebral infarction, unspecified (4) History of lung cancer SNOMED Code(s): 484448212, 918291875 ICD Code: Z85.118 - PERSONAL HISTORY OF MALIGNANT NEOPLASM OF BRONCH[place] AND LUNG Status: Acute Current Visit: Yes (5) CAD (coronary artery disease) SNOMED Code(s): 65683866 ICD Code: I25.10 - ATHSCL HEART DISEASE OF [place] CORONARY ARTERY W/O ANG PCTRS Status: Chronic Current Visit: No Qualifiers: Coronary Disease-Associated Artery/Lesion type: [place] artery [place] vs. transplanted heart: [place] heart Associated angina: without angina Qualified Code(s): I25.10 - Atherosclerotic heart disease of [place] coronary artery without angina pectoris (6) Emphysema lung SNOMED Code(s): 65466172 ICD Code: J43.9 - EMPHYSEMA, UNSPECIFIED Status: Chronic Current Visit: No (7) GERD (gastroesophageal reflux disease) SNOMED Code(s): 823714125 ICD Code: K21.9 - GASTRO-ESOPHAGEAL REFLUX DISEASE WITHOUT ESOPHAGITIS Status: Chronic Current Visit: No (8) HTN (hypertension) SNOMED Code(s): 76011925 ICD Code: I10 - ESSENTIAL (PRIMARY) HYPERTENSION Status: Chronic Priority: High Current Visit: No Qualifiers: Hypertension type: essential hypertension Qualified Code(s): I10 - Essential (primary) hypertension (9) History of TIAs SNOMED Code(s): 773050518 ICD Code: Z86.73 - PRSNL HX OF TIA (TIA), AND CEREB INFRC W/O RESID DEFICITS Status: Chronic Current Visit: No (10) Positive occult stool blood test SNOMED Code(s): 51118436 ICD Code: R19.5 - OTHER FECAL ABNORMALITIES Status: Acute Current Visit: Yes - Patient Instructions Diet: Heart Healthy Diet Activity: As Tolerated Driving: Do Not Drive Showering/Bathing: May Shower Notify Provider of: Fever, Increased Pain, Swelling and Redness, Drainage, Nausea and/or Vomiting Other/Special Instructions: Please f/u with your PCP/Oncologist in next few days, repeat CBC in 5 days. Please fu with GI on outpatient basis for a possible colonoscopy/endoscopy if Hb drops again. - Discharge Plan *PRESCRIPTION DRUG MONITORING PROGRAM REVIEWED*: No *COPY OF PRESCRIPTION DRUG MONITORING REPORT IN PATIENT AMY: No Home Medications: Home Meds Dorzolamide/Timolol [Cosopt 2%-0.5% Ophth Soln] 1 drop EYERT BID 05/28/16 [History] Latanoprost 1 drop EYEBOTH DAILY 05/28/16 [History] Omeprazole 40 mg PO DAILY 05/28/16 [History] Sertraline HCl 150 mg PO DAILY 05/28/16 [History] Brimonidine [Alphagan 0.2% Ophth Soln] 1 drop EYERT BID 10/20/18 [History] Metoprolol Tartrate 12.5 mg PO DAILY 11/01/18 [History] Potassium Chloride [Klor-Con 10] 40 meq PO BID 11/01/18 [History] Albuterol Sulfate [Proair Respiclick] 2 puff INH Q6HR PRN 08/23/19 [History] Albuterol/Ipratropium [Combivent Respimat] 1 puff INH Q6HR PRN 08/23/19 [History] Apixaban [Eliquis] 2.5 mg PO BID 08/23/19 [History] Furosemide [Lasix] 40 mg PO DAILY 08/23/19 [History] ALPRAZolam [Xanax] 1 - 2 tab PO BID PRN 02/08/20 [History] Acetaminophen [Acetaminophen ER] 650 mg PO Q6H PRN 02/08/20 [History] Aspirin [Ecotrin EC] 81 mg PO DAILY 02/08/20 [History] Calcium Carbonate/Vitamin D3 [Caltrate 600 Plus D3 Tablet] 2 tab PO BID 02/08/20 [History] Loperamide HCl [Imodium A-D] 4 mg PO BID PRN MDD Loose Stools 02/08/20 [History] Magnesium Oxide 400 mg PO DAILY 02/08/20 [History] Medical Supply, Miscellaneous [Sea-Band] 6 - 12 drop MC ASDIRECTED 02/08/20 [History] Mirtazapine 15 mg PO BEDTIME 02/08/20 [History] Psyllium Husk [Psyllium Fiber] 2 cap PO BID 02/08/20 [History] traZODone HCl [Trazodone HCl] 50 mg PO BEDTIME 02/08/20 [History] Oxygen Therapy Mode: Room Air Forms: ED Department Discharge Referrals: Mark Espana MD [Primary Care Provider] - - Discharge Summary/Plan Comment DC Time >30 min.: No - Patient Data Vitals - Most Recent: Last Vital Signs Temp 36.3 C 02/09/20 07:54 Pulse 78 02/09/20 08:51 Resp 18 02/09/20 03:30 BP 184/88 H 02/09/20 08:51 Pulse Ox 96 02/09/20 07:54 Weight - Most Recent: 48.807 kg I&O - Last 24 hours: Intake & Output 02/08/20 02/09/20 02/09/20 22:59 06:59 14:59 Intake Total 653 350 50 Output Total 500 Balance 653 -150 50 Lab Results - Last 24 hrs: Laboratory Results - last 24 hr 02/08/20 02/08/20 02/08/20 Range/Units 12:47 12:47 12:47 WBC 5.93 (4.0-11.0) K/uL RBC 2.89 L (4.30-5.90) M/uL Hgb 8.0 L (12.0-16.0) g/dL Hct 26.0 L (36.0-46.0) % MCV 90.0 (80.0-98.0) fL MCH 27.7 (27.0-32.0) pg MCHC 30.8 L (31.0-37.0) g/dL RDW Std Deviation 55.1 (28.0-62.0) fl RDW Coeff of Luke 17 H (11.0-15.0) % Plt Count 322 (150-400) K/uL MPV 10.40 (7.40-12.00) fL Neut % (Auto) 75.1 (48.0-80.0) % Lymph % (Auto) 8.9 L (16.0-40.0) % Ida % (Auto) 12.3 (0.0-15.0) % Eos % (Auto) 3.4 (0.0-7.0) % Baso % (Auto) 0.3 (0.0-1.5) % Neut # (Auto) 4.5 (1.4-5.7) K/uL Lymph # (Auto) 0.5 L (0.6-2.4) K/uL Ida # (Auto) 0.7 (0.0-0.8) K/uL Eos # (Auto) 0.2 (0.0-0.7) K/uL Baso # (Auto) 0.0 (0.0-0.1) K/uL Add Manual Diff Neutrophils % (Manual) (48.0-80.0) % Lymphocytes % (Manual) (16.0-40.0) % Monocytes % (Manual) (0.0-15.0) % Eosinophils % (Manual) (0.0-7.0) % Nucleated RBC % 0.0 /100WBC Absolute Seg Neuts (1.4-5.7) Lymphocytes # (Manual) (0.6-2.4) Monocytes # (Manual) (0.0-0.8) Eosinophils # (Manual) (0.0-0.7) Nucleated RBCs # 0 K/uL Lactate (0.20-2.00) mmol/L Sodium 138 (136-145) mmol/L Potassium 3.5 (3.5-5.1) mmol/L Chloride 98 (98-107) mmol/L Carbon Dioxide 32.0 (21.0-32.0) mmol/L BUN 20 H (7.0-18.0) mg/dL Creatinine 0.7 (0.6-1.0) mg/dL Est Cr Clr Drug Dosing 44.18 mL/min Estimated GFR (MDRD) > 60.0 ml/min Glucose 126 H (74-106) mg/dL Calcium 7.7 L (8.5-10.1) mg/dL Phosphorus (2.6-4.7) mg/dL Magnesium (1.8-2.4) mg/dL Total Bilirubin 0.3 (0.2-1.0) mg/dL AST 18 (15-37) IU/L ALT 24 (14-63) IU/L Alkaline Phosphatase 102 (46-116) U/L Troponin I (0.000-0.056) ng/mL B-Natriuretic Peptide (<100) PG/ML Total Protein 6.3 L (6.4-8.2) g/dL Albumin 2.9 L (3.4-5.0) g/dL Globulin 3.4 (2.6-4.0) g/dL Albumin/Globulin Ratio 0.9 (0.9-1.6) COVID-19 ([facility]) (NEGATIVE) Blood Type B POSITIVE Antibody Screen NEGATIVE Crossmatch See Detail 02/08/20 02/08/20 02/08/20 Range/Units 12:47 12:47 12:47 WBC (4.0-11.0) K/uL RBC (4.30-5.90) M/uL Hgb (12.0-16.0) g/dL Hct (36.0-46.0) % MCV (80.0-98.0) fL MCH (27.0-32.0) pg MCHC (31.0-37.0) g/dL RDW Std Deviation (28.0-62.0) fl RDW Coeff of Luke (11.0-15.0) % Plt Count (150-400) K/uL MPV (7.40-12.00) fL Neut % (Auto) (48.0-80.0) % Lymph % (Auto) (16.0-40.0) % Ida % (Auto) (0.0-15.0) % Eos % (Auto) (0.0-7.0) % Baso % (Auto) (0.0-1.5) % Neut # (Auto) (1.4-5.7) K/uL Lymph # (Auto) (0.6-2.4) K/uL Ida # (Auto) (0.0-0.8) K/uL Eos # (Auto) (0.0-0.7) K/uL Baso # (Auto) (0.0-0.1) K/uL Add Manual Diff Neutrophils % (Manual) (48.0-80.0) % Lymphocytes % (Manual) (16.0-40.0) % Monocytes % (Manual) (0.0-15.0) % Eosinophils % (Manual) (0.0-7.0) % Nucleated RBC % /100WBC Absolute Seg Neuts (1.4-5.7) Lymphocytes # (Manual) (0.6-2.4) Monocytes # (Manual) (0.0-0.8) Eosinophils # (Manual) (0.0-0.7) Nucleated RBCs # K/uL Lactate 1.8 (0.20-2.00) mmol/L Sodium (136-145) mmol/L Potassium (3.5-5.1) mmol/L Chloride (98-107) mmol/L Carbon Dioxide (21.0-32.0) mmol/L BUN (7.0-18.0) mg/dL Creatinine (0.6-1.0) mg/dL Est Cr Clr Drug Dosing mL/min Estimated GFR (MDRD) ml/min Glucose (74-106) mg/dL Calcium (8.5-10.1) mg/dL Phosphorus (2.6-4.7) mg/dL Magnesium (1.8-2.4) mg/dL Total Bilirubin (0.2-1.0) mg/dL AST (15-37) IU/L ALT (14-63) IU/L Alkaline Phosphatase (46-116) U/L Troponin I < 0.050 (0.000-0.056) ng/mL B-Natriuretic Peptide 195 H (<100) PG/ML Total Protein (6.4-8.2) g/dL Albumin (3.4-5.0) g/dL Globulin (2.6-4.0) g/dL Albumin/Globulin Ratio (0.9-1.6) COVID-19 ([facility]) (NEGATIVE) Blood Type Antibody Screen Crossmatch 02/08/20 02/09/20 02/09/20 Range/Units 14:05 05:19 05:19 WBC 5.93 (4.0-11.0) K/uL RBC 3.76 L (4.30-5.90) M/uL Hgb 10.6 L (12.0-16.0) g/dL Hct 34.1 L (36.0-46.0) % MCV 90.7 (80.0-98.0) fL MCH 28.2 (27.0-32.0) pg MCHC 31.1 (31.0-37.0) g/dL RDW Std Deviation 52.7 (28.0-62.0) fl RDW Coeff of Luke 16 H (11.0-15.0) % Plt Count 259 (150-400) K/uL MPV 10.30 (7.40-12.00) fL Neut % (Auto) (48.0-80.0) % Lymph % (Auto) (16.0-40.0) % Ida % (Auto) (0.0-15.0) % Eos % (Auto) (0.0-7.0) % Baso % (Auto) (0.0-1.5) % Neut # (Auto) (1.4-5.7) K/uL Lymph # (Auto) (0.6-2.4) K/uL Ida # (Auto) (0.0-0.8) K/uL Eos # (Auto) (0.0-0.7) K/uL Baso # (Auto) (0.0-0.1) K/uL Add Manual Diff YES Neutrophils % (Manual) 71 (48.0-80.0) % Lymphocytes % (Manual) 7 L (16.0-40.0) % Monocytes % (Manual) 19 H (0.0-15.0) % Eosinophils % (Manual) 3 (0.0-7.0) % Nucleated RBC % 0.0 /100WBC Absolute Seg Neuts 4.2 (1.4-5.7) Lymphocytes # (Manual) 0.4 L (0.6-2.4) Monocytes # (Manual) 1.1 H (0.0-0.8) Eosinophils # (Manual) 0.2 (0.0-0.7) Nucleated RBCs # 0 K/uL Lactate (0.20-2.00) mmol/L Sodium 140 (136-145) mmol/L Potassium 4.3 (3.5-5.1) mmol/L Chloride 102 (98-107) mmol/L Carbon Dioxide 34.6 H (21.0-32.0) mmol/L BUN 16 (7.0-18.0) mg/dL Creatinine 0.8 (0.6-1.0) mg/dL Est Cr Clr Drug Dosing 36.93 mL/min Estimated GFR (MDRD) > 60.0 ml/min Glucose 121 H (74-106) mg/dL Calcium 8.2 L (8.5-10.1) mg/dL Phosphorus 3.9 (2.6-4.7) mg/dL Magnesium 1.6 L (1.8-2.4) mg/dL Total Bilirubin (0.2-1.0) mg/dL AST (15-37) IU/L ALT (14-63) IU/L Alkaline Phosphatase (46-116) U/L Troponin I (0.000-0.056) ng/mL B-Natriuretic Peptide (<100) PG/ML Total Protein (6.4-8.2) g/dL Albumin (3.4-5.0) g/dL Globulin (2.6-4.0) g/dL Albumin/Globulin Ratio (0.9-1.6) COVID-19 ([facility]) NEGATIVE (NEGATIVE) Blood Type Antibody Screen Crossmatch [place] Results - Last 24 hrs: Microbiology 02/08/20 17:23 Stool Occult Blood ([place]) - Final Stool / Feces Med Orders - Current: Current Medications Acetaminophen (Tylenol) 650 mg PO Q6H PRN PRN Reason: Pain Last Admin: 02/09/20 03:01 Dose: 650 mg Documented by: Albuterol/Ipratropium (Duoneb 3.0-0.5 Mg/3 Ml) 3 ml NEB Q4HRRT PRN PRN Reason: Shortness Of Breath/wheezing Alprazolam (Xanax) 1 mg PO BID PRN PRN Reason: Anxiety Aspirin (Halfprin) 81 mg PO DAILY [facility] Last Admin: 02/09/20 08:46 Dose: 81 mg Documented by: Brimonidine Tartrate (Alphagan 0.2% Ophth Soln) 0 ml EYERT BID [facility] Last Admin: 02/09/20 08:57 Dose: 1 drop Documented by: Calcium Carbonate (Caltrate 600+D 1500 Mg-400 Units) 2 tab PO BID [facility] Last Admin: 02/09/20 08:50 Dose: 2 tab Documented by: Dorzolamide/Timolol (Cosopt 2%-0.5% Ophth Soln) 0 ml EYERT BID [facility] Last Admin: 02/09/20 08:58 Dose: 1 drop Documented by: Furosemide (Lasix) 40 mg PO DAILY [facility] Last Admin: 02/09/20 08:47 Dose: 40 mg Documented by: Lactated Ringer's (Ringers, Lactated) 1,000 mls @ 999 mls/hr IV ASDIRECTED [facility] Last Admin: 02/08/20 14:43 Dose: 999 mls/hr Documented by: Labetalol HCl (Normodyne) 10 mg IVPUSH Q4H PRN; Protocol PRN Reason: Hypertension Latanoprost (Xalatan 0.005% Ophth Soln) 0 ml EYEBOTH BEDTIME [facility] Last Admin: 02/08/20 23:05 Dose: 1 drop Documented by: Loperamide HCl (Imodium) 4 mg PO BID PRN PRN Reason: Other Last Admin: 02/08/20 19:55 Dose: 4 mg Documented by: Metoprolol Tartrate (Lopressor) 12.5 mg PO DAILY [facility] Last Admin: 02/09/20 08:51 Dose: 12.5 mg Documented by: Mirtazapine (Remeron) 15 mg PO BEDTIME [facility] Last Admin: 02/08/20 21:52 Dose: 15 mg Documented by: Morphine Sulfate (Morphine) 1 mg IVPUSH Q4H PRN PRN Reason: Pain (severe 7-10) Stop: 02/09/20 14:35 Ondansetron HCl (Zofran) 4 mg IVPUSH Q4H PRN PRN Reason: Nausea/Vomiting Pantoprazole Sodium (Protonix Iv) 40 mg IV Q12HR [facility] Last Admin: 02/09/20 09:01 Dose: 40 mg Documented by: Psyllium Husk (Metamucil Sugar Free) 1 pkt PO BID [facility] Last Admin: 02/09/20 08:46 Dose: 1 pkt Documented by: Sertraline HCl (Zoloft) 150 mg PO DAILY [facility] Last Admin: 02/09/20 08:48 Dose: 150 mg Documented by: Sodium Chloride (Saline Flush) 10 ml FLUSH ASDIRECTED PRN PRN Reason: Keep Vein Open Sodium Chloride (Saline Flush) 2.5 ml FLUSH ASDIRECTED PRN PRN Reason: Keep Vein Open Trazodone HCl (Trazodone) 50 mg PO BEDTIME [facility] Last Admin: 02/08/20 21:53 Dose: 50 mg Documented by: Discontinued Medications Brimonidine Tartrate (Alphagan 0.2% Ophth Soln) 0 ml EYERT BID [facility] Last Admin: 02/08/20 23:17 Dose: Not Given Documented by: Dorzolamide/Timolol (Cosopt 2%-0.5% Ophth Soln) 0 ml EYERT BID [facility] Last Admin: 02/08/20 23:16 Dose: 1 drop Documented by: Pantoprazole Sodium 40 mg/ (Sodium Chloride) 10 mls @ 300 mls/hr IV NOW ONE Stop: 02/08/20 14:01 Last Admin: 02/08/20 14:46 Dose: 300 mls/hr Documented by: Lactated Ringer's (Ringers, Lactated) 1,000 mls @ 100 mls/hr IV ASDIRECTED [facility] Magnesium Sulfate 2 gm/ Premix 50 mls @ 50 mls/hr IV ONETIME ONE Stop: 02/09/20 06:58 Last Admin: 02/09/20 06:20 Dose: 50 mls/hr Documented by: Labetalol HCl (Normodyne) 10 mg IVPUSH ONETIME ONE; Protocol Stop: 02/08/20 19:08 Last Admin: 02/08/20 19:50 Dose: Not Given Documented by: Latanoprost (Xalatan 0.005% Ophth Soln) 0 ml EYEBOTH DAILY [facility] Latanoprost (Xalatan 0.005% Ophth Soln) 0 ml EYEBOTH DAILY [facility] Metoprolol Tartrate (Lopressor) 12.5 mg PO ONETIME ONE Stop: 02/08/20 19:51 Last Admin: 02/08/20 19:56 Dose: 12.5 mg Documented by:
--- NOTE | 2020-02-09 11:34 | PCM.SN.2 ---
- Free Text/Narrative Note: Hb has appropriately gone up s/p Blood transfusion, patient is insisting to be discharged today, i informed her i prefer to keep her for 1 more day but she still is requesting discharge. Patient is medically stable today for dc, no active/overt bleeding noted during hospital stay. She will fu with her PCP upon dc and repeat CBC in 5 days. She was instructed to stop her blood thinner if she has active GI bleeding and go to the nearest ER in that scenario.
[2020-02-09 11:40] VITALS: BP 164/89; PULSE 75
== END 2020-02-09 13:30 | disposition home or self-care (01) ==
LOC: MW.ED 12:15 → MW.MS 14:00
PROVIDERS: ADMIT Student in an Organized Health Care Education/Training Program; ATTEND Student in an Organized Health Care Education/Training Program
DX: D64.9 Anemia, unspecified (principal); E83.51 Hypocalcemia; I11.0 Hypertensive heart disease with heart failure; I50.23 Acute on chronic systolic (congestive) heart failure; I48.91 Unspecified atrial fibrillation; R19.5 Other fecal abnormalities; J43.9 Emphysema, unspecified; K21.9 Gastro-esophageal reflux disease without esophagitis; Z20.828 Contact with and (suspected) exposure to other viral communicable diseases; Z79.01 Long term (current) use of anticoagulants; Z95.5 Presence of coronary angioplasty implant and graft; Z87.891 Personal history of nicotine dependence; Z99.81 Dependence on supplemental oxygen; Z88.5 Allergy status to narcotic agent; Z88.8 Allergy status to other drugs, medicaments and biological substances; Z85.118 Personal history of other malignant neoplasm of bronchus and lung; Z90.2 Acquired absence of lung [part of]; Z79.899 Other long term (current) drug therapy; Z86.73 Personal history of transient ischemic attack (TIA), and cerebral infarction without residual deficits
CPT/HCPCS: 36415; 36430; 71045; 80048; 80053; 82272; 83605; 83735; 83880; 84100; 84484; 85025; 86850; 86900; 86901; 86920; 86921; 86922; 93005; 96374; 96375; 99285; A9270; C9113; J3475; J7050; J7120; P9016; U0002; 99284

== ENCOUNTER 2020-03-27 18:39 | Inpatient (IN) | payer MEDICARE, OTHER ==
[2020-03-27] MEDS ORDERED: Sodium Chloride 0.9% 10 ML Syringe FLUSH PRN (18:40)
[2020-03-27] MEDS ORDERED: Sodium Chloride 0.9% 2.5 ML Syringe FLUSH PRN (18:40)
--- NOTE | 2020-03-27 18:43 | EDM.PDOC ---
ED HPI GENERAL MEDICAL PROBLEM - General Stated Complaint: SHORTNESS OF BREATH Time Seen by Provider: 03/27/20 18:40 Source of Information: Reports: Patient History Limitations: Reports: No Limitations - History of Present Illness INITIAL COMMENTS - FREE TEXT/NARRATIVE: HISTORY AND PHYSICAL: History of present illness: Patient is an 85-year-old female who presents to the emergency room with complaints of dyspnea and anxiety. She states she feels short of breath and anxious from her symptoms. She is dependant on oxygen due to her Lung CA/COPD history; typically on 4-1/2 L per nasal cannula. She states she has been prescribed marijuana drops, took 2 drops prior to arrival but states this made her feel more anxious. Patient denies any fever, chills, headache, change in vision, syncope or near syncope. Denies any chest pain, back pain, abdominal pain, nausea, vomiting, diarrhea, constipation or dysuria. Has not noted any blood in urine or stool. Patient has been eating and drinking appropriately. Patient has a past medical history of lung cancer, atrial fibrillation, congestive heart failure, COPD, hypertension, anemia, CAD status post stent placement. Review of systems: As per history of present illness and below otherwise all systems reviewed and negative. Past medical history: As per history of present illness and as reviewed below otherwise noncontributory. Surgical history: As per history of present illness and as reviewed below otherwise noncontributory. Social history: See social history for further information Family history: As per history of present illness and as reviewed below otherwise noncontributory. Physical exam: General: Well developed and well nourished 85-year-old female. Alert and orientated x 3. Nontoxic in appearance and in no acute distress. Vital signs are stable and have been reviewed by me. Nursing notes were reviewed. HEENT: Atraumatic, normocephalic, pupils equal and reactive bilaterally, negative for conjunctival pallor or scleral icterus, mucous membranes dry, throat clear, neck supple, nontender, trachea midline. No drooling or trismus noted. No meningeal signs. No hot potato voice noted. Lungs: Diminished throughout to auscultation, breath sounds equal bilaterally, chest nontender. Normal work of breathing, no accessory muscles used. Heart: Tachycardia with irregular rate and rhythm without overt murmur. (Known afib) Abdomen: Soft, nondistended, nontender. No masses or flank tenderness. Skin: Pale. Intact, warm, dry. No lesions or rashes noted. Hematologic: No petechiae or purpra. Mucosa appropriate color and normal nail bed color and refill. Extremities: Atraumatic, moves all extremities per self without difficulty or deficits, negative for cords or calf pain. +1 pitting edema bilateral lower extremities. Neurovascular unremarkable. Neuro: Awake, alert, oriented. Cranial nerves II through XII unremarkable. Cerebellum unremarkable. Motor and sensory unremarkable throughout. Exam nonfocal. Notes: Patient received blood products approximately 2 months ago she states that she does have a history of anemia. Patient is able to talk in full sentences, she is oxygen dependent typically at 4-1/2 L per nasal cannula. She has been bumped up to 6 L and satting at 89 to 91%. She states she feels anxious, regardless of taking the marijuana drops. She is agreeable to lab work. States she has been taking all her medications including the Eliquis as prescribed, not missing any doses. CT of the chest shows no evidence of PE. Small right-sided pleural effusion and mild to moderate left-sided pleural effusion. Heart size slightly enlarged. Consolidation of the right lung base which is more prominent than the previous study that was done on 11/15/2019, difficult to exclude pneumonia. Atelectasis on a comprehensive basis seen adjacent to the left pleural effusion. Groundglass appearance within the lungs raising the possibility of pulmonary vascular congestion. Dr Mena, hospitalist was consulted for admission for this patient. He is agreeable to admitting this patient for further care and management. Diagnostics: CBC, CMP, Troponin, EKG, CXR, Coronavirus, Type and Screen, Therapeutics: IV Lasix Impression: Anemia Dehydration CHF exacerbation Plan: Inpatient admission. Definitive disposition and diagnosis as appropriate pending reevaluation and review of above. - Related Data Allergies Allergy/AdvReac Type Severity Reaction Status Date / Time codeine Allergy Delusions Verified 03/27/20 19:43 lorazepam [From Ativan] Allergy Delusions Verified 03/27/20 19:43 meperidine [From Demerol] Allergy Delusions Verified 03/27/20 19:43 Home Meds: Home Meds Dorzolamide/Timolol [Cosopt 2%-0.5% Ophth Soln] 1 drop EYERT BID 05/28/16 [History] Latanoprost 1 drop EYEBOTH DAILY 05/28/16 [History] Omeprazole 40 mg PO DAILY 05/28/16 [History] Sertraline HCl 150 mg PO DAILY 05/28/16 [History] Brimonidine [Alphagan 0.2% Ophth Soln] 1 drop EYERT BID 10/20/18 [History] Metoprolol Tartrate 12.5 mg PO DAILY 11/01/18 [History] Potassium Chloride [Klor-Con 10] 40 meq PO BID 11/01/18 [History] Albuterol Sulfate [Proair Respiclick] 2 puff INH Q6HR PRN 08/23/19 [History] Albuterol/Ipratropium [Combivent Respimat] 1 puff INH Q6HR PRN 08/23/19 [History] Apixaban [Eliquis] 2.5 mg PO BID 08/23/19 [History] Furosemide [Lasix] 40 mg PO DAILY 08/23/19 [History] ALPRAZolam [Xanax] 1 - 2 tab PO BID PRN 02/08/20 [History] Acetaminophen [Acetaminophen ER] 650 mg PO Q6H PRN 02/08/20 [History] Aspirin [Ecotrin EC] 81 mg PO DAILY 02/08/20 [History] Calcium Carbonate/Vitamin D3 [Caltrate 600 Plus D3 Tablet] 2 tab PO BID 02/08/20 [History] Loperamide HCl [Imodium A-D] 4 mg PO BID PRN MDD Loose Stools 02/08/20 [History] Magnesium Oxide 400 mg PO DAILY 02/08/20 [History] Medical Supply, Miscellaneous [Sea-Band] 6 - 12 drop MC ASDIRECTED 02/08/20 [History] Mirtazapine 15 mg PO BEDTIME 02/08/20 [History] Psyllium Husk [Psyllium Fiber] 2 cap PO BID 02/08/20 [History] traZODone HCl [Trazodone HCl] 50 mg PO BEDTIME 02/08/20 [History] Past Medical History HEENT History: Reports: Cataract Other HEENT History: Macular Degeneration Cardiovascular History: Reports: Afib, Angina, CAD, Heart Failure, Hypertension, [place], Stents Respiratory History: Reports: COPD Other Respiratory History: hx of smoker, on home 02 at 2 liters/min; Lung CA Gastrointestinal History: Reports: Other (See Below) Other Gastrointestinal History: short bowel syndrom 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 History: Reports: None [employer] History: Reports: Musculoskeletal History: Reports: None Neurological History: Reports: TIA Psychiatric History: Reports: Panic Attack Endocrine/Metabolic History: Reports: None Hematologic History: Reports: Anticoagulation Therapy Immunologic History: Reports: None Oncologic (Cancer) History: Reports: Lung, Uterine Other Oncologic History: unsure of type of cancer, but has a 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 and in the aorta Dermatologic History: Reports: None - Infectious Disease History Infectious Disease History: Reports: Chicken Pox, Mumps - Past Surgical History HEENT Surgical History: Reports: Cataract Surgery Cardiovascular Surgical History: Reports: Coronary Artery Stent Other Cardiovascular Surgeries/Procedures: Stent placed in [place] (October [id number]). Respiratory Surgical History: Reports: Lung Resection GI Surgical History: Reports: Small Bowel Female Surgical History: Reports: Hysterectomy Neurological Surgical History: Reports: None Oncologic Surgical History: Reports: None Social & Family History - Family History Family Medical History: Noncontributory Cardiac: Reports: Afib, MT Hematologic: Reports: Anemia - Caffeine Use Caffeine Use: Reports: None Caffeine Use Comment: Drinks decaf, about 6 cups a day. - Living Situation & Occupation Living situation: Reports: Occupation: Retired ED ROS GENERAL - Review of Systems Review Of Systems: Comprehensive ROS is negative, except as noted in HPI. ED EXAM, GENERAL - Physical Exam Exam: See Below (See dictation) Course - Vital Signs Last Recorded V/S: Last Vital Signs Temp 96.5 F L 03/27/20 21:00 Pulse 92 03/27/20 21:00 Resp 22 H 03/27/20 21:00 BP 137/81 03/27/20 21:00 Pulse Ox 94 L 03/27/20 21:00 - Orders/Labs/Meds Orders: Active Orders 24 hr Category Date Time Status EKG Documentation Completion [RC] STAT Care 03/27/20 18:40 Active UA RFX [place] AND CULT IF INDIC [URIN] Stat Lab 03/27/20 21:01 Ordered Sodium Chloride 0.9% [Saline Flush] Med 03/27/20 18:40 Active 10 ml FLUSH ASDIRECTED PRN Sodium Chloride 0.9% [Saline Flush] Med 03/27/20 18:40 Active 2.5 ml FLUSH ASDIRECTED PRN Saline Lock Insert [OM.PC] Stat Oth 03/27/20 18:40 Ordered Medication Orders Sodium Chloride (Saline Flush) 10 ml FLUSH ASDIRECTED PRN PRN Reason: Keep Vein Open Sodium Chloride (Saline Flush) 2.5 ml FLUSH ASDIRECTED PRN PRN Reason: Keep Vein Open Labs: Laboratory Tests 03/27/20 03/27/20 03/27/20 Range/Units 19:09 19:09 19:09 WBC 7.42 (4.0-11.0) K/uL RBC 3.31 L (4.30-5.90) M/uL Hgb 9.4 L (12.0-16.0) g/dL Hct 30.6 L (36.0-46.0) % MCV 92.4 (80.0-98.0) fL MCH 28.4 (27.0-32.0) pg MCHC 30.7 L (31.0-37.0) g/dL RDW Std Deviation 53.7 (28.0-62.0) fl RDW Coeff of Luke 16 H (11.0-15.0) % Plt Count 278 (150-400) K/uL MPV 10.30 (7.40-12.00) fL Neut % (Auto) 80.2 H (48.0-80.0) % Lymph % (Auto) 3.8 L (16.0-40.0) % [place] % (Auto) 13.9 (0.0-15.0) % Eos % (Auto) 1.8 (0.0-7.0) % Baso % (Auto) 0.3 (0.0-1.5) % Neut # (Auto) 6.0 H (1.4-5.7) K/uL Lymph # (Auto) 0.3 L (0.6-2.4) K/uL [place] # (Auto) 1.0 H (0.0-0.8) K/uL Eos # (Auto) 0.1 (0.0-0.7) K/uL Baso # (Auto) 0.0 (0.0-0.1) K/uL Nucleated RBC % 0.0 /100WBC Nucleated RBCs # 0 K/uL D-Dimer, Quantitative (0.0-0.50) mg/L FEU ABG pH (7.35-7.45) ABG pCO2 (35-45) mmHG ABG pO2 (75-100) mmHG ABG HCO3 (22-26) mEq/L ABG Total CO2 ABG Base Excess (-2.0-2.0) Sodium 131 L (136-145) mmol/L Potassium 4.1 (3.5-5.1) mmol/L Chloride 94 L (98-107) mmol/L Carbon Dioxide 35.7 H (21.0-32.0) mmol/L BUN 23 H (7.0-18.0) mg/dL Creatinine 0.7 (0.6-1.0) mg/dL Est Cr Clr Drug Dosing TNP Estimated GFR (MDRD) > 60.0 ml/min Glucose 130 H (74-106) mg/dL Calcium 7.9 L (8.5-10.1) mg/dL Magnesium (1.8-2.4) mg/dL Total Bilirubin 0.3 (0.2-1.0) mg/dL AST 24 (15-37) IU/L ALT 29 (14-63) IU/L Alkaline Phosphatase 112 (46-116) U/L Troponin I < 0.050 (0.000-0.056) ng/mL B-Natriuretic Peptide (<100) PG/ML Total Protein 5.9 L (6.4-8.2) g/dL Albumin 3.0 L (3.4-5.0) g/dL Globulin 2.9 (2.6-4.0) g/dL Albumin/Globulin Ratio 1.0 (0.9-1.6) TSH 3rd Generation (0.36-3.74) uIU/mL SARS Virus RNA (PCR) (NEGATIVE) Blood Type B POSITIVE Antibody Screen NEGATIVE 03/27/20 03/27/20 03/27/20 Range/Units 19:09 19:09 19:09 WBC (4.0-11.0) K/uL RBC (4.30-5.90) M/uL Hgb (12.0-16.0) g/dL Hct (36.0-46.0) % MCV (80.0-98.0) fL MCH (27.0-32.0) pg MCHC (31.0-37.0) g/dL RDW Std Deviation (28.0-62.0) fl RDW Coeff of Luke (11.0-15.0) % Plt Count (150-400) K/uL MPV (7.40-12.00) fL Neut % (Auto) (48.0-80.0) % Lymph % (Auto) (16.0-40.0) % [place] % (Auto) (0.0-15.0) % Eos % (Auto) (0.0-7.0) % Baso % (Auto) (0.0-1.5) % Neut # (Auto) (1.4-5.7) K/uL Lymph # (Auto) (0.6-2.4) K/uL [place] # (Auto) (0.0-0.8) K/uL Eos # (Auto) (0.0-0.7) K/uL Baso # (Auto) (0.0-0.1) K/uL Nucleated RBC % /100WBC Nucleated RBCs # K/uL D-Dimer, Quantitative 2.17 H (0.0-0.50) mg/L FEU ABG pH (7.35-7.45) ABG pCO2 (35-45) mmHG ABG pO2 (75-100) mmHG ABG HCO3 (22-26) mEq/L ABG Total CO2 ABG Base Excess (-2.0-2.0) Sodium (136-145) mmol/L Potassium (3.5-5.1) mmol/L Chloride (98-107) mmol/L Carbon Dioxide (21.0-32.0) mmol/L BUN (7.0-18.0) mg/dL Creatinine (0.6-1.0) mg/dL Est Cr Clr Drug Dosing Estimated GFR (MDRD) ml/min Glucose (74-106) mg/dL Calcium (8.5-10.1) mg/dL Magnesium 1.6 L (1.8-2.4) mg/dL Total Bilirubin (0.2-1.0) mg/dL AST (15-37) IU/L ALT (14-63) IU/L Alkaline Phosphatase (46-116) U/L Troponin I (0.000-0.056) ng/mL B-Natriuretic Peptide 864 H (<100) PG/ML Total Protein (6.4-8.2) g/dL Albumin (3.4-5.0) g/dL Globulin (2.6-4.0) g/dL Albumin/Globulin Ratio (0.9-1.6) TSH 3rd Generation 1.12 (0.36-3.74) uIU/mL SARS Virus RNA (PCR) (NEGATIVE) Blood Type Antibody Screen 03/27/20 03/27/20 Range/Units 19:20 21:10 WBC (4.0-11.0) K/uL RBC (4.30-5.90) M/uL Hgb (12.0-16.0) g/dL Hct (36.0-46.0) % MCV (80.0-98.0) fL MCH (27.0-32.0) pg MCHC (31.0-37.0) g/dL RDW Std Deviation (28.0-62.0) fl RDW Coeff of Luke (11.0-15.0) % Plt Count (150-400) K/uL MPV (7.40-12.00) fL Neut % (Auto) (48.0-80.0) % Lymph % (Auto) (16.0-40.0) % [place] % (Auto) (0.0-15.0) % Eos % (Auto) (0.0-7.0) % Baso % (Auto) (0.0-1.5) % Neut # (Auto) (1.4-5.7) K/uL Lymph # (Auto) (0.6-2.4) K/uL [place] # (Auto) (0.0-0.8) K/uL Eos # (Auto) (0.0-0.7) K/uL Baso # (Auto) (0.0-0.1) K/uL Nucleated RBC % /100WBC Nucleated RBCs # K/uL D-Dimer, Quantitative (0.0-0.50) mg/L FEU ABG pH 7.354 (7.35-7.45) ABG pCO2 59 H (35-45) mmHG ABG pO2 86 (75-100) mmHG ABG HCO3 33 H (22-26) mEq/L ABG Total CO2 30.6 ABG Base Excess 5.7 H (-2.0-2.0) Sodium (136-145) mmol/L Potassium (3.5-5.1) mmol/L Chloride (98-107) mmol/L Carbon Dioxide (21.0-32.0) mmol/L BUN (7.0-18.0) mg/dL Creatinine (0.6-1.0) mg/dL Est Cr Clr Drug Dosing Estimated GFR (MDRD) ml/min Glucose (74-106) mg/dL Calcium (8.5-10.1) mg/dL Magnesium (1.8-2.4) mg/dL Total Bilirubin (0.2-1.0) mg/dL AST (15-37) IU/L ALT (14-63) IU/L Alkaline Phosphatase (46-116) U/L Troponin I (0.000-0.056) ng/mL B-Natriuretic Peptide (<100) PG/ML Total Protein (6.4-8.2) g/dL Albumin (3.4-5.0) g/dL Globulin (2.6-4.0) g/dL Albumin/Globulin Ratio (0.9-1.6) TSH 3rd Generation (0.36-3.74) uIU/mL SARS Virus RNA (PCR) NEGATIVE (NEGATIVE) Blood Type Antibody Screen Meds: Medications Generic Name Dose Route Start Last Admin Trade Name Freq PRN Reason Stop Dose Admin Sodium Chloride 10 ml 03/27/20 18:40 Saline Flush FLUSH ASDIRECTED PRN Keep Vein Open Sodium Chloride 2.5 ml 03/27/20 18:40 Saline Flush FLUSH ASDIRECTED PRN Keep Vein Open Discontinued Medications Generic Name Dose Route Start Last Admin Trade Name Freq PRN Reason Stop Dose Admin Alprazolam 0.5 mg 03/27/20 20:58 03/27/20 21:09 Xanax PO 03/27/20 20:59 0.5 mg NOW ONE Administration Furosemide 40 mg 03/27/20 21:03 03/27/20 21:09 Lasix IVPUSH 03/27/20 21:04 40 mg NOW ONE Administration Iopamidol 100 ml 03/27/20 20:55 09/11/20 20:55 [id number] (76%) IVPUSH 03/27/20 20:56 100 ml ONETIME ONE Administration Departure - Departure Time of Disposition: 21:22 Disposition: Admitted As Inpatient 66 Clinical Impression: Dehydration CHF exacerbation Qualifiers: Heart failure type: unspecified Qualified Code(s): I50.9 - Heart failure, unspecified Anemia Qualifiers: Anemia type: unspecified type Qualified Code(s): D64.9 - Anemia, unspecified - Discharge Information Referrals: Mark Espana MD [Primary Care Provider] - Sepsis Event Note (ED) - Focused Exam Vital Signs: Vital Signs Temp Pulse Resp BP Pulse Ox 03/27/20 21:00 96.5 F L 92 22 H 137/81 94 L 03/27/20 19:30 90 20 144/76 H 95 03/27/20 18:41 96.2 F L 123 H 25 H 178/82 H 88 L - My Orders Last 24 Hours: My Active Orders 03/27/20 18:40 EKG Documentation Completion [RC] STAT Sodium Chloride 0.9% [Saline Flush] 10 ml FLUSH ASDIRECTED PRN Sodium Chloride 0.9% [Saline Flush] 2.5 ml FLUSH ASDIRECTED PRN Saline Lock Insert [OM.PC] Stat 03/27/20 21:01 UA RFX [place] AND CULT IF INDIC [URIN] Stat - Assessment/Plan Last 24 Hours: My Active Orders 03/27/20 18:40 EKG Documentation Completion [RC] STAT Sodium Chloride 0.9% [Saline Flush] 10 ml FLUSH ASDIRECTED PRN Sodium Chloride 0.9% [Saline Flush] 2.5 ml FLUSH ASDIRECTED PRN Saline Lock Insert [OM.PC] Stat 03/27/20 21:01 UA RFX [place] AND CULT IF INDIC [URIN] Stat
[2020-03-27 19:43] LABS: BLOOD UREA NITROGEN,BUN 23 mg/dL (7.0-18.0); CARBON DIOXIDE,CO2 35.7 mmol/L (21.0-32.0); CHLORIDE,CL 94 mmol/L (98-107); GLUCOSE RANDOM 130 mg/dL (74-106); POTASSIUM,K 4.1 mmol/L (3.5-5.1); SODIUM,NA 131 mmol/L (136-145)
[2020-03-27] MEDS ORDERED: Iopamidol 755 Mg/ML 100 ML Bottle IVPUSH ONE (20:55)
[2020-03-27] MEDS ORDERED: ALPRAZolam 0.5 MG Tab PO ONE (20:58)
[2020-03-27] MEDS ORDERED: Furosemide 40 MG/4 ML VIAL IVPUSH ONE (21:03)
--- NOTE | 2020-03-27 21:09 | CT ---
CT chest Technique: Multiple axial sections through the chest were obtained. Study performed as pulmonary angiogram protocol. Intravenous contrast was therefore utilized. Comparison: Prior CT chest study of 11/15/19. Findings: Small to moderate size left-sided pleural effusion is seen. Minimal right-sided pleural effusion is noted. Aorta shows atherosclerotic calcification. Ascending aorta is slightly prominent in size with AP dimension of 4.0 cm which is stable. Consolidation is noted within the right lung base. This is more prominent than on prior exam and shows some air bronchograms. Atelectasis is seen adjacent to the left-sided pleural effusion. Diffuse emphysematous changes are seen. Stable scarring within the left upper lung is seen. Hazy groundglass appearance is seen raising the possibility of pulmonary vascular congestion. Heart is slightly enlarged with asymmetric enlargement of the right atrium and right ventricle. Bone window settings were reviewed which shows no acute osseous finding. Impression: 1. No findings of pulmonary embolism. 2. Small right-sided pleural effusion and mild to moderate left-sided pleural effusion. 3. Heart size slightly enlarged as described above. 4. Consolidation of the right lung base which is more prominent than on prior study and difficult to exclude pneumonia. Atelectasis on a compressive basis seen adjacent to the left pleural effusion. 5. Groundglass appearance within lungs raising the possibility of pulmonary vascular congestion. Diagnostic code #3 This report was dictated in MDT
--- NOTE | 2020-03-27 21:11 | CR ---
Chest: PA view of the chest was obtained. Comparison: Prior chest x-ray of 02/08/[address] performed on the same day. Heart is mildly enlarged. Small right-sided pleural effusion with slightly larger left-sided pleural effusion. Pulmonary vessels are congested compatible with CHF. Right-sided infusion catheter is seen. Chronic increased density within the left upper chest is seen. More focal density within the right lung base correlating to area of consolidation on subsequent CT exam. Impression: 1. Findings suspicious for CHF. 2. Focal density within the right lung base correlating to an area of consolidation on subsequent CT study. 3. Bilateral pleural effusions. Diagnostic code #3 This report was dictated in MDT
[2020-03-27] MEDS ORDERED: Magnesium Sulfate/Water 2 GM in Premix Bag 1 BAG IV ONE (22:49)
--- NOTE | 2020-03-27 23:23 | PCM.HP.2 ---
H&P History of Present Illness - General Date of Service: 03/27/20 Admit Problem/Dx: Admission Diagnosis/Problem Admission Diagnosis/Problem CHF, Congestive heart failure - History of Present Illness Initial Comments - Free Text/Narative: 85 yo female with pmh of COPD, lung cancer, oxygen dependent, CHF, a.fib on anticoagulation who presents with a one day history of shortness of breath. Patient reports laying down makes breathing more difficult. She reports a new cough but denies any fevers or chills. She did have anxiety today and took two drops of marijuana that made her feel more anxious. CT scan of chest showed bilateral pleural effusion, pumonary edema and possible right lung consolidation. Patient received lasix and xanax in the ED. Patient now reports shortness of breath has resolved but is lethargic during my interview. - Related Data Allergies/Adverse Reactions: Allergies Allergy/AdvReac Type Severity Reaction Status Date / Time codeine Allergy Delusions Verified 03/27/20 22:19 lorazepam [From Ativan] Allergy Delusions Verified 03/27/20 22:19 meperidine [From Demerol] Allergy Delusions Verified 03/27/20 22:19 Home Medications: Home Meds Dorzolamide/Timolol [Cosopt 2%-0.5% Ophth Soln] 1 drop EYERT BID 05/28/16 [History] Latanoprost 1 drop EYEBOTH DAILY 05/28/16 [History] Omeprazole 40 mg PO DAILY 05/28/16 [History] Sertraline HCl 150 mg PO DAILY 05/28/16 [History] Brimonidine [Alphagan 0.2% Ophth Soln] 1 drop EYERT BID 10/20/18 [History] Metoprolol Tartrate 12.5 mg PO DAILY 11/01/18 [History] Potassium Chloride [Klor-Con 10] 40 meq PO BID 11/01/18 [History] Albuterol Sulfate [Proair Respiclick] 2 puff INH Q6HR PRN 08/23/19 [History] Albuterol/Ipratropium [Combivent Respimat] 1 puff INH Q6HR PRN 08/23/19 [History] Apixaban [Eliquis] 2.5 mg PO BID 08/23/19 [History] Furosemide [Lasix] 40 mg PO DAILY 08/23/19 [History] ALPRAZolam [Xanax] 1 - 2 tab PO BID PRN 02/08/20 [History] Acetaminophen [Acetaminophen ER] 650 mg PO Q6H PRN 02/08/20 [History] Aspirin [Ecotrin EC] 81 mg PO DAILY 02/08/20 [History] Calcium Carbonate/Vitamin D3 [Caltrate 600 Plus D3 Tablet] 2 tab PO BID 02/08/20 [History] Loperamide HCl [Imodium A-D] 4 mg PO BID PRN MDD Loose Stools 02/08/20 [History] Magnesium Oxide 400 mg PO DAILY 02/08/20 [History] Medical Supply, Miscellaneous [Sea-Band] 6 - 12 drop MC ASDIRECTED 02/08/20 [History] Mirtazapine 15 mg PO BEDTIME 02/08/20 [History] Psyllium Husk [Psyllium Fiber] 2 cap PO BID 02/08/20 [History] traZODone HCl [Trazodone HCl] 50 mg PO BEDTIME 02/08/20 [History] Past Medical History HEENT History: Reports: Cataract Other HEENT History: Macular Degeneration Cardiovascular History: Reports: Afib, Angina, CAD, Heart Failure, Hypertension, MA, Stents Respiratory History: Reports: COPD Other Respiratory History: hx of smoker, on home 02 at 2 liters/min; Lung CA Gastrointestinal History: Reports: Other (See Below) Other Gastrointestinal History: short bowel syndrom 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 History: Reports: None ST[employer]PER[employer]OR History: Reports: Musculoskeletal History: Reports: None Neurological History: Reports: TIA Psychiatric History: Reports: Panic Attack Endocrine/Metabolic History: Reports: None Hematologic History: Reports: Anticoagulation Therapy Immunologic History: Reports: None Oncologic (Cancer) History: Reports: Lung, Uterine Other Oncologic History: unsure of type of cancer, but 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 Respiratory Surgical History: Reports: Lung Resection GI Surgical History: Reports: Small Bowel Female Surgical History: Reports: Hysterectomy Neurological Surgical History: Reports: None Oncologic Surgical History: Reports: None Social & Family History - Family History Family Medical History: Noncontributory Cardiac: Reports: Afib, MA Hematologic: Reports: Anemia - Caffeine Use Caffeine Use: Reports: None Caffeine Use Comment: Drinks decaf, about 6 cups a day. - Recreational Drug Use Recreational Drug Use: No - Living Situation & Occupation Living situation: Reports: Occupation: Retired H&P Review of Systems - Review of Systems: Review Of Systems: Comprehensive ROS is negative, except as noted in HPI. Exam - Exam Exam: See Below - Vital Signs Vital Signs: Last Vital Signs Temp 35.8 C L 03/27/20 21:00 Pulse 92 03/27/20 21:00 Resp 22 H 03/27/20 21:00 BP 137/81 03/27/20 21:00 Pulse Ox 94 L 03/27/20 21:00 Weight: 47.6 kg - Exam General: Oriented, Lethargic HEENT: Mucosa Moist & [place] Neck: Supple Lungs: Clear to Auscultation, Normal Respiratory Effort Cardiovascular: Regular Rate, Irregular Rhythm GI/Abdominal Exam: Normal Bowel Sounds, Soft, No Distention Extremities: Non-Tender, No Pedal Edema Skin: Warm, Dry, Intact - Patient Data Lab Results Last 24 hrs: Laboratory Results - last 24 hr 03/27/20 03/27/20 03/27/20 Range/Units 19:09 19:09 19:09 WBC 7.42 (4.0-11.0) K/uL RBC 3.31 L (4.30-5.90) M/uL Hgb 9.4 L (12.0-16.0) g/dL Hct 30.6 L (36.0-46.0) % MCV 92.4 (80.0-98.0) fL MCH 28.4 (27.0-32.0) pg MCHC 30.7 L (31.0-37.0) g/dL RDW Std Deviation 53.7 (28.0-62.0) fl RDW Coeff of Luke 16 H (11.0-15.0) % Plt Count 278 (150-400) K/uL MPV 10.30 (7.40-12.00) fL Neut % (Auto) 80.2 H (48.0-80.0) % Lymph % (Auto) 3.8 L (16.0-40.0) % [place] % (Auto) 13.9 (0.0-15.0) % Eos % (Auto) 1.8 (0.0-7.0) % Baso % (Auto) 0.3 (0.0-1.5) % Neut # (Auto) 6.0 H (1.4-5.7) K/uL Lymph # (Auto) 0.3 L (0.6-2.4) K/uL [place] # (Auto) 1.0 H (0.0-0.8) K/uL Eos # (Auto) 0.1 (0.0-0.7) K/uL Baso # (Auto) 0.0 (0.0-0.1) K/uL Nucleated RBC % 0.0 /100WBC Nucleated RBCs # 0 K/uL D-Dimer, Quantitative (0.0-0.50) mg/L FEU ABG pH (7.35-7.45) ABG pCO2 (35-45) mmHG ABG pO2 (75-100) mmHG ABG HCO3 (22-26) mEq/L ABG Total CO2 ABG Base Excess (-2.0-2.0) Sodium 131 L (136-145) mmol/L Potassium 4.1 (3.5-5.1) mmol/L Chloride 94 L (98-107) mmol/L Carbon Dioxide 35.7 H (21.0-32.0) mmol/L BUN 23 H (7.0-18.0) mg/dL Creatinine 0.7 (0.6-1.0) mg/dL Est Cr Clr Drug Dosing TNP Estimated GFR (MDRD) > 60.0 ml/min Glucose 130 H (74-106) mg/dL Calcium 7.9 L (8.5-10.1) mg/dL Magnesium (1.8-2.4) mg/dL Total Bilirubin 0.3 (0.2-1.0) mg/dL AST 24 (15-37) IU/L ALT 29 (14-63) IU/L Alkaline Phosphatase 112 (46-116) U/L Troponin I < 0.050 (0.000-0.056) ng/mL B-Natriuretic Peptide (<100) PG/ML Total Protein 5.9 L (6.4-8.2) g/dL Albumin 3.0 L (3.4-5.0) g/dL Globulin 2.9 (2.6-4.0) g/dL Albumin/Globulin Ratio 1.0 (0.9-1.6) TSH 3rd Generation (0.36-3.74) uIU/mL Urine Color Urine Appearance Urine pH (5.0-8.0) Ur Specific [place] (1.001-1.035) Urine Protein (NEGATIVE) mg/dL Urine Glucose (UA) (NEGATIVE) mg/dL Urine Ketones (NEGATIVE) mg/dL Urine Occult Blood (NEGATIVE) Urine Nitrite (NEGATIVE) Urine Bilirubin (NEGATIVE) Urine Urobilinogen (<2.0) EU/dL Ur Leukocyte Esterase (NEGATIVE) SARS Virus RNA (PCR) (NEGATIVE) Blood Type B POSITIVE Antibody Screen NEGATIVE 03/27/20 03/27/20 03/27/20 Range/Units 19:09 19:09 19:09 WBC (4.0-11.0) K/uL RBC (4.30-5.90) M/uL Hgb (12.0-16.0) g/dL Hct (36.0-46.0) % MCV (80.0-98.0) fL MCH (27.0-32.0) pg MCHC (31.0-37.0) g/dL RDW Std Deviation (28.0-62.0) fl RDW Coeff of Luke (11.0-15.0) % Plt Count (150-400) K/uL MPV (7.40-12.00) fL Neut % (Auto) (48.0-80.0) % Lymph % (Auto) (16.0-40.0) % [place] % (Auto) (0.0-15.0) % Eos % (Auto) (0.0-7.0) % Baso % (Auto) (0.0-1.5) % Neut # (Auto) (1.4-5.7) K/uL Lymph # (Auto) (0.6-2.4) K/uL [place] # (Auto) (0.0-0.8) K/uL Eos # (Auto) (0.0-0.7) K/uL Baso # (Auto) (0.0-0.1) K/uL Nucleated RBC % /100WBC Nucleated RBCs # K/uL D-Dimer, Quantitative 2.17 H (0.0-0.50) mg/L FEU ABG pH (7.35-7.45) ABG pCO2 (35-45) mmHG ABG pO2 (75-100) mmHG ABG HCO3 (22-26) mEq/L ABG Total CO2 ABG Base Excess (-2.0-2.0) Sodium (136-145) mmol/L Potassium (3.5-5.1) mmol/L Chloride (98-107) mmol/L Carbon Dioxide (21.0-32.0) mmol/L BUN (7.0-18.0) mg/dL Creatinine (0.6-1.0) mg/dL Est Cr Clr Drug Dosing Estimated GFR (MDRD) ml/min Glucose (74-106) mg/dL Calcium (8.5-10.1) mg/dL Magnesium 1.6 L (1.8-2.4) mg/dL Total Bilirubin (0.2-1.0) mg/dL AST (15-37) IU/L ALT (14-63) IU/L Alkaline Phosphatase (46-116) U/L Troponin I (0.000-0.056) ng/mL B-Natriuretic Peptide 864 H (<100) PG/ML Total Protein (6.4-8.2) g/dL Albumin (3.4-5.0) g/dL Globulin (2.6-4.0) g/dL Albumin/Globulin Ratio (0.9-1.6) TSH 3rd Generation 1.12 (0.36-3.74) uIU/mL Urine Color Urine Appearance Urine pH (5.0-8.0) Ur Specific [place] (1.001-1.035) Urine Protein (NEGATIVE) mg/dL Urine Glucose (UA) (NEGATIVE) mg/dL Urine Ketones (NEGATIVE) mg/dL Urine Occult Blood (NEGATIVE) Urine Nitrite (NEGATIVE) Urine Bilirubin (NEGATIVE) Urine Urobilinogen (<2.0) EU/dL Ur Leukocyte Esterase (NEGATIVE) SARS Virus RNA (PCR) (NEGATIVE) Blood Type Antibody Screen 03/27/20 03/27/20 03/27/20 Range/Units 19:20 21:10 21:30 WBC (4.0-11.0) K/uL RBC (4.30-5.90) M/uL Hgb (12.0-16.0) g/dL Hct (36.0-46.0) % MCV (80.0-98.0) fL MCH (27.0-32.0) pg MCHC (31.0-37.0) g/dL RDW Std Deviation (28.0-62.0) fl RDW Coeff of Luke (11.0-15.0) % Plt Count (150-400) K/uL MPV (7.40-12.00) fL Neut % (Auto) (48.0-80.0) % Lymph % (Auto) (16.0-40.0) % [place] % (Auto) (0.0-15.0) % Eos % (Auto) (0.0-7.0) % Baso % (Auto) (0.0-1.5) % Neut # (Auto) (1.4-5.7) K/uL Lymph # (Auto) (0.6-2.4) K/uL [place] # (Auto) (0.0-0.8) K/uL Eos # (Auto) (0.0-0.7) K/uL Baso # (Auto) (0.0-0.1) K/uL Nucleated RBC % /100WBC Nucleated RBCs # K/uL D-Dimer, Quantitative (0.0-0.50) mg/L FEU ABG pH 7.354 (7.35-7.45) ABG pCO2 59 H (35-45) mmHG ABG pO2 86 (75-100) mmHG ABG HCO3 33 H (22-26) mEq/L ABG Total CO2 30.6 ABG Base Excess 5.7 H (-2.0-2.0) Sodium (136-145) mmol/L Potassium (3.5-5.1) mmol/L Chloride (98-107) mmol/L Carbon Dioxide (21.0-32.0) mmol/L BUN (7.0-18.0) mg/dL Creatinine (0.6-1.0) mg/dL Est Cr Clr Drug Dosing Estimated GFR (MDRD) ml/min Glucose (74-106) mg/dL Calcium (8.5-10.1) mg/dL Magnesium (1.8-2.4) mg/dL Total Bilirubin (0.2-1.0) mg/dL AST (15-37) IU/L ALT (14-63) IU/L Alkaline Phosphatase (46-116) U/L Troponin I (0.000-0.056) ng/mL B-Natriuretic Peptide (<100) PG/ML Total Protein (6.4-8.2) g/dL Albumin (3.4-5.0) g/dL Globulin (2.6-4.0) g/dL Albumin/Globulin Ratio (0.9-1.6) TSH 3rd Generation (0.36-3.74) uIU/mL Urine Color YELLOW Urine Appearance CLEAR Urine pH 7.5 (5.0-8.0) Ur Specific [place] 1.015 (1.001-1.035) Urine Protein NEGATIVE (NEGATIVE) mg/dL Urine Glucose (UA) NEGATIVE (NEGATIVE) mg/dL Urine Ketones NEGATIVE (NEGATIVE) mg/dL Urine Occult Blood NEGATIVE (NEGATIVE) Urine Nitrite NEGATIVE (NEGATIVE) Urine Bilirubin NEGATIVE (NEGATIVE) Urine Urobilinogen 0.2 (<2.0) EU/dL Ur Leukocyte Esterase NEGATIVE (NEGATIVE) SARS Virus RNA (PCR) NEGATIVE (NEGATIVE) Blood Type Antibody Screen Result Diagrams: 03/27/20 19:09 03/27/20 19:09 Sepsis Event Note - Evaluation Sepsis Screening Result: No Definite Risk - Focused Exam Vital Signs: Vital Signs Temp Pulse Resp BP Pulse Ox 03/27/20 21:00 35.8 C L 92 22 H 137/81 94 L 03/27/20 19:30 90 20 144/76 H 95 03/27/20 18:41 35.7 C L 123 H 25 H 178/82 H 88 L Problem List Initiated/Reviewed/Updated: Yes Orders Last 24hrs: Active Orders 24 hr Category Date Time Status Admission Status [Patient Status] [ADT] Stat ADT 03/27/20 21:23 Active Oxygen Therapy Adult [Oxygen Therapy] [RC] ASDIRECTED Care 03/27/20 22:50 Active Telemetry Monitoring [Cardiac Monitoring] [RC] . Care 03/27/20 21:46 Active DIRECTED Telemetry Monitoring [Cardiac Monitoring] [RC] Q8H Care 03/27/20 22:52 Active Fluid Restriction [DIET] Diet 03/28/20 Breakfast Active Heart Healthy Diet [DIET] Diet 03/28/20 Breakfast Active BASIC METABOLIC PANEL,BMP [CHEM] Routine Lab 03/28/20 05:00 Ordered CBC WITH AUTO DIFF [HEME] Routine Lab 03/28/20 05:00 Ordered Apixaban [Eliquis] Med 03/28/20 09:00 Active 2.5 mg PO BID Magnesium Sulfate/Water [Magnesium Sulfate in Water Med 03/27/20 22:49 Active Premix] 2 gm Premix Bag 1 bag IV ONETIME Sodium Chloride 0.9% [Saline Flush] Med 03/27/20 18:40 Active 10 ml FLUSH ASDIRECTED PRN Sodium Chloride 0.9% [Saline Flush] Med 03/27/20 18:40 Active 2.5 ml FLUSH ASDIRECTED PRN Saline Lock Insert [OM.PC] Stat Oth 03/27/20 18:40 Ordered Medication Orders Apixaban (Eliquis) 2.5 mg PO BID ANALILIA Magnesium Sulfate 2 gm/ Premix 50 mls @ 50 mls/hr IV ONETIME ONE Stop: 03/27/20 23:48 Last Admin: 03/27/20 23:02 Dose: 50 mls/hr Documented by: PHILOMENA Sodium Chloride (Saline Flush) 10 ml FLUSH ASDIRECTED PRN PRN Reason: Keep Vein Open Sodium Chloride (Saline Flush) 2.5 ml FLUSH ASDIRECTED PRN PRN Reason: Keep Vein Open Assessment/Plan Comment:: 85 yo female admitted for CHF exacerbation. CHF exacerbation: no echocardiogram on file, will obtain echocardiogram when available, received lasix in ED, currently appears in no respiratory distress Anxiety: will hold further sedating medications, place on pulse oximetry overnight A.fib: continue Eliquis and metoprolol possible pneumonia: Consolidation on CT could be from hx of lung cancer and xrt, will place on Levaquin tonight until infection has been ruled out.
[2020-03-27] MEDS ORDERED: Albuterol/Ipratropium 4 GM Inhalation Spray INH PRN (23:31)
[2020-03-27] MEDS ORDERED: Acetaminophen 325 MG Tab PO PRN (23:40)
[2020-03-28] MEDS: Levofloxacin/Dextrose 5%-Water 750 MG in Premix Bag 1 BAG IV SCH ×2 (00:24→23:02)
[2020-03-28 06:41] LABS: BLOOD UREA NITROGEN,BUN 18 mg/dL (7.0-18.0); CARBON DIOXIDE,CO2 37.9 mmol/L (21.0-32.0); CHLORIDE,CL 97 mmol/L (98-107); GLUCOSE RANDOM 115 mg/dL (74-106); POTASSIUM,K 3.6 mmol/L (3.5-5.1); SODIUM,NA 138 mmol/L (136-145)
[2020-03-28] MEDS: Metoprolol Tartrate 25 MG Tab PO SCH (08:01)
[2020-03-28] MEDS: Magnesium Oxide 400 MG Tab PO SCH (08:10)
[2020-03-28] MEDS: Aspirin 81 MG Tab.EC PO SCH (08:10)
[2020-03-28] MEDS: Apixaban 2.5 MG Tab PO SCH ×2 (08:11→20:22)
[2020-03-28] MEDS ORDERED: Brimonidine 0.2% Ophth Soln 5 ML Bottle EYERT SCH (09:00)
[2020-03-28] MEDS ORDERED: Dorzolamide/Timolol 2%-0.5% Ophth Soln 10 ML Bottle EYERT SCH (09:00)
[2020-03-28] MEDS: Furosemide 40 MG/4 ML VIAL IVPUSH SCH ×2 (10:53→20:22)
--- NOTE | 2020-03-28 11:14 | PCM.PN ---
- General Info Date of Service: 03/28/20 - Review of Systems Systems Review Comment:: patient still reports shortness of breath but it has improved since last night. anxiety has resolved - Patient Data Vitals - Most Recent: Last Vital Signs Temp 36.7 C 03/28/20 07:10 Pulse 88 03/28/20 08:01 Resp 22 H 03/28/20 07:10 BP 128/88 03/28/20 08:01 Pulse Ox 92 L 03/28/20 07:10 Weight - Most Recent: 49 kg I&O - Last 24 Hours: Intake & Output 03/27/20 03/28/20 03/28/20 22:59 06:59 14:59 Intake Total 420 Output Total 1700 Balance -1280 Lab Results Last 24 Hours: Laboratory Results - last 24 hr 03/27/20 03/27/20 03/27/20 Range/Units 19:09 19:09 19:09 WBC 7.42 (4.0-11.0) K/uL RBC 3.31 L (4.30-5.90) M/uL Hgb 9.4 L (12.0-16.0) g/dL Hct 30.6 L (36.0-46.0) % MCV 92.4 (80.0-98.0) fL MCH 28.4 (27.0-32.0) pg MCHC 30.7 L (31.0-37.0) g/dL RDW Std Deviation 53.7 (28.0-62.0) fl RDW Coeff of Luke 16 H (11.0-15.0) % Plt Count 278 (150-400) K/uL MPV 10.30 (7.40-12.00) fL Neut % (Auto) 80.2 H (48.0-80.0) % Lymph % (Auto) 3.8 L (16.0-40.0) % [place] % (Auto) 13.9 (0.0-15.0) % Eos % (Auto) 1.8 (0.0-7.0) % Baso % (Auto) 0.3 (0.0-1.5) % Neut # (Auto) 6.0 H (1.4-5.7) K/uL Lymph # (Auto) 0.3 L (0.6-2.4) K/uL [place] # (Auto) 1.0 H (0.0-0.8) K/uL Eos # (Auto) 0.1 (0.0-0.7) K/uL Baso # (Auto) 0.0 (0.0-0.1) K/uL Nucleated RBC % 0.0 /100WBC Nucleated RBCs # 0 K/uL D-Dimer, Quantitative (0.0-0.50) mg/L FEU ABG pH (7.35-7.45) ABG pCO2 (35-45) mmHG ABG pO2 (75-100) mmHG ABG HCO3 (22-26) mEq/L ABG Total CO2 ABG Base Excess (-2.0-2.0) Sodium 131 L (136-145) mmol/L Potassium 4.1 (3.5-5.1) mmol/L Chloride 94 L (98-107) mmol/L Carbon Dioxide 35.7 H (21.0-32.0) mmol/L BUN 23 H (7.0-18.0) mg/dL Creatinine 0.7 (0.6-1.0) mg/dL Est Cr Clr Drug Dosing TNP Estimated GFR (MDRD) > 60.0 ml/min Glucose 130 H (74-106) mg/dL Calcium 7.9 L (8.5-10.1) mg/dL Magnesium (1.8-2.4) mg/dL Total Bilirubin 0.3 (0.2-1.0) mg/dL AST 24 (15-37) IU/L ALT 29 (14-63) IU/L Alkaline Phosphatase 112 (46-116) U/L Troponin I < 0.050 (0.000-0.056) ng/mL B-Natriuretic Peptide (<100) PG/ML Total Protein 5.9 L (6.4-8.2) g/dL Albumin 3.0 L (3.4-5.0) g/dL Globulin 2.9 (2.6-4.0) g/dL Albumin/Globulin Ratio 1.0 (0.9-1.6) TSH 3rd Generation (0.36-3.74) uIU/mL Urine Color Urine Appearance Urine pH (5.0-8.0) Ur Specific [place] (1.001-1.035) Urine Protein (NEGATIVE) mg/dL Urine Glucose (UA) (NEGATIVE) mg/dL Urine Ketones (NEGATIVE) mg/dL Urine Occult Blood (NEGATIVE) Urine Nitrite (NEGATIVE) Urine Bilirubin (NEGATIVE) Urine Urobilinogen (<2.0) EU/dL Ur Leukocyte Esterase (NEGATIVE) SARS Virus RNA (PCR) (NEGATIVE) Blood Type B POSITIVE Antibody Screen NEGATIVE 03/27/20 03/27/20 03/27/20 Range/Units 19:09 19:09 19:09 WBC (4.0-11.0) K/uL RBC (4.30-5.90) M/uL Hgb (12.0-16.0) g/dL Hct (36.0-46.0) % MCV (80.0-98.0) fL MCH (27.0-32.0) pg MCHC (31.0-37.0) g/dL RDW Std Deviation (28.0-62.0) fl RDW Coeff of Luke (11.0-15.0) % Plt Count (150-400) K/uL MPV (7.40-12.00) fL Neut % (Auto) (48.0-80.0) % Lymph % (Auto) (16.0-40.0) % [place] % (Auto) (0.0-15.0) % Eos % (Auto) (0.0-7.0) % Baso % (Auto) (0.0-1.5) % Neut # (Auto) (1.4-5.7) K/uL Lymph # (Auto) (0.6-2.4) K/uL [place] # (Auto) (0.0-0.8) K/uL Eos # (Auto) (0.0-0.7) K/uL Baso # (Auto) (0.0-0.1) K/uL Nucleated RBC % /100WBC Nucleated RBCs # K/uL D-Dimer, Quantitative 2.17 H (0.0-0.50) mg/L FEU ABG pH (7.35-7.45) ABG pCO2 (35-45) mmHG ABG pO2 (75-100) mmHG ABG HCO3 (22-26) mEq/L ABG Total CO2 ABG Base Excess (-2.0-2.0) Sodium (136-145) mmol/L Potassium (3.5-5.1) mmol/L Chloride (98-107) mmol/L Carbon Dioxide (21.0-32.0) mmol/L BUN (7.0-18.0) mg/dL Creatinine (0.6-1.0) mg/dL Est Cr Clr Drug Dosing Estimated GFR (MDRD) ml/min Glucose (74-106) mg/dL Calcium (8.5-10.1) mg/dL Magnesium 1.6 L (1.8-2.4) mg/dL Total Bilirubin (0.2-1.0) mg/dL AST (15-37) IU/L ALT (14-63) IU/L Alkaline Phosphatase (46-116) U/L Troponin I (0.000-0.056) ng/mL B-Natriuretic Peptide 864 H (<100) PG/ML Total Protein (6.4-8.2) g/dL Albumin (3.4-5.0) g/dL Globulin (2.6-4.0) g/dL Albumin/Globulin Ratio (0.9-1.6) TSH 3rd Generation 1.12 (0.36-3.74) uIU/mL Urine Color Urine Appearance Urine pH (5.0-8.0) Ur Specific [place] (1.001-1.035) Urine Protein (NEGATIVE) mg/dL Urine Glucose (UA) (NEGATIVE) mg/dL Urine Ketones (NEGATIVE) mg/dL Urine Occult Blood (NEGATIVE) Urine Nitrite (NEGATIVE) Urine Bilirubin (NEGATIVE) Urine Urobilinogen (<2.0) EU/dL Ur Leukocyte Esterase (NEGATIVE) SARS Virus RNA (PCR) (NEGATIVE) Blood Type Antibody Screen 03/27/20 03/27/20 03/27/20 Range/Units 19:20 21:10 21:30 WBC (4.0-11.0) K/uL RBC (4.30-5.90) M/uL Hgb (12.0-16.0) g/dL Hct (36.0-46.0) % MCV (80.0-98.0) fL MCH (27.0-32.0) pg MCHC (31.0-37.0) g/dL RDW Std Deviation (28.0-62.0) fl RDW Coeff of Luke (11.0-15.0) % Plt Count (150-400) K/uL MPV (7.40-12.00) fL Neut % (Auto) (48.0-80.0) % Lymph % (Auto) (16.0-40.0) % [place] % (Auto) (0.0-15.0) % Eos % (Auto) (0.0-7.0) % Baso % (Auto) (0.0-1.5) % Neut # (Auto) (1.4-5.7) K/uL Lymph # (Auto) (0.6-2.4) K/uL [place] # (Auto) (0.0-0.8) K/uL Eos # (Auto) (0.0-0.7) K/uL Baso # (Auto) (0.0-0.1) K/uL Nucleated RBC % /100WBC Nucleated RBCs # K/uL D-Dimer, Quantitative (0.0-0.50) mg/L FEU ABG pH 7.354 (7.35-7.45) ABG pCO2 59 H (35-45) mmHG ABG pO2 86 (75-100) mmHG ABG HCO3 33 H (22-26) mEq/L ABG Total CO2 30.6 ABG Base Excess 5.7 H (-2.0-2.0) Sodium (136-145) mmol/L Potassium (3.5-5.1) mmol/L Chloride (98-107) mmol/L Carbon Dioxide (21.0-32.0) mmol/L BUN (7.0-18.0) mg/dL Creatinine (0.6-1.0) mg/dL Est Cr Clr Drug Dosing Estimated GFR (MDRD) ml/min Glucose (74-106) mg/dL Calcium (8.5-10.1) mg/dL Magnesium (1.8-2.4) mg/dL Total Bilirubin (0.2-1.0) mg/dL AST (15-37) IU/L ALT (14-63) IU/L Alkaline Phosphatase (46-116) U/L Troponin I (0.000-0.056) ng/mL B-Natriuretic Peptide (<100) PG/ML Total Protein (6.4-8.2) g/dL Albumin (3.4-5.0) g/dL Globulin (2.6-4.0) g/dL Albumin/Globulin Ratio (0.9-1.6) TSH 3rd Generation (0.36-3.74) uIU/mL Urine Color YELLOW Urine Appearance CLEAR Urine pH 7.5 (5.0-8.0) Ur Specific [place] 1.015 (1.001-1.035) Urine Protein NEGATIVE (NEGATIVE) mg/dL Urine Glucose (UA) NEGATIVE (NEGATIVE) mg/dL Urine Ketones NEGATIVE (NEGATIVE) mg/dL Urine Occult Blood NEGATIVE (NEGATIVE) Urine Nitrite NEGATIVE (NEGATIVE) Urine Bilirubin NEGATIVE (NEGATIVE) Urine Urobilinogen 0.2 (<2.0) EU/dL Ur Leukocyte Esterase NEGATIVE (NEGATIVE) SARS Virus RNA (PCR) NEGATIVE (NEGATIVE) Blood Type Antibody Screen 03/28/20 03/28/20 03/28/20 Range/Units 06:10 06:10 06:10 WBC 5.60 (4.0-11.0) K/uL RBC 3.35 L (4.30-5.90) M/uL Hgb 9.6 L (12.0-16.0) g/dL Hct 30.6 L (36.0-46.0) % MCV 91.3 (80.0-98.0) fL MCH 28.7 (27.0-32.0) pg MCHC 31.4 (31.0-37.0) g/dL RDW Std Deviation 53.8 (28.0-62.0) fl RDW Coeff of Luke 16 H (11.0-15.0) % Plt Count 269 (150-400) K/uL MPV 10.10 (7.40-12.00) fL Neut % (Auto) 79.2 (48.0-80.0) % Lymph % (Auto) 6.3 L (16.0-40.0) % [place] % (Auto) 12.0 (0.0-15.0) % Eos % (Auto) 2.1 (0.0-7.0) % Baso % (Auto) 0.4 (0.0-1.5) % Neut # (Auto) 4.4 (1.4-5.7) K/uL Lymph # (Auto) 0.4 L (0.6-2.4) K/uL [place] # (Auto) 0.7 (0.0-0.8) K/uL Eos # (Auto) 0.1 (0.0-0.7) K/uL Baso # (Auto) 0.0 (0.0-0.1) K/uL Nucleated RBC % 0.0 /100WBC Nucleated RBCs # 0 K/uL D-Dimer, Quantitative (0.0-0.50) mg/L FEU ABG pH (7.35-7.45) ABG pCO2 (35-45) mmHG ABG pO2 (75-100) mmHG ABG HCO3 (22-26) mEq/L ABG Total CO2 ABG Base Excess (-2.0-2.0) Sodium 138 (136-145) mmol/L Potassium 3.6 (3.5-5.1) mmol/L Chloride 97 L (98-107) mmol/L Carbon Dioxide 37.9 H (21.0-32.0) mmol/L BUN 18 (7.0-18.0) mg/dL Creatinine 0.7 (0.6-1.0) mg/dL Est Cr Clr Drug Dosing TNP Estimated GFR (MDRD) > 60.0 ml/min Glucose 115 H (74-106) mg/dL Calcium 7.7 L (8.5-10.1) mg/dL Magnesium 2.3 (1.8-2.4) mg/dL Total Bilirubin (0.2-1.0) mg/dL AST (15-37) IU/L ALT (14-63) IU/L Alkaline Phosphatase (46-116) U/L Troponin I (0.000-0.056) ng/mL B-Natriuretic Peptide (<100) PG/ML Total Protein (6.4-8.2) g/dL Albumin (3.4-5.0) g/dL Globulin (2.6-4.0) g/dL Albumin/Globulin Ratio (0.9-1.6) TSH 3rd Generation (0.36-3.74) uIU/mL Urine Color Urine Appearance Urine pH (5.0-8.0) Ur Specific [place] (1.001-1.035) Urine Protein (NEGATIVE) mg/dL Urine Glucose (UA) (NEGATIVE) mg/dL Urine Ketones (NEGATIVE) mg/dL Urine Occult Blood (NEGATIVE) Urine Nitrite (NEGATIVE) Urine Bilirubin (NEGATIVE) Urine Urobilinogen (<2.0) EU/dL Ur Leukocyte Esterase (NEGATIVE) SARS Virus RNA (PCR) (NEGATIVE) Blood Type Antibody Screen Med Orders - Current: Current Medications Acetaminophen (Tylenol) 650 mg PO Q6H PRN PRN Reason: Pain Albuterol/Ipratropium (Combivent Respimat) 0 gm INH Q6HR PRN PRN Reason: Shortness of Breath Apixaban (Eliquis) 2.5 mg PO BID [facility] Last Admin: 03/28/20 08:11 Dose: 2.5 mg Documented by: Aspirin (Halfprin) 81 mg PO DAILY [facility] Last Admin: 03/28/20 08:10 Dose: 81 mg Documented by: Brimonidine Tartrate (Alphagan 0.2% Ophth Soln) 0 ml EYERT BID [facility] Last Admin: 03/28/20 10:14 Dose: Not Given Documented by: Dorzolamide/Timolol (Cosopt 2%-0.5% Ophth Soln) 0 ml EYERT BID [facility] Last Admin: 03/28/20 10:14 Dose: Not Given Documented by: Furosemide (Lasix) 40 mg IVPUSH BID [facility] Last Admin: 03/28/20 10:53 Dose: 40 mg Documented by: Levofloxacin/Dextrose 750 mg/ (Premix) 150 mls @ 100 mls/hr IV Q24H [facility] Last Admin: 03/28/20 00:24 Dose: 100 mls/hr Documented by: Magnesium Oxide (Magnesium Oxide) 400 mg PO DAILY [facility] Last Admin: 03/28/20 08:10 Dose: 400 mg Documented by: Metoprolol Tartrate (Lopressor) 12.5 mg PO DAILY [facility] Last Admin: 03/28/20 08:01 Dose: 12.5 mg Documented by: Sodium Chloride (Saline Flush) 10 ml FLUSH ASDIRECTED PRN PRN Reason: Keep Vein Open Sodium Chloride (Saline Flush) 2.5 ml FLUSH ASDIRECTED PRN PRN Reason: Keep Vein Open Discontinued Medications Alprazolam (Xanax) 0.5 mg PO NOW ONE Stop: 03/27/20 20:59 Last Admin: 03/27/20 21:09 Dose: 0.5 mg Documented by: Furosemide (Lasix) 40 mg IVPUSH NOW ONE Stop: 03/27/20 21:04 Last Admin: 03/27/20 21:09 Dose: 40 mg Documented by: Magnesium Sulfate 2 gm/ Premix 50 mls @ 50 mls/hr IV ONETIME ONE Stop: 03/27/20 23:48 Last Admin: 03/27/20 23:02 Dose: 50 mls/hr Documented by: Iopamidol (Isovue-370 (76%)) 100 ml IVPUSH ONETIME ONE Stop: 03/27/20 20:56 Last Admin: 03/27/20 20:55 Dose: 100 ml Documented by: - Exam General: Alert, Oriented Neck: Supple Lungs: Normal Respiratory Effort, Decreased Breath Sounds Cardiovascular: Regular Rate, Regular Rhythm GI/Abdominal Exam: Soft, Non-Tender, No Distention Extremities: Normal Range of Motion, No Pedal Edema Skin: Warm, Dry, Intact Neurological: No New Focal Deficit Sepsis Event Note - Evaluation Sepsis Screening Result: No Definite Risk - Focused Exam Vital Signs: Vital Signs Temp Pulse Pulse Resp BP BP Pulse Ox 03/28/20 08:01 88 128/88 03/28/20 07:10 36.7 C 88 22 H 128/88 92 L 03/28/20 04:00 37.0 C 95 20 98/60 96 03/27/20 23:34 Pulse Ox 03/28/20 08:01 03/28/20 07:10 03/28/20 04:00 03/27/20 23:34 97 - Problem List Review Problem List Initiated/Reviewed/Updated: Yes - My Orders Last 24 Hours: My Active Orders 03/27/20 21:46 Telemetry Monitoring [Cardiac Monitoring] [RC] . DIRECTED 03/27/20 22:50 Oxygen Therapy Adult [Oxygen Therapy] [RC] ASDIRECTED 03/27/20 22:52 Telemetry Monitoring [Cardiac Monitoring] [RC] Q8H 03/27/20 23:31 Albuterol/Ipratropium [Combivent Respimat] 0 gm INH Q6HR PRN 03/27/20 23:32 RT Post Treatment Assessment [RC] Click to Edit RT Pre-Treatment Assessment [RC] Click to Edit 03/27/20 23:34 Antiembolic Devices [RC] PER UNIT ROUTINE Oxygen Therapy [RC] PRN Up ad Ruby [RC] ASDIRECTED VTE/DVT Education [RC] PER UNIT ROUTINE Vital Signs [RC] Q4H Sequential Compression Device [OM.PC] Per Unit Routine 03/27/20 23:36 Overnight Pulse Oximetry [RC] Click to Edit 03/27/20 23:40 Acetaminophen [TylenoL] 650 mg PO Q6H PRN 03/28/20 00:00 Levofloxacin/Dextrose 5%-Water [Levaquin in D5W 750 MG/150 ML] 750 mg Premix Bag 1 bag IV Q24H 03/28/20 Breakfast Fluid Restriction [DIET] Heart Healthy Diet [DIET] 03/28/20 09:00 Apixaban [Eliquis] 2.5 mg PO BID Aspirin [Halfprin] 81 mg PO DAILY Brimonidine [Alphagan 0.2% Ophth Soln] 0 ml EYERT BID Dorzolamide/Timolol [Cosopt 2%-0.5% Ophth Soln] 0 ml EYERT BID Magnesium Oxide 400 mg PO DAILY Metoprolol Tartrate [Lopressor] 12.5 mg PO DAILY - Plan Plan:: 85 yo female admitted for CHF exacerbation. CHF exacerbation: continue lasix 40mg BID IV no echocardiogram on file, will obtain echocardiogram when available, Anxiety: will hold further sedating medications, place on pulse oximetry overnight A.fib: continue Eliquis and metoprolol possible pneumonia: Consolidation on CT could be from hx of lung cancer and xrt, will place on Levaquin tonight until infection has been ruled out. dispo: likely discharge in next two days if continues to improve
[2020-03-28] MEDS ORDERED: ALPRAZolam 0.25 MG Tab PO PRN (13:54)
[2020-03-28] MEDS: Diltiazem 120 MG Cap.CD PO SCH (15:58)
[2020-03-28] MEDS: Ondansetron 4 MG Tab.DIS PO PRN (18:32)
[2020-03-28] MEDS ORDERED: Digoxin 500 MCG/2 ML Amp IVPUSH ONE (18:59)
[2020-03-28] MEDS: Dorzolamide/Timolol 2%-0.5% Ophth Soln 10 ML Bottle EYERT SCH (20:29)
[2020-03-28] MEDS: Brimonidine 0.2% Ophth Soln 5 ML Bottle EYERT SCH (20:29)
[2020-03-29 06:42] LABS: BLOOD UREA NITROGEN,BUN 18 mg/dL (7.0-18.0); CHLORIDE,CL 98 mmol/L (98-107); GLUCOSE RANDOM 90 mg/dL (74-106); POTASSIUM,K 3.2 mmol/L (3.5-5.1); SODIUM,NA 139 mmol/L (136-145)
[2020-03-29] MEDS: Furosemide 40 MG/4 ML VIAL IVPUSH SCH (09:48)
[2020-03-29] MEDS: Aspirin 81 MG Tab.EC PO SCH (10:00)
[2020-03-29] MEDS: Metoprolol Tartrate 25 MG Tab PO SCH (10:01)
[2020-03-29] MEDS: Magnesium Oxide 400 MG Tab PO SCH (10:03)
[2020-03-29] MEDS: Apixaban 2.5 MG Tab PO SCH (10:04)
[2020-03-29] MEDS: Brimonidine 0.2% Ophth Soln 5 ML Bottle EYERT SCH (10:05)
[2020-03-29] MEDS: Dorzolamide/Timolol 2%-0.5% Ophth Soln 10 ML Bottle EYERT SCH (10:06)
[2020-03-29] MEDS ORDERED: Potassium Chloride 20 MEQ Tab.ER PO ONE (10:45)
--- NOTE | 2020-03-29 10:53 | PCM.DCSUM1 ---
Discharge Summary - Discharge Data Discharge Date: 03/29/20 Discharge Disposition: Home, Self-Care 01 Condition: Good - Referral to Home Health Primary Care Physician: Mark Espana MD - Patient Summary/Data Hospital Course: 85 yo female Who was admitted for CHF exacerbation. She has a pmh of COPD, lung cancer, oxygen dependent, CHF, a.fib on anticoagulation. She presented with a one day history of shortness of breath. Patient reports laying down makes breathing more difficult. She reports a new cough but denies any fevers or chills. She did have anxiety today and took two drops of marijuana that made her feel more anxious. In the ED she was requring 4-5 liters on O2 via NC to keep her sats above 90%. She reports her home O2 requirements is [address] scan of chest showed bilateral pleural effusion, pulmonary edema and possible right lung consolidation. Patient received lasix and xanax in the ED. She was admitted to the Hospital and treated with IV lasix. She was given Levaquin for possible pneumonia but infection was thought to be unlikely. Echocardiogram was unavailable. She did have improvement in her breathing and today is requesting discharge home. She was discharged home to have follow up with [facility] clinic. - Patient Instructions Diet: Heart Healthy Diet Activity: As Tolerated Driving: Do Not Drive Other/Special Instructions: Daily weights. If increase in 1lb in a day take an additional lasix 40mg in the afternoon. - Discharge Plan Home Medications: Home Meds Dorzolamide/Timolol [Cosopt 2%-0.5% Ophth Soln] 1 drop EYERT BID 05/28/16 [History] Omeprazole 40 mg PO ACBREAKFAST 05/28/16 [History] Sertraline HCl 150 mg PO DAILY 05/28/16 [History] Brimonidine [Alphagan 0.2% Ophth Soln] 1 drop EYERT BID 10/20/18 [History] Metoprolol Tartrate 12.5 mg PO DAILY 11/01/18 [History] Albuterol/Ipratropium [Combivent Respimat] 1 puff INH Q6HR PRN 08/23/19 [History] Apixaban [Eliquis] 2.5 mg PO BID 08/23/19 [History] Furosemide [Lasix] 40 mg PO DAILY 08/23/19 [History] Mirtazapine 15 mg PO BEDTIME 02/08/20 [History] traZODone HCl [Trazodone HCl] 50 mg PO BEDTIME PRN 02/08/20 [History] Albuterol Sulfate [Albuterol Sulfate Hfa] 2 puff INH Q4HRRT PRN 03/28/20 [History] Fluticasone/Umeclidin/Vilanter [Trelegy Ellipta 100-62.5-25 MCG] 1 puff INH DAILY 03/28/20 [History] Latanoprost/Pf [Latanoprost 0.005% Eye Drop] 1 drop EYEBOTH BEDTIME 03/28/20 [History] Potassium Chloride 40 meq PO BID 03/28/20 [History] dilTIAZem HCL [Diltiazem 24Hr ER] 120 mg PO DAILY 03/28/20 [History] Patient Handouts: Heart Failure, Self Care, [id number], Living With Heart Failure Referrals: Mark Espana MD [Primary Care Provider] - - Discharge Summary/Plan Comment DC Time >30 min.: No - Patient Data Vitals - Most Recent: Last Vital Signs Temp 37.0 C 03/29/20 04:00 Pulse 99 03/29/20 10:01 Resp 18 03/29/20 07:55 BP 102/58 L 03/29/20 10:01 Pulse Ox 94 L 03/29/20 07:55 Weight - Most Recent: 46.8 kg I&O - Last 24 hours: Intake & Output 03/28/20 03/29/20 03/29/20 22:59 06:59 14:59 Intake Total 900 800 Output Total 1950 1250 Balance -1050 -450 Lab Results - Last 24 hrs: Laboratory Results - last 24 hr 03/29/20 03/29/20 Range/Units 06:03 06:03 WBC 4.92 (4.0-11.0) K/uL RBC 3.07 L (4.30-5.90) M/uL Hgb 8.8 L (12.0-16.0) g/dL Hct 28.2 L (36.0-46.0) % MCV 91.9 (80.0-98.0) fL MCH 28.7 (27.0-32.0) pg MCHC 31.2 (31.0-37.0) g/dL RDW Std Deviation 51.1 (28.0-62.0) fl RDW Coeff of Luke 16 H (11.0-15.0) % Plt Count 249 (150-400) K/uL MPV 10.70 (7.40-12.00) fL Add Manual Diff YES Neutrophils % (Manual) 76 (48.0-80.0) % Band Neutrophils % 2 % Lymphocytes % (Manual) 9 L (16.0-40.0) % Monocytes % (Manual) 10 (0.0-15.0) % Eosinophils % (Manual) 3 (0.0-7.0) % Absolute Seg Neuts 3.7 (1.4-5.7) Band Neutrophils # 0.1 Lymphocytes # (Manual) 0.4 L (0.6-2.4) Monocytes # (Manual) 0.5 (0.0-0.8) Eosinophils # (Manual) 0.1 (0.0-0.7) Sodium 139 (136-145) mmol/L Potassium 3.2 L (3.5-5.1) mmol/L Chloride 98 (98-107) mmol/L Carbon Dioxide 37.0 H (21.0-32.0) mmol/L BUN 18 (7.0-18.0) mg/dL Creatinine 0.8 (0.6-1.0) mg/dL Est Cr Clr Drug Dosing TNP Estimated GFR (MDRD) > 60.0 ml/min Glucose 90 (74-106) mg/dL Calcium 7.2 L (8.5-10.1) mg/dL Med Orders - Current: Current Medications Acetaminophen (Tylenol) 650 mg PO Q6H PRN PRN Reason: Pain Albuterol/Ipratropium (Combivent Respimat) 0 gm INH Q6HR PRN PRN Reason: Shortness of Breath Last Admin: 03/28/20 13:06 Dose: 1 puff Documented by: Alprazolam (Xanax) 0.25 mg PO Q8H PRN PRN Reason: Anxiety Last Admin: 03/28/20 18:41 Dose: 0.25 mg Documented by: Apixaban (Eliquis) 2.5 mg PO BID [facility] Last Admin: 03/29/20 10:04 Dose: 2.5 mg Documented by: Aspirin (Halfprin) 81 mg PO DAILY [facility] Last Admin: 03/29/20 10:00 Dose: 81 mg Documented by: Diltiazem HCl (Cardizem Cd) 120 mg PO DAILY [facility] Last Admin: 03/28/20 15:58 Dose: 120 mg Documented by: Furosemide (Lasix) 40 mg IVPUSH BID [facility] Last Admin: 03/29/20 09:48 Dose: 40 mg Documented by: Levofloxacin/Dextrose 750 mg/ (Premix) 150 mls @ 100 mls/hr IV Q24H [facility] Last Admin: 03/28/20 23:02 Dose: 100 mls/hr Documented by: Magnesium Oxide (Magnesium Oxide) 400 mg PO DAILY [facility] Last Admin: 03/29/20 10:03 Dose: 400 mg Documented by: Metoprolol Tartrate (Lopressor) 12.5 mg PO DAILY [facility] Last Admin: 03/29/20 10:01 Dose: 12.5 mg Documented by: Ondansetron HCl (Zofran Odt) 4 mg PO Q4H PRN PRN Reason: Nausea/Vomiting Last Admin: 03/28/20 18:32 Dose: 4 mg Documented by: Brimonidine 0.2% Ophth Soln 5 Ml Bottle 1 each EYERT BID [facility] Last Admin: 03/29/20 10:05 Dose: 1 each Documented by: Dorzolamide/Timolol 2%-0.5% Ophth Soln 10 Ml Bottle 1 each EYERT BID [facility] Last Admin: 03/29/20 10:06 Dose: 1 each Documented by: Sodium Chloride (Saline Flush) 10 ml FLUSH ASDIRECTED PRN PRN Reason: Keep Vein Open Sodium Chloride (Saline Flush) 2.5 ml FLUSH ASDIRECTED PRN PRN Reason: Keep Vein Open Discontinued Medications Alprazolam (Xanax) 0.5 mg PO NOW ONE Stop: 03/27/20 20:59 Last Admin: 03/27/20 21:09 Dose: 0.5 mg Documented by: Brimonidine Tartrate (Alphagan 0.2% Ophth Soln) 0 ml EYERT BID [facility] Last Admin: 03/28/20 10:14 Dose: Not Given Documented by: Digoxin (Lanoxin) 250 mcg IVPUSH ONETIME ONE Stop: 03/28/20 19:00 Last Admin: 03/28/20 19:26 Dose: 250 mcg Documented by: Dorzolamide/Timolol (Cosopt 2%-0.5% Ophth Soln) 0 ml EYERT BID [facility] Last Admin: 03/28/20 10:14 Dose: Not Given Documented by: Furosemide (Lasix) 40 mg IVPUSH NOW ONE Stop: 03/27/20 21:04 Last Admin: 03/27/20 21:09 Dose: 40 mg Documented by: Magnesium Sulfate 2 gm/ Premix 50 mls @ 50 mls/hr IV ONETIME ONE Stop: 03/27/20 23:48 Last Admin: 03/27/20 23:02 Dose: 50 mls/hr Documented by: Iopamidol (Isovue-370 (76%)) 100 ml IVPUSH ONETIME ONE Stop: 03/27/20 20:56 Last Admin: 03/27/20 20:55 Dose: 100 ml Documented by: Potassium Chloride (Klor-Con M20) 40 meq PO ONETIME ONE Stop: 03/29/20 10:46
[2020-03-29 10:58] VITALS: PULSE 80
[2020-03-29] MEDS: Diltiazem 120 MG Cap.CD PO SCH (11:20)
[2020-03-29] MEDS: Ondansetron 4 MG Tab.DIS PO PRN (12:45)
[2020-03-29 13:24] VITALS: BP 86/54
== END 2020-03-29 14:40 | disposition home or self-care (01) | DRG 291 ==
LOC: MW.ED 18:39 → MW.MS 21:23
PROVIDERS: ADMIT Internal Medicine; ATTEND Internal Medicine
DX: I11.0 Hypertensive heart disease with heart failure (principal); J18.9 Pneumonia, unspecified organism; J44.0 Chronic obstructive pulmonary disease with (acute) lower respiratory infection; I50.9 Heart failure, unspecified; I48.91 Unspecified atrial fibrillation; I25.10 Atherosclerotic heart disease of native coronary artery without angina pectoris; H35.30 Unspecified macular degeneration; F41.0 Panic disorder [episodic paroxysmal anxiety]; Z20.828 Contact with and (suspected) exposure to other viral communicable diseases; D64.9 Anemia, unspecified; J44.9 Chronic obstructive pulmonary disease, unspecified; E86.0 Dehydration; Z99.81 Dependence on supplemental oxygen; Z85.42 Personal history of malignant neoplasm of other parts of uterus; Z79.01 Long term (current) use of anticoagulants; Z98.49 Cataract extraction status, unspecified eye; Z90.710 Acquired absence of both cervix and uterus; Z85.118 Personal history of other malignant neoplasm of bronchus and lung; Z88.5 Allergy status to narcotic agent; Z88.8 Allergy status to other drugs, medicaments and biological substances; Z79.82 Long term (current) use of aspirin; Z79.899 Other long term (current) drug therapy; I25.2 Old myocardial infarction; Z95.5 Presence of coronary angioplasty implant and graft; Z86.73 Personal history of transient ischemic attack (TIA), and cerebral infarction without residual deficits
CPT/HCPCS: 36415; 36600; 71045; 71275; 80053; 82803; 83735; 83880; 84443; 84484; 85025; 85379; 86850; 86900; 86901; 93005; A9270; J1940; Q9967; U0002; 80048; 81003; 96374; 99284; 99285-25; J1160; J1956; J3475

== ENCOUNTER 2020-03-31 11:09 | Inpatient (IN) | payer MEDICARE, OTHER ==
[2020-03-31] MEDS ORDERED: Sodium Chloride 0.9% 10 ML Syringe FLUSH PRN (11:15)
[2020-03-31] MEDS ORDERED: Sodium Chloride 0.9% 2.5 ML Syringe FLUSH PRN (11:15)
--- NOTE | 2020-03-31 11:20 | EDM.PDOC ---
ED HPI GENERAL MEDICAL PROBLEM - General Chief Complaint: Respiratory Problem Stated Complaint: WATER IN LUNGS Time Seen by Provider: 03/31/20 11:15 Source of Information: Reports: Patient, Old Records History Limitations: Reports: No Limitations - History of Present Illness INITIAL COMMENTS - FREE TEXT/NARRATIVE: 85-year-old female past medical history congestive heart failure, lung cancer on immunotherapy through the [facility], oxygen dependence, CVA, atrial fibrillation on apixaban, COPD, GERD, CAD status post stenting, NSTEMI presenting with shortness of breath. Recent hospitalization and discharge for CHF exacerbation. During that hospitalization she was found to have bilateral pleural effusions, pulmonary edema, and possible right lung consolidation. Today she presents back to the emergency department complaining of worsening shortness of breath since leaving the hospital along with a dry cough for the past several days. She denies any fever, nausea, vomiting, diarrhea, chest discomfort, or any pain. ROS: A 10-point review of systems was negative, except as noted in the HPI (or in the ROS section of this note). Past medical history: Reviewed, no additional pertinent history. Surgical history: Reviewed in system, no additional pertinent history. Social history: Reviewed in system, no additional pertinent history. Family history: Reviewed in system, no additional pertinent history. PHYSICAL EXAM Vital signs reviewed. Nursing notes reviewed. Constitutional: Awake, alert, non-distressed. Cachectic appearing woman. Head: Normocephalic, atraumatic. Eyes: EOMI, conjunctiva normal, no discharge, no scleral icterus. Ears, Nose, Throat: External ears and nose normal, moist oral mucosa. Cardiovascular: 2+ radial pulse, capillary refill less than 2 seconds. RRR no MRG. Medication port implanted in right chest. 1+ edema of the bilateral lower extremities. Pulmonary: Diminished lung sounds in the bases, normal work of breathing, no accessory muscle use. Speaking in full sentences. Abdomen/GI: Soft, nontender, nondistended, no guarding or rigidity, no masses. Musculoskeletal: No deformities. Integumentary: Appropriate color for ethnicity, warm, dry, no pallor or jaundice, no rash. Large area of ecchymosis involving the right wrist and forearm. Neurologic: Alert, answering questions appropriately, normal speech, no facial droop, moving all extremities well. Psychiatric: Appropriate mood and affect, normal thought process. - Related Data Allergies Allergy/AdvReac Type Severity Reaction Status Date / Time codeine Allergy Delusions Verified 03/31/20 11:36 lorazepam [From Ativan] Allergy Delusions Verified 03/31/20 11:36 meperidine [From Demerol] Allergy Delusions Verified 03/31/20 11:36 Home Meds: Home Meds Dorzolamide/Timolol [Cosopt 2%-0.5% Ophth Soln] 1 drop EYERT BID 05/28/16 [History] Omeprazole 40 mg PO ACBREAKFAST 05/28/16 [History] Sertraline HCl 150 mg PO DAILY 05/28/16 [History] Brimonidine [Alphagan 0.2% Ophth Soln] 1 drop EYERT BID 10/20/18 [History] Metoprolol Tartrate 12.5 mg PO DAILY 11/01/18 [History] Albuterol/Ipratropium [Combivent Respimat] 1 puff INH Q6HR PRN 08/23/19 [History] Apixaban [Eliquis] 2.5 mg PO BID 08/23/19 [History] Furosemide [Lasix] 40 mg PO DAILY 08/23/19 [History] Mirtazapine 15 mg PO BEDTIME 02/08/20 [History] traZODone HCl [Trazodone HCl] 50 mg PO BEDTIME PRN 02/08/20 [History] Albuterol Sulfate [Albuterol Sulfate Hfa] 2 puff INH Q4HRRT PRN 03/28/20 [History] Fluticasone/Umeclidin/Vilanter [Trelegy Ellipta 100-62.5-25 MCG] 1 puff INH DAILY 03/28/20 [History] Latanoprost/Pf [Latanoprost 0.005% Eye Drop] 1 drop EYEBOTH BEDTIME 03/28/20 [History] Potassium Chloride 40 meq PO BID 03/28/20 [History] dilTIAZem HCL [Diltiazem 24Hr ER] 120 mg PO DAILY 03/28/20 [History] Past Medical History HEENT History: Reports: Cataract Other HEENT History: Macular Degeneration Cardiovascular History: Reports: Afib, Angina, CAD, Heart Failure, Hypertension, [place], Stents Respiratory History: Reports: COPD Other Respiratory History: hx of smoker, on home 02 at 2 liters/min; Lung CA Gastrointestinal History: Reports: Other (See Below) Other Gastrointestinal History: short bowel syndrom 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 History: Reports: None SALES LEAD 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: Reports: Musculoskeletal History: Reports: None Neurological History: Reports: TIA Psychiatric History: Reports: Panic Attack Endocrine/Metabolic History: Reports: None Hematologic History: Reports: Anticoagulation Therapy Immunologic History: Reports: None Oncologic (Cancer) History: Reports: Lung, Uterine Other Oncologic History: unsure of type of cancer, but has a 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 Respiratory Surgical History: Reports: Lung Resection GI Surgical History: Reports: Small Bowel Female Surgical History: Reports: Hysterectomy Neurological Surgical History: Reports: None Oncologic Surgical History: Reports: None Social & Family History - Family History Family Medical History: Noncontributory Cardiac: Reports: Afib, [place] Hematologic: Reports: Anemia - Caffeine Use Caffeine Use: Reports: None Caffeine Use Comment: Drinks decaf, about 6 cups a day. - Living Situation & Occupation Living situation: Reports: Occupation: Retired ED ROS GENERAL - Review of Systems Review Of Systems: See Below ED EXAM, GENERAL - Physical Exam Exam: See Below ED ULTRASOUND - Cardiac Indication: possible pericardial effusion Exam type: focused transthoracic Findings: normal wall motion, abnormal wall motion, other Impression: normal exam, cardiac activity Images archived: No Cardiac US Text: Decreased LVEF, no pericardial/pleural pleural effusion, no septal bowing. EKG INTERPRETATION EKG Interpretation Comments: 12-Lead ECG Interpretation Acquired: 12:27 PM Rhythm: Sinus rhythm Rate: 87 bpm [place]: Normal Intervals: Normal Ectopy: Lone PAC, lone PVC Ischemic Changes: New T wave inversions in II, III, aVF, V3 through V6. New ST segment depression in V3 through V5, less than 1 mm and nondiagnostic. RV Strain: No obvious RV strain pattern. Interpretation: Abnormal Course - Vital Signs Text/Narrative:: 85-year-old female presenting with shortness of breath and chills. Differential diagnosis includes but is not limited to: Sepsis, CHF, ACS, PE, pneumonia, pneumothorax, asthma exacerbation, COPD exacerbation, pleural effusion, pericardial effusion, pericarditis, viral URI, influenza, bronchitis, airway foreign body, anxiety state, and many others. Labs show stable anemia with hemoglobin 9.1. INR normal. Venous blood gas shows a compensated chronic respiratory acidosis. Electrolytes show elevated carbon dioxide. Troponin within normal limits. BNP elevated at 669. Chest imaging shows increase in pulmonary edema, slightly larger left-sided pleural effusion, otherwise no acute infiltrates and no evidence of pulmonary embolism. No objective evidence of myocardial ischemia at this point. Low suspicion for sepsis, no new radiographic infiltrates to suggest pneumonia. Given a dose of furosemide IV and full-dose aspirin. We will plan to admit to the hospital on observation status for mild CHF exacerbation and abnormal ECG findings with new T wave inversions and new ST depression in several leads. Low suspicion for acute coronary syndrome given lack of chest discomfort and negative troponin with 36 to 48 hours of symptoms. I spoke to the hospitalist Dr. Rodo Mena who agrees to admit to observation. Last Recorded V/S: Last Vital Signs Temp 35.9 C L 03/31/20 11:21 Pulse 74 03/31/20 11:21 Resp 18 03/31/20 11:21 BP 90/64 03/31/20 11:21 Pulse Ox 92 L 03/31/20 11:21 - Orders/Labs/Meds Orders: Active Orders 24 hr Category Date Time Status Admission Status [Patient Status] [ADT] Stat ADT 03/31/20 14:01 Active Cardiac Monitoring [RC] . DIRECTED Care 03/31/20 11:15 Active EKG 12 Lead [EKG Documentation Completion] [RC] STAT Care 03/31/20 11:16 Active Pulse Oximetry [RC] ASDIRECTED Care 03/31/20 11:15 Active CULTURE BLOOD [BC] Stat Lab 03/31/20 12:02 Received CULTURE BLOOD [BC] Stat Lab 03/31/20 12:32 Received Aspirin Med 03/31/20 14:05 Once 324 mg PO ONETIME ONE Sodium Chloride 0.9% [Saline Flush] Med 03/31/20 11:15 Active 10 ml FLUSH ASDIRECTED PRN Sodium Chloride 0.9% [Saline Flush] Med 03/31/20 11:15 Active 2.5 ml FLUSH ASDIRECTED PRN Blood Culture x2 Reflex Set [OM.PC] Stat Ot 03/31/20 11:35 Ordered Saline Lock Insert [OM.PC] Stat Ot 03/31/20 11:16 Ordered Medication Orders Sodium Chloride (Saline Flush) 2.5 ml FLUSH ASDIRECTED PRN PRN Reason: Keep Vein Open Last Admin: 03/31/20 12:13 Dose: 2.5 ml Documented by: KELTON Sodium Chloride (Saline Flush) 10 ml FLUSH ASDIRECTED PRN PRN Reason: Keep Vein Open Last Admin: 03/31/20 12:12 Dose: 10 ml Documented by: KELTON Labs: Laboratory Tests 03/31/20 03/31/20 03/31/20 Range/Units 12:02 12:02 12:02 WBC 5.17 (4.0-11.0) K/uL RBC 3.21 L (4.30-5.90) M/uL Hgb 9.1 L (12.0-16.0) g/dL Hct 30.0 L (36.0-46.0) % MCV 93.5 (80.0-98.0) fL MCH 28.3 (27.0-32.0) pg MCHC 30.3 L (31.0-37.0) g/dL RDW Std Deviation 55.8 (28.0-62.0) fl RDW Coeff of Luke 16 H (11.0-15.0) % Plt Count 281 (150-400) K/uL MPV 10.20 (7.40-12.00) fL Neut % (Auto) 72.9 (48.0-80.0) % Lymph % (Auto) 6.6 L (16.0-40.0) % [place] % (Auto) 17.8 H (0.0-15.0) % Eos % (Auto) 2.5 (0.0-7.0) % Baso % (Auto) 0.2 (0.0-1.5) % Neut # (Auto) 3.8 (1.4-5.7) K/uL Lymph # (Auto) 0.3 L (0.6-2.4) K/uL [place] # (Auto) 0.9 H (0.0-0.8) K/uL Eos # (Auto) 0.1 (0.0-0.7) K/uL Baso # (Auto) 0.0 (0.0-0.1) K/uL Nucleated RBC % 0.0 /100WBC Nucleated RBCs # 0 K/uL INR VBG pH (7.31-7.41) VBG pCO2 (35-45) mmHG VBG pO2 (30-40) mmHG VBG HCO3 (22-30) mEq/L VBG Total CO2 (41-51) mmol/L VBG Base Excess (-3.0-3.0) Lactate (0.20-2.00) mmol/L Sodium 137 (136-145) mmol/L Potassium 4.3 (3.5-5.1) mmol/L Chloride 99 (98-107) mmol/L Carbon Dioxide 34.8 H (21.0-32.0) mmol/L BUN 29 H (7.0-18.0) mg/dL Creatinine 0.8 (0.6-1.0) mg/dL Est Cr Clr Drug Dosing 36.81 mL/min Estimated GFR (MDRD) > 60.0 ml/min Glucose 98 (74-106) mg/dL Calcium 7.9 L (8.5-10.1) mg/dL Total Bilirubin 0.3 (0.2-1.0) mg/dL AST 23 (15-37) IU/L ALT 26 (14-63) IU/L Alkaline Phosphatase 100 (46-116) U/L Troponin I < 0.050 (0.000-0.056) ng/mL B-Natriuretic Peptide 669 H (<100) PG/ML Total Protein 6.1 L (6.4-8.2) g/dL Albumin 3.0 L (3.4-5.0) g/dL Globulin 3.1 (2.6-4.0) g/dL Albumin/Globulin Ratio 1.0 (0.9-1.6) 09/03/31/20 03/31/20 Range/Units 12:02 12:02 12:02 WBC (4.0-11.0) K/uL RBC (4.30-5.90) M/uL Hgb (12.0-16.0) g/dL Hct (36.0-46.0) % MCV (80.0-98.0) fL MCH (27.0-32.0) pg MCHC (31.0-37.0) g/dL RDW Std Deviation (28.0-62.0) fl RDW Coeff of Luke (11.0-15.0) % Plt Count (150-400) K/uL MPV (7.40-12.00) fL Neut % (Auto) (48.0-80.0) % Lymph % (Auto) (16.0-40.0) % [place] % (Auto) (0.0-15.0) % Eos % (Auto) (0.0-7.0) % Baso % (Auto) (0.0-1.5) % Neut # (Auto) (1.4-5.7) K/uL Lymph # (Auto) (0.6-2.4) K/uL [place] # (Auto) (0.0-0.8) K/uL Eos # (Auto) (0.0-0.7) K/uL Baso # (Auto) (0.0-0.1) K/uL Nucleated RBC % /100WBC Nucleated RBCs # K/uL INR 1.18 VBG pH 7.38 (7.31-7.41) VBG pCO2 59 H (35-45) mmHG VBG pO2 40 (30-40) mmHG VBG HCO3 35 H (22-30) mEq/L VBG Total CO2 33 L (41-51) mmol/L VBG Base Excess 8.5 H (-3.0-3.0) Lactate 0.7 (0.20-2.00) mmol/L Sodium (136-145) mmol/L Potassium (3.5-5.1) mmol/L Chloride (98-107) mmol/L Carbon Dioxide (21.0-32.0) mmol/L BUN (7.0-18.0) mg/dL Creatinine (0.6-1.0) mg/dL Est Cr Clr Drug Dosing mL/min Estimated GFR (MDRD) ml/min Glucose (74-106) mg/dL Calcium (8.5-10.1) mg/dL Total Bilirubin (0.2-1.0) mg/dL AST (15-37) IU/L ALT (14-63) IU/L Alkaline Phosphatase (46-116) U/L Troponin I (0.000-0.056) ng/mL B-Natriuretic Peptide (<100) PG/ML Total Protein (6.4-8.2) g/dL Albumin (3.4-5.0) g/dL Globulin (2.6-4.0) g/dL Albumin/Globulin Ratio (0.9-1.6) Meds: Medications Generic Name Dose Route Start Last Admin Trade Name Freq PRN Reason Stop Dose Admin Sodium Chloride 2.5 ml 03/31/20 11:15 03/31/20 12:13 Saline Flush FLUSH 2.5 ml ASDIRECTED PRN Administration Keep Vein Open Sodium Chloride 10 ml 03/31/20 11:15 03/31/20 12:12 Saline Flush FLUSH 10 ml ASDIRECTED PRN Administration Keep Vein Open Discontinued Medications Generic Name Dose Route Start Last Admin Trade Name Freq PRN Reason Stop Dose Admin Aspirin 324 mg 03/31/20 14:05 Aspirin PO 03/31/20 14:06 ONETIME ONE Furosemide 40 mg 03/31/20 13:56 Lasix IVPUSH 03/31/20 13:57 NOW ONE Departure - Departure Time of Disposition: 14:03 Disposition: Refer to Observation Condition: Good Clinical Impression: Abnormal ECG CHF exacerbation Qualifiers: Heart failure type: unspecified Qualified Code(s): I50.9 - Heart failure, unspecified - Discharge Information Referrals: Mark Espana MD [Primary Care Provider] - Forms: ED Department Discharge Sepsis Event Note (ED) - Focused Exam Vital Signs: Vital Signs Temp Pulse Resp BP Pulse Ox 03/31/20 11:21 35.9 C L 74 18 90/64 92 L - My Orders Last 24 Hours: My Active Orders 03/31/20 11:15 Cardiac Monitoring [RC] . DIRECTED Pulse Oximetry [RC] ASDIRECTED Sodium Chloride 0.9% [Saline Flush] 10 ml FLUSH ASDIRECTED PRN Sodium Chloride 0.9% [Saline Flush] 2.5 ml FLUSH ASDIRECTED PRN 03/31/20 11:16 EKG 12 Lead [EKG Documentation Completion] [RC] STAT Saline Lock Insert [OM.PC] Stat 03/31/20 11:35 Blood Culture x2 Reflex Set [OM.PC] Stat 03/31/20 12:02 CULTURE BLOOD [BC] Stat 03/31/20 12:32 CULTURE BLOOD [BC] Stat 03/31/20 14:01 Admission Status [Patient Status] [ADT] Stat 03/31/20 14:05 Aspirin 324 mg PO ONETIME ONE - Assessment/Plan Last 24 Hours: My Active Orders 03/31/20 11:15 Cardiac Monitoring [RC] . DIRECTED Pulse Oximetry [RC] ASDIRECTED Sodium Chloride 0.9% [Saline Flush] 10 ml FLUSH ASDIRECTED PRN Sodium Chloride 0.9% [Saline Flush] 2.5 ml FLUSH ASDIRECTED PRN 03/31/20 11:16 EKG 12 Lead [EKG Documentation Completion] [RC] STAT Saline Lock Insert [OM.PC] Stat 03/31/20 11:35 Blood Culture x2 Reflex Set [OM.PC] Stat 03/31/20 12:02 CULTURE BLOOD [BC] Stat 03/31/20 12:32 CULTURE BLOOD [BC] Stat 03/31/20 14:01 Admission Status [Patient Status] [ADT] Stat 03/31/20 14:05 Aspirin 324 mg PO ONETIME ONE
[2020-03-31 12:49] LABS: BLOOD UREA NITROGEN,BUN 29 mg/dL (7.0-18.0); CARBON DIOXIDE,CO2 34.8 mmol/L (21.0-32.0); CHLORIDE,CL 99 mmol/L (98-107); GLUCOSE RANDOM 98 mg/dL (74-106); POTASSIUM,K 4.3 mmol/L (3.5-5.1); SODIUM,NA 137 mmol/L (136-145)
--- NOTE | 2020-03-31 13:25 | CR ---
Chest: 2 views of the chest were obtained. Comparison: Prior chest CT study of 03/27/20 and chest x-ray also performed on 03/27/20. Findings: Heart size at the upper limits normal. Bilateral pleural effusions are seen slightly larger on the left side. Chronic parenchymal change is noted within the left upper chest with pleural thickening. Pulmonary vessels are congested. Right-sided infusion port is seen. Bony structures are grossly intact. Impression: 1. Findings suspicious for continuing CHF. 2. Scarring and pleural thickening with left upper chest which is stable. 3. Other findings as noted above. Diagnostic code #3 This report was dictated in MDT
--- NOTE | 2020-03-31 13:48 | CT ---
CT chest Technique: Multiple axial sections through the chest were obtained. Intravenous contrast was utilized. Study has been performed as a pulmonary angiogram protocol. Comparison: Prior CT chest study of 03/27/20. Findings: Pulmonary arteries are well-opacified. No filling defects are seen to indicate pulmonary embolism. Aorta shows atherosclerotic calcification without aneurysm. Chronic parenchymal change within the left upper chest is seen. Small left-sided pleural effusion with trace right-sided pleural effusion. There is increased density within the posterior right lung base being seen. This finding is stable from prior exam. Atelectasis within the left lung base is seen which is stable. Hazy groundglass appearance is seen possibly due to pulmonary vascular congestion. Emphysematous changes are noted throughout both lungs. Visualized upper abdominal structures showed nothing acute. Heart is slightly enlarged with no pericardial effusion. Coronary artery calcification is noted. Bone window settings were reviewed Impression: 1. Hazy groundglass appearance superimposed upon emphysematous change possibly due to pulmonary vascular congestion. 2. Small left-sided pleural effusion is seen which has slightly increased in amount from previous exam. Trace right-sided pleural effusion is seen. 3. Areas of consolidation within the right lung base unchanged from prior study. 4. Chronic left upper lung scarring and pleural thickening. 5. Other findings as noted above. No findings of pulmonary embolism are seen. Diagnostic code #3 This report was dictated in MDT
[2020-03-31] MEDS ORDERED: Furosemide 40 MG/4 ML VIAL IVPUSH ONE (13:56)
[2020-03-31] MEDS ORDERED: Aspirin 81 MG Tab.Chew PO ONE (14:05)
[2020-03-31] MEDS ORDERED: Iopamidol 755 MG/ML 500 ML Multipack Bottle IVPUSH STA (14:40)
--- NOTE | 2020-03-31 16:46 | PCM.HP.2 ---
H&P History of Present Illness - General Date of Service: 03/31/20 Admit Problem/Dx: Admission Diagnosis/Problem Admission Diagnosis/Problem CHF, Congestive heart failure - History of Present Illness Initial Comments - Free Text/Narative: 85 yr old female admitted for CHF exacerbation. Patient states that she was having SOB and a dry cough prior to admission but cannot recall an changes to her medications, diet or lifestyle. Patient was recently discharged form the hospital for an episode of CHF exacerbation. Patients daughter states that the patient was sleeping overnight with humidified oxygen via nasal canula and this morning there was allot of moisture in the canula tubing as well as moisture seeping out of the patients nose. Patient has a PMH of CHF, lung cancer, atrial fibrillation on apixaban, COPD, GERD, CAD status post stenting. - Related Data Allergies/Adverse Reactions: Allergies Allergy/AdvReac Type Severity Reaction Status Date / Time codeine Allergy Delusions Verified 03/31/20 11:36 lorazepam [From Ativan] Allergy Delusions Verified 03/31/20 11:36 meperidine [From Demerol] Allergy Delusions Verified 03/31/20 11:36 Home Medications: Home Meds Dorzolamide/Timolol [Cosopt 2%-0.5% Ophth Soln] 1 drop EYERT BID 05/28/16 [History] Omeprazole 40 mg PO ACBREAKFAST 05/28/16 [History] Sertraline HCl 150 mg PO DAILY 05/28/16 [History] Brimonidine [Alphagan 0.2% Ophth Soln] 1 drop EYERT BID 10/20/18 [History] Metoprolol Tartrate 12.5 mg PO DAILY 11/01/18 [History] Albuterol/Ipratropium [Combivent Respimat] 1 puff INH Q6HR PRN 08/23/19 [History] Apixaban [Eliquis] 2.5 mg PO BID 08/23/19 [History] Furosemide [Lasix] 40 mg PO DAILY 08/23/19 [History] Mirtazapine 15 mg PO BEDTIME 02/08/20 [History] traZODone HCl [Trazodone HCl] 50 mg PO BEDTIME PRN 02/08/20 [History] Albuterol Sulfate [Albuterol Sulfate Hfa] 2 puff INH Q4HRRT PRN 03/28/20 [History] Fluticasone/Umeclidin/Vilanter [Trelegy Ellipta 100-62.5-25 MCG] 1 puff INH DAILY 03/28/20 [History] Latanoprost/Pf [Latanoprost 0.005% Eye Drop] 1 drop EYEBOTH BEDTIME 03/28/20 [History] Potassium Chloride 40 meq PO BID 03/28/20 [History] dilTIAZem HCL [Diltiazem 24Hr ER] 120 mg PO DAILY 03/28/20 [History] Past Medical History HEENT History: Reports: Cataract Other HEENT History: Macular Degeneration Cardiovascular History: Reports: Afib, Angina, CAD, Heart Failure, Hypertension, [place], Stents Respiratory History: Reports: COPD Other Respiratory History: hx of smoker, on home 02 at 2 liters/min; Lung CA Gastrointestinal History: Reports: Other (See Below) Other Gastrointestinal History: short bowel syndrom 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 History: Reports: None [employer]AMPUS RECEPTIONIST History: Reports: Musculoskeletal History: Reports: None Neurological History: Reports: TIA Psychiatric History: Reports: Panic Attack Endocrine/Metabolic History: Reports: None Hematologic History: Reports: Anticoagulation Therapy Immunologic History: Reports: None Oncologic (Cancer) History: Reports: Lung, Uterine Other Oncologic History: unsure of type of cancer, but 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 Respiratory Surgical History: Reports: Lung Resection GI Surgical History: Reports: Small Bowel Female Surgical History: Reports: Hysterectomy Neurological Surgical History: Reports: None Oncologic Surgical History: Reports: None Social & Family History - Family History Family Medical History: Noncontributory Cardiac: Reports: Afib, [place] Hematologic: Reports: Anemia - Tobacco Use Smoking Status *Q: Former Smoker Used Tobacco, but Quit: Yes Month/Year Tobacco Last Used: 20 years ago - Caffeine Use Caffeine Use: Reports: None Caffeine Use Comment: Drinks decaf, about 6 cups a day. - Recreational Drug Use Recreational Drug Use: No - Living Situation & Occupation Living situation: Reports: Occupation: Retired H&P Review of Systems - Review of Systems: Review Of Systems: See Below General: Denies: Fever, Chills, Weakness HEENT: Denies: Headaches Pulmonary: Reports: Shortness of Breath, Cough. Denies: Wheezing, Pleuritic Chest Pain Cardiovascular: Reports: Dyspnea on Exertion. Denies: Chest Pain, Palpitations, Edema Gastrointestinal: Denies: Abdominal Pain, Diarrhea, Nausea, Vomiting Psychiatric: Denies: Confusion Neurological: Denies: Confusion, Dizziness, Headache, Trouble Speaking Exam - Exam Exam: See Below - Vital Signs Vital Signs: Last Vital Signs Temp 98 F 03/31/20 15:26 Pulse 78 03/31/20 15:26 Resp 24 H 03/31/20 14:27 BP 98/56 L 03/31/20 15: Pulse Ox 96 03/31/20 15: Weight: 100 lb - Exam General: Alert, Oriented HEENT: EOMI, Mucosa Moist & [place] Lungs: Clear to Auscultation, Normal Respiratory Effort, Crackles (lower lobes bilaterally, greater in the right). No: Wheezing Cardiovascular: Regular Rate, Irregular Rhythm GI/Abdominal Exam: Soft, Non-Tender, No Distention Extremities: Non-Tender, No Pedal Edema Neuro Extensive - Mental Status: Alert, Oriented x3 - Patient Data Lab Results Last 24 hrs: Laboratory Results - last 24 hr 03/31/20 03/31/20 03/31/20 Range/Units 12:02 12:02 12:02 WBC 5.17 (4.0-11.0) K/uL RBC 3.21 L (4.30-5.90) M/uL Hgb 9.1 L (12.0-16.0) g/dL Hct 30.0 L (36.0-46.0) % MCV 93.5 (80.0-98.0) fL MCH 28.3 (27.0-32.0) pg MCHC 30.3 L (31.0-37.0) g/dL RDW Std Deviation 55.8 (28.0-62.0) fl RDW Coeff of Luke 16 H (11.0-15.0) % Plt Count 281 (150-400) K/uL MPV 10.20 (7.40-12.00) fL Neut % (Auto) 72.9 (48.0-80.0) % Lymph % (Auto) 6.6 L (16.0-40.0) % [place] % (Auto) 17.8 H (0.0-15.0) % Eos % (Auto) 2.5 (0.0-7.0) % Baso % (Auto) 0.2 (0.0-1.5) % Neut # (Auto) 3.8 (1.4-5.7) K/uL Lymph # (Auto) 0.3 L (0.6-2.4) K/uL [place] # (Auto) 0.9 H (0.0-0.8) K/uL Eos # (Auto) 0.1 (0.0-0.7) K/uL Baso # (Auto) 0.0 (0.0-0.1) K/uL Nucleated RBC % 0.0 /100WBC Nucleated RBCs # 0 K/uL INR VBG pH (7.31-7.41) VBG pCO2 (35-45) mmHG VBG pO2 (30-40) mmHG VBG HCO3 (22-30) mEq/L VBG Total CO2 (41-51) mmol/L VBG Base Excess (-3.0-3.0) Lactate (0.20-2.00) mmol/L Sodium 137 (136-145) mmol/L Potassium 4.3 (3.5-5.1) mmol/L Chloride 99 (98-107) mmol/L Carbon Dioxide 34.8 H (21.0-32.0) mmol/L BUN 29 H (7.0-18.0) mg/dL Creatinine 0.8 (0.6-1.0) mg/dL Est Cr Clr Drug Dosing 36.81 mL/min Estimated GFR (MDRD) > 60.0 ml/min Glucose 98 (74-106) mg/dL Calcium 7.9 L (8.5-10.1) mg/dL Total Bilirubin 0.3 (0.2-1.0) mg/dL AST 23 (15-37) IU/L ALT 26 (14-63) IU/L Alkaline Phosphatase 100 (46-116) U/L Troponin I < 0.050 (0.000-0.056) ng/mL B-Natriuretic Peptide 669 H (<100) PG/ML Total Protein 6.1 L (6.4-8.2) g/dL Albumin 3.0 L (3.4-5.0) g/dL Globulin 3.1 (2.6-4.0) g/dL Albumin/Globulin Ratio 1.0 (0.9-1.6) SARS-CoV-2 RNA (NAYAN) (NEGATIVE) 03/31/20 03/31/20 03/31/20 Range/Units 12:02 12:02 12:02 WBC (4.0-11.0) K/uL RBC (4.30-5.90) M/uL Hgb (12.0-16.0) g/dL Hct (36.0-46.0) % MCV (80.0-98.0) fL MCH (27.0-32.0) pg MCHC (31.0-37.0) g/dL RDW Std Deviation (28.0-62.0) fl RDW Coeff of Luke (11.0-15.0) % Plt Count (150-400) K/uL MPV (7.40-12.00) fL Neut % (Auto) (48.0-80.0) % Lymph % (Auto) (16.0-40.0) % [place] % (Auto) (0.0-15.0) % Eos % (Auto) (0.0-7.0) % Baso % (Auto) (0.0-1.5) % Neut # (Auto) (1.4-5.7) K/uL Lymph # (Auto) (0.6-2.4) K/uL [place] # (Auto) (0.0-0.8) K/uL Eos # (Auto) (0.0-0.7) K/uL Baso # (Auto) (0.0-0.1) K/uL Nucleated RBC % /100WBC Nucleated RBCs # K/uL INR 1.18 VBG pH 7.38 (7.31-7.41) VBG pCO2 59 H (35-45) mmHG VBG pO2 40 (30-40) mmHG VBG HCO3 35 H (22-30) mEq/L VBG Total CO2 33 L (41-51) mmol/L VBG Base Excess 8.5 H (-3.0-3.0) Lactate 0.7 (0.20-2.00) mmol/L Sodium (136-145) mmol/L Potassium (3.5-5.1) mmol/L Chloride (98-107) mmol/L Carbon Dioxide (21.0-32.0) mmol/L BUN (7.0-18.0) mg/dL Creatinine (0.6-1.0) mg/dL Est Cr Clr Drug Dosing mL/min Estimated GFR (MDRD) ml/min Glucose (74-106) mg/dL Calcium (8.5-10.1) mg/dL Total Bilirubin (0.2-1.0) mg/dL AST (15-37) IU/L ALT (14-63) IU/L Alkaline Phosphatase (46-116) U/L Troponin I (0.000-0.056) ng/mL B-Natriuretic Peptide (<100) PG/ML Total Protein (6.4-8.2) g/dL Albumin (3.4-5.0) g/dL Globulin (2.6-4.0) g/dL Albumin/Globulin Ratio (0.9-1.6) SARS-CoV-2 RNA (NAYAN) (NEGATIVE) 03/31/20 Range/Units 14:04 WBC (4.0-11.0) K/uL RBC (4.30-5.90) M/uL Hgb (12.0-16.0) g/dL Hct (36.0-46.0) % MCV (80.0-98.0) fL MCH (27.0-32.0) pg MCHC (31.0-37.0) g/dL RDW Std Deviation (28.0-62.0) fl RDW Coeff of Luke (11.0-15.0) % Plt Count (150-400) K/uL MPV (7.40-12.00) fL Neut % (Auto) (48.0-80.0) % Lymph % (Auto) (16.0-40.0) % [place] % (Auto) (0.0-15.0) % Eos % (Auto) (0.0-7.0) % Baso % (Auto) (0.0-1.5) % Neut # (Auto) (1.4-5.7) K/uL Lymph # (Auto) (0.6-2.4) K/uL [place] # (Auto) (0.0-0.8) K/uL Eos # (Auto) (0.0-0.7) K/uL Baso # (Auto) (0.0-0.1) K/uL Nucleated RBC % /100WBC Nucleated RBCs # K/uL INR VBG pH (7.31-7.41) VBG pCO2 (35-45) mmHG VBG pO2 (30-40) mmHG VBG HCO3 (22-30) mEq/L VBG Total CO2 (41-51) mmol/L VBG Base Excess (-3.0-3.0) Lactate (0.20-2.00) mmol/L Sodium (136-145) mmol/L Potassium (3.5-5.1) mmol/L Chloride (98-107) mmol/L Carbon Dioxide (21.0-32.0) mmol/L BUN (7.0-18.0) mg/dL Creatinine (0.6-1.0) mg/dL Est Cr Clr Drug Dosing mL/min Estimated GFR (MDRD) ml/min Glucose (74-106) mg/dL Calcium (8.5-10.1) mg/dL Total Bilirubin (0.2-1.0) mg/dL AST (15-37) IU/L ALT (14-63) IU/L Alkaline Phosphatase (46-116) U/L Troponin I (0.000-0.056) ng/mL B-Natriuretic Peptide (<100) PG/ML Total Protein (6.4-8.2) g/dL Albumin (3.4-5.0) g/dL Globulin (2.6-4.0) g/dL Albumin/Globulin Ratio (0.9-1.6) SARS-CoV-2 RNA (NAYAN) NEGATIVE (NEGATIVE) Result Diagrams: 03/31/20 12:02 03/31/20 12:02 Sepsis Event Note - Evaluation Sepsis Screening Result: No Definite Risk - Focused Exam Vital Signs: Vital Signs Temp Pulse Resp BP Pulse Ox 03/31/20 15:26 98 F 78 98/56 L 96 03/31/20 14:27 96.9 F 85 24 H 100/56 L 99 03/31/20 11:21 96.6 F L 74 18 90/64 92 L Problem List Initiated/Reviewed/Updated: Yes Orders Last 24hrs: Active Orders 24 hr Category Date Time Status Patient Status [ADT] Stat ADT 03/31/20 14:22 Active Oxygen Therapy [RC] PRN Care 03/31/20 15:57 Active Telemetry Monitoring [Cardiac Monitoring] [RC] . Care 03/31/20 15:56 Active DIRECTED VTE/DVT Education [RC] PER UNIT ROUTINE Care 03/31/20 15:57 Active Vital Signs [RC] Q4H Care 03/31/20 15:57 Active Weight Daily [Height and Weight] [RC] DAILY Care 03/31/20 15:56 Active Fluid Restriction [DIET] Diet 03/31/20 Dinner Active Sodium Restricted Diet [DIET] Diet 03/31/20 Dinner Active BASIC METABOLIC PANEL,BMP [CHEM] AM Lab 04/01/20 05:11 Ordered CBC WITH AUTO DIFF [HEME] AM Lab 04/01/20 05:11 Ordered CULTURE BLOOD [BC] Stat Lab 03/31/20 12:02 Received CULTURE BLOOD [BC] Stat Lab 03/31/20 12:32 Received MAGNESIUM [CHEM] AM Lab 04/01/20 05:11 Ordered Furosemide [Lasix] Med 03/31/20 18:00 Active 40 mg IVPUSH BID Sodium Chloride 0.9% [Saline Flush] Med 03/31/20 11:15 Active 10 ml FLUSH ASDIRECTED PRN Sodium Chloride 0.9% [Saline Flush] Med 03/31/20 11:15 Active 2.5 ml FLUSH ASDIRECTED PRN Blood Culture x2 Reflex Set [OM.PC] Stat Oth 03/31/20 11:35 Ordered Saline Lock Insert [OM.PC] Stat Oth 03/31/20 11:16 Ordered Medication Orders Furosemide (Lasix) 40 mg IVPUSH BID ANALILIA Sodium Chloride (Saline Flush) 2.5 ml FLUSH ASDIRECTED PRN PRN Reason: Keep Vein Open Last Admin: 03/31/20 12:13 Dose: 2.5 ml Documented by: KELTON Sodium Chloride (Saline Flush) 10 ml FLUSH ASDIRECTED PRN PRN Reason: Keep Vein Open Last Admin: 03/31/20 12:12 Dose: 10 ml Documented by: KELTON Assessment/Plan Comment:: Assessment/Plan: CHF exacerbation- Lasix IV 40mg BID (Will adjust based on urine output), Monitor AM BMP, 2g Low sodium diet, Telemetry, Daily weight, Strict I&O, Fluid restriction 1800ml A-Fib- Eliquis, Metoprolol
[2020-03-31] MEDS: Furosemide 40 MG/4 ML VIAL IVPUSH SCH ×2 (18:25→20:41)
[2020-03-31] MEDS: Apixaban 2.5 MG Tab PO SCH (20:41)
[2020-03-31] MEDS: DORZOLAMIDE EYERT SCH (23:14)
[2020-03-31] MEDS: TIMOLOL EYERT SCH (23:14)
[2020-04-01] MEDS ORDERED: Carboxymethylcellulose Sodium 0.5% Ophth Soln 0.4 ML UD Box of 30 EYERT PRN (01:11)
[2020-04-01] MEDS ORDERED: Acetaminophen 325 MG Tab PO PRN (01:12)
[2020-04-01 06:19] LABS: BLOOD UREA NITROGEN,BUN 30 mg/dL (7.0-18.0); CARBON DIOXIDE,CO2 38.3 mmol/L (21.0-32.0); CHLORIDE,CL 94 mmol/L (98-107); GLUCOSE RANDOM 112 mg/dL (74-106); POTASSIUM,K 3.7 mmol/L (3.5-5.1); SODIUM,NA 137 mmol/L (136-145)
[2020-04-01] MEDS: Omeprazole 20 MG Cap.CR PO SCH (07:40)
[2020-04-01] MEDS ORDERED: Magnesium Sulfate/Water 2 GM in Premix Bag 1 BAG IV ONE (08:06)
[2020-04-01] MEDS: Apixaban 2.5 MG Tab PO SCH ×2 (08:42→20:35)
[2020-04-01] MEDS: Sertraline 100 MG Tab PO SCH (08:43)
[2020-04-01] MEDS: Potassium Chloride 20 MEQ Tab.ER PO SCH ×2 (08:44→20:35)
[2020-04-01] MEDS: Furosemide 40 MG/4 ML VIAL IVPUSH SCH ×3 (08:49→21:48)
[2020-04-01] MEDS: DORZOLAMIDE EYERT SCH (08:51)
[2020-04-01] MEDS: TIMOLOL EYERT SCH (08:51)
[2020-04-01] MEDS ORDERED: Fluticasone/Umeclidin/Vilanter [Trelegy Ellipta 100-62.5-25 Mcg] INH SCH (09:00)
[2020-04-01] MEDS: Diltiazem 120 MG Cap.CD PO SCH (09:02)
[2020-04-01] MEDS: Metoprolol Tartrate 25 MG Tab PO SCH (09:03)
--- NOTE | 2020-04-01 11:23 | PCM.PN ---
- General Info Date of Service: 04/01/20 Subjective Update: Pt states that she is breathing easier today. Still complains of SOB especially while laying flat in bed. Denies chest pain, nausea. - Review of Systems General: Denies: Fever HEENT: Denies: Dysphasia, Headaches Pulmonary: Reports: Shortness of Breath. Denies: Pleuritic Chest Pain, Cough Cardiovascular: Reports: Orthopnea. Denies: Chest Pain, Palpitations, Dyspnea on Exertion Gastrointestinal: Denies: Abdominal Pain, Diarrhea, Nausea Musculoskeletal: Reports: Back Pain (lower right back pain) Neurological: Denies: Confusion, Dizziness, Numbness, Trouble Speaking - Patient Data Vitals - Most Recent: Last Vital Signs Temp 98.2 F 04/01/20 08:00 Pulse 74 04/01/20 09:03 Resp 20 04/01/20 08:00 BP 90/51 L 04/01/20 09:03 Pulse Ox 91 L 04/01/20 08:00 Weight - Most Recent: 100 lb I&O - Last 24 Hours: Intake & Output 03/31/20 04/01/20 04/01/20 22:59 06:59 14:59 Intake Total 1200 Output Total 2650 Balance -1450 Lab Results Last 24 Hours: Laboratory Results - last 24 hr 03/31/20 03/31/20 03/31/20 Range/Units 12:02 12:02 12:02 WBC 5.17 (4.0-11.0) K/uL RBC 3.21 L (4.30-5.90) M/uL Hgb 9.1 L (12.0-16.0) g/dL Hct 30.0 L (36.0-46.0) % MCV 93.5 (80.0-98.0) fL MCH 28.3 (27.0-32.0) pg MCHC 30.3 L (31.0-37.0) g/dL RDW Std Deviation 55.8 (28.0-62.0) fl RDW Coeff of Luke 16 H (11.0-15.0) % Plt Count 281 (150-400) K/uL MPV 10.20 (7.40-12.00) fL Neut % (Auto) 72.9 (48.0-80.0) % Lymph % (Auto) 6.6 L (16.0-40.0) % [place] % (Auto) 17.8 H (0.0-15.0) % Eos % (Auto) 2.5 (0.0-7.0) % Baso % (Auto) 0.2 (0.0-1.5) % Neut # (Auto) 3.8 (1.4-5.7) K/uL Lymph # (Auto) 0.3 L (0.6-2.4) K/uL [place] # (Auto) 0.9 H (0.0-0.8) K/uL Eos # (Auto) 0.1 (0.0-0.7) K/uL Baso # (Auto) 0.0 (0.0-0.1) K/uL Nucleated RBC % 0.0 /100WBC Nucleated RBCs # 0 K/uL INR VBG pH (7.31-7.41) VBG pCO2 (35-45) mmHG VBG pO2 (30-40) mmHG VBG HCO3 (22-30) mEq/L VBG Total CO2 (41-51) mmol/L VBG Base Excess (-3.0-3.0) Lactate (0.20-2.00) mmol/L Sodium 137 (136-145) mmol/L Potassium 4.3 (3.5-5.1) mmol/L Chloride 99 (98-107) mmol/L Carbon Dioxide 34.8 H (21.0-32.0) mmol/L BUN 29 H (7.0-18.0) mg/dL Creatinine 0.8 (0.6-1.0) mg/dL Est Cr Clr Drug Dosing 36.81 mL/min Estimated GFR (MDRD) > 60.0 ml/min Glucose 98 (74-106) mg/dL Calcium 7.9 L (8.5-10.1) mg/dL Magnesium (1.8-2.4) mg/dL Total Bilirubin 0.3 (0.2-1.0) mg/dL AST 23 (15-37) IU/L ALT 26 (14-63) IU/L Alkaline Phosphatase 100 (46-116) U/L Troponin I < 0.050 (0.000-0.056) ng/mL B-Natriuretic Peptide 669 H (<100) PG/ML Total Protein 6.1 L (6.4-8.2) g/dL Albumin 3.0 L (3.4-5.0) g/dL Globulin 3.1 (2.6-4.0) g/dL Albumin/Globulin Ratio 1.0 (0.9-1.6) SARS-CoV-2 RNA (NAYAN) (NEGATIVE) 03/31/20 03/31/20 03/31/20 Range/Units 12:02 12:02 12:02 WBC (4.0-11.0) K/uL RBC (4.30-5.90) M/uL Hgb (12.0-16.0) g/dL Hct (36.0-46.0) % MCV (80.0-98.0) fL MCH (27.0-32.0) pg MCHC (31.0-37.0) g/dL RDW Std Deviation (28.0-62.0) fl RDW Coeff of Luke (11.0-15.0) % Plt Count (150-400) K/uL MPV (7.40-12.00) fL Neut % (Auto) (48.0-80.0) % Lymph % (Auto) (16.0-40.0) % [place] % (Auto) (0.0-15.0) % Eos % (Auto) (0.0-7.0) % Baso % (Auto) (0.0-1.5) % Neut # (Auto) (1.4-5.7) K/uL Lymph # (Auto) (0.6-2.4) K/uL [place] # (Auto) (0.0-0.8) K/uL Eos # (Auto) (0.0-0.7) K/uL Baso # (Auto) (0.0-0.1) K/uL Nucleated RBC % /100WBC Nucleated RBCs # K/uL INR 1.18 VBG pH 7.38 (7.31-7.41) VBG pCO2 59 H (35-45) mmHG VBG pO2 40 (30-40) mmHG VBG HCO3 35 H (22-30) mEq/L VBG Total CO2 33 L (41-51) mmol/L VBG Base Excess 8.5 H (-3.0-3.0) Lactate 0.7 (0.20-2.00) mmol/L Sodium (136-145) mmol/L Potassium (3.5-5.1) mmol/L Chloride (98-107) mmol/L Carbon Dioxide (21.0-32.0) mmol/L BUN (7.0-18.0) mg/dL Creatinine (0.6-1.0) mg/dL Est Cr Clr Drug Dosing mL/min Estimated GFR (MDRD) ml/min Glucose (74-106) mg/dL Calcium (8.5-10.1) mg/dL Magnesium (1.8-2.4) mg/dL Total Bilirubin (0.2-1.0) mg/dL AST (15-37) IU/L ALT (14-63) IU/L Alkaline Phosphatase (46-116) U/L Troponin I (0.000-0.056) ng/mL B-Natriuretic Peptide (<100) PG/ML Total Protein (6.4-8.2) g/dL Albumin (3.4-5.0) g/dL Globulin (2.6-4.0) g/dL Albumin/Globulin Ratio (0.9-1.6) SARS-CoV-2 RNA (NAYAN) (NEGATIVE) 03/31/20 04/01/20 04/01/20 Range/Units 14:04 05:36 05:36 WBC 6.32 (4.0-11.0) K/uL RBC 2.92 L (4.30-5.90) M/uL Hgb 8.2 L (12.0-16.0) g/dL Hct 26.9 L (36.0-46.0) % MCV 92.1 (80.0-98.0) fL MCH 28.1 (27.0-32.0) pg MCHC 30.5 L (31.0-37.0) g/dL RDW Std Deviation 54.6 (28.0-62.0) fl RDW Coeff of Luke 16 H (11.0-15.0) % Plt Count 288 (150-400) K/uL MPV 10.40 (7.40-12.00) fL Neut % (Auto) 72.4 (48.0-80.0) % Lymph % (Auto) 11.4 L (16.0-40.0) % [place] % (Auto) 13.3 (0.0-15.0) % Eos % (Auto) 2.7 (0.0-7.0) % Baso % (Auto) 0.2 (0.0-1.5) % Neut # (Auto) 4.6 (1.4-5.7) K/uL Lymph # (Auto) 0.7 (0.6-2.4) K/uL [place] # (Auto) 0.8 (0.0-0.8) K/uL Eos # (Auto) 0.2 (0.0-0.7) K/uL Baso # (Auto) 0.0 (0.0-0.1) K/uL Nucleated RBC % 0.0 /100WBC Nucleated RBCs # 0 K/uL INR VBG pH (7.31-7.41) VBG pCO2 (35-45) mmHG VBG pO2 (30-40) mmHG VBG HCO3 (22-30) mEq/L VBG Total CO2 (41-51) mmol/L VBG Base Excess (-3.0-3.0) Lactate (0.20-2.00) mmol/L Sodium 137 (136-145) mmol/L Potassium 3.7 (3.5-5.1) mmol/L Chloride 94 L (98-107) mmol/L Carbon Dioxide 38.3 H (21.0-32.0) mmol/L BUN 30 H (7.0-18.0) mg/dL Creatinine 0.8 (0.6-1.0) mg/dL Est Cr Clr Drug Dosing 36.81 mL/min Estimated GFR (MDRD) > 60.0 ml/min Glucose 112 H (74-106) mg/dL Calcium 7.2 L (8.5-10.1) mg/dL Magnesium 1.6 L (1.8-2.4) mg/dL Total Bilirubin (0.2-1.0) mg/dL AST (15-37) IU/L ALT (14-63) IU/L Alkaline Phosphatase (46-116) U/L Troponin I (0.000-0.056) ng/mL B-Natriuretic Peptide (<100) PG/ML Total Protein (6.4-8.2) g/dL Albumin (3.4-5.0) g/dL Globulin (2.6-4.0) g/dL Albumin/Globulin Ratio (0.9-1.6) SARS-CoV-2 RNA (NAYAN) NEGATIVE (NEGATIVE) Med Orders - Current: Current Medications Acetaminophen (Tylenol) 325 mg PO Q4H PRN PRN Reason: Pain (moderate 4-6) Last Admin: 04/01/20 01:23 Dose: 325 mg Documented by: Apixaban (Eliquis) 2.5 mg PO BID [facility] Last Admin: 04/01/20 08:42 Dose: 2.5 mg Documented by: Artificial Tears (Refresh Plus 0.5%) 1 each EYERT ASDIRECTED PRN PRN Reason: Pain (moderate 4-6) Last Admin: 04/01/20 01:25 Dose: 1 ampule Documented by: Diltiazem HCl (Cardizem Cd) 120 mg PO DAILY [facility] Last Admin: 04/01/20 09:02 Dose: Not Given Documented by: Dorzolamide/Timolol (Cosopt 2%-0.5% Ophth Soln) 0 ml EYERT BID [facility] Furosemide (Lasix) 40 mg IVPUSH BID [facility] Last Admin: 04/01/20 08:49 Dose: 40 mg Documented by: Metoprolol Tartrate (Lopressor) 12.5 mg PO DAILY [facility] Last Admin: 04/01/20 09:03 Dose: Not Given Documented by: (Brimonidine [ Alphagan 0.2% Ophth Soln] 1 Drop)Own Med 1 drop EYERT BID [facility] Last Admin: 04/01/20 08:52 Dose: 1 drop Documented by: (Latanoprost/Pf [ Latanoprost 0.005% Eye Drop] 1 Drop) Own Med 1 drop EYEBOTH BEDTIME [facility] Last Admin: 03/31/20 23:13 Dose: 1 drop Documented by: Omeprazole (Omeprazole) 40 mg PO ACBREAKFAST [facility] Last Admin: 04/01/20 07:40 Dose: 40 mg Documented by: Fluticasone/Umeclidin/Vilanter [ Trelegy Ellipta 100- 62.5-25 Mcg] 1 each INH DAILY [facility] Potassium Chloride (Klor-Con M20) 40 meq PO BID [facility] Last Admin: 04/01/20 08:44 Dose: 40 meq Documented by: Sertraline HCl (Zoloft) 150 mg PO DAILY [facility] Last Admin: 04/01/20 08:43 Dose: 150 mg Documented by: Sodium Chloride (Saline Flush) 2.5 ml FLUSH ASDIRECTED PRN PRN Reason: Keep Vein Open Last Admin: 03/31/20 12:13 Dose: 2.5 ml Documented by: Sodium Chloride (Saline Flush) 10 ml FLUSH ASDIRECTED PRN PRN Reason: Keep Vein Open Last Admin: 03/31/20 12:12 Dose: 10 ml Documented by: Discontinued Medications Aspirin (Aspirin) 324 mg PO ONETIME ONE Stop: 03/31/20 14:06 Last Admin: 03/31/20 14:23 Dose: 324 mg Documented by: Furosemide (Lasix) 40 mg IVPUSH NOW ONE Stop: 03/31/20 13:57 Last Admin: 03/31/20 14:23 Dose: 40 mg Documented by: Magnesium Sulfate 2 gm/ Premix 50 mls @ 50 mls/hr IV ONETIME ONE Stop: 04/01/20 09:05 Last Admin: 04/01/20 08:47 Dose: 50 mls/hr Documented by: Iopamidol (Isovue Multipack-370 (76%)) 50 ml IVPUSH ONETIME STA Stop: 03/31/20 14:41 Last Admin: 03/31/20 14:41 Dose: 50 ml Documented by: Dorzolamide/Timolol [Cosopt 2%-0.5% Ophth Soln] 1 Drop)* Own Med 1 drop EYERT BID [facility] Last Admin: 04/01/20 08:51 Dose: 1 drop Documented by: Fluticasone/Umeclidin/Vilanter [ Trelegy Ellipta 100- 62.5-25 Mcg] 1 each INH DAILY [facility] Last Admin: 04/01/20 09:28 Dose: Not Given Documented by: - Exam General: Alert, Oriented Lungs: Clear to Auscultation, Normal Respiratory Effort. No: Crackles, Wheezing Cardiovascular: Regular Rate, Irregular Rhythm GI/Abdominal Exam: Soft, Non-Tender, No Distention Extremities: No Pedal Edema Skin: Warm, Dry, Ecchymosis Sepsis Event Note - Evaluation Sepsis Screening Result: No Definite Risk - Focused Exam Vital Signs: Vital Signs Temp Pulse Pulse Resp BP BP Pulse Ox 04/01/20 09:03 74 90/51 L 04/01/20 09:02 74 90/51 L 04/01/20 08:00 98.2 F 74 20 90/51 L 91 L 04/01/20 04:00 98.1 F 83 18 97/56 L 96 04/01/20 00:00 99.4 F 92 19 107/57 L 96 - Problem List Review Problem List Initiated/Reviewed/Updated: Yes - My Orders Last 24 Hours: My Active Orders 03/31/20 15:56 Telemetry Monitoring [Cardiac Monitoring] [RC] Q8H Weight Daily [Height and Weight] [RC] DAILY 03/31/20 15:57 Oxygen Therapy [RC] PRN VTE/DVT Education [RC] PER UNIT ROUTINE Vital Signs [RC] Q4H 03/31/20 Dinner Fluid Restriction [DIET] Sodium Restricted Diet [DIET] 03/31/20 17:33 Code Status [Resuscitation Status] Routine 03/31/20 18:00 Furosemide [Lasix] 40 mg IVPUSH BID 03/31/20 21:00 Apixaban [Eliquis] 2.5 mg PO BID 04/01/20 07:30 Omeprazole 40 mg PO ACBREAKFAST 04/01/20 09:00 Diltiazem [Cardizem CD] 120 mg PO DAILY Metoprolol Tartrate [Lopressor] 12.5 mg PO DAILY Potassium Chloride [Klor-Con M20] 40 meq PO BID Sertraline [Zoloft] 150 mg PO DAILY 04/01/20 16:59 Echo Comp wo Cont [US] Routine 04/02/20 07:00 Patient's Own Medication [Ptom] 1 each INH DAILY - Plan Plan:: Assessment/Plan: CHF exacerbation- Patients symptoms have improved overnight. Will continue current treatment regimen. Lasix IV 40mg BID (Will adjust based on urine output), Monitor AM BMP, 2g Low sodium diet, Telemetry, Daily weight, Strict I&O, Fluid restriction 1800ml A-Fib- Eliquis, Metoprolol
[2020-04-01] MEDS: Dorzolamide/Timolol 2%-0.5% Ophth Soln 10 ML Bottle EYERT SCH (20:50)
[2020-04-02] MEDS: Fluticasone/Umeclidin/Vilanter [Trelegy Ellipta 100-62.5-25 Mcg] INH SCH ×2 (07:13→12:12)
[2020-04-02] MEDS: Omeprazole 20 MG Cap.CR PO SCH (07:14)
[2020-04-02 07:24] LABS: BLOOD UREA NITROGEN,BUN 29 mg/dL (7.0-18.0); CARBON DIOXIDE,CO2 38.5 mmol/L (21.0-32.0); CHLORIDE,CL 98 mmol/L (98-107); GLUCOSE RANDOM 92 mg/dL (74-106); POTASSIUM,K 4.5 mmol/L (3.5-5.1); SODIUM,NA 142 mmol/L (136-145)
[2020-04-02] MEDS: Diltiazem 120 MG Cap.CD PO SCH (09:34)
[2020-04-02] MEDS: Metoprolol Tartrate 25 MG Tab PO SCH (09:35)
[2020-04-02] MEDS: Apixaban 2.5 MG Tab PO SCH (09:37)
[2020-04-02] MEDS: Sertraline 100 MG Tab PO SCH (09:37)
[2020-04-02] MEDS: Potassium Chloride 20 MEQ Tab.ER PO SCH (09:38)
[2020-04-02] MEDS: Dorzolamide/Timolol 2%-0.5% Ophth Soln 10 ML Bottle EYERT SCH (09:39)
[2020-04-02] MEDS: Furosemide 40 MG/4 ML VIAL IVPUSH SCH (09:40)
[2020-04-02 13:35] VITALS: BP 100/53; PULSE 77
--- NOTE | 2020-04-02 18:10 | PCM.DCSUM1 ---
<Junior Steven - Last Filed: 04/02/20 18:10> Discharge Summary - Hospital Course Free Text/Narrative:: 85 yr old female admitted for CHF exacerbation. Patient was admitted due to SOB and a dry cough. Patient was recently discharged form the hospital for an episode of CHF exacerbation. Patients daughter believes that the patient may have had water/moisture in her nasal canula line which could have entered the patients lungs while the patient was sleeping overnight. Daughter states that the patient had visible moisture seeping out of the patients nose the morning of admission. Patient has a PMH of CHF, lung cancer, atrial fibrillation on apixaban, COPD, GERD, CAD status post stenting. During admission, patient was treated with Lasix IV 40mg BID and had fluid restricted to 1800ml. Patient does have home health services. - Discharge Data Discharge Date: 04/02/20 Discharge Disposition: Home, Self-Care 01 Condition: Good - Referral to Home Health Primary Care Physician: Mark Espana MD - Discharge Plan *PRESCRIPTION DRUG MONITORING PROGRAM REVIEWED*: Not Applicable *COPY OF PRESCRIPTION DRUG MONITORING REPORT IN PATIENT AMY: Not Applicable Home Medications: Home Meds Dorzolamide/Timolol [Cosopt 2%-0.5% Ophth Soln] 1 drop EYERT BID 05/28/16 [History] Omeprazole 40 mg PO ACBREAKFAST 05/28/16 [History] Sertraline HCl 150 mg PO DAILY 05/28/16 [History] Brimonidine [Alphagan 0.2% Ophth Soln] 1 drop EYERT BID 10/20/18 [History] Metoprolol Tartrate 12.5 mg PO DAILY 11/01/18 [History] Albuterol/Ipratropium [Combivent Respimat] 1 puff INH Q6HR PRN 08/23/19 [History] Apixaban [Eliquis] 2.5 mg PO BID 08/23/19 [History] Furosemide [Lasix] 40 mg PO DAILY 08/23/19 [History] Mirtazapine 15 mg PO BEDTIME 02/08/20 [History] traZODone HCl [Trazodone HCl] 50 mg PO BEDTIME PRN 02/08/20 [History] Albuterol Sulfate [Albuterol Sulfate Hfa] 2 puff INH Q4HRRT PRN 03/28/20 [History] Fluticasone/Umeclidin/Vilanter [Trelegy Ellipta 100-62.5-25 MCG] 1 puff INH DAILY 03/28/20 [History] Latanoprost/Pf [Latanoprost 0.005% Eye Drop] 1 drop EYEBOTH BEDTIME 03/28/20 [History] Potassium Chloride 40 meq PO BID 03/28/20 [History] dilTIAZem HCL [Diltiazem 24Hr ER] 120 mg PO DAILY 03/28/20 [History] Patient Handouts: Heart Failure, Self Care, [id number], Living With Heart Failure Referrals: Mark Espana MD [Primary Care Provider] - 04/08/20 9:00 am - Discharge Summary/Plan Comment DC Time >30 min.: No - General Info Date of Service: 04/02/20 Subjective Update: Patient denies SOB, chest pain, nausea, fever, chills. States that she is ready to go home. - Review of Systems General: Denies: Fever, Chills HEENT: Denies: Headaches, Visual Changes Pulmonary: Denies: Shortness of Breath, Pleuritic Chest Pain, Cough Cardiovascular: Reports: Dyspnea on Exertion. Denies: Chest Pain, Palpitations, Edema Gastrointestinal: Denies: Abdominal Pain, Diarrhea, Nausea Neurological: Denies: Confusion, Dizziness, Headache - Patient Data Vitals - Most Recent: Last Vital Signs Temp 98.3 F 04/02/20 12:00 Pulse 77 04/02/20 12:00 Resp 16 04/02/20 12:00 BP 100/53 L 04/02/20 12:00 Pulse Ox 100 04/02/20 12:00 Weight - Most Recent: 45.405 kg I&O - Last 24 hours: Intake & Output 04/02/20 04/02/20 04/02/20 06:59 14:59 22:59 Intake Total 1020 Output Total 400 Balance 620 Lab Results - Last 24 hrs: Laboratory Results - last 24 hr 04/02/20 04/02/20 Range/Units 06:25 06:25 WBC 5.72 (4.0-11.0) K/uL RBC 2.96 L (4.30-5.90) M/uL Hgb 8.2 L (12.0-16.0) g/dL Hct 27.5 L (36.0-46.0) % MCV 92.9 (80.0-98.0) fL MCH 27.7 (27.0-32.0) pg MCHC 29.8 L (31.0-37.0) g/dL RDW Std Deviation 55.2 (28.0-62.0) fl RDW Coeff of Luke 16 H (11.0-15.0) % Plt Count 279 (150-400) K/uL MPV 10.70 (7.40-12.00) fL Neut % (Auto) 72.3 (48.0-80.0) % Lymph % (Auto) 9.4 L (16.0-40.0) % [place]aston % (Auto) 15.0 (0.0-15.0) % Eos % (Auto) 3.0 (0.0-7.0) % Baso % (Auto) 0.3 (0.0-1.5) % Neut # (Auto) 4.1 (1.4-5.7) K/uL Lymph # (Auto) 0.5 L (0.6-2.4) K/uL Gaston # (Auto) 0.9 H (0.0-0.8) K/uL Eos # (Auto) 0.2 (0.0-0.7) K/uL Baso # (Auto) 0.0 (0.0-0.1) K/uL Nucleated RBC % 0.0 /100WBC Nucleated RBCs # 0 K/uL Sodium 142 (136-145) mmol/L Potassium 4.5 (3.5-5.1) mmol/L Chloride 98 (98-107) mmol/L Carbon Dioxide 38.5 H (21.0-32.0) mmol/L BUN 29 H (7.0-18.0) mg/dL Creatinine 0.7 (0.6-1.0) mg/dL Est Cr Clr Drug Dosing 42.12 mL/min Estimated GFR (MDRD) > 60.0 ml/min Glucose 92 (74-106) mg/dL Calcium 7.6 L (8.5-10.1) mg/dL [facility] Results - Last 24 hrs: Microbiology 03/31/20 12:32 Aerobic Blood Culture - Preliminary Blood - Venous - Lab Draw NO GROWTH AFTER 2 DAYS Anaerobic Blood Culture - Preliminary NO GROWTH AFTER 2 DAYS 03/31/20 12:02 Aerobic Blood Culture - Preliminary Blood - Venous NO GROWTH AFTER 2 DAYS Anaerobic Blood Culture - Preliminary NO GROWTH AFTER 2 DAYS Med Orders - Current: Current Medications Discontinued Medications Acetaminophen (Tylenol) 325 mg PO Q4H PRN PRN Reason: Pain (moderate 4-6) Last Admin: 04/01/20 01:23 Dose: 325 mg Documented by: Apixaban (Eliquis) 2.5 mg PO BID [facility] Last Admin: 04/02/20 09:37 Dose: 2.5 mg Documented by: Artificial Tears (Refresh Plus 0.5%) 1 each EYERT ASDIRECTED PRN PRN Reason: Pain (moderate 4-6) Last Admin: 04/01/20 01:25 Dose: 1 ampule Documented by: Aspirin (Aspirin) 324 mg PO ONETIME ONE Stop: 03/31/20 14:06 Last Admin: 03/31/20 14:23 Dose: 324 mg Documented by: Diltiazem HCl (Cardizem Cd) 120 mg PO DAILY [facility] Last Admin: 04/02/20 09:34 Dose: Not Given Documented by: Dorzolamide/Timolol (Cosopt 2%-0.5% Ophth Soln) 0 ml EYERT BID [facility] Last Admin: 04/02/20 09:39 Dose: 1 drop Documented by: Furosemide (Lasix) 40 mg IVPUSH NOW ONE Stop: 03/31/20 13:57 Last Admin: 03/31/20 14:23 Dose: 40 mg Documented by: Furosemide (Lasix) 40 mg IVPUSH BID [facility] Last Admin: 04/02/20 09:40 Dose: 40 mg Documented by: Heparin Sodium (Porcine) (Heparin Lock Flush 100 Units/Ml) 500 units FLUSH ASDIRECTED PRN PRN Reason: Deaccess port Last Admin: 04/02/20 14:39 Dose: 500 units Documented by: Magnesium Sulfate 2 gm/ Premix 50 mls @ 50 mls/hr IV ONETIME ONE Stop: 04/01/20 09:05 Last Admin: 04/01/20 08:47 Dose: 50 mls/hr Documented by: Iopamidol (Isovue Multipack-370 (76%)) 50 ml IVPUSH ONETIME STA Stop: 03/31/20 14:41 Last Admin: 03/31/20 14:41 Dose: 50 ml Documented by: Metoprolol Tartrate (Lopressor) 12.5 mg PO DAILY [facility] Last Admin: 04/02/20 09:35 Dose: Not Given Documented by: Dorzolamide/Timolol [Cosopt 2%-0.5% Ophth Soln] 1 Drop)* Own Med 1 drop EYERT BID [facility] Last Admin: 04/01/20 08:51 Dose: 1 drop Documented by: (Brimonidine [ Alphagan 0.2% Ophth Soln] 1 Drop)Own Med 1 drop EYERT BID [facility] Last Admin: 04/02/20 09:36 Dose: 1 drop Documented by: (Latanoprost/Pf [ Latanoprost 0.005% Eye Drop] 1 Drop) Own Med 1 drop EYEBOTH BEDTIME [facility] Last Admin: 04/01/20 20:46 Dose: 1 drop Documented by: Omeprazole (Omeprazole) 40 mg PO ACBREAKFAST [facility] Last Admin: 04/02/20 07:14 Dose: 40 mg Documented by: Fluticasone/Umeclidin/Vilanter [ Trelegy Ellipta 100- 62.5-25 Mcg] 1 each INH DAILY [facility] Last Admin: 04/01/20 09:28 Dose: Not Given Documented by: Fluticasone/Umeclidin/Vilanter [ Trelegy Ellipta 100- 62.5-25 Mcg] 1 each INH DAILY [facility] Last Admin: 04/02/20 12:12 Dose: Not Given Documented by: Potassium Chloride (Klor-Con M20) 40 meq PO BID [facility] Last Admin: 04/02/20 09:38 Dose: 40 meq Documented by: Sertraline HCl (Zoloft) 150 mg PO DAILY [facility] Last Admin: 04/02/20 09:37 Dose: 150 mg Documented by: Sodium Chloride (Saline Flush) 2.5 ml FLUSH ASDIRECTED PRN PRN Reason: Keep Vein Open Last Admin: 03/31/20 12:13 Dose: 2.5 ml Documented by: Sodium Chloride (Saline Flush) 10 ml FLUSH ASDIRECTED PRN PRN Reason: Keep Vein Open Last Admin: 03/31/20 12:12 Dose: 10 ml Documented by: - Exam General: Reports: Alert, Oriented Lungs: Reports: Clear to Auscultation, Normal Respiratory Effort. Denies: Crackles Cardiovascular: Reports: Regular Rate, Irregular Rhythm GI/Abdominal Exam: Soft, Non-Tender, No Distention Extremities: Non-Tender, No Pedal Edema Skin: Reports: Ecchymosis <NirmalVale - Last Filed: 04/04/20 13:20> Discharge Summary - Hospital Course Free Text/Narrative:: I have seen and evaluated the patient and agree with the residents note unless specified in my note - Referral to Home Health Primary Care Physician: Mark Espana MD - Patient Data Vitals - Most Recent: Last Vital Signs Temp 36.8 C 04/02/20 12:00 Pulse 77 04/02/20 12:00 Resp 16 04/02/20 12:00 BP 100/53 L 04/02/20 12:00 Pulse Ox 100 04/02/20 12:00 [facility] Results - Last 24 hrs: Microbiology 03/31/20 12:32 Aerobic Blood Culture - Preliminary Blood - Venous - Lab Draw NO GROWTH AFTER 4 DAYS Anaerobic Blood Culture - Preliminary NO GROWTH AFTER 4 DAYS 03/31/20 12:02 Aerobic Blood Culture - Preliminary Blood - Venous NO GROWTH AFTER 4 DAYS Anaerobic Blood Culture - Preliminary NO GROWTH AFTER 4 DAYS Med Orders - Current: Current Medications Discontinued Medications Acetaminophen (Tylenol) 325 mg PO Q4H PRN PRN Reason: Pain (moderate 4-6) Last Admin: 04/01/20 01:23 Dose: 325 mg Documented by: Apixaban (Eliquis) 2.5 mg PO BID [facility] Last Admin: 04/02/20 09:37 Dose: 2.5 mg Documented by: Artificial Tears (Refresh Plus 0.5%) 1 each EYERT ASDIRECTED PRN PRN Reason: Pain (moderate 4-6) Last Admin: 04/01/20 01:25 Dose: 1 ampule Documented by: Aspirin (Aspirin) 324 mg PO ONETIME ONE Stop: 03/31/20 14:06 Last Admin: 03/31/20 14:23 Dose: 324 mg Documented by: Diltiazem HCl (Cardizem Cd) 120 mg PO DAILY [facility] Last Admin: 04/02/20 09:34 Dose: Not Given Documented by: Dorzolamide/Timolol (Cosopt 2%-0.5% Ophth Soln) 0 ml EYERT BID [facility] Last Admin: 04/02/20 09:39 Dose: 1 drop Documented by: Furosemide (Lasix) 40 mg IVPUSH NOW ONE Stop: 03/31/20 13:57 Last Admin: 03/31/20 14:23 Dose: 40 mg Documented by: Furosemide (Lasix) 40 mg IVPUSH BID [facility] Last Admin: 04/02/20 09:40 Dose: 40 mg Documented by: Heparin Sodium (Porcine) (Heparin Lock Flush 100 Units/Ml) 500 units FLUSH ASDIRECTED PRN PRN Reason: Deaccess port Last Admin: 04/02/20 14:39 Dose: 500 units Documented by: Magnesium Sulfate 2 gm/ Premix 50 mls @ 50 mls/hr IV ONETIME ONE Stop: 04/01/20 09:05 Last Admin: 04/01/20 08:47 Dose: 50 mls/hr Documented by: Iopamidol (Isovue Multipack-370 (76%)) 50 ml IVPUSH ONETIME STA Stop: 03/31/20 14:41 Last Admin: 03/31/20 14:41 Dose: 50 ml Documented by: Metoprolol Tartrate (Lopressor) 12.5 mg PO DAILY [facility] Last Admin: 04/02/20 09:35 Dose: Not Given Documented by: Dorzolamide/Timolol [Cosopt 2%-0.5% Ophth Soln] 1 Drop)* Own Med 1 drop EYERT BID [facility] Last Admin: 04/01/20 08:51 Dose: 1 drop Documented by: (Brimonidine [ Alphagan 0.2% Ophth Soln] 1 Drop)Own Med 1 drop EYERT BID [facility] Last Admin: 04/02/20 09:36 Dose: 1 drop Documented by: (Latanoprost/Pf [ Latanoprost 0.005% Eye Drop] 1 Drop) Own Med 1 drop EYEBOTH BEDTIME [facility] Last Admin: 04/01/20 20:46 Dose: 1 drop Documented by: Omeprazole (Omeprazole) 40 mg PO ACBREAKFAST [facility] Last Admin: 04/02/20 07:14 Dose: 40 mg Documented by: Fluticasone/Umeclidin/Vilanter [ Trelegy Ellipta 100- 62.5-25 Mcg] 1 each INH DAILY [facility] Last Admin: 04/01/20 09:28 Dose: Not Given Documented by: Fluticasone/Umeclidin/Vilanter [ Trelegy Ellipta 100- 62.5-25 Mcg] 1 each INH DAILY [facility] Last Admin: 04/02/20 12:12 Dose: Not Given Documented by: Potassium Chloride (Klor-Con M20) 40 meq PO BID [facility] Last Admin: 04/02/20 09:38 Dose: 40 meq Documented by: Sertraline HCl (Zoloft) 150 mg PO DAILY [facility] Last Admin: 04/02/20 09:37 Dose: 150 mg Documented by: Sodium Chloride (Saline Flush) 2.5 ml FLUSH ASDIRECTED PRN PRN Reason: Keep Vein Open Last Admin: 03/31/20 12:13 Dose: 2.5 ml Documented by: Sodium Chloride (Saline Flush) 10 ml FLUSH ASDIRECTED PRN PRN Reason: Keep Vein Open Last Admin: 03/31/20 12:12 Dose: 10 ml Documented by:
== END 2020-04-02 16:00 | disposition home or self-care (01) | DRG 292 ==
LOC: MW.ED 11:09 → MW.MS 14:22
PROVIDERS: ADMIT Internal Medicine; ATTEND Internal Medicine
DX: I11.0 Hypertensive heart disease with heart failure (principal); R64 Cachexia; R94.31 Abnormal electrocardiogram [ECG] [EKG]; Z68.1 Body mass index [BMI] 19.9 or less, adult; H35.30 Unspecified macular degeneration; I48.91 Unspecified atrial fibrillation; J44.9 Chronic obstructive pulmonary disease, unspecified; Z20.828 Contact with and (suspected) exposure to other viral communicable diseases; K21.9 Gastro-esophageal reflux disease without esophagitis; I25.10 Atherosclerotic heart disease of native coronary artery without angina pectoris; F41.0 Panic disorder [episodic paroxysmal anxiety]; I50.9 Heart failure, unspecified; Z85.42 Personal history of malignant neoplasm of other parts of uterus; I50.23 Acute on chronic systolic (congestive) heart failure; Z98.49 Cataract extraction status, unspecified eye; Z85.118 Personal history of other malignant neoplasm of bronchus and lung; Z90.2 Acquired absence of lung [part of]; Z88.5 Allergy status to narcotic agent; Z88.8 Allergy status to other drugs, medicaments and biological substances; Z79.899 Other long term (current) drug therapy; Z86.73 Personal history of transient ischemic attack (TIA), and cerebral infarction without residual deficits; Z87.891 Personal history of nicotine dependence; I25.2 Old myocardial infarction; Z79.01 Long term (current) use of anticoagulants; Z99.81 Dependence on supplemental oxygen; Z95.5 Presence of coronary angioplasty implant and graft; Z90.710 Acquired absence of both cervix and uterus
CPT/HCPCS: 36415; 71046; 71046-26; 71275; 71275-26; 80048; 80053; 82803; 83605; 83735; 83880; 84484; 85025; 85610; 87040; 93005; 93306; 96374; 99285-25; A9270-GY; J1642; J1940; J3475; Q9967; U0002

== ENCOUNTER 2020-04-28 22:24 | Inpatient (IN) | payer MEDICARE, OTHER ==
[2020-04-28] MEDS ORDERED: Sodium Chloride 0.9% 10 ML Syringe FLUSH PRN (22:29)
[2020-04-28] MEDS ORDERED: Sodium Chloride 0.9% 2.5 ML Syringe FLUSH PRN (22:29)
[2020-04-28] MEDS ORDERED: Albuterol/Ipratropium 3.0-0.5 MG/3 ML Neb Soln NEB ONE (22:29)
[2020-04-28] MEDS ORDERED: methylPREDNISolone Sodium Succinate 125 MG/2 ML SDV IVPUSH ONE (22:29)
[2020-04-28] MEDS ORDERED: Diltiazem 25 MG/5 ML SDV IVPUSH ONE (22:32)
[2020-04-28] MEDS ORDERED: Diltiazem 125 MG in Sodium Chloride 0.9% 100 ML IV SCH (22:45)
--- NOTE | 2020-04-28 23:14 | CR ---
Indication: Shortness of breath Technique: Chest 1 view Comparison: March 31, 2020 Findings/Impression: Cardiovascular and mediastinum: Port catheter unchanged. There is cardiomegaly. Lungs and pleural space: New ill-defined infiltrate in the basilar segment of the right upper lobe is suspicious for pneumonia versus pulmonary edema. Ill-defined infiltrates also present in both lower lobes. Overall, the infiltrates appear to have worsened compared to the prior study. Pleural effusions are suspected. No pneumothorax. Bones and soft tissues: No acute findings. Dictated by David Brennan MD @ Apr 28 2020 11:10PM Signed by Dr. David Brennan @ Apr 28 2020 11:13PM
[2020-04-28] MEDS ORDERED: Diltiazem 100 MG in Sodium Chloride 0.9% 100 ML IV ONE (23:15)
[2020-04-28 23:18] LABS: BLOOD UREA NITROGEN,BUN 17 mg/dL (7.0-18.0); CARBON DIOXIDE,CO2 33.2 mmol/L (21.0-32.0); CHLORIDE,CL 97 mmol/L (98-107); GLUCOSE RANDOM 150 mg/dL (74-106); POTASSIUM,K 4.2 mmol/L (3.5-5.1); SODIUM,NA 136 mmol/L (136-145)
[2020-04-28] MEDS ORDERED: cefTRIAXone 1 GM in Premix Bag 1 BAG IV ONE (23:18)
[2020-04-28] MEDS ORDERED: Azithromycin 500 MG in Sodium Chloride 0.9% 250 ML IV SCH (23:30)
--- NOTE | 2020-04-28 23:53 | EDM.PDOC ---
ED HPI GENERAL MEDICAL PROBLEM - General Chief Complaint: Respiratory Problem Stated Complaint: COPD Time Seen by Provider: 04/28/20 22:35 - History of Present Illness INITIAL COMMENTS - FREE TEXT/NARRATIVE: HISTORY AND PHYSICAL: History of present illness: This is an 85-year-old female with a history significant for lung cancer, CHF, community-acquired pneumonia, hypertension, atrial fibrillation on anticoagulation therapy, TIA, severe COPD, coronary disease, right chest Port-A-Cath in place, who presents the ER today secondary to progressive shortness of breath over the last couple days with increased cough. Per EMS, [facility] arrival, patient's pulse ox was 60%. Patient was given 1 neb treatment with some improvement in her respiratory status but was still hypoxic. Upon arrival to the ED, patient reports that she is extremely short of breath, cough, tactile fevers at home. Patient reports that she does have a history of lung cancer and does not believe she is currently getting any chemotherapy. Patient is unclear who her cancer physician is. Patient denies any vomiting or diarrhea. Patient denies any dysuria frequency urgency. Patient denies any abdominal pain. Patient denies any known coronavirus exposure. Review of systems: As per history of present illness and below otherwise all systems reviewed and negative. Past medical history: As per history of present illness and as reviewed below otherwise noncontributory. Surgical history: As per history of present illness and as reviewed below otherwise noncontributory. Social history: No reported history of drug or alcohol abuse. Family history: As per history of present illness and as reviewed below otherwise noncontributory. Physical exam: Constitutional: Patient is oriented to person, place, and time. Appears well- developed and well-nourished. No distress. HEENT: Moist mucous membranes Head: Normocephalic and atraumatic Eyes: Right eye exhibits no discharge. Left eye exhibits no discharge. No scleral icterus Neck: Normal range of motion. No tracheal deviation present. Cardiovascular: Irregularly irregular, tachycardic with a heart rate of 180- 200. Pulmonary: Moderate degree of respiratory distress, patient tachypneic with a respiratory of 40-60 respirations per minute, patient with coarse breath sounds bilaterally throughout her lungs with diminished breath sounds bilaterally. Abdominal: No distention Musculoskeletal: Normal range of motion Neurologic: Alert and oriented to person, place and time. Skin: [place], warm and diaphoretic. Psychiatric: Normal mood and affect. Behavior is normal. Judgment and thought content normal. Nursing note and vital signs have been reviewed Diagnostics: [] Therapeutics: [] Assessment and plan: Is an 85-year-old female who presents ER today secondary shortness of breath. Patient has a history significant for COPD, lung cancer, CAD, atrial fibrillation. Upon arrival in the ED the patient is noted to be in A. fib with RVR., Hypoxic with symptoms consistent with COPD exacerbation, chest x-ray consistent with pneumonia. 1. Shortness of breath: Most likely multifactorial with component of by lobar pneumonia, atrial fibrillation, COPD exacerbation. Patient's coronavirus test is negative here in the ED. Patient has been given Solu-Medrol 125 mg IV and has been started on DuoNeb treatments. Patient will be started on Rocephin and Zithromax to treat for multilobar pneumonia. Patient also be started on Cardizem drip and Cardizem bolus in order to assist with rate control. 2. COPD exacerbation: Patient will be given DuoNeb treatments, Solu-Medrol 125 mg IV. Patient currently is on 100% nonrebreather mask. Under closely in the 100% nonrebreather and taper down. 3. Multilobar pneumonia: Patient started on Zithromax and Rocephin. 4. Atrial fibrillation with RVR: Patient started on Cardizem bolus 12.5 mg IV and then placed on a Cardizem drip at 5 mg. This will be titrated up to 10 mg since her heart rate is still ranging between 140-160 bpm. Critical Care: The high probability of sudden, clinically significant deterioration in the patient's condition required the highest level of my preparedness to intervene urgently. The services I provided to this patient were to treat and/or prevent clinically significant deterioration. Services included the following: chart data review, reviewing nursing notes and/or old charts, documentation time, energy consultant collaboration regarding findings and treatment options, medication orders and management, direct patient care, vital sign assessments and ordering, interpreting and reviewing diagnostic studies/lab tests. Aggregate critical care time includes only time during which I was engaged in work directly related to the patient's care, as described above, whether at the bedside or elsewhere in the Emergency Department. It did not include time spent performing other reported procedures or the services of residents, students, nurses or physician assistants. Critical Care Time: 35 minutes Definitive disposition and diagnosis as appropriate pending reevaluation and review of above. 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 PROJECT MANAGER: Reports: Breathing Treatments, Oxygen - Related Data Allergies Allergy/AdvReac Type Severity Reaction Status Date / Time codeine Allergy Delusions Verified 03/31/20 11:36 lorazepam [From Ativan] Allergy Delusions Verified 03/31/20 11:36 meperidine [From Demerol] Allergy Delusions Verified 03/31/20 11:36 Home Meds: Home Meds Dorzolamide/Timolol [Cosopt 2%-0.5% Ophth Soln] 1 drop EYERT BID 05/28/16 [History] Omeprazole 40 mg PO ACBREAKFAST 05/28/16 [History] Sertraline HCl 150 mg PO DAILY 05/28/16 [History] Brimonidine [Alphagan 0.2% Ophth Soln] 1 drop EYERT BID 10/20/18 [History] Metoprolol Tartrate 12.5 mg PO DAILY 11/01/18 [History] Albuterol/Ipratropium [Combivent Respimat] 1 puff INH Q6HR PRN 08/23/19 [History] Apixaban [Eliquis] 2.5 mg PO BID 08/23/19 [History] Furosemide [Lasix] 40 mg PO DAILY 08/23/19 [History] Mirtazapine 15 mg PO BEDTIME 02/08/20 [History] traZODone HCl [Trazodone HCl] 50 mg PO BEDTIME PRN 02/08/20 [History] Albuterol Sulfate [Albuterol Sulfate Hfa] 2 puff INH Q4HRRT PRN 03/28/20 [History] Fluticasone/Umeclidin/Vilanter [Trelegy Ellipta 100-62.5-25 MCG] 1 puff INH DAILY 03/28/20 [History] Latanoprost/Pf [Latanoprost 0.005% Eye Drop] 1 drop EYEBOTH BEDTIME 03/28/20 [History] Potassium Chloride 40 meq PO BID 03/28/20 [History] dilTIAZem HCL [Diltiazem 24Hr ER] 120 mg PO DAILY 03/28/20 [History] Past Medical History HEENT History: Reports: Cataract Other HEENT History: Macular Degeneration Cardiovascular History: Reports: Afib, Angina, CAD, Heart Failure, Hypertension, [place], Stents Respiratory History: Reports: COPD Other Respiratory History: hx of smoker, on home 02 at 2 liters/min; Lung CA Gastrointestinal History: Reports: Other (See Below) Other Gastrointestinal History: short bowel syndrom 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 History: Reports: None 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: Reports: Musculoskeletal History: Reports: None Neurological History: Reports: TIA Psychiatric History: Reports: Panic Attack Endocrine/Metabolic History: Reports: None Hematologic History: Reports: Anticoagulation Therapy Immunologic History: Reports: None Oncologic (Cancer) History: Reports: Lung, Uterine Other Oncologic History: unsure of type of cancer, but 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 Respiratory Surgical History: Reports: Lung Resection GI Surgical History: Reports: Small Bowel Female Surgical History: Reports: Hysterectomy Neurological Surgical History: Reports: None Oncologic Surgical History: Reports: None Social & Family History - Family History Family Medical History: Noncontributory Cardiac: Reports: Afib, [place] Hematologic: Reports: Anemia - Tobacco Use Tobacco Use Status *Q: Never Tobacco User - Caffeine Use Caffeine Use: Reports: None Caffeine Use Comment: Drinks decaf, about 6 cups a day. - Recreational Drug Use Recreational Drug Use: No - Living Situation & Occupation Living situation: Reports: Occupation: Retired ED ROS GENERAL - Review of Systems Review Of Systems: See Below ED EXAM, GENERAL - Physical Exam Exam: See Below #1 Interpretation EKG Interpretation Comments: EKG: A. fib with RVR at a rate of [address]-T wave abnormalities Normal axis No evidence of ST elevation [place] As interpreted by ER physician: Simon Course - Vital Signs Last Recorded V/S: Last Vital Signs Temp 99.7 F 04/29/20 00:35 Pulse 139 H 04/29/20 01:37 Resp 28 H 04/29/20 00:39 BP 83/49 L 04/29/20 01:37 Pulse Ox 81 L 04/29/20 01:37 - Orders/Labs/Meds Orders: Active Orders 24 hr Category Date Time Status ABG [BLOOD GAS ARTERIAL] [BG] Stat Lab 04/28/20 23:57 Ordered CORONAVIRUS COVID-19 PCR PHL Stat Lab 04/28/20 22:40 Received CULTURE BLOOD [BC] Stat Lab 04/28/20 22:30 Received CULTURE BLOOD [BC] Stat Lab 04/28/20 22:40 Received Azithromycin [Zithromax] 500 mg Med 04/28/20 23:30 Active Sodium Chloride 0.9% [Normal Saline (AdvBag)] 250 ml IV ONETIME Diltiazem [Cardizem] 100 mg Med 04/28/20 23:15 Active Sodium Chloride 0.9% [Normal Saline] 100 ml IV NOW Sodium Chloride 0.9% [Saline Flush] Med 04/28/20 22:29 Active 10 ml FLUSH ASDIRECTED PRN Sodium Chloride 0.9% [Saline Flush] Med 04/28/20 22:29 Active 2.5 ml FLUSH ASDIRECTED PRN Blood Culture x2 Reflex Set [OM.PC] Stat Oth 04/28/20 22:29 Ordered Isolation [COMM] Routine Oth 04/28/20 22:29 Active Saline Lock Insert [OM.PC] Stat Oth 04/28/20 22:29 Ordered Medication Orders Diltiazem HCl 100 mg/ Sodium (Chloride) 100 mls @ 5 mls/hr IV NOW ONE; Protocol Stop: 04/29/20 19:14 Last Titration: 04/28/20 23:51 Dose: 10 mg/hr, 10 mls/hr Documented by: Admin: 04/28/20 23:37 Dose: 5 mg/hr, 5 mls/hr Documented by: MARK Azithromycin 500 mg/ Sodium (Chloride) 250 mls @ 250 mls/hr IV ONETIME ANALILIA Last Admin: 04/29/20 02:12 Dose: 250 mls/hr Documented by: WAN Magnesium Sulfate 4 gm/ Premix 100 mls @ 50 mls/hr IV ONETIME ONE Stop: 04/29/20 04:49 Sodium Chloride (Normal Saline) 500 mls @ 999 mls/hr IV .BOLUS ANALILIA Sodium Chloride (Saline Flush) 10 ml FLUSH ASDIRECTED PRN PRN Reason: Keep Vein Open Sodium Chloride (Saline Flush) 2.5 ml FLUSH ASDIRECTED PRN PRN Reason: Keep Vein Open Labs: Laboratory Tests 04/28/20 04/28/20 04/28/20 Range/Units 22:30 22:30 22:30 WBC 13.24 H (4.0-11.0) K/uL RBC 3.05 L (4.30-5.90) M/uL Hgb 7.8 L (12.0-16.0) g/dL Hct 26.2 L (36.0-46.0) % MCV 85.9 (80.0-98.0) fL MCH 25.6 L (27.0-32.0) pg MCHC 29.8 L (31.0-37.0) g/dL RDW Std Deviation 52.6 (28.0-62.0) fl RDW Coeff of Luke 17 H (11.0-15.0) % Plt Count 369 (150-400) K/uL MPV 11.40 (7.40-12.00) fL Neut % (Auto) 82.4 H (48.0-80.0) % Lymph % (Auto) 4.7 L (16.0-40.0) % [place] % (Auto) 11.7 (0.0-15.0) % Eos % (Auto) 1.0 (0.0-7.0) % Baso % (Auto) 0.2 (0.0-1.5) % Neut # (Auto) 10.9 H (1.4-5.7) K/uL Lymph # (Auto) 0.6 (0.6-2.4) K/uL [place] # (Auto) 1.6 H (0.0-0.8) K/uL Eos # (Auto) 0.1 (0.0-0.7) K/uL Baso # (Auto) 0.0 (0.0-0.1) K/uL Nucleated RBC % 0.0 /100WBC Nucleated RBCs # 0 K/uL INR 1.31 Lactate (0.20-2.00) mmol/L Sodium 136 (136-145) mmol/L Potassium 4.2 (3.5-5.1) mmol/L Chloride 97 L (98-107) mmol/L Carbon Dioxide 33.2 H (21.0-32.0) mmol/L BUN 17 (7.0-18.0) mg/dL Creatinine 0.9 (0.6-1.0) mg/dL Est Cr Clr Drug Dosing TNP Estimated GFR (MDRD) 59.5 ml/min Glucose 150 H (74-106) mg/dL Calcium 7.9 L (8.5-10.1) mg/dL Magnesium 1.3 L (1.8-2.4) mg/dL Total Bilirubin 0.3 (0.2-1.0) mg/dL AST 19 (15-37) IU/L ALT 22 (14-63) IU/L Alkaline Phosphatase 90 (46-116) U/L Troponin I < 0.050 (0.000-0.056) ng/mL B-Natriuretic Peptide (<100) PG/ML Total Protein 6.0 L (6.4-8.2) g/dL Albumin 3.1 L (3.4-5.0) g/dL Globulin 2.9 (2.6-4.0) g/dL Albumin/Globulin Ratio 1.1 (0.9-1.6) SARS CoV-2 RNA Rapid NAYAN (NEGATIVE) 04/28/20 04/28/20 04/28/20 Range/Units 22:30 22:40 22:40 WBC (4.0-11.0) K/uL RBC (4.30-5.90) M/uL Hgb (12.0-16.0) g/dL Hct (36.0-46.0) % MCV (80.0-98.0) fL MCH (27.0-32.0) pg MCHC (31.0-37.0) g/dL RDW Std Deviation (28.0-62.0) fl RDW Coeff of Luke (11.0-15.0) % Plt Count (150-400) K/uL MPV (7.40-12.00) fL Neut % (Auto) (48.0-80.0) % Lymph % (Auto) (16.0-40.0) % [place] % (Auto) (0.0-15.0) % Eos % (Auto) (0.0-7.0) % Baso % (Auto) (0.0-1.5) % Neut # (Auto) (1.4-5.7) K/uL Lymph # (Auto) (0.6-2.4) K/uL [place] # (Auto) (0.0-0.8) K/uL Eos # (Auto) (0.0-0.7) K/uL Baso # (Auto) (0.0-0.1) K/uL Nucleated RBC % /100WBC Nucleated RBCs # K/uL INR Lactate 2.6 H* (0.20-2.00) mmol/L Sodium (136-145) mmol/L Potassium (3.5-5.1) mmol/L Chloride (98-107) mmol/L Carbon Dioxide (21.0-32.0) mmol/L BUN (7.0-18.0) mg/dL Creatinine (0.6-1.0) mg/dL Est Cr Clr Drug Dosing Estimated GFR (MDRD) ml/min Glucose (74-106) mg/dL Calcium (8.5-10.1) mg/dL Magnesium (1.8-2.4) mg/dL Total Bilirubin (0.2-1.0) mg/dL AST (15-37) IU/L ALT (14-63) IU/L Alkaline Phosphatase (46-116) U/L Troponin I (0.000-0.056) ng/mL B-Natriuretic Peptide 1217 H (<100) PG/ML Total Protein (6.4-8.2) g/dL Albumin (3.4-5.0) g/dL Globulin (2.6-4.0) g/dL Albumin/Globulin Ratio (0.9-1.6) SARS CoV-2 RNA Rapid NAYAN NEGATIVE (NEGATIVE) Meds: Medications Generic Name Dose Route Start Last Admin Trade Name Freq PRN Reason Stop Dose Admin Diltiazem HCl 100 mg/ Sodium 100 mls @ 5 mls/hr 04/28/20 23:15 04/28/20 23:51 Chloride IV 04/29/20 19:14 10 mg/hr NOW ONE 10 mls/hr Titration Protocol Azithromycin 500 mg/ Sodium 250 mls @ 250 mls/hr 04/28/20 23:30 04/29/20 02:12 Chloride IV 250 mls/hr ONETIME ANALILIA Administration Magnesium Sulfate 4 gm/ Premix 100 mls @ 50 mls/hr 04/29/20 02:50 IV 04/29/20 04:49 ONETIME ONE Sodium Chloride 500 mls @ 999 mls/hr 04/29/20 03:00 Normal Saline IV .BOLUS ANALILIA Sodium Chloride 10 ml 04/28/20 22:29 Saline Flush FLUSH ASDIRECTED PRN Keep Vein Open Sodium Chloride 2.5 ml 04/28/20 22:29 Saline Flush FLUSH ASDIRECTED PRN Keep Vein Open Discontinued Medications Generic Name Dose Route Start Last Admin Trade Name Jayson PRN Reason Stop Dose Admin Acetaminophen 1,000 mg 04/28/20 23:18 04/29/20 00:39 Tylenol Extra Strength PO 04/28/20 23:19 Not Given ONETIME ONE Acetaminophen 650 mg 04/29/20 00:34 04/29/20 00:35 Tylenol RECTAL 04/29/20 00:35 650 mg NOW ONE Administration Acetaminophen Confirm 04/29/20 00:34 04/29/20 00:38 Tylenol Administered 04/29/20 00:35 Not Given Dose 650 mg .ROUTE .STK-MED ONE Albuterol/Ipratropium 3 ml 04/28/20 22:29 04/28/20 22:38 Duoneb 3.0-0.5 Mg/3 Ml NEB 04/28/20 22:30 3 ml ONETIME ONE Administration Albuterol/Ipratropium Confirm 04/29/20 01:01 04/29/20 01:32 Duoneb 3.0-0.5 Mg/3 Ml Administered 04/29/20 01:02 3 ml Dose Administration 3 ml .ROUTE .STK-MED ONE Diltiazem HCl 12.5 mg 04/28/20 22:32 04/28/20 22:47 Diltiazem IVPUSH 04/28/20 22:33 12.5 mg NOW ONE Administration Diltiazem HCl 125 mg/ Sodium 125 mls @ 5 mls/hr 04/28/20 22:45 Chloride IV NOW ANALILIA Protocol 5 MG/HR Ceftriaxone Sodium/Dextrose 1 50 mls @ 100 mls/hr 04/28/20 23:18 04/29/20 00:23 gm/ Premix IV 04/28/20 23:47 100 mls/hr ONETIME ONE Administration Methylprednisolone Sodium Succinate 125 mg 04/28/20 22:29 04/28/20 22:39 Solu-Medrol IVPUSH 04/28/20 22:30 125 mg ONETIME ONE Administration Departure - Departure Time of Disposition: 23:53 Disposition: Admitted As Inpatient 66 Condition: Fair Clinical Impression: Pneumonia, COPD exacerbation, Atrial fibrillation with RVR - Discharge Information Sepsis Event Note (ED) - Evaluation Sepsis Screening Result: No Definite Risk - Focused Exam Vital Signs: Vital Signs Temp Pulse Resp BP Pulse Ox 04/28/20 23:57 121 H 107/52 L 93 L 04/28/20 23:42 98 107/69 74 L 04/28/20 22:34 102.4 F H 204 H 29 H 134/90 76 L 04/28/20 22:32 195 H 134/90 80 L - My Orders Last 24 Hours: My Active Orders 04/28/20 22:29 Sodium Chloride 0.9% [Saline Flush] 10 ml FLUSH ASDIRECTED PRN Sodium Chloride 0.9% [Saline Flush] 2.5 ml FLUSH ASDIRECTED PRN Blood Culture x2 Reflex Set [OM.PC] Stat Isolation [COMM] Routine Saline Lock Insert [OM.PC] Stat 04/28/20 22:30 CULTURE BLOOD [BC] Stat 04/28/20 22:40 CORONAVIRUS COVID-19 PCR PHL Stat CULTURE BLOOD [BC] Stat 04/28/20 23:15 Diltiazem [Cardizem] 100 mg Sodium Chloride 0.9% [Normal Saline] 100 ml IV NOW 04/28/20 23:30 Azithromycin [Zithromax] 500 mg Sodium Chloride 0.9% [Normal Saline (AdvBag)] 250 ml IV ONETIME 04/28/20 23:57 ABG [BLOOD GAS ARTERIAL] [BG] Stat - Assessment/Plan Last 24 Hours: My Active Orders 04/28/20 22:29 Sodium Chloride 0.9% [Saline Flush] 10 ml FLUSH ASDIRECTED PRN Sodium Chloride 0.9% [Saline Flush] 2.5 ml FLUSH ASDIRECTED PRN Blood Culture x2 Reflex Set [OM.PC] Stat Isolation [COMM] Routine Saline Lock Insert [OM.PC] Stat 04/28/20 22:30 CULTURE BLOOD [BC] Stat 04/28/20 22:40 CORONAVIRUS COVID-19 PCR PHL Stat CULTURE BLOOD [BC] Stat 04/28/20 23:15 Diltiazem [Cardizem] 100 mg Sodium Chloride 0.9% [Normal Saline] 100 ml IV NOW 04/28/20 23:30 Azithromycin [Zithromax] 500 mg Sodium Chloride 0.9% [Normal Saline (AdvBag)] 250 ml IV ONETIME 04/28/20 23:57 ABG [BLOOD GAS ARTERIAL] [BG] Stat
[2020-04-29] MEDS: Acetaminophen 500 MG Tab PO ONE ×2 (00:25→00:39)
[2020-04-29] MEDS ORDERED: Acetaminophen 650 MG Supp RECTAL ONE (00:34)
[2020-04-29] MEDS ORDERED: Acetaminophen 650 MG Supp ONE (00:34)
[2020-04-29] MEDS ORDERED: Albuterol/Ipratropium 3.0-0.5 MG/3 ML Neb Soln ONE (01:01)
[2020-04-29] MEDS ORDERED: Magnesium Sulfate/Water 4 GM in Premix Bag 1 BAG IV ONE (02:50)
--- NOTE | 2020-04-29 02:51 | PCM.HP.2 ---
H&P History of Present Illness - General Date of Service: 04/29/20 Admit Problem/Dx: Admission Diagnosis/Problem Admission Diagnosis/Problem Pneumonia - History of Present Illness Initial Comments - Free Text/Narative: 85 yo female with pmh of COPD, lung cancer, oxygen dependent, CHF, a.fib on anticoagulation who presents with several day history of shortness of breath. She denies any fevers, cough or chest pain. Patient had two admission last month for CHF exacerbation. She has undergone xrt and chemotherapy for her lung cancer with recent PET scan last week. In the ED she was noted to be hypoxic and requiring NRB. She was also noted to be in a.fib with RVR. She was treated with duonebs, solumedrol, azithromycin, Rocephin and diltiazem drip. - Related Data Allergies/Adverse Reactions: Allergies Allergy/AdvReac Type Severity Reaction Status Date / Time codeine Allergy Delusions Verified 03/31/20 11:36 lorazepam [From Ativan] Allergy Delusions Verified 03/31/20 11:36 meperidine [From Demerol] Allergy Delusions Verified 03/31/20 11:36 Home Medications: Home Meds Dorzolamide/Timolol [Cosopt 2%-0.5% Ophth Soln] 1 drop EYERT BID 05/28/16 [History] Omeprazole 40 mg PO ACBREAKFAST 05/28/16 [History] Sertraline HCl 200 mg PO DAILY 05/28/16 [History] Brimonidine [Alphagan 0.2% Ophth Soln] 1 drop EYERT BID 10/20/18 [History] Metoprolol Tartrate 12.5 mg PO DAILY 11/01/18 [History] Albuterol/Ipratropium [Combivent Respimat] 1 puff INH Q6HR PRN 08/23/19 [History] Apixaban [Eliquis] 2.5 mg PO BID 08/23/19 [History] Furosemide [Lasix] 40 mg PO DAILY 08/23/19 [History] Mirtazapine 15 mg PO BEDTIME 02/08/20 [History] traZODone HCl [Trazodone HCl] 50 mg PO BEDTIME PRN 02/08/20 [History] Albuterol Sulfate [Albuterol Sulfate Hfa] 2 puff INH Q4HRRT PRN 03/28/20 [History] Latanoprost/Pf [Latanoprost 0.005% Eye Drop] 1 drop EYEBOTH BEDTIME 03/28/20 [History] Potassium Chloride 40 meq PO BID 03/28/20 [History] dilTIAZem HCL [Diltiazem 24Hr ER] 120 mg PO DAILY 03/28/20 [History] Albuterol [Take Home: Albuterol 18 GM, 1 INH Pack] 2 inh INH Q4H PRN 04/29/20 [History] Cyanocobalamin (Vitamin B-12) [Cyanocobalamin Injection] 1 mg IM Q30D 04/29/20 [History] Fluticasone/Umeclidin/Vilanter [Trelegy Ellipta 100-62.5-25 MCG] 1 inh IH DAILY 04/29/20 [History] Past Medical History HEENT History: Reports: Cataract Other HEENT History: Macular Degeneration. 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: Musculoskeletal History: Reports: None Neurological History: Reports: TIA Psychiatric History: Reports: Panic Attack Endocrine/Metabolic History: Reports: None Hematologic History: Reports: Anticoagulation Therapy Immunologic History: Reports: None Oncologic (Cancer) History: Reports: Lung, Uterine Other Oncologic History: unsure of type of cancer, but 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 Respiratory Surgical History: Reports: Lung Resection GI Surgical History: Reports: Small Bowel Female Surgical History: Reports: Hysterectomy Neurological Surgical History: Reports: None Oncologic Surgical History: Reports: None Social & Family History - Family History Family Medical History: Noncontributory Cardiac: Reports: Afib, [place] Hematologic: Reports: Anemia - Tobacco Use Tobacco Use Status *Q: Never Tobacco User - Caffeine Use Caffeine Use: Reports: None Caffeine Use Comment: Drinks decaf, about 6 cups a day. - Recreational Drug Use Recreational Drug Use: No - Living Situation & Occupation Living situation: Reports: Occupation: Retired H&P Review of Systems - Review of Systems: Review Of Systems: Unable To Obtain Reason Not Obtained: lethargic Exam - Exam Exam: See Below - Vital Signs Vital Signs: Last Vital Signs Temp 37.6 C 04/29/20 00:35 Pulse 139 H 04/29/20 01:37 Resp 28 H 04/29/20 00:39 BP 83/49 L 04/29/20 01:37 Pulse Ox 81 L 04/29/20 01:37 - Exam General: Alert, Mild Distress HEENT: Conjunctiva Clear, Posterior Pharynx Clear Lungs: Decreased Breath Sounds, Rhonchi Cardiovascular: Irregular Rhythm, Tachycardia GI/Abdominal Exam: Normal Bowel Sounds, Soft, Non-Tender, No Distention Extremities: Normal Inspection, Non-Tender, No Pedal Edema Skin: Warm, Dry, Intact Neurological: No: Focal Deficit - Patient Data Lab Results Last 24 hrs: Laboratory Results - last 24 hr 04/28/20 04/28/20 04/28/20 Range/Units 22:30 22:30 22:30 WBC 13.24 H (4.0-11.0) K/uL RBC 3.05 L (4.30-5.90) M/uL Hgb 7.8 L (12.0-16.0) g/dL Hct 26.2 L (36.0-46.0) % MCV 85.9 (80.0-98.0) fL MCH 25.6 L (27.0-32.0) pg MCHC 29.8 L (31.0-37.0) g/dL RDW Std Deviation 52.6 (28.0-62.0) fl RDW Coeff of Luke 17 H (11.0-15.0) % Plt Count 369 (150-400) K/uL MPV 11.40 (7.40-12.00) fL Neut % (Auto) 82.4 H (48.0-80.0) % Lymph % (Auto) 4.7 L (16.0-40.0) % Barber % (Auto) 11.7 (0.0-15.0) % Eos % (Auto) 1.0 (0.0-7.0) % Baso % (Auto) 0.2 (0.0-1.5) % Neut # (Auto) 10.9 H (1.4-5.7) K/uL Lymph # (Auto) 0.6 (0.6-2.4) K/uL Barber # (Auto) 1.6 H (0.0-0.8) K/uL Eos # (Auto) 0.1 (0.0-0.7) K/uL Baso # (Auto) 0.0 (0.0-0.1) K/uL Nucleated RBC % 0.0 /100WBC Nucleated RBCs # 0 K/uL INR 1.31 Lactate (0.20-2.00) mmol/L Sodium 136 (136-145) mmol/L Potassium 4.2 (3.5-5.1) mmol/L Chloride 97 L (98-107) mmol/L Carbon Dioxide 33.2 H (21.0-32.0) mmol/L BUN 17 (7.0-18.0) mg/dL Creatinine 0.9 (0.6-1.0) mg/dL Est Cr Clr Drug Dosing TNP Estimated GFR (MDRD) 59.5 ml/min Glucose 150 H (74-106) mg/dL Calcium 7.9 L (8.5-10.1) mg/dL Magnesium 1.3 L (1.8-2.4) mg/dL Total Bilirubin 0.3 (0.2-1.0) mg/dL AST 19 (15-37) IU/L ALT 22 (14-63) IU/L Alkaline Phosphatase 90 (46-116) U/L Troponin I < 0.050 (0.000-0.056) ng/mL B-Natriuretic Peptide (<100) PG/ML Total Protein 6.0 L (6.4-8.2) g/dL Albumin 3.1 L (3.4-5.0) g/dL Globulin 2.9 (2.6-4.0) g/dL Albumin/Globulin Ratio 1.1 (0.9-1.6) Urine Color Urine Appearance Urine pH (5.0-8.0) Ur Specific Bicknell (1.001-1.035) Urine Protein (NEGATIVE) mg/dL Urine Glucose (UA) (NEGATIVE) mg/dL Urine Ketones (NEGATIVE) mg/dL Urine Occult Blood (NEGATIVE) Urine Nitrite (NEGATIVE) Urine Bilirubin (NEGATIVE) Urine Urobilinogen (<2.0) EU/dL Ur Leukocyte Esterase (NEGATIVE) SARS-CoV-2 RNA (NAYAN) (NEGATIVE) SARS CoV-2 RNA Rapid NAYAN (NEGATIVE) 04/28/20 04/28/20 04/28/20 Range/Units 22:30 22:40 22:40 WBC (4.0-11.0) K/uL RBC (4.30-5.90) M/uL Hgb (12.0-16.0) g/dL Hct (36.0-46.0) % MCV (80.0-98.0) fL MCH (27.0-32.0) pg MCHC (31.0-37.0) g/dL RDW Std Deviation (28.0-62.0) fl RDW Coeff of Luke (11.0-15.0) % Plt Count (150-400) K/uL MPV (7.40-12.00) fL Neut % (Auto) (48.0-80.0) % Lymph % (Auto) (16.0-40.0) % Barber % (Auto) (0.0-15.0) % Eos % (Auto) (0.0-7.0) % Baso % (Auto) (0.0-1.5) % Neut # (Auto) (1.4-5.7) K/uL Lymph # (Auto) (0.6-2.4) K/uL Barber # (Auto) (0.0-0.8) K/uL Eos # (Auto) (0.0-0.7) K/uL Baso # (Auto) (0.0-0.1) K/uL Nucleated RBC % /100WBC Nucleated RBCs # K/uL INR Lactate 2.6 H* (0.20-2.00) mmol/L Sodium (136-145) mmol/L Potassium (3.5-5.1) mmol/L Chloride (98-107) mmol/L Carbon Dioxide (21.0-32.0) mmol/L BUN (7.0-18.0) mg/dL Creatinine (0.6-1.0) mg/dL Est Cr Clr Drug Dosing Estimated GFR (MDRD) ml/min Glucose (74-106) mg/dL Calcium (8.5-10.1) mg/dL Magnesium (1.8-2.4) mg/dL Total Bilirubin (0.2-1.0) mg/dL AST (15-37) IU/L ALT (14-63) IU/L Alkaline Phosphatase (46-116) U/L Troponin I (0.000-0.056) ng/mL B-Natriuretic Peptide 1217 H (<100) PG/ML Total Protein (6.4-8.2) g/dL Albumin (3.4-5.0) g/dL Globulin (2.6-4.0) g/dL Albumin/Globulin Ratio (0.9-1.6) Urine Color Urine Appearance Urine pH (5.0-8.0) Ur Specific Bicknell (1.001-1.035) Urine Protein (NEGATIVE) mg/dL Urine Glucose (UA) (NEGATIVE) mg/dL Urine Ketones (NEGATIVE) mg/dL Urine Occult Blood (NEGATIVE) Urine Nitrite (NEGATIVE) Urine Bilirubin (NEGATIVE) Urine Urobilinogen (<2.0) EU/dL Ur Leukocyte Esterase (NEGATIVE) SARS-CoV-2 RNA (NAYAN) (NEGATIVE) SARS CoV-2 RNA Rapid NAYAN NEGATIVE (NEGATIVE) 04/29/20 04/29/20 Range/Units 00:01 01:29 WBC (4.0-11.0) K/uL RBC (4.30-5.90) M/uL Hgb (12.0-16.0) g/dL Hct (36.0-46.0) % MCV (80.0-98.0) fL MCH (27.0-32.0) pg MCHC (31.0-37.0) g/dL RDW Std Deviation (28.0-62.0) fl RDW Coeff of Luke (11.0-15.0) % Plt Count (150-400) K/uL MPV (7.40-12.00) fL Neut % (Auto) (48.0-80.0) % Lymph % (Auto) (16.0-40.0) % Barber % (Auto) (0.0-15.0) % Eos % (Auto) (0.0-7.0) % Baso % (Auto) (0.0-1.5) % Neut # (Auto) (1.4-5.7) K/uL Lymph # (Auto) (0.6-2.4) K/uL Barber # (Auto) (0.0-0.8) K/uL Eos # (Auto) (0.0-0.7) K/uL Baso # (Auto) (0.0-0.1) K/uL Nucleated RBC % /100WBC Nucleated RBCs # K/uL INR Lactate (0.20-2.00) mmol/L Sodium (136-145) mmol/L Potassium (3.5-5.1) mmol/L Chloride (98-107) mmol/L Carbon Dioxide (21.0-32.0) mmol/L BUN (7.0-18.0) mg/dL Creatinine (0.6-1.0) mg/dL Est Cr Clr Drug Dosing Estimated GFR (MDRD) ml/min Glucose (74-106) mg/dL Calcium (8.5-10.1) mg/dL Magnesium (1.8-2.4) mg/dL Total Bilirubin (0.2-1.0) mg/dL AST (15-37) IU/L ALT (14-63) IU/L Alkaline Phosphatase (46-116) U/L Troponin I (0.000-0.056) ng/mL B-Natriuretic Peptide (<100) PG/ML Total Protein (6.4-8.2) g/dL Albumin (3.4-5.0) g/dL Globulin (2.6-4.0) g/dL Albumin/Globulin Ratio (0.9-1.6) Urine Color YELLOW Urine Appearance CLEAR Urine pH 5.5 (5.0-8.0) Ur Specific Bicknell 1.020 (1.001-1.035) Urine Protein NEGATIVE (NEGATIVE) mg/dL Urine Glucose (UA) NEGATIVE (NEGATIVE) mg/dL Urine Ketones NEGATIVE (NEGATIVE) mg/dL Urine Occult Blood NEGATIVE (NEGATIVE) Urine Nitrite NEGATIVE (NEGATIVE) Urine Bilirubin NEGATIVE (NEGATIVE) Urine Urobilinogen 0.2 (<2.0) EU/dL Ur Leukocyte Esterase NEGATIVE (NEGATIVE) SARS-CoV-2 RNA (NAYAN) NEGATIVE (NEGATIVE) SARS CoV-2 RNA Rapid NAYAN (NEGATIVE) Result Diagrams: 04/29/20 08:42 04/29/20 03:44 Xu Results Last 24 hrs: Microbiology 04/28/20 22:37 Influenza Type A Antigen Screen - Final Nasopharyngeal Swab NEGATIVE INFLUENZA A VIRUS AG REFERENCE RANGE: NEGATIVE Influenza Type B Antigen Screen - Final NEGATIVE INFLUENZA B VIRUS AG REFERENCE RANGE: NEGATIVE Sepsis Event Note - Evaluation Sepsis Screening Result: No Definite Risk - Focused Exam Vital Signs: Vital Signs Temp Temp Pulse Resp BP Pulse Ox 04/29/20 01:37 139 H 83/49 L 81 L 04/29/20 01:25 155 H 81/40 L 86 L 04/29/20 01:10 95/49 L 97 04/29/20 00:39 120 H 28 H 96/40 L 88 L 04/29/20 00:35 37.6 C 04/29/20 00:28 81/36 L 86 L 04/29/20 00:12 92/49 L 87 L 04/28/20 23:57 121 H 107/52 L 93 L 04/28/20 23:42 98 107/69 74 L 04/28/20 22:34 39.1 C H 204 H 29 H 134/90 76 L 04/28/20 22:32 195 H 134/90 80 L Problem List Initiated/Reviewed/Updated: Yes Orders Last 24hrs: Active Orders 24 hr Category Date Time Status Patient Status [ADT] Routine ADT 04/28/20 23:58 Active ABG [BLOOD GAS ARTERIAL] [BG] Stat Lab 04/28/20 23:57 Ordered CORONAVIRUS COVID-19 PCR PHL Stat Lab 04/28/20 22:40 Received CULTURE BLOOD [BC] Stat Lab 04/28/20 22:30 Received CULTURE BLOOD [BC] Stat Lab 04/28/20 22:40 Received LACTATE WITH REFLEX [BG] Stat Lab 04/29/20 03:40 Ordered LACTIC ACID,WHOLE BLOOD [BG] Routine Lab 04/29/20 02:48 Ordered Azithromycin [Zithromax] 500 mg Med 04/28/20 23:30 Active Sodium Chloride 0.9% [Normal Saline (AdvBag)] 250 ml IV ONETIME Diltiazem [Cardizem] 100 mg Med 04/28/20 23:15 Active Sodium Chloride 0.9% [Normal Saline] 100 ml IV NOW Magnesium Sulfate/Water [Magnesium Sulfate in Water Med 04/29/20 02:50 Ordered Premix] 4 gm Premix Bag 1 bag IV ONETIME Sodium Chloride 0.9% [Saline Flush] Med 04/28/20 22:29 Active 10 ml FLUSH ASDIRECTED PRN Sodium Chloride 0.9% [Saline Flush] Med 04/28/20 22:29 Active 2.5 ml FLUSH ASDIRECTED PRN Blood Culture x2 Reflex Set [OM.PC] Stat Oth 04/28/20 22:29 Ordered Isolation [COMM] Routine Oth 04/28/20 22:29 Active Saline Lock Insert [OM.PC] Stat Oth 04/28/20 22:29 Ordered Medication Orders Diltiazem HCl 100 mg/ Sodium (Chloride) 100 mls @ 5 mls/hr IV NOW ONE; Protocol Stop: 04/29/20 19:14 Last Titration: 04/28/20 23:51 Dose: 10 mg/hr, 10 mls/hr Documented by: Admin: 04/28/20 23:37 Dose: 5 mg/hr, 5 mls/hr Documented by: MARK Azithromycin 500 mg/ Sodium (Chloride) 250 mls @ 250 mls/hr IV ONETIME ANALILIA Last Admin: 04/29/20 02:12 Dose: 250 mls/hr Documented by: WAN Magnesium Sulfate 4 gm/ Premix 100 mls @ 50 mls/hr IV ONETIME ONE Stop: 04/29/20 04:49 Sodium Chloride (Saline Flush) 10 ml FLUSH ASDIRECTED PRN PRN Reason: Keep Vein Open Sodium Chloride (Saline Flush) 2.5 ml FLUSH ASDIRECTED PRN PRN Reason: Keep Vein Open Assessment/Plan Comment:: 85 yo female with pmh of COPD, lung cancer, CHF, a.fib admitted for a.fib with RVR and acute hypoxic respiratory failure likely multifactorial from pneumonia, heart failure, COPD and lung cancer s/p xrt. Acute hypoxic respiratory failure: Will start BIPAP tonight, patient is DNR/DNI Possible gram negative deo respiratory infection with HCAP: Vancomycin and cefepime, cultures pending, hypotension: bolus 500mls, stop diltiazem, trend lactic acid a.fib with RVR: will start amiodarone, continue Eliquis CHF: on bipap, monitor closely during fluid resuscitation. COPD: martha, received solumedrol in ED. Spoke briefly with patient regarding goals of care and guarded prognosis but patient wanted me to talk with family. Called family but they have not responded yet. - Mortality Measure Prognosis:: Poor
[2020-04-29] MEDS ORDERED: Sodium Chloride 0.9% 500 ML IV SCH (03:00)
[2020-04-29] MEDS ORDERED: Digoxin 500 MCG/2 ML Amp IVPUSH ONE (03:05)
[2020-04-29 03:19] VITALS: PULSE 123
[2020-04-29] MEDS ORDERED: Albuterol/Ipratropium 3.0-0.5 MG/3 ML Neb Soln NEB PRN (03:22)
[2020-04-29 04:14] LABS: BLOOD UREA NITROGEN,BUN 21 mg/dL (7.0-18.0); CARBON DIOXIDE,CO2 31.3 mmol/L (21.0-32.0); CHLORIDE,CL 97 mmol/L (98-107); GLUCOSE RANDOM 187 mg/dL (74-106); POTASSIUM,K 4.2 mmol/L (3.5-5.1); SODIUM,NA 136 mmol/L (136-145)
--- NOTE | 2020-04-29 04:35 | PN ---
THC Physician - Brief Progress [id number]/14/2020 03:54[facility] Junior Schneider, [place] - MWN (PARKER) - MWN JUAN HURSTDate of Service 04/29/2020 03:54HPI/Event s of Note Chart reviewed and case d/w Dr Griffith. On camera, the patient is lying in bed tachypneic but not using any accessory respiratory mucles. Mrs Mart is an 85 yr old lady c/o progressive dyspnea x days w increased cough. Sats per EMS 60%. ED: Solumedrol 125 and Duonebs, CTx and Azithro, Dilt rashad renee and drip.PMH: lung CA, severe COPD, PNA, Barron CHF, HTN, a fib with h/o TIA on chronic anticoag ulation.Investigations reviewed - pertinent:BNP 1217, LA 2.6CxR: RUL (likely new) and RLL infiltrate (likely old); persistent non-layering left pleural effusion. Port-a-cath. A/P:1. Acute on chronic res piratory failure- start BIPAP for respiratory support, titrate FiOt to 90-92%2. AECOPD- consider ster oids.- empiric Abx- bronchodilators qid3. HCAP- broaden coverage to Ceftriaxoen/Vanco- follow culture s and clinical status 4. A fib RVR- hypotensive on Diltiazem gtt- recommend starting Amiodarone drip and bolus for HR control and hopefully should improve BP- if persistently hypotensive may need cardio version5. DVT prophylaxis - resume Eliquis in am or start chemoprophylaxis.Interventions Major-Arrhyt hmia - evaluation and management, Infection - evaluation and management, Respiratory failure - evalua tion and management, Other: a fib rvr
[2020-04-29] MEDS: Cefepime 1 GM in Premix Bag 1 BAG IV SCH ×3 (05:29→22:18)
[2020-04-29] MEDS: Albuterol/Ipratropium 3.0-0.5 MG/3 ML Neb Soln NEB SCH ×3 (06:06→19:55)
[2020-04-29] MEDS ORDERED: Omeprazole 20 MG Cap.CR PO SCH (07:30)
[2020-04-29] MEDS ORDERED: Sodium Chloride 0.9% 10 ML SDV IV ONE (07:30)
[2020-04-29] MEDS ORDERED: Sodium Chloride 0.9% 500 ML IV ONE (07:45)
[2020-04-29] MEDS ORDERED: Sertraline 100 MG Tab PO SCH (09:00)
[2020-04-29] MEDS: Apixaban 2.5 MG Tab PO SCH ×2 (09:13→22:16)
--- NOTE | 2020-04-29 10:26 | PCM.PN ---
- General Info Date of Service: 04/29/20 - Review of Systems Systems Review Comment:: lethargic, no pain - Patient Data Vitals - Most Recent: Last Vital Signs Temp 37.8 C 04/29/20 07:00 Pulse 123 H 04/29/20 03:16 Resp 20 04/29/20 08:00 BP 104/56 L 04/29/20 08:00 Pulse Ox 93 L 04/29/20 08:00 Weight - Most Recent: 49.804 kg I&O - Last 24 Hours: Intake & Output 04/28/20 04/29/20 04/29/20 22:59 06:59 14:59 Intake Total 1186 Balance 1186 Lab Results Last 24 Hours: Laboratory Results - last 24 hr 04/28/20 04/28/20 04/28/20 Range/Units 22:30 22:30 22:30 WBC 13.24 H (4.0-11.0) K/uL RBC 3.05 L (4.30-5.90) M/uL Hgb 7.8 L (12.0-16.0) g/dL Hct 26.2 L (36.0-46.0) % MCV 85.9 (80.0-98.0) fL MCH 25.6 L (27.0-32.0) pg MCHC 29.8 L (31.0-37.0) g/dL RDW Std Deviation 52.6 (28.0-62.0) fl RDW Coeff of Luke 17 H (11.0-15.0) % Plt Count 369 (150-400) K/uL MPV 11.40 (7.40-12.00) fL Neut % (Auto) 82.4 H (48.0-80.0) % Lymph % (Auto) 4.7 L (16.0-40.0) % Bradley % (Auto) 11.7 (0.0-15.0) % Eos % (Auto) 1.0 (0.0-7.0) % Baso % (Auto) 0.2 (0.0-1.5) % Neut # (Auto) 10.9 H (1.4-5.7) K/uL Lymph # (Auto) 0.6 (0.6-2.4) K/uL Bradley # (Auto) 1.6 H (0.0-0.8) K/uL Eos # (Auto) 0.1 (0.0-0.7) K/uL Baso # (Auto) 0.0 (0.0-0.1) K/uL Add Manual Diff Neutrophils % (Manual) (48.0-80.0) % Band Neutrophils % % Lymphocytes % (Manual) (16.0-40.0) % Monocytes % (Manual) (0.0-15.0) % Nucleated RBC % 0.0 /100WBC Absolute Seg Neuts (1.4-5.7) Band Neutrophils # Lymphocytes # (Manual) (0.6-2.4) Monocytes # (Manual) (0.0-0.8) Nucleated RBCs # 0 K/uL INR 1.31 VBG pH (7.31-7.41) VBG pCO2 (35-45) mmHG VBG pO2 (30-40) mmHG VBG HCO3 (22-30) mEq/L VBG Total CO2 (41-51) mmol/L VBG Base Excess (-3.0-3.0) Lactate (0.20-2.00) mmol/L Sodium 136 (136-145) mmol/L Potassium 4.2 (3.5-5.1) mmol/L Chloride 97 L (98-107) mmol/L Carbon Dioxide 33.2 H (21.0-32.0) mmol/L BUN 17 (7.0-18.0) mg/dL Creatinine 0.9 (0.6-1.0) mg/dL Est Cr Clr Drug Dosing TNP Estimated GFR (MDRD) 59.5 ml/min Glucose 150 H (74-106) mg/dL Calcium 7.9 L (8.5-10.1) mg/dL Magnesium 1.3 L (1.8-2.4) mg/dL Total Bilirubin 0.3 (0.2-1.0) mg/dL AST 19 (15-37) IU/L ALT 22 (14-63) IU/L Alkaline Phosphatase 90 (46-116) U/L Troponin I < 0.050 (0.000-0.056) ng/mL B-Natriuretic Peptide (<100) PG/ML Total Protein 6.0 L (6.4-8.2) g/dL Albumin 3.1 L (3.4-5.0) g/dL Globulin 2.9 (2.6-4.0) g/dL Albumin/Globulin Ratio 1.1 (0.9-1.6) Urine Color Urine Appearance Urine pH (5.0-8.0) Ur Specific [place] (1.001-1.035) Urine Protein (NEGATIVE) mg/dL Urine Glucose (UA) (NEGATIVE) mg/dL Urine Ketones (NEGATIVE) mg/dL Urine Occult Blood (NEGATIVE) Urine Nitrite (NEGATIVE) Urine Bilirubin (NEGATIVE) Urine Urobilinogen (<2.0) EU/dL Ur Leukocyte Esterase (NEGATIVE) SARS-CoV-2 RNA (NAYAN) (NEGATIVE) SARS CoV-2 RNA Rapid NAYAN (NEGATIVE) 04/28/20 04/28/20 04/28/20 Range/Units 22:30 22:40 22:40 WBC (4.0-11.0) K/uL RBC (4.30-5.90) M/uL Hgb (12.0-16.0) g/dL Hct (36.0-46.0) % MCV (80.0-98.0) fL MCH (27.0-32.0) pg MCHC (31.0-37.0) g/dL RDW Std Deviation (28.0-62.0) fl RDW Coeff of Luke (11.0-15.0) % Plt Count (150-400) K/uL MPV (7.40-12.00) fL Neut % (Auto) (48.0-80.0) % Lymph % (Auto) (16.0-40.0) % Bradley % (Auto) (0.0-15.0) % Eos % (Auto) (0.0-7.0) % Baso % (Auto) (0.0-1.5) % Neut # (Auto) (1.4-5.7) K/uL Lymph # (Auto) (0.6-2.4) K/uL Bradley # (Auto) (0.0-0.8) K/uL Eos # (Auto) (0.0-0.7) K/uL Baso # (Auto) (0.0-0.1) K/uL Add Manual Diff Neutrophils % (Manual) (48.0-80.0) % Band Neutrophils % % Lymphocytes % (Manual) (16.0-40.0) % Monocytes % (Manual) (0.0-15.0) % Nucleated RBC % /100WBC Absolute Seg Neuts (1.4-5.7) Band Neutrophils # Lymphocytes # (Manual) (0.6-2.4) Monocytes # (Manual) (0.0-0.8) Nucleated RBCs # K/uL INR VBG pH (7.31-7.41) VBG pCO2 (35-45) mmHG VBG pO2 (30-40) mmHG VBG HCO3 (22-30) mEq/L VBG Total CO2 (41-51) mmol/L VBG Base Excess (-3.0-3.0) Lactate 2.6 H* (0.20-2.00) mmol/L Sodium (136-145) mmol/L Potassium (3.5-5.1) mmol/L Chloride (98-107) mmol/L Carbon Dioxide (21.0-32.0) mmol/L BUN (7.0-18.0) mg/dL Creatinine (0.6-1.0) mg/dL Est Cr Clr Drug Dosing Estimated GFR (MDRD) ml/min Glucose (74-106) mg/dL Calcium (8.5-10.1) mg/dL Magnesium (1.8-2.4) mg/dL Total Bilirubin (0.2-1.0) mg/dL AST (15-37) IU/L ALT (14-63) IU/L Alkaline Phosphatase (46-116) U/L Troponin I (0.000-0.056) ng/mL B-Natriuretic Peptide 1217 H (<100) PG/ML Total Protein (6.4-8.2) g/dL Albumin (3.4-5.0) g/dL Globulin (2.6-4.0) g/dL Albumin/Globulin Ratio (0.9-1.6) Urine Color Urine Appearance Urine pH (5.0-8.0) Ur Specific [place] (1.001-1.035) Urine Protein (NEGATIVE) mg/dL Urine Glucose (UA) (NEGATIVE) mg/dL Urine Ketones (NEGATIVE) mg/dL Urine Occult Blood (NEGATIVE) Urine Nitrite (NEGATIVE) Urine Bilirubin (NEGATIVE) Urine Urobilinogen (<2.0) EU/dL Ur Leukocyte Esterase (NEGATIVE) SARS-CoV-2 RNA (NAYAN) (NEGATIVE) SARS CoV-2 RNA Rapid NAYAN NEGATIVE (NEGATIVE) 04/29/20 04/29/20 04/29/20 Range/Units 00:01 01:29 03:44 WBC (4.0-11.0) K/uL RBC (4.30-5.90) M/uL Hgb (12.0-16.0) g/dL Hct (36.0-46.0) % MCV (80.0-98.0) fL MCH (27.0-32.0) pg MCHC (31.0-37.0) g/dL RDW Std Deviation (28.0-62.0) fl RDW Coeff of Luke (11.0-15.0) % Plt Count (150-400) K/uL MPV (7.40-12.00) fL Neut % (Auto) (48.0-80.0) % Lymph % (Auto) (16.0-40.0) % Bradley % (Auto) (0.0-15.0) % Eos % (Auto) (0.0-7.0) % Baso % (Auto) (0.0-1.5) % Neut # (Auto) (1.4-5.7) K/uL Lymph # (Auto) (0.6-2.4) K/uL Bradley # (Auto) (0.0-0.8) K/uL Eos # (Auto) (0.0-0.7) K/uL Baso # (Auto) (0.0-0.1) K/uL Add Manual Diff Neutrophils % (Manual) (48.0-80.0) % Band Neutrophils % % Lymphocytes % (Manual) (16.0-40.0) % Monocytes % (Manual) (0.0-15.0) % Nucleated RBC % /100WBC Absolute Seg Neuts (1.4-5.7) Band Neutrophils # Lymphocytes # (Manual) (0.6-2.4) Monocytes # (Manual) (0.0-0.8) Nucleated RBCs # K/uL INR VBG pH (7.31-7.41) VBG pCO2 (35-45) mmHG VBG pO2 (30-40) mmHG VBG HCO3 (22-30) mEq/L VBG Total CO2 (41-51) mmol/L VBG Base Excess (-3.0-3.0) Lactate 2.3 H* (0.20-2.00) mmol/L Sodium (136-145) mmol/L Potassium (3.5-5.1) mmol/L Chloride (98-107) mmol/L Carbon Dioxide (21.0-32.0) mmol/L BUN (7.0-18.0) mg/dL Creatinine (0.6-1.0) mg/dL Est Cr Clr Drug Dosing Estimated GFR (MDRD) ml/min Glucose (74-106) mg/dL Calcium (8.5-10.1) mg/dL Magnesium (1.8-2.4) mg/dL Total Bilirubin (0.2-1.0) mg/dL AST (15-37) IU/L ALT (14-63) IU/L Alkaline Phosphatase (46-116) U/L Troponin I (0.000-0.056) ng/mL B-Natriuretic Peptide (<100) PG/ML Total Protein (6.4-8.2) g/dL Albumin (3.4-5.0) g/dL Globulin (2.6-4.0) g/dL Albumin/Globulin Ratio (0.9-1.6) Urine Color YELLOW Urine Appearance CLEAR Urine pH 5.5 (5.0-8.0) Ur Specific [place] 1.020 (1.001-1.035) Urine Protein NEGATIVE (NEGATIVE) mg/dL Urine Glucose (UA) NEGATIVE (NEGATIVE) mg/dL Urine Ketones NEGATIVE (NEGATIVE) mg/dL Urine Occult Blood NEGATIVE (NEGATIVE) Urine Nitrite NEGATIVE (NEGATIVE) Urine Bilirubin NEGATIVE (NEGATIVE) Urine Urobilinogen 0.2 (<2.0) EU/dL Ur Leukocyte Esterase NEGATIVE (NEGATIVE) SARS-CoV-2 RNA (NAYAN) NEGATIVE (NEGATIVE) SARS CoV-2 RNA Rapid NAYAN (NEGATIVE) 04/29/20 04/29/20 04/29/20 Range/Units 03:44 03:48 07:42 WBC 16.48 H (4.0-11.0) K/uL RBC 2.66 L (4.30-5.90) M/uL Hgb 6.8 L (12.0-16.0) g/dL Hct 22.7 L (36.0-46.0) % MCV 85.3 (80.0-98.0) fL MCH 25.6 L (27.0-32.0) pg MCHC 30.0 L (31.0-37.0) g/dL RDW Std Deviation 52.1 (28.0-62.0) fl RDW Coeff of Luke 17 H (11.0-15.0) % Plt Count 255 (150-400) K/uL MPV 11.20 (7.40-12.00) fL Neut % (Auto) (48.0-80.0) % Lymph % (Auto) (16.0-40.0) % Bradley % (Auto) (0.0-15.0) % Eos % (Auto) (0.0-7.0) % Baso % (Auto) (0.0-1.5) % Neut # (Auto) (1.4-5.7) K/uL Lymph # (Auto) (0.6-2.4) K/uL Bradley # (Auto) (0.0-0.8) K/uL Eos # (Auto) (0.0-0.7) K/uL Baso # (Auto) (0.0-0.1) K/uL Add Manual Diff YES Neutrophils % (Manual) 77 (48.0-80.0) % Band Neutrophils % 14 % Lymphocytes % (Manual) 3 L (16.0-40.0) % Monocytes % (Manual) 6 (0.0-15.0) % Nucleated RBC % 0.0 /100WBC Absolute Seg Neuts 12.7 H (1.4-5.7) Band Neutrophils # 2.3 Lymphocytes # (Manual) 0.5 L (0.6-2.4) Monocytes # (Manual) 1.0 H (0.0-0.8) Nucleated RBCs # 0 K/uL INR VBG pH 7.40 (7.31-7.41) VBG pCO2 52 H (35-45) mmHG VBG pO2 49 H (30-40) mmHG VBG HCO3 32 H (22-30) mEq/L VBG Total CO2 31 L (41-51) mmol/L VBG Base Excess 6.2 H (-3.0-3.0) Lactate (0.20-2.00) mmol/L Sodium 136 (136-145) mmol/L Potassium 4.2 (3.5-5.1) mmol/L Chloride 97 L (98-107) mmol/L Carbon Dioxide 31.3 (21.0-32.0) mmol/L BUN 21 H (7.0-18.0) mg/dL Creatinine 1.1 H (0.6-1.0) mg/dL Est Cr Clr Drug Dosing TNP Estimated GFR (MDRD) 47.2 ml/min Glucose 187 H (74-106) mg/dL Calcium 7.3 L (8.5-10.1) mg/dL Magnesium (1.8-2.4) mg/dL Total Bilirubin (0.2-1.0) mg/dL AST (15-37) IU/L ALT (14-63) IU/L Alkaline Phosphatase (46-116) U/L Troponin I (0.000-0.056) ng/mL B-Natriuretic Peptide (<100) PG/ML Total Protein (6.4-8.2) g/dL Albumin (3.4-5.0) g/dL Globulin (2.6-4.0) g/dL Albumin/Globulin Ratio (0.9-1.6) Urine Color Urine Appearance Urine pH (5.0-8.0) Ur Specific [place] (1.001-1.035) Urine Protein (NEGATIVE) mg/dL Urine Glucose (UA) (NEGATIVE) mg/dL Urine Ketones (NEGATIVE) mg/dL Urine Occult Blood (NEGATIVE) Urine Nitrite (NEGATIVE) Urine Bilirubin (NEGATIVE) Urine Urobilinogen (<2.0) EU/dL Ur Leukocyte Esterase (NEGATIVE) SARS-CoV-2 RNA (NAYAN) (NEGATIVE) SARS CoV-2 RNA Rapid NAYAN (NEGATIVE) 04/29/20 04/29/20 04/29/20 Range/Units 08:42 08:42 08:42 WBC (4.0-11.0) K/uL RBC (4.30-5.90) M/uL Hgb 7.2 L (12.0-16.0) g/dL Hct 24.5 L (36.0-46.0) % MCV (80.0-98.0) fL MCH (27.0-32.0) pg MCHC (31.0-37.0) g/dL RDW Std Deviation (28.0-62.0) fl RDW Coeff of Luke (11.0-15.0) % Plt Count (150-400) K/uL MPV (7.40-12.00) fL Neut % (Auto) (48.0-80.0) % Lymph % (Auto) (16.0-40.0) % Bradley % (Auto) (0.0-15.0) % Eos % (Auto) (0.0-7.0) % Baso % (Auto) (0.0-1.5) % Neut # (Auto) (1.4-5.7) K/uL Lymph # (Auto) (0.6-2.4) K/uL Bradley # (Auto) (0.0-0.8) K/uL Eos # (Auto) (0.0-0.7) K/uL Baso # (Auto) (0.0-0.1) K/uL Add Manual Diff Neutrophils % (Manual) (48.0-80.0) % Band Neutrophils % % Lymphocytes % (Manual) (16.0-40.0) % Monocytes % (Manual) (0.0-15.0) % Nucleated RBC % /100WBC Absolute Seg Neuts (1.4-5.7) Band Neutrophils # Lymphocytes # (Manual) (0.6-2.4) Monocytes # (Manual) (0.0-0.8) Nucleated RBCs # K/uL INR VBG pH (7.31-7.41) VBG pCO2 (35-45) mmHG VBG pO2 (30-40) mmHG VBG HCO3 (22-30) mEq/L VBG Total CO2 (41-51) mmol/L VBG Base Excess (-3.0-3.0) Lactate 1.9 (0.20-2.00) mmol/L Sodium (136-145) mmol/L Potassium (3.5-5.1) mmol/L Chloride (98-107) mmol/L Carbon Dioxide (21.0-32.0) mmol/L BUN (7.0-18.0) mg/dL Creatinine (0.6-1.0) mg/dL Est Cr Clr Drug Dosing Estimated GFR (MDRD) ml/min Glucose (74-106) mg/dL Calcium (8.5-10.1) mg/dL Magnesium 3.3 H (1.8-2.4) mg/dL Total Bilirubin (0.2-1.0) mg/dL AST (15-37) IU/L ALT (14-63) IU/L Alkaline Phosphatase (46-116) U/L Troponin I (0.000-0.056) ng/mL B-Natriuretic Peptide (<100) PG/ML Total Protein (6.4-8.2) g/dL Albumin (3.4-5.0) g/dL Globulin (2.6-4.0) g/dL Albumin/Globulin Ratio (0.9-1.6) Urine Color Urine Appearance Urine pH (5.0-8.0) Ur Specific [place] (1.001-1.035) Urine Protein (NEGATIVE) mg/dL Urine Glucose (UA) (NEGATIVE) mg/dL Urine Ketones (NEGATIVE) mg/dL Urine Occult Blood (NEGATIVE) Urine Nitrite (NEGATIVE) Urine Bilirubin (NEGATIVE) Urine Urobilinogen (<2.0) EU/dL Ur Leukocyte Esterase (NEGATIVE) SARS-CoV-2 RNA (NAYAN) (NEGATIVE) SARS CoV-2 RNA Rapid NAYAN (NEGATIVE) Xu Results Last 24 Hours: Microbiology 04/28/20 22:37 Influenza Type A Antigen Screen - Final Nasopharyngeal Swab NEGATIVE INFLUENZA A VIRUS AG REFERENCE RANGE: NEGATIVE Influenza Type B Antigen Screen - Final NEGATIVE INFLUENZA B VIRUS AG REFERENCE RANGE: NEGATIVE Med Orders - Current: Current Medications Albuterol/Ipratropium (Duoneb 3.0-0.5 Mg/3 Ml) 3 ml NEB Q4HRRT PRN PRN Reason: Wheezing Albuterol/Ipratropium (Duoneb 3.0-0.5 Mg/3 Ml) 3 ml NEB Q6HRRT [facility] Last Admin: 04/29/20 06:06 Dose: 3 ml Documented by: Apixaban (Eliquis) 2.5 mg PO BID [facility] Last Admin: 04/29/20 09:13 Dose: 2.5 mg Documented by: Azithromycin 500 mg/ Sodium (Chloride) 250 mls @ 250 mls/hr IV ONETIME [facility] Last Admin: 04/29/20 02:12 Dose: 250 mls/hr Documented by: Sodium Chloride (Normal Saline) 500 mls @ 999 mls/hr IV .BOLUS [facility] Last Infusion: 04/29/20 03:13 Dose: 500 mls/hr Documented by: Amiodarone HCl/Dextrose (Nexterone In Dextrose 360 Mg/200 Ml) 360 mg in 200 mls @ 33.333 mls/hr IV ASDIRECTED ANALILIA; Protocol Last Infusion: 04/29/20 05:50 Dose: 0 mg/min, 0 mls/hr Documented by: Cefepime HCl 1 gm/ Premix 50 mls @ 100 mls/hr IV Q8H [facility] Last Admin: 04/29/20 05:29 Dose: 100 mls/hr Documented by: Norepinephrine Bitartrate (Norepinephr-0.9% Nacl 4 Mg/250) 4 mg in 250 mls @ 7.5 mls/hr IV TITRATE [facility]; Protocol Last Titration: 04/29/20 09:20 Dose: 4 mcg/min, 15 mls/hr Documented by: Vancomycin HCl 750 mg/ Sodium (Chloride) 250 mls @ 166.667 mls/hr IV Q24H [facility] Omeprazole (Omeprazole) 40 mg PO ACBREAKFAST [facility] Last Admin: 04/29/20 08:15 Dose: 40 mg Documented by: Sertraline HCl (Zoloft) 150 mg PO DAILY [facility] Last Admin: 04/29/20 09:13 Dose: 150 mg Documented by: Sodium Chloride (Saline Flush) 10 ml FLUSH ASDIRECTED PRN PRN Reason: Keep Vein Open Sodium Chloride (Saline Flush) 2.5 ml FLUSH ASDIRECTED PRN PRN Reason: Keep Vein Open Vancomycin HCl (Pharmacy To Dose - Vancomycin) 1 dose .XX ASDIRECTED [facility] Discontinued Medications Acetaminophen (Tylenol Extra Strength) 1,000 mg PO ONETIME ONE Stop: 04/28/20 23:19 Last Admin: 04/29/20 00:39 Dose: Not Given Documented by: Acetaminophen (Tylenol) 650 mg RECTAL NOW ONE Stop: 04/29/20 00:35 Last Admin: 04/29/20 00:35 Dose: 650 mg Documented by: Acetaminophen (Tylenol) Confirm Administered Dose 650 mg .ROUTE .STK-MED ONE Stop: 04/29/20 00:35 Last Admin: 04/29/20 00:38 Dose: Not Given Documented by: Albuterol/Ipratropium (Duoneb 3.0-0.5 Mg/3 Ml) 3 ml NEB ONETIME ONE Stop: 04/28/20 22:30 Last Admin: 04/28/20 22:38 Dose: 3 ml Documented by: Albuterol/Ipratropium (Duoneb 3.0-0.5 Mg/3 Ml) Confirm Administered Dose 3 ml .ROUTE .STK-MED ONE Stop: 04/29/20 01:02 Last Admin: 04/29/20 01:32 Dose: 3 ml Documented by: Digoxin (Lanoxin) 250 mcg IVPUSH ONETIME ONE Stop: 04/29/20 03:06 Last Admin: 04/29/20 03:16 Dose: 250 mcg Documented by: Diltiazem HCl (Diltiazem) 12.5 mg IVPUSH NOW ONE Stop: 04/28/20 22:33 Last Admin: 04/28/20 22:47 Dose: 12.5 mg Documented by: Diltiazem HCl 125 mg/ Sodium (Chloride) 125 mls @ 5 mls/hr IV NOW [facility]IA; Protocol Diltiazem HCl 100 mg/ Sodium (Chloride) 100 mls @ 5 mls/hr IV NOW ONE; Protocol Stop: 04/29/20 19:14 Last Titration: 04/28/20 23:51 Dose: 10 mg/hr, 10 mls/hr Documented by: Ceftriaxone Sodium/Dextrose 1 (gm/ Premix) 50 mls @ 100 mls/hr IV ONETIME ONE Stop: 04/28/20 23:47 Last Admin: 04/29/20 00:23 Dose: 100 mls/hr Documented by: Magnesium Sulfate 4 gm/ Premix 100 mls @ 50 mls/hr IV ONETIME ONE Stop: 04/29/20 04:49 Last Admin: 04/29/20 03:23 Dose: 50 mls/hr Documented by: Amiodarone HCl/Dextrose (Nexterone In Dextrose 150 Mg/100 Ml) 100 mls @ 600 mls/hr IV ONETIME ONE; Protocol Stop: 04/29/20 03:29 Last Admin: 04/29/20 03:31 Dose: 600 mls/hr Documented by: Vancomycin HCl 0.75 gm/ Sodium (Chloride) 250 mls @ 166.667 mls/hr IV Q24H [facility] Last Admin: 04/29/20 06:03 Dose: 166.667 mls/hr Documented by: Sodium Chloride (Normal Saline) 500 mls @ 500 mls/hr IV ONETIME ONE Stop: 04/29/20 08:44 Last Admin: 04/29/20 08:00 Dose: 500 mls/hr Documented by: Vancomycin HCl 750 mg/ Sodium (Chloride) 250 mls @ 166.667 mls/hr IV Q24H [facility] Last Admin: 04/29/20 09:45 Dose: Not Given Documented by: Methylprednisolone Sodium Succinate (Solu-Medrol) 125 mg IVPUSH ONETIME ONE Stop: 04/28/20 22:30 Last Admin: 04/28/20 22:39 Dose: 125 mg Documented by: - Exam General: Alert, Oriented Neck: Supple Lungs: Clear to Auscultation, Normal Respiratory Effort Cardiovascular: Regular Rate, Regular Rhythm GI/Abdominal Exam: Soft, Non-Tender, No Distention Extremities: Normal Inspection, Normal Range of Motion, Non-Tender, No Pedal Edema Skin: Warm, Dry, Intact Neurological: No New Focal Deficit Sepsis Event Note - Evaluation Sepsis Screening Result: No Definite Risk - Focused Exam Vital Signs: Vital Signs Temp Temp Pulse Pulse Resp BP BP 04/29/20 08:00 20 104/56 L 04/29/20 07:00 37.8 C 19 88/54 L 04/29/20 06:00 17 83/48 L 04/29/20 05:00 20 88/47 L 04/29/20 04:00 23 H 84/50 L 04/29/20 03:16 123 H 04/29/20 03:00 28 H 73/46 L 04/29/20 02:00 37.3 C 26 H 86/41 L 04/29/20 01:37 139 H 83/49 L 04/29/20 01:25 155 H 81/40 L 04/29/20 01:10 95/49 L 04/29/20 00:39 120 H 28 H 96/40 L 04/29/20 00:35 37.6 C 04/29/20 00:28 81/36 L 04/29/20 00:12 92/49 L 04/28/20 23:57 121 H 107/52 L 04/28/20 23:42 98 107/69 04/28/20 22:34 39.1 C H 204 H 29 H 134/90 04/28/20 22:32 195 H 134/90 Pulse Ox 04/29/20 08:00 93 L 04/29/20 07:00 92 L 04/29/20 06:00 96 04/29/20 05:00 90 L 04/29/20 04:00 100 04/29/20 03:16 04/29/20 03:00 85 L 04/29/20 02:00 83 L 04/29/20 01:37 81 L 04/29/20 01:25 86 L 04/29/20 01:10 97 04/29/20 00:39 88 L 04/29/20 00:35 04/29/20 00:28 86 L 04/29/20 00:12 87 L 04/28/20 23:57 93 L 04/28/20 23:42 74 L 04/28/20 22:34 76 L 04/28/20 22:32 80 L - Problem List Review Problem List Initiated/Reviewed/Updated: Yes - My Orders Last 24 Hours: My Active Orders 04/29/20 03:00 Sodium Chloride 0.9% [Normal Saline] 500 ml IV .BOLUS 04/29/20 03:21 BIPAP Adult [RT BiPAP/CPAP] [RC] ASDIRECTED 04/29/20 03:22 RT Aerosol Therapy [RC] ASDIRECTED Albuterol/Ipratropium [DuoNeb 3.0-0.5 MG/3 ML] 3 ml NEB Q4HRRT PRN 04/29/20 03:28 Oxygen Therapy [RC] PRN VTE/DVT Education [RC] PER UNIT ROUTINE Vital Signs [RC] Q1H Resuscitation Status Routine 04/29/20 03:30 Amiodarone In Dextrose,Iso-Osm [Nexterone in Dextrose 360 MG/200 ML] 360 mg in 200 ml IV ASDIRECTED Pharmacy to Dose - Vancomycin 1 dose .XX ASDIRECTED 04/29/20 04:00 Cefepime [Maxipime in D5W 1 GM/50 ML] 1 gm Premix Bag 1 bag IV Q8H 04/29/20 Breakfast Regular Diet [DIET] 04/29/20 07:30 Omeprazole 40 mg PO ACBREAKFAST 04/29/20 09:00 Apixaban [Eliquis] 2.5 mg PO BID Sertraline [Zoloft] 150 mg PO DAILY 04/30/20 05:11 BASIC METABOLIC PANEL,BMP [CHEM] AM CBC WITH AUTO DIFF [HEME] AM 04/30/20 06:00 Vancomycin 750 mg Sodium Chloride 0.9% [Normal Saline (AdvBag)] 250 ml IV Q24H - Plan Plan:: 85 yo female with pmh of COPD, lung cancer, CHF, a.fib admitted for a.fib with RVR and acute hypoxic respiratory failure likely multifactorial from pneumonia, heart failure, COPD and lung cancer s/p xrt. Acute hypoxic respiratory failure: continue BIPAP Possible gram negative deo respiratory infection with HCAP: Vancomycin and cefepime, cultures pending, hypotension: on levophed, lactic acid normalized, a.fib with RVR: amiodarone drip, now in normal sinus, continue Eliquis CHF: on bipap, monitor closely during fluid resuscitation. COPD: francis thomas Spoke with daughter Joana regarding poor prognosis and goals of care. Confirmed DNR status.
[2020-04-29] MEDS ORDERED: methylPREDNISolone Sodium Succinate 40 MG/1 ML SDV IVPUSH SCH (16:00)
[2020-04-29] MEDS ORDERED: ALPRAZolam 0.5 MG Tab PO PRN (17:27)
[2020-04-29] MEDS ORDERED: ALPRAZolam 0.5 MG Tab ONE (17:32)
[2020-04-29] MEDS: Morphine 2 MG/ML SYRINGE IVPUSH PRN ×4 (17:50→23:44)
--- NOTE | 2020-04-29 20:24 | PCM.SN.2 ---
- Free Text/Narrative Note: spoke with family and will transfer patient to med/surg for palliative care with comfort only orders
[2020-04-29 22:45] VITALS: BP 103/67
[2020-04-30] MEDS: Albuterol/Ipratropium 3.0-0.5 MG/3 ML Neb Soln NEB SCH (01:04)
[2020-04-30] MEDS: Morphine 2 MG/ML SYRINGE IVPUSH PRN (01:36)
[2020-04-30] MEDS ORDERED: Morphine 2 MG/ML SYRINGE IVPUSH PRN (01:38)
--- NOTE | 2020-04-30 18:45 | PCM.DCSUM1 ---
Discharge Summary - Discharge Data Discharge Date: 04/30/20 Discharge Disposition: 20 Condition: Good - Referral to Home Health Primary Care Physician: PCP None - Patient Summary/Data Hospital Course: 85 yo female with pmh of COPD, recurrent lung cancer, oxygen dependent, CHF, a.fib on anticoagulation who was admitted for acute on hypoxic respiratory failure. She presented with several day history of shortness of breath. On admission she was noted to be hypoxic with respiratory distress and required 100% NRB. She was also noted to be in a.fib with RVR with heart rates in the 150s-160s. In the ED she was treated with duonebs, solumedrol, azithromycin, Rocephin and diltiazem drip. She was also placed on BIPAP as she had a DNR/DNI order. She was transferred to the ICU. Her antibiotic coverage was expanded to vancomycin and cefepime to cover possible gram negative deo respiratory infection and health care associated pneumonia. It was felt her hypoxia was likely 2/2 to pneumonia and heart failure. She became hypotensive on diltiazem so she was switch to amiodarone which did control her heart rate. Levophed was also started to maintain blood pressures. After discussions with patient and family it was decided to transition to palliative care. She was given comfort only measures and with her daughters present. - Discharge Plan Home Medications: Home Meds Dorzolamide/Timolol [Cosopt 2%-0.5% Ophth Soln] 1 drop EYERT BID 05/28/16 [History] Omeprazole 40 mg PO ACBREAKFAST 05/28/16 [History] Sertraline HCl 200 mg PO DAILY 05/28/16 [History] Brimonidine [Alphagan 0.2% Ophth Soln] 1 drop EYERT BID 10/20/18 [History] Metoprolol Tartrate 12.5 mg PO DAILY 11/01/18 [History] Albuterol/Ipratropium [Combivent Respimat] 1 puff INH Q6HR PRN 08/23/19 [History] Apixaban [Eliquis] 2.5 mg PO BID 08/23/19 [History] Furosemide [Lasix] 40 mg PO DAILY 08/23/19 [History] Mirtazapine 15 mg PO BEDTIME 02/08/20 [History] traZODone HCl [Trazodone HCl] 50 mg PO BEDTIME PRN 02/08/20 [History] Albuterol Sulfate [Albuterol Sulfate Hfa] 2 puff INH Q4HRRT PRN 03/28/20 [History] Latanoprost/Pf [Latanoprost 0.005% Eye Drop] 1 drop EYEBOTH BEDTIME 03/28/20 [History] Potassium Chloride 40 meq PO BID 03/28/20 [History] dilTIAZem HCL [Diltiazem 24Hr ER] 120 mg PO DAILY 03/28/20 [History] Albuterol [Take Home: Albuterol 18 GM, 1 INH Pack] 2 inh INH Q4H PRN 04/29/20 [History] Cyanocobalamin (Vitamin B-12) [Cyanocobalamin Injection] 1 mg IM Q30D 04/29/20 [History] Fluticasone/Umeclidin/Vilanter [Trelegy Ellipta 100-62.5-25 MCG] 1 inh IH DAILY 04/29/20 [History] Forms: ED Department Discharge Referrals: PCP,None [Primary Care Provider] - - Discharge Summary/Plan Comment DC Time >30 min.: No - Patient Data Vitals - Most Recent: Last Vital Signs Temp 35.8 C L 04/29/20 21:30 Pulse 123 H 04/29/20 03:16 Resp 19 04/29/20 21:30 BP 103/67 04/29/20 21:30 Pulse Ox 92 L 04/29/20 15:00 Weight - Most Recent: 49.804 kg [place] Results - Last 24 hrs: Microbiology 04/28/20 22:40 Aerobic Blood Culture - Preliminary Blood - Venous - Lab Draw NO GROWTH AFTER 1 DAY Anaerobic Blood Culture - Preliminary NO GROWTH AFTER 1 DAY 04/28/20 22:30 Aerobic Blood Culture - Preliminary Blood - Venous NO GROWTH AFTER 1 DAY Anaerobic Blood Culture - Preliminary NO GROWTH AFTER 1 DAY Med Orders - Current: Current Medications Discontinued Medications Acetaminophen (Tylenol Extra Strength) 1,000 mg PO ONETIME ONE Stop: 04/28/20 23:19 Last Admin: 04/29/20 00:39 Dose: Not Given Documented by: Acetaminophen (Tylenol) 650 mg RECTAL NOW ONE Stop: 04/29/20 00:35 Last Admin: 10/14/20 00:35 Dose: 650 mg Documented by: Acetaminophen (Tylenol) Confirm Administered Dose 650 mg .ROUTE .STK-MED ONE Stop: 04/29/20 00:35 Last Admin: 04/29/20 00:38 Dose: Not Given Documented by: Albuterol/Ipratropium (Duoneb 3.0-0.5 Mg/3 Ml) 3 ml NEB ONETIME ONE Stop: 04/28/20 22:30 Last Admin: 04/28/20 22:38 Dose: 3 ml Documented by: Albuterol/Ipratropium (Duoneb 3.0-0.5 Mg/3 Ml) Confirm Administered Dose 3 ml .ROUTE .STK-MED ONE Stop: 04/29/20 01:02 Last Admin: 04/29/20 01:32 Dose: 3 ml Documented by: Albuterol/Ipratropium (Duoneb 3.0-0.5 Mg/3 Ml) 3 ml NEB Q4HRRT PRN PRN Reason: Wheezing Albuterol/Ipratropium (Duoneb 3.0-0.5 Mg/3 Ml) 3 ml NEB Q6HRRT [facility] Last Admin: 04/30/20 01:04 Dose: Not Given Documented by: Alprazolam (Xanax) 1 mg PO Q4H PRN PRN Reason: Other Alprazolam (Xanax) Confirm Administered Dose 1 mg .ROUTE .STK-MED ONE Stop: 04/29/20 17:33 Last Admin: 04/29/20 17:36 Dose: 1 mg Documented by: Apixaban (Eliquis) 2.5 mg PO BID [facility] Last Admin: 04/29/20 22:16 Dose: Not Given Documented by: Digoxin (Lanoxin) 250 mcg IVPUSH ONETIME ONE Stop: 04/29/20 03:06 Last Admin: 04/29/20 03:16 Dose: 250 mcg Documented by: Diltiazem HCl (Diltiazem) 12.5 mg IVPUSH NOW ONE Stop: 04/28/20 22:33 Last Admin: 04/28/20 22:47 Dose: 12.5 mg Documented by: Diltiazem HCl 125 mg/ Sodium (Chloride) 125 mls @ 5 mls/hr IV NOW [facility]; Protocol Diltiazem HCl 100 mg/ Sodium (Chloride) 100 mls @ 5 mls/hr IV NOW ONE; Protocol Stop: 04/29/20 19:14 Last Titration: 04/28/20 23:51 Dose: 10 mg/hr, 10 mls/hr Documented by: Ceftriaxone Sodium/Dextrose 1 (gm/ Premix) 50 mls @ 100 mls/hr IV ONETIME ONE Stop: 04/28/20 23:47 Last Admin: 04/29/20 00:23 Dose: 100 mls/hr Documented by: Azithromycin 500 mg/ Sodium (Chloride) 250 mls @ 250 mls/hr IV ONETIME [facility] Last Admin: 04/29/20 02:12 Dose: 250 mls/hr Documented by: Magnesium Sulfate 4 gm/ Premix 100 mls @ 50 mls/hr IV ONETIME ONE Stop: 04/29/20 04:49 Last Admin: 04/29/20 03:23 Dose: 50 mls/hr Documented by: Sodium Chloride (Normal Saline) 500 mls @ 999 mls/hr IV .BOLUS [facility] Last Infusion: 04/29/20 03:13 Dose: 500 mls/hr Documented by: Amiodarone HCl/Dextrose (Nexterone In Dextrose 150 Mg/100 Ml) 100 mls @ 600 mls/hr IV ONETIME ONE; Protocol Stop: 04/29/20 03:29 Last Admin: 04/29/20 03:31 Dose: 600 mls/hr Documented by: Amiodarone HCl/Dextrose (Nexterone In Dextrose 360 Mg/200 Ml) 360 mg in 200 mls @ 33.333 mls/hr IV ASDIRECTED [facility]; Protocol Last Infusion: 04/29/20 11:13 Dose: 0.5 mg/min, 16.667 mls/hr Documented by: Cefepime HCl 1 gm/ Premix 50 mls @ 100 mls/hr IV Q8H [facility] Last Admin: 04/29/20 22:18 Dose: Not Given Documented by: Vancomycin HCl 0.75 gm/ Sodium (Chloride) 250 mls @ 166.667 mls/hr IV Q24H [facility] Last Admin: 04/29/20 06:03 Dose: 166.667 mls/hr Documented by: Norepinephrine Bitartrate (Norepinephr-0.9% Nacl 4 Mg/250) 4 mg in 250 mls @ 7.5 mls/hr IV TITRATE [facility]; Protocol Last Titration: 04/29/20 11:11 Dose: 5 mcg/min, 18.75 mls/hr Documented by: Sodium Chloride (Normal Saline) 500 mls @ 500 mls/hr IV ONETIME ONE Stop: 04/29/20 08:44 Last Admin: 04/29/20 08:00 Dose: 500 mls/hr Documented by: Vancomycin HCl 750 mg/ Sodium (Chloride) 250 mls @ 166.667 mls/hr IV Q24H [facility] Last Admin: 04/29/20 09:45 Dose: Not Given Documented by: Vancomycin HCl 750 mg/ Sodium (Chloride) 250 mls @ 166.667 mls/hr IV Q24H [facility] Methylprednisolone Sodium Succinate (Solu-Medrol) 125 mg IVPUSH ONETIME ONE Stop: 04/28/20 22:30 Last Admin: 04/28/20 22:39 Dose: 125 mg Documented by: Methylprednisolone Sodium Succinate (Solu-Medrol) 40 mg IVPUSH Q24H [facility] Last Admin: 04/29/20 17:35 Dose: 40 mg Documented by: Morphine Sulfate (Morphine) 2 mg IVPUSH Q2H PRN PRN Reason: Other Last Admin: 04/30/20 01:36 Dose: 2 mg Documented by: Morphine Sulfate (Morphine) 2 mg IVPUSH .Q30MIN PRN PRN Reason: Pain Omeprazole (Omeprazole) 40 mg PO ACBREAKFAST [facility] Last Admin: 04/29/20 08:15 Dose: 40 mg Documented by: Sertraline HCl (Zoloft) 150 mg PO DAILY [facility] Last Admin: 04/29/20 09:13 Dose: 150 mg Documented by: Sodium Chloride (Saline Flush) 10 ml FLUSH ASDIRECTED PRN PRN Reason: Keep Vein Open Sodium Chloride (Saline Flush) 2.5 ml FLUSH ASDIRECTED PRN PRN Reason: Keep Vein Open Vancomycin HCl (Pharmacy To Dose - Vancomycin) 1 dose .XX ASDIRECTED [facility]
== END 2020-04-30 01:53 | disposition expired | DRG 871 ==
LOC: MW.ED 22:24 → MW.ICU 23:58 → MW.MS 04-29 21:11
PROVIDERS: ADMIT Internal Medicine; ATTEND Internal Medicine
PROC: 5A09357 Assistance with Respiratory Ventilation, Less than 24 Consecutive Hours, Continuous Positive Airway Pressure (ICD-10-PCS; principal; 2020-04-28)
PROC: 8E0ZXY6 Isolation (ICD-10-PCS; 2020-04-28)
PROC: 3E033XZ Introduction of Vasopressor into Peripheral Vein, Percutaneous Approach (ICD-10-PCS; 2020-04-29)
DX: A41.9 Sepsis, unspecified organism (principal); J96.01 Acute respiratory failure with hypoxia; J15.6 Pneumonia due to other Gram-negative bacteria; J44.0 Chronic obstructive pulmonary disease with (acute) lower respiratory infection; J44.1 Chronic obstructive pulmonary disease with (acute) exacerbation; C34.90 Malignant neoplasm of unspecified part of unspecified bronchus or lung; K91.2 Postsurgical malabsorption, not elsewhere classified; Z66 Do not resuscitate; Z51.5 Encounter for palliative care; Z20.828 Contact with and (suspected) exposure to other viral communicable diseases; I48.91 Unspecified atrial fibrillation; H35.30 Unspecified macular degeneration; I25.10 Atherosclerotic heart disease of native coronary artery without angina pectoris; I11.0 Hypertensive heart disease with heart failure; I50.9 Heart failure, unspecified; F41.0 Panic disorder [episodic paroxysmal anxiety]; Z79.01 Long term (current) use of anticoagulants; Z88.5 Allergy status to narcotic agent; Z88.8 Allergy status to other drugs, medicaments and biological substances; Z98.49 Cataract extraction status, unspecified eye; I25.2 Old myocardial infarction; Z95.5 Presence of coronary angioplasty implant and graft; Z87.891 Personal history of nicotine dependence; Z99.81 Dependence on supplemental oxygen; Z85.42 Personal history of malignant neoplasm of other parts of uterus; Z90.710 Acquired absence of both cervix and uterus; Z87.01 Personal history of pneumonia (recurrent); Z95.828 Presence of other vascular implants and grafts; Z79.51 Long term (current) use of inhaled steroids; Z86.73 Personal history of transient ischemic attack (TIA), and cerebral infarction without residual deficits; Z79.899 Other long term (current) drug therapy; Z86.19 Personal history of other infectious and parasitic diseases; Z90.2 Acquired absence of lung [part of]; Z98.890 Other specified postprocedural states; Z83.2 Family history of diseases of the blood and blood-forming organs and certain disorders involving the immune mechanism; Z82.49 Family history of ischemic heart disease and other diseases of the circulatory system; Z92.21 Personal history of antineoplastic chemotherapy
CPT/HCPCS: 36415; 71045; 80053; 83605; 83735; 83880; 84484; 85025; 85610; 87040 ×2; 87804 ×2; 96365; 96375; 96376; 99285; J2930; J3490 ×2; J7050; U0002 ×2; 80048; 81003; 82803; 85014; 85018; 93005; 94640; 94660; 99291; A9270-GY; J0282; J0456; J0692; J0696; J1160; J2270; J2920; J3370; J3475; J7040; J7620-GY